=== PATIENT | male | born 1945 | race Caucasian/White ===

== ENCOUNTER → 2019-12-07 10:55 | Outpatient (REF) | payer MEDICARE, MEDICAID, SELFPAY | LOC: OLS.ACW100 10:55 | PROVIDERS: Visit Provider Internal Medicine | DX: Z03.818 Encounter for observation for suspected exposure to other biological agents ruled out (principal) | CPT/HCPCS: 87635; U0003 ==

== ENCOUNTER → 2019-12-13 12:01 | Outpatient (REF) | payer MEDICARE, MEDICAID, SELFPAY | LOC: OLS.ACW100 12:01 | PROVIDERS: Referring Provider Internal Medicine; Visit Provider Internal Medicine | DX: Z03.818 Encounter for observation for suspected exposure to other biological agents ruled out (principal); G93.41 Metabolic encephalopathy; R41.82 Altered mental status, unspecified; M62.81 Muscle weakness (generalized); R26.81 Unsteadiness on feet; R27.9 Unspecified lack of coordination; R41.841 Cognitive communication deficit | CPT/HCPCS: 87635; U0003 ==

== ENCOUNTER → 2019-12-17 04:00 | Outpatient (REF) | payer MEDICARE, MEDICAID, SELFPAY ==
[2019-12-17 08:48] LABS: Hemoglobin 10.9 g/dL (13.0-16.5); Mean Corp Hgb Conc 31.1 g/dL (32-36); Mean Corpuscular Hgb 32.3 pg (27.0-32.0); Mean Corpuscular Volume 103.9 fL (80-94); Mean Platelet Vol. 10.8 fl (6.2-12.0); Platelet Count 141 K/mm3 (150-450); RBC Distribution Width CV 16.5 % (11.6-14.6); RBC Distribution Width SD 62.5 fl (35.1-43.9); Red Blood Count 3.37 M/mm3 (4.6-6.2); White Blood Count 9.3 K/mm3 (4.4-11.0)
[2019-12-17 08:54] LABS: Erythrocyte Sedimentation Rate 58 mm/hr (0-20)
[2019-12-17 09:01] LABS: Anion Gap 8 (5-15); BUN 59 mg/dL (7-18); BUN/Creat Ratio 7.4 RATIO (10-20); Calcium,Total 8.8 mg/dL (8.5-10.1); Chloride 96 mmol/L (98-107); Creatinine, Serum 7.94 mg/dL (0.70-1.30); EST Glomerular Filtration Rate 7 mL/min (>60); Est Glom Filt Rate - Afr Amer 9 mL/min (>60); Glucose 103 mg/dL (74-106); Sodium Level 135 mmol/L (136-145); Uric Acid 5.4 mg/dL (3.5-7.2)
== END ==
LOC: OLS.ACW100 04:00
PROVIDERS: Referring Provider Internal Medicine; Visit Provider Internal Medicine
DX: G93.41 Metabolic encephalopathy (principal); R41.82 Altered mental status, unspecified; M62.81 Muscle weakness (generalized); R26.81 Unsteadiness on feet; R27.9 Unspecified lack of coordination; R41.841 Cognitive communication deficit
CPT/HCPCS: 36415; 80048; 84550; 85027; 85652

== ENCOUNTER → 2020-01-28 05:00 | Outpatient (REF) | payer MEDICARE, MEDICAID, SELFPAY ==
[2020-01-28 08:43] LABS: Erythrocyte Sedimentation Rate 27 mm/hr (0-20)
[2020-01-28 08:57] LABS: Hematocrit 30.4 % (40-54); Hemoglobin 9.8 g/dL (13.0-16.5); Mean Corp Hgb Conc 32.2 g/dL (32-36); Mean Corpuscular Hgb 32.2 pg (27.0-32.0); Mean Platelet Vol. 10.5 fl (6.2-12.0); Platelet Count 140 K/mm3 (150-450); RBC Distribution Width CV 16.5 % (11.6-14.6); RBC Distribution Width SD 59.7 fl (35.1-43.9); Red Blood Count 3.04 M/mm3 (4.6-6.2)
[2020-01-28 09:01] LABS: Anion Gap 8 (5-15); BUN 26 mg/dL (7-18); BUN/Creat Ratio 3.7 RATIO (10-20); Calcium,Total 7.8 mg/dL (8.5-10.1); Chloride 100 mmol/L (98-107); Creatinine, Serum 7.09 mg/dL (0.70-1.30); EST Glomerular Filtration Rate 8 mL/min (>60); Est Glom Filt Rate - Afr Amer 10 mL/min (>60); Glucose 70 mg/dL (74-106); Potassium 3.5 mmol/L (3.5-5.1); Sodium Level 139 mmol/L (136-145)
== END ==
LOC: OLS.ACW100 05:00
PROVIDERS: Referring Provider Internal Medicine; Visit Provider Internal Medicine
DX: G93.41 Metabolic encephalopathy (principal); R41.82 Altered mental status, unspecified; M62.81 Muscle weakness (generalized); R26.81 Unsteadiness on feet; R27.9 Unspecified lack of coordination; R41.841 Cognitive communication deficit
CPT/HCPCS: 36415; 80048; 85027; 85652

== ENCOUNTER → 2020-03-03 04:00 | Outpatient (REF) | payer MEDICARE, MEDICAID, SELFPAY ==
[2020-03-03 08:30] LABS: Hematocrit 26.3 % (40-54); Hemoglobin 8.1 g/dL (13.0-16.5); Mean Corp Hgb Conc 30.8 g/dL (32-36); Mean Corpuscular Hgb 30.7 pg (27.0-32.0); Mean Corpuscular Volume 99.6 fL (80-94); Mean Platelet Vol. 10.9 fl (6.2-12.0); Platelet Count 132 K/mm3 (150-450); RBC Distribution Width CV 17.4 % (11.6-14.6); RBC Distribution Width SD 63.2 fl (35.1-43.9); Red Blood Count 2.64 M/mm3 (4.6-6.2); White Blood Count 5.9 K/mm3 (4.4-11.0)
[2020-03-03 08:41] LABS: ALB/GLOB Ratio 0.5 RATIO (0.9-2.4); AST(SGOT) 11 U/L (15-37); Alanine Aminotransfer ALT/SGPT 12 U/L (16-61); Albumin, Serum 1.9 g/dL (3.2-5.0); Alkaline Phosphatase 99 U/L (45-117); Anion Gap 4 (5-15); BUN 24 mg/dL (7-18); BUN/Creat Ratio 4.6 RATIO (10-20); Calcium,Total 9.7 mg/dL (8.5-10.1); Chloride 96 mmol/L (98-107); Creatinine, Serum 5.24 mg/dL (0.70-1.30); EST Glomerular Filtration Rate 11 mL/min (>60); Est Glom Filt Rate - Afr Amer 14 mL/min (>60); Globulin 3.5 g/dL (2.2-4.2); Glucose 72 mg/dL (74-106); Potassium 3.3 mmol/L (3.5-5.1); Protein, Total 5.4 g/dL (6.4-8.2); Sodium Level 136 mmol/L (136-145)
== END ==
LOC: OLS.ACW100 04:00
PROVIDERS: Referring Provider Internal Medicine; Visit Provider Internal Medicine
DX: N18.6 End stage renal disease (principal); R41.82 Altered mental status, unspecified; U07.1 COVID-19; M62.81 Muscle weakness (generalized); R26.81 Unsteadiness on feet; R27.9 Unspecified lack of coordination
CPT/HCPCS: 36415; 80053; 85027

== ENCOUNTER → 2020-03-10 04:00 | Outpatient (REF) | payer MEDICARE, MEDICAID, SELFPAY ==
[2020-03-10 07:56] LABS: Hematocrit 22.4 % (40-54); Hemoglobin 8.4 g/dL (13.0-16.5); Mean Corp Hgb Conc 37.5 g/dL (32-36); Mean Corpuscular Hgb 38.2 pg (27.0-32.0); Mean Corpuscular Volume 101.8 fL (80-94); Mean Platelet Vol. 10.5 fl (6.2-12.0); Platelet Count 174 K/mm3 (150-450); RBC Distribution Width SD 64.5 fl (35.1-43.9); White Blood Count 6.8 K/mm3 (4.4-11.0)
[2020-03-10 08:40] LABS: Anion Gap 5 (5-15); BUN 14 mg/dL (7-18); Chloride 99 mmol/L (98-107); Creatinine, Serum 4.66 mg/dL (0.70-1.30); EST Glomerular Filtration Rate 13 mL/min (>60); Est Glom Filt Rate - Afr Amer 16 mL/min (>60); Glucose 71 mg/dL (74-106); Iron 48 ug/dL (65-175); Iron Binding Capacity,Total 116 ug/dL (250-450); Potassium 2.9 mmol/L (3.5-5.1); Sodium Level 139 mmol/L (136-145)
[2020-03-10 08:41] LABS: Vitamin B12 1040 pg/mL (211-911)
== END ==
LOC: OLS.ACW100 04:00
PROVIDERS: Visit Provider Internal Medicine
DX: U07.1 COVID-19 (principal); R41.82 Altered mental status, unspecified; M62.81 Muscle weakness (generalized); R26.81 Unsteadiness on feet; R27.9 Unspecified lack of coordination; R41.841 Cognitive communication deficit; N18.6 End stage renal disease
CPT/HCPCS: 36415; 80048; 82607; 82746; 83540; 83550; 85027

== ENCOUNTER → 2020-03-25 05:00 | Outpatient (REF) | payer MEDICARE, MEDICAID, SELFPAY ==
[2020-03-25 08:25] LABS: Hematocrit 34.1 % (40-54); Hemoglobin 10.6 g/dL (13.0-16.5); Mean Corp Hgb Conc 31.1 g/dL (32-36); Mean Platelet Vol. 9.9 fl (6.2-12.0); POSITIVE MORPHOLOGY YES; Platelet Count 176 K/mm3 (150-450); RBC Distribution Width SD 70.5 fl (35.1-43.9); Red Blood Count 3.31 M/mm3 (4.6-6.2); White Blood Count 7.7 K/mm3 (4.4-11.0)
[2020-03-25 08:27] LABS: Scan Indicated on CBC? Y/N YES- FLAGS NOTED
[2020-03-25 08:29] LABS: Anion Gap 9 (5-15); BUN 34 mg/dL (7-18); BUN/Creat Ratio 5.4 RATIO (10-20); Calcium,Total 11.4 mg/dL (8.5-10.1); Chloride 102 mmol/L (98-107); EST Glomerular Filtration Rate 9 mL/min (>60); Est Glom Filt Rate - Afr Amer 11 mL/min (>60); Glucose 66 mg/dL (74-106); Potassium 5.2 mmol/L (3.5-5.1); Sodium Level 136 mmol/L (136-145)
== END ==
LOC: OLS.ACW100 05:00
PROVIDERS: Referring Provider Internal Medicine; Visit Provider Internal Medicine
DX: U07.1 COVID-19 (principal); R41.82 Altered mental status, unspecified; M62.81 Muscle weakness (generalized); R26.81 Unsteadiness on feet; R27.9 Unspecified lack of coordination; R41.841 Cognitive communication deficit
CPT/HCPCS: 36415; 80048; 85027

== ENCOUNTER → 2020-05-16 22:10 | Outpatient (REF) | payer MEDICARE, MEDICAID, SELFPAY ==
[2020-05-17 17:19] LABS: Color, Urine Red (Yellow); Glucose, Dipstick Normal (Normal); Ketone-Dipstick 5 mg/dl (Negative); Leukocyte Esterase-Dipstick 500 /ul (Negative); Nitrite-Dipstick Positive (Negative); Occult Blood-Urine 250 /ul (Negative); Protein-Dipstick 100 mg/dl (Negative); Urine Bilirubin Dipstick Negative (Negative); Urine Clarity Cloudy (Clear); Urine Urobilinogen Normal (Normal)
== END ==
LOC: OLS.ACW100 22:10
PROVIDERS: Visit Provider Internal Medicine
DX: N18.6 End stage renal disease (principal); R41.82 Altered mental status, unspecified; M62.81 Muscle weakness (generalized); R26.81 Unsteadiness on feet; R27.9 Unspecified lack of coordination; R41.841 Cognitive communication deficit
CPT/HCPCS: 81002; 87077; 87086; 87088; 87186

== ENCOUNTER → 2020-05-21 03:00 | Outpatient (REF) | payer MEDICARE, MEDICAID, SELFPAY ==
[2020-05-21 08:35] LABS: Color, Urine Red (Yellow); Glucose, Dipstick 100 mg/dl (Normal); Ketone-Dipstick Negative (Negative); Leukocyte Esterase-Dipstick 500 /ul (Negative); Nitrite-Dipstick Negative (Negative); Occult Blood-Urine 250 /ul (Negative); Protein-Dipstick 100 mg/dl (Negative); Specific Gravity, Urine 1.015 (1.002-1.030); Urine Bilirubin Dipstick Negative (Negative); Urine Clarity Cloudy (Clear); Urine Urobilinogen Normal (Normal)
== END ==
LOC: OLS.ACW100 03:00
PROVIDERS: Referring Provider Internal Medicine; Visit Provider Internal Medicine
DX: N18.6 End stage renal disease (principal); R41.82 Altered mental status, unspecified; M62.81 Muscle weakness (generalized); R26.81 Unsteadiness on feet; R27.9 Unspecified lack of coordination; R41.841 Cognitive communication deficit
CPT/HCPCS: 81002; 87077; 87086; 87088; 87186

== ENCOUNTER → 2020-07-22 04:00 | Outpatient (REF) | payer MEDICARE, MEDICAID, SELFPAY ==
[2020-07-22 09:01] LABS: Cholesterol 126 mg/dL (200); High Density Lipoprotein 38 mg/dL; Triglycerides 144 mg/dL; Very Low Density Lipoprotein 29 mg/dL (5-40)
== END ==
LOC: OLS.ACW100 04:00
PROVIDERS: Referring Provider Internal Medicine; Visit Provider Internal Medicine
DX: N18.6 End stage renal disease (principal); R41.82 Altered mental status, unspecified; M62.81 Muscle weakness (generalized); R26.81 Unsteadiness on feet; R27.9 Unspecified lack of coordination; R41.841 Cognitive communication deficit
CPT/HCPCS: 36415; 80061

== ENCOUNTER → 2021-01-21 05:00 | Outpatient (REF) | payer MEDICARE, MEDICAID, SELFPAY ==
[2021-01-21 09:47] LABS: ALB/GLOB Ratio 0.7 RATIO (0.9-2.4); AST(SGOT) 10 U/L (15-37); Alanine Aminotransfer ALT/SGPT 16 U/L (16-61); Albumin, Serum 3.2 g/dL (3.2-5.0); Alkaline Phosphatase 103 U/L (45-117); Anion Gap 7 (5-15); BUN 39 mg/dL (7-18); BUN/Creat Ratio 6.1 RATIO (10-20); Calcium,Total 8.6 mg/dL (8.5-10.1); Chloride 101 mmol/L (98-107); Cholesterol 98 mg/dL (200); Creatinine, Serum 6.43 mg/dL (0.70-1.30); EST Glomerular Filtration Rate 9 mL/min (>60); Est Glom Filt Rate - Afr Amer 11 mL/min (>60); Globulin 4.3 g/dL (2.2-4.2); Glucose 85 mg/dL (74-106); High Density Lipoprotein 28 mg/dL; Potassium 4.7 mmol/L (3.5-5.1); Protein, Total 7.5 g/dL (6.4-8.2); Sodium Level 140 mmol/L (136-145); Triglycerides 199 mg/dL; Very Low Density Lipoprotein 40 mg/dL (5-40)
[2021-01-21 09:50] LABS: Hematocrit 34.4 % (40-54); Mean Corpuscular Hgb 34.1 pg (27.0-32.0); Mean Corpuscular Volume 106.5 fL (80-94); Mean Platelet Vol. 10.7 fl (6.2-12.0); Platelet Count 158 K/mm3 (150-450); RBC Distribution Width CV 14.9 % (11.6-14.6); RBC Distribution Width SD 57.9 fl (35.1-43.9); Red Blood Count 3.23 M/mm3 (4.6-6.2); White Blood Count 5.8 K/mm3 (4.4-11.0)
== END ==
LOC: OLS.ACW100 05:00
PROVIDERS: Visit Provider Internal Medicine
DX: N18.6 End stage renal disease (principal); R41.82 Altered mental status, unspecified; M62.81 Muscle weakness (generalized); R26.81 Unsteadiness on feet; R27.9 Unspecified lack of coordination; R41.841 Cognitive communication deficit
CPT/HCPCS: 36415; 80053; 80061; 85027

== ENCOUNTER → 2021-02-16 22:00 | Outpatient (REF) | payer MEDICARE, MEDICAID, SELFPAY ==
[2021-02-17 08:26] LABS: Color, Urine Red (Yellow); Glucose, Dipstick 50 mg/dl (Normal); Ketone-Dipstick Negative (Negative); Leukocyte Esterase-Dipstick 100 /ul (Negative); Nitrite-Dipstick Negative (Negative); Occult Blood-Urine 250 /ul (Negative); Protein-Dipstick 100 mg/dl (Negative); Specific Gravity, Urine 1.015 (1.002-1.030); Urine Bilirubin Dipstick Negative (Negative); Urine Clarity Cloudy (Clear); Urine Urobilinogen Normal (Normal)
== END ==
LOC: OLS.ACW100 22:00
PROVIDERS: Visit Provider Internal Medicine
DX: N18.6 End stage renal disease (principal); R41.82 Altered mental status, unspecified; M62.81 Muscle weakness (generalized); R26.81 Unsteadiness on feet; R27.9 Unspecified lack of coordination; R41.841 Cognitive communication deficit
CPT/HCPCS: 81002; 87086; 87088

== ENCOUNTER 2021-02-23 05:00 | Outpatient (REF) | payer MEDICARE, MEDICAID, SELFPAY ==
--- NOTE | 2021-02-23 08:00 | CYSPIN_PTH ---
PATIENT: DALJIT TOMAS LOC: [id number] U#:[id number] AGE/SX: 75/M ROOM: RE02/23/[address]: Gene Stringer : 1945 BED: DIS: 02/23/2021 SPEC #: [id number] RECD: 02/23/21 12:52 STATUS: EDISON TANESHA #: [id number] [place]: 02/23/21 08:[address]: Gene Stringer DEPT: CYTOLOGY RECD BY: Ashley Amaro Tissues: Urine Procedures: Pap Stain (control) Special Stain Group II Cytospin Fluid HEADER OPERATION: Not noted PRE-OP DIAGNOSIS: End-stage renal disease TISSUE SUBMITTED: Urine for cytology DIAGNOSIS CYTOLOGY Urine for cytology (cytospin): Negative for malignant cells. AM:april 02/24/2021 CYTOLOGY STUDY Slides are reviewed. CYTOLOGY GROSS Received is 20 ml of yellow cloudy fluid labeled with the patient's name and and designated per the requisition as urine. Submitted for cytology preparation. / april 02/23/2021 TC:5 CPT: 08690
[2021-02-23 10:36] LABS: Cytology, Body Fluid / CSF SEE PATHOLOGY REPORT
== END 2021-02-23 23:59 | disposition home or self-care (01) ==
LOC: OLS.ACW100 05:00
PROVIDERS: Visit Provider Internal Medicine
DX: N40.0 Benign prostatic hyperplasia without lower urinary tract symptoms (principal); N18.6 End stage renal disease; R41.82 Altered mental status, unspecified; M62.81 Muscle weakness (generalized); R26.81 Unsteadiness on feet; R41.841 Cognitive communication deficit
CPT/HCPCS: 36415; 84153; 88108; 88313

== ENCOUNTER → 2021-07-22 | Outpatient (REF) | payer MEDICARE, MEDICAID, SELFPAY ==
[2021-07-22 11:15] LABS: ALB/GLOB Ratio 0.7 RATIO (0.9-2.4); AST(SGOT) 11 U/L (15-37); Alanine Aminotransfer ALT/SGPT 19 U/L (16-61); Albumin, Serum 3.2 g/dL (3.2-5.0); Alkaline Phosphatase 107 U/L (45-117); Anion Gap 8 (5-15); BUN 46 mg/dL (7-18); BUN/Creat Ratio 6.8 RATIO (10-20); Calcium,Total 9.6 mg/dL (8.5-10.1); Chloride 96 mmol/L (98-107); Cholesterol 126 mg/dL (200); Creatinine, Serum 6.78 mg/dL (0.70-1.30); EST Glomerular Filtration Rate 8 mL/min (>60); Est Glom Filt Rate - Afr Amer 10 mL/min (>60); Globulin 4.6 g/dL (2.2-4.2); Glucose 98 mg/dL (74-106); High Density Lipoprotein 34 mg/dL; Potassium 4.2 mmol/L (3.5-5.1); Protein, Total 7.8 g/dL (6.4-8.2); Sodium Level 137 mmol/L (136-145); Triglycerides 254 mg/dL; Very Low Density Lipoprotein 51 mg/dL (5-40)
[2021-07-22 11:22] LABS: Hematocrit 30.6 % (40-54); Hemoglobin 11.4 g/dL (13.0-16.5); Mean Corp Hgb Conc 37.3 g/dL (32-36); Mean Corpuscular Hgb 40.7 pg (27.0-32.0); Mean Corpuscular Volume 109.3 fL (80-94); Mean Platelet Vol. 10.5 fl (6.2-12.0); Platelet Count 149 K/mm3 (150-450); RBC Distribution Width CV 18.7 % (11.6-14.6); RBC Distribution Width SD 60.4 fl (35.1-43.9); Scan Indicated on CBC? Y/N NO; White Blood Count 7.6 K/mm3 (4.4-11.0)
== END | disposition home or self-care (01) ==
LOC: OLS.ACW100 05:00
PROVIDERS: Referring Provider Internal Medicine; Visit Provider Internal Medicine
DX: N18.6 End stage renal disease (principal); R41.82 Altered mental status, unspecified; M62.81 Muscle weakness (generalized); R26.81 Unsteadiness on feet; R27.9 Unspecified lack of coordination; R41.841 Cognitive communication deficit
CPT/HCPCS: 36415; 80053; 80061; 85027

== ENCOUNTER → 2021-07-24 | Outpatient (REF) | payer MEDICARE, MEDICAID, SELFPAY ==
[2021-07-24 08:30] LABS: ALB/GLOB Ratio 0.7 RATIO (0.9-2.4); AST(SGOT) 13 U/L (15-37); Alanine Aminotransfer ALT/SGPT 20 U/L (16-61); Albumin, Serum 3.4 g/dL (3.2-5.0); Alkaline Phosphatase 106 U/L (45-117); Anion Gap 7 (5-15); BUN 32 mg/dL (7-18); BUN/Creat Ratio 5.4 RATIO (10-20); Calcium,Total 9.6 mg/dL (8.5-10.1); Chloride 96 mmol/L (98-107); Cholesterol 113 mg/dL (200); Creatinine, Serum 5.97 mg/dL (0.70-1.30); EST Glomerular Filtration Rate 10 mL/min (>60); Est Glom Filt Rate - Afr Amer 12 mL/min (>60); Globulin 4.7 g/dL (2.2-4.2); Glucose 105 mg/dL (74-106); High Density Lipoprotein 29 mg/dL; Potassium 4.1 mmol/L (3.5-5.1); Protein, Total 8.1 g/dL (6.4-8.2); Sodium Level 134 mmol/L (136-145); Triglycerides 268 mg/dL; Very Low Density Lipoprotein 54 mg/dL (5-40)
[2021-07-24 08:37] LABS: Hematocrit 35.4 % (40-54); Hemoglobin 11.9 g/dL (13.0-16.5); Mean Corp Hgb Conc 33.6 g/dL (32-36); Mean Corpuscular Hgb 36.4 pg (27.0-32.0); Mean Corpuscular Volume 108.3 fL (80-94); Mean Platelet Vol. 10.7 fl (6.2-12.0); Platelet Count 174 K/mm3 (150-450); RBC Distribution Width CV 16.8 % (11.6-14.6); RBC Distribution Width SD 62.2 fl (35.1-43.9); Red Blood Count 3.27 M/mm3 (4.6-6.2); White Blood Count 8.3 K/mm3 (4.4-11.0)
== END | disposition home or self-care (01) ==
LOC: OLS.ACW100 05:00
PROVIDERS: Referring Provider Internal Medicine; Visit Provider Internal Medicine
DX: N18.6 End stage renal disease (principal); R41.82 Altered mental status, unspecified; M62.81 Muscle weakness (generalized); R26.81 Unsteadiness on feet; R27.9 Unspecified lack of coordination; R41.841 Cognitive communication deficit
CPT/HCPCS: 36415; 80053; 80061; 85027

== ENCOUNTER → 2021-08-25 05:00 | Outpatient (REF) | payer MEDICARE, MEDICAID, SELFPAY ==
[2021-08-25 08:26] LABS: PSA,Total- Diagnostic 2.85 ng/mL (0.0-4.0)
== END ==
LOC: OLS.ACW100 05:00
PROVIDERS: Visit Provider Internal Medicine
DX: N40.0 Benign prostatic hyperplasia without lower urinary tract symptoms (principal); N18.6 End stage renal disease; R41.82 Altered mental status, unspecified; M62.81 Muscle weakness (generalized); R26.81 Unsteadiness on feet; R27.9 Unspecified lack of coordination; R41.841 Cognitive communication deficit
CPT/HCPCS: 36415; 84153

== ENCOUNTER → 2022-01-22 | Outpatient (REF) | payer MEDICARE, MEDICAID, SELFPAY ==
[2022-01-22 09:11] LABS: ALB/GLOB Ratio 0.7 RATIO (0.9-2.4); AST(SGOT) 15 U/L (15-37); Alanine Aminotransfer ALT/SGPT 23 U/L (16-61); Albumin, Serum 3.1 g/dL (3.2-5.0); Alkaline Phosphatase 105 U/L (45-117); Anion Gap 5 (5-15); BUN 24 mg/dL (7-18); BUN/Creat Ratio 4.8 RATIO (10-20); Calcium,Total 9.7 mg/dL (8.5-10.1); Chloride 102 mmol/L (98-107); Cholesterol 93 mg/dL (200); Creatinine, Serum 4.95 mg/dL (0.70-1.30); EST Glomerular Filtration Rate 12 mL/min (>60); Est Glom Filt Rate - Afr Amer 15 mL/min (>60); Globulin 4.3 g/dL (2.2-4.2); Glucose 102 mg/dL (74-106); High Density Lipoprotein 28 mg/dL; Potassium 4.6 mmol/L (3.5-5.1); Protein, Total 7.4 g/dL (6.4-8.2); Sodium Level 139 mmol/L (136-145); Triglycerides 195 mg/dL; Very Low Density Lipoprotein 39 mg/dL (5-40)
[2022-01-22 09:19] LABS: Hematocrit 29.8 % (40-54); Hemoglobin 9.4 g/dL (13.0-16.5); Mean Corp Hgb Conc 31.5 g/dL (32-36); Mean Corpuscular Hgb 34.6 pg (27.0-32.0); Mean Corpuscular Volume 109.6 fL (80-94); POSITIVE COUNT YES; Platelet Count 120 K/mm3 (150-450); RBC Distribution Width CV 15.7 % (11.6-14.6); RBC Distribution Width SD 62.6 fl (35.1-43.9); Red Blood Count 2.72 M/mm3 (4.6-6.2); White Blood Count 6.5 K/mm3 (4.4-11.0)
[2022-01-22 09:37] LABS: Scan Indicated on CBC? Y/N YES- FLAGS NOTED
[2022-01-22 09:39] LABS: Differential Comment S
== END ==
LOC: OLS.ACW100 05:00
PROVIDERS: Referring Provider Internal Medicine; Visit Provider Internal Medicine
DX: N18.6 End stage renal disease (principal); R41.82 Altered mental status, unspecified; M62.81 Muscle weakness (generalized); R26.81 Unsteadiness on feet; R27.9 Unspecified lack of coordination; R41.841 Cognitive communication deficit
CPT/HCPCS: 36415; 80053; 80061; 85027

== ENCOUNTER → 2022-01-29 | Outpatient (REF) | payer MEDICARE, MEDICAID, SELFPAY ==
[2022-01-29 08:22] LABS: Anion Gap 3 (5-15); BUN 18 mg/dL (7-18); BUN/Creat Ratio 3.7 RATIO (10-20); Calcium,Total 8.5 mg/dL (8.5-10.1); Chloride 101 mmol/L (98-107); Creatinine, Serum 4.81 mg/dL (0.70-1.30); EST Glomerular Filtration Rate 13 mL/min (>60); Est Glom Filt Rate - Afr Amer 15 mL/min (>60); Glucose 115 mg/dL (74-106); Potassium 4.4 mmol/L (3.5-5.1); Sodium Level 139 mmol/L (136-145)
[2022-01-29 09:00] LABS: Hematocrit 27.3 % (40-54); Hemoglobin 8.7 g/dL (13.0-16.5); Mean Corp Hgb Conc 31.9 g/dL (32-36); Mean Corpuscular Hgb 35.2 pg (27.0-32.0); Mean Corpuscular Volume 110.5 fL (80-94); Mean Platelet Vol. 11.2 fl (6.2-12.0); Platelet Count 142 K/mm3 (150-450); RBC Distribution Width CV 15.2 % (11.6-14.6); RBC Distribution Width SD 61.1 fl (35.1-43.9); Red Blood Count 2.47 M/mm3 (4.6-6.2); White Blood Count 9.7 K/mm3 (4.4-11.0)
== END ==
LOC: OLS.ACW100 04:00
PROVIDERS: Visit Provider Internal Medicine
DX: R05.9 Cough, unspecified (principal); N18.6 End stage renal disease; R41.82 Altered mental status, unspecified; M62.81 Muscle weakness (generalized); R26.81 Unsteadiness on feet; R27.9 Unspecified lack of coordination; R41.841 Cognitive communication deficit
CPT/HCPCS: 36415; 80048; 85027; 87804

== ENCOUNTER → 2022-03-05 | Outpatient (REF) | payer MEDICARE, MEDICAID, SELFPAY ==
[2022-03-05 09:40] LABS: Hematocrit 29.9 % (40-54); Hemoglobin 9.8 g/dL (13.0-16.5); Mean Corp Hgb Conc 32.8 g/dL (32-36); Mean Corpuscular Hgb 36.4 pg (27.0-32.0); Mean Corpuscular Volume 111.2 fL (80-94); Mean Platelet Vol. 11.1 fl (6.2-12.0); POSITIVE COUNT YES; Platelet Count 129 K/mm3 (150-450); RBC Distribution Width SD 62.7 fl (35.1-43.9); Red Blood Count 2.69 M/mm3 (4.6-6.2); White Blood Count 6.5 K/mm3 (4.4-11.0)
[2022-03-05 09:45] LABS: ALB/GLOB Ratio 0.8 RATIO (0.9-2.4); AST(SGOT) 12 U/L (15-37); Alanine Aminotransfer ALT/SGPT 26 U/L (16-61); Alkaline Phosphatase 151 U/L (45-117); Anion Gap 7 (5-15); BUN 25 mg/dL (7-18); BUN/Creat Ratio 5.2 RATIO (10-20); Calcium,Total 8.6 mg/dL (8.5-10.1); Chloride 100 mmol/L (98-107); EST Glomerular Filtration Rate 13 mL/min (>60); Est Glom Filt Rate - Afr Amer 15 mL/min (>60); Globulin 3.9 g/dL (2.2-4.2); Glucose 101 mg/dL (74-106); Potassium 4.7 mmol/L (3.5-5.1); Protein, Total 6.9 g/dL (6.4-8.2); Sodium Level 139 mmol/L (136-145)
[2022-03-05 10:17] LABS: Scan Indicated on CBC? Y/N YES- FLAGS NOTED
== END ==
LOC: OLS.ACW100 05:00
PROVIDERS: Visit Provider Internal Medicine
DX: N18.6 End stage renal disease (principal); R41.82 Altered mental status, unspecified; M62.81 Muscle weakness (generalized); R26.81 Unsteadiness on feet; R27.9 Unspecified lack of coordination; R41.841 Cognitive communication deficit; Z79.899 Other long term (current) drug therapy
CPT/HCPCS: 36415; 80053; 85027

== ENCOUNTER → 2022-07-23 | Outpatient (REF) | payer MEDICARE, MEDICAID, SELFPAY ==
[2022-07-23 08:38] LABS: Anion Gap 8 (5-15); BUN 41 mg/dL (7-18); BUN/Creat Ratio 6.6 RATIO (10-20); Calcium,Total 10.2 mg/dL (8.5-10.1); Chloride 103 mmol/L (98-107); Cholesterol 91 mg/dL (200); EST Glomerular Filtration Rate 9 mL/min (>60); Est Glom Filt Rate - Afr Amer 11 mL/min (>60); Glucose 102 mg/dL (74-106); High Density Lipoprotein 27 mg/dL; Potassium 4.4 mmol/L (3.5-5.1); Sodium Level 139 mmol/L (136-145); Triglycerides 162 mg/dL; Very Low Density Lipoprotein 32 mg/dL (5-40)
[2022-07-23 08:58] LABS: Hematocrit 28.4 % (40-54); Hemoglobin 9.4 g/dL (13.0-16.5); Mean Corp Hgb Conc 33.1 g/dL (32-36); Mean Corpuscular Hgb 36.4 pg (27.0-32.0); Mean Corpuscular Volume 110.1 fL (80-94); Platelet Count 142 K/mm3 (150-450); RBC Distribution Width CV 15.1 % (11.6-14.6); RBC Distribution Width SD 58.2 fl (35.1-43.9); Red Blood Count 2.58 M/mm3 (4.6-6.2); White Blood Count 7.5 K/mm3 (4.4-11.0)
== END ==
LOC: OLS.ACW100 05:00
PROVIDERS: Visit Provider Family Medicine
DX: N18.6 End stage renal disease (principal); R41.82 Altered mental status, unspecified; M62.81 Muscle weakness (generalized); R26.81 Unsteadiness on feet; R27.9 Unspecified lack of coordination; R41.841 Cognitive communication deficit
CPT/HCPCS: 36415; 80048; 80061; 85027

== ENCOUNTER → 2022-08-04 | Outpatient (REF) | payer MEDICARE, MEDICAID, SELFPAY ==
[2022-08-04 09:58] LABS: Anion Gap 10 (5-15); BUN 26 mg/dL (7-18); BUN/Creat Ratio 4.9 RATIO (10-20); Calcium,Total 10.6 mg/dL (8.5-10.1); Chloride 100 mmol/L (98-107); Cholesterol 129 mg/dL (200); Creatinine, Serum 5.31 mg/dL (0.70-1.30); EST Glomerular Filtration Rate 11 mL/min (>60); Est Glom Filt Rate - Afr Amer 14 mL/min (>60); Glucose 96 mg/dL (74-106); High Density Lipoprotein 27 mg/dL; Potassium 4.5 mmol/L (3.5-5.1); Sodium Level 138 mmol/L (136-145); Triglycerides 222 mg/dL; Very Low Density Lipoprotein 44 mg/dL (5-40)
[2022-08-04 10:28] LABS: Hemoglobin 10.5 g/dL (13.0-16.5); Mean Corp Hgb Conc 31.8 g/dL (32-36); Mean Corpuscular Hgb 34.8 pg (27.0-32.0); Mean Corpuscular Volume 109.3 fL (80-94); Mean Platelet Vol. 10.5 fl (6.2-12.0); Platelet Count 170 K/mm3 (150-450); RBC Distribution Width CV 14.8 % (11.6-14.6); Red Blood Count 3.02 M/mm3 (4.6-6.2); White Blood Count 8.3 K/mm3 (4.4-11.0)
== END ==
LOC: OLS.ACW100 05:00
PROVIDERS: PCP Internal Medicine; Visit Provider Internal Medicine
DX: N18.6 End stage renal disease (principal); R41.82 Altered mental status, unspecified; M62.81 Muscle weakness (generalized); R26.81 Unsteadiness on feet; R41.841 Cognitive communication deficit; Z79.899 Other long term (current) drug therapy
CPT/HCPCS: 36415; 80048; 80061; 85027

== ENCOUNTER → 2022-08-06 | Outpatient (REF) | payer MEDICARE, MEDICAID, SELFPAY ==
[2022-08-06 08:27] LABS: ALB/GLOB Ratio 0.6 RATIO (0.9-2.4); AST(SGOT) 14 U/L (15-37); Alanine Aminotransfer ALT/SGPT 21 U/L (16-61); Albumin, Serum 2.8 g/dL (3.2-5.0); Alkaline Phosphatase 145 U/L (45-117); Anion Gap 8 (5-15); BUN 18 mg/dL (7-18); BUN/Creat Ratio 3.9 RATIO (10-20); Calcium,Total 10.1 mg/dL (8.5-10.1); Chloride 100 mmol/L (98-107); Creatinine, Serum 4.56 mg/dL (0.70-1.30); EST Glomerular Filtration Rate 13 mL/min (>60); Est Glom Filt Rate - Afr Amer 16 mL/min (>60); Globulin 4.6 g/dL (2.2-4.2); Glucose 89 mg/dL (74-106); Potassium 3.8 mmol/L (3.5-5.1); Protein, Total 7.4 g/dL (6.4-8.2); Sodium Level 139 mmol/L (136-145)
[2022-08-06 08:57] LABS: Hematocrit 30.3 % (40-54); Hemoglobin 9.9 g/dL (13.0-16.5); Mean Corp Hgb Conc 32.7 g/dL (32-36); Mean Corpuscular Hgb 36.5 pg (27.0-32.0); Mean Corpuscular Volume 111.8 fL (80-94); Platelet Count 159 K/mm3 (150-450); RBC Distribution Width CV 14.7 % (11.6-14.6); RBC Distribution Width SD 57.2 fl (35.1-43.9); Red Blood Count 2.71 M/mm3 (4.6-6.2); White Blood Count 6.1 K/mm3 (4.4-11.0)
== END ==
LOC: OLS.ACW100 05:00
PROVIDERS: Visit Provider Family Medicine
DX: N18.6 End stage renal disease (principal); R41.82 Altered mental status, unspecified; M62.81 Muscle weakness (generalized); R26.81 Unsteadiness on feet; R27.9 Unspecified lack of coordination; R41.841 Cognitive communication deficit
CPT/HCPCS: 36415; 80053; 85027

== ENCOUNTER → 2022-08-20 | Outpatient (REF) | payer MEDICARE, MEDICAID, SELFPAY ==
[2022-08-20 09:10] LABS: ALB/GLOB Ratio 0.7 RATIO (0.9-2.4); AST(SGOT) 14 U/L (15-37); Alanine Aminotransfer ALT/SGPT 20 U/L (16-61); Albumin, Serum 2.8 g/dL (3.2-5.0); Alkaline Phosphatase 189 U/L (45-117); Anion Gap 5 (5-15); BUN 20 mg/dL (7-18); BUN/Creat Ratio 4.2 RATIO (10-20); Calcium,Total 10.4 mg/dL (8.5-10.1); Chloride 101 mmol/L (98-107); Creatinine, Serum 4.79 mg/dL (0.70-1.30); EST Glomerular Filtration Rate 13 mL/min (>60); Est Glom Filt Rate - Afr Amer 15 mL/min (>60); Globulin 4.3 g/dL (2.2-4.2); Glucose 102 mg/dL (74-106); Potassium 4.2 mmol/L (3.5-5.1); Protein, Total 7.1 g/dL (6.4-8.2); Sodium Level 135 mmol/L (136-145)
[2022-08-20 09:22] LABS: Hematocrit 30.7 % (40-54); Hemoglobin 10.3 g/dL (13.0-16.5); Mean Corp Hgb Conc 33.6 g/dL (32-36); Mean Corpuscular Hgb 36.1 pg (27.0-32.0); Mean Corpuscular Volume 107.7 fL (80-94); Mean Platelet Vol. 11.1 fl (6.2-12.0); Platelet Count 121 K/mm3 (150-450); RBC Distribution Width SD 54.1 fl (35.1-43.9); Red Blood Count 2.85 M/mm3 (4.6-6.2); White Blood Count 6.5 K/mm3 (4.4-11.0)
== END ==
LOC: OLS.ACW100 07:12
PROVIDERS: Visit Provider Internal Medicine
DX: N18.6 End stage renal disease (principal); R41.82 Altered mental status, unspecified; M62.81 Muscle weakness (generalized); R26.81 Unsteadiness on feet; R27.9 Unspecified lack of coordination; R41.841 Cognitive communication deficit
CPT/HCPCS: 36415; 80053; 85027

== ENCOUNTER → 2022-08-23 | Outpatient (REF) | payer MEDICARE, MEDICAID, SELFPAY ==
[2022-08-23 08:21] LABS: Bacteria 0 SEEN /hpf (None Seen); Mucous, Urine 0 SEEN /hpf (<or=2+); Squamous Epithelial Cells - UA 0 SEEN /hpf (0-5)
[2022-08-23 09:21] LABS: Color, Urine Red (Yellow); Glucose, Dipstick Normal (Normal); Ketone-Dipstick 15 mg/dl (Negative); Leukocyte Esterase-Dipstick Negative /ul (Negative); Nitrite-Dipstick Negative (Negative); Occult Blood-Urine 250 /ul (Negative); Protein-Dipstick 500 mg/dl (Negative); Urine Bilirubin Dipstick Negative (Negative); Urine Clarity Turbid (Clear); Urine Urobilinogen Normal (Normal)
[2022-08-23 09:43] LABS: Red Blood Cells-Urine > 100 SEEN /hpf (0-5); White Blood Cells 10-25 SEEN /hpf (0-5)
== END ==
LOC: OLS.ACW100 02:00
PROVIDERS: Visit Provider Family Medicine
DX: R41.82 Altered mental status, unspecified (principal)
CPT/HCPCS: 81001

== ENCOUNTER → 2022-08-27 | Outpatient (REF) | payer MEDICARE, MEDICAID, SELFPAY ==
[2022-08-27 08:26] LABS: Hemoglobin 10.4 g/dL (13.0-16.5); POSITIVE COUNT YES; Platelet Count 141 K/mm3 (150-450); RBC Distribution Width CV 14.6 % (11.6-14.6); RBC Distribution Width SD 54.9 fl (35.1-43.9); White Blood Count 6.7 K/mm3 (4.4-11.0)
[2022-08-27 08:41] LABS: Anion Gap 9 (5-15); BUN 17 mg/dL (7-18); BUN/Creat Ratio 3.4 RATIO (10-20); Calcium,Total 10.6 mg/dL (8.5-10.1); Chloride 103 mmol/L (98-107); Creatinine, Serum 5.03 mg/dL (0.70-1.30); EST Glomerular Filtration Rate 12 mL/min (>60); Est Glom Filt Rate - Afr Amer 14 mL/min (>60); Glucose 126 mg/dL (74-106); Potassium 3.6 mmol/L (3.5-5.1); Sodium Level 141 mmol/L (136-145)
[2022-08-27 09:46] LABS: Hematocrit 31.6 % (40-54); Mean Corpuscular Hgb 36.7 pg (27.0-32.0); Mean Corpuscular Volume 111.7 fL (80-94)
[2022-08-27 09:47] LABS: Mean Corp Hgb Conc 32.9 g/dL (32-36)
== END ==
LOC: OLS.ACW300 05:00
PROVIDERS: Visit Provider Internal Medicine
DX: N18.6 End stage renal disease (principal); R41.82 Altered mental status, unspecified; M62.81 Muscle weakness (generalized); R26.81 Unsteadiness on feet; R27.9 Unspecified lack of coordination; R41.841 Cognitive communication deficit
CPT/HCPCS: 36415; 80048; 85027

== ENCOUNTER → 2022-09-03 | Outpatient (REF) | payer MEDICARE, MEDICAID, SELFPAY ==
[2022-09-03 09:29] LABS: Anion Gap 5 (5-15); BUN 18 mg/dL (7-18); BUN/Creat Ratio 3.4 RATIO (10-20); Calcium,Total 9.7 mg/dL (8.5-10.1); Chloride 103 mmol/L (98-107); Creatinine, Serum 5.26 mg/dL (0.70-1.30); EST Glomerular Filtration Rate 11 mL/min (>60); Est Glom Filt Rate - Afr Amer 14 mL/min (>60); Glucose 93 mg/dL (74-106); Sodium Level 141 mmol/L (136-145)
[2022-09-03 09:53] LABS: Hematocrit 30.3 % (40-54); Mean Corpuscular Volume 112.2 fL (80-94); Mean Platelet Vol. 10.6 fl (6.2-12.0); Platelet Count 114 K/mm3 (150-450); RBC Distribution Width CV 15.5 % (11.6-14.6); RBC Distribution Width SD 59.8 fl (35.1-43.9); White Blood Count 5.5 K/mm3 (4.4-11.0)
== END ==
LOC: OLS.ACW100 05:00
PROVIDERS: Visit Provider Internal Medicine
DX: N18.6 End stage renal disease (principal); R41.82 Altered mental status, unspecified; M62.81 Muscle weakness (generalized); R26.81 Unsteadiness on feet; R27.9 Unspecified lack of coordination; R41.841 Cognitive communication deficit
CPT/HCPCS: 36415; 80048; 85027

== ENCOUNTER → 2022-09-27 | Outpatient (REF) | payer MEDICARE, MEDICAID, SELFPAY ==
[2022-09-27 09:46] LABS: Anion Gap 6 (5-15); BUN 28 mg/dL (7-18); BUN/Creat Ratio 4.8 RATIO (10-20); Chloride 101 mmol/L (98-107); Creatinine, Serum 5.86 mg/dL (0.70-1.30); EST Glomerular Filtration Rate 10 mL/min (>60); Est Glom Filt Rate - Afr Amer 12 mL/min (>60); Glucose 95 mg/dL (74-106); Potassium 3.6 mmol/L (3.5-5.1); Sodium Level 139 mmol/L (136-145)
[2022-09-27 10:14] LABS: Hematocrit 33.6 % (40-54); Hemoglobin 10.3 g/dL (13.0-16.5); Mean Corp Hgb Conc 30.7 g/dL (32-36); Mean Corpuscular Hgb 33.8 pg (27.0-32.0); Mean Corpuscular Volume 110.2 fL (80-94); Mean Platelet Vol. 10.7 fl (6.2-12.0); Platelet Count 160 K/mm3 (150-450); RBC Distribution Width CV 15.1 % (11.6-14.6); RBC Distribution Width SD 59.5 fl (35.1-43.9); Red Blood Count 3.05 M/mm3 (4.6-6.2); White Blood Count 8.5 K/mm3 (4.4-11.0)
== END ==
LOC: OLS.ACW100 05:00
PROVIDERS: Visit Provider Internal Medicine
DX: N18.6 End stage renal disease (principal); R41.82 Altered mental status, unspecified; M62.81 Muscle weakness (generalized); R26.81 Unsteadiness on feet; R41.841 Cognitive communication deficit
CPT/HCPCS: 36415; 80048; 85027

== ENCOUNTER → 2022-12-29 | Outpatient (REF) | payer MEDICARE, MEDICAID, SELFPAY ==
[2022-12-29 09:14] LABS: Anion Gap 6 (5-15); BUN 31 mg/dL (7-18); Calcium,Total 9.1 mg/dL (8.5-10.1); Chloride 96 mmol/L (98-107); Creatinine, Serum 5.18 mg/dL (0.70-1.30); EST Glomerular Filtration Rate 12 mL/min (>60); Est Glom Filt Rate - Afr Amer 14 mL/min (>60); Glucose 94 mg/dL (74-106); Potassium 4.5 mmol/L (3.5-5.1); Sodium Level 137 mmol/L (136-145)
[2022-12-29 09:37] LABS: Hematocrit 32.9 % (40-54); Hemoglobin 10.5 g/dL (13.0-16.5); Mean Corp Hgb Conc 31.9 g/dL (32-36); Mean Corpuscular Hgb 32.9 pg (27.0-32.0); Mean Corpuscular Volume 103.1 fL (80-94); Mean Platelet Vol. 11.3 fl (6.2-12.0); Platelet Count 104 K/mm3 (150-450); RBC Distribution Width CV 14.6 % (11.6-14.6); RBC Distribution Width SD 53.6 fl (35.1-43.9); Red Blood Count 3.19 M/mm3 (4.6-6.2); White Blood Count 4.7 K/mm3 (4.4-11.0)
== END ==
LOC: OLS.ACW100 05:00
PROVIDERS: Visit Provider Internal Medicine
DX: N18.6 End stage renal disease (principal); R41.82 Altered mental status, unspecified; M62.81 Muscle weakness (generalized); R26.81 Unsteadiness on feet
CPT/HCPCS: 36415; 80048; 85027

== ENCOUNTER → 2023-02-04 | Outpatient (REF) | payer MEDICARE, MEDICAID, SELFPAY ==
[2023-02-04 08:59] LABS: ALB/GLOB Ratio 0.7 RATIO (0.9-2.4); AST(SGOT) 13 U/L (15-37); Alanine Aminotransfer ALT/SGPT 20 U/L (16-61); Albumin, Serum 2.9 g/dL (3.2-5.0); Alkaline Phosphatase 195 U/L (45-117); Anion Gap 6 (5-15); BUN 26 mg/dL (7-18); Calcium,Total 9.5 mg/dL (8.5-10.1); Chloride 99 mmol/L (98-107); Cholesterol 121 mg/dL (200); Creatinine, Serum 5.17 mg/dL (0.70-1.30); EST Glomerular Filtration Rate 12 mL/min (>60); Est Glom Filt Rate - Afr Amer 14 mL/min (>60); Globulin 4.3 g/dL (2.2-4.2); Glucose 91 mg/dL (74-106); High Density Lipoprotein 33 mg/dL; Potassium 4.7 mmol/L (3.5-5.1); Protein, Total 7.2 g/dL (6.4-8.2); Sodium Level 138 mmol/L (136-145); Triglycerides 187 mg/dL; Very Low Density Lipoprotein 37 mg/dL (5-40)
[2023-02-04 09:59] LABS: Hematocrit 35.6 % (40-54); Hemoglobin 11.3 g/dL (13.0-16.5); Mean Corp Hgb Conc 31.7 g/dL (32-36); Mean Corpuscular Hgb 32.1 pg (27.0-32.0); Mean Corpuscular Volume 101.1 fL (80-94); POSITIVE COUNT YES; Platelet Count 97 K/mm3 (150-450); RBC Distribution Width CV 15.3 % (11.6-14.6); RBC Distribution Width SD 54.5 fl (35.1-43.9); Red Blood Count 3.52 M/mm3 (4.6-6.2); White Blood Count 5.3 K/mm3 (4.4-11.0)
[2023-02-04 10:03] LABS: Scan Indicated on CBC? Y/N NO
== END ==
LOC: OLS.ACW100 04:00
PROVIDERS: Referring Provider Internal Medicine; Visit Provider Internal Medicine
DX: N18.6 End stage renal disease (principal); R41.82 Altered mental status, unspecified; M62.81 Muscle weakness (generalized); R41.841 Cognitive communication deficit; Z79.899 Other long term (current) drug therapy
CPT/HCPCS: 36415; 80053; 80061; 85027

== ENCOUNTER → 2023-03-07 | Outpatient (REF) | payer MEDICARE, MEDICAID, SELFPAY ==
[2023-03-07 08:30] LABS: Hematocrit 35.4 % (40-54); Hemoglobin 11.4 g/dL (13.0-16.5); Mean Corp Hgb Conc 32.2 g/dL (32-36); Mean Corpuscular Volume 99.4 fL (80-94); Mean Platelet Vol. 11.8 fl (6.2-12.0); Platelet Count 112 K/mm3 (150-450); RBC Distribution Width CV 14.6 % (11.6-14.6); RBC Distribution Width SD 52.6 fl (35.1-43.9); Red Blood Count 3.56 M/mm3 (4.6-6.2); White Blood Count 5.3 K/mm3 (4.4-11.0)
[2023-03-07 12:26] LABS: Anion Gap 8 (5-15); BUN 40 mg/dL (7-18); BUN/Creat Ratio 5.5 RATIO (10-20); Calcium,Total 9.3 mg/dL (8.5-10.1); Chloride 99 mmol/L (98-107); Creatinine, Serum 7.21 mg/dL (0.70-1.30); EST Glomerular Filtration Rate 8 mL/min (>60); Est Glom Filt Rate - Afr Amer 10 mL/min (>60); Glucose 88 mg/dL (74-106); Potassium 4.5 mmol/L (3.5-5.1); Sodium Level 140 mmol/L (136-145)
== END ==
LOC: OLS.ACW100 05:00
PROVIDERS: Visit Provider Internal Medicine
DX: N18.6 End stage renal disease (principal); R41.82 Altered mental status, unspecified; M62.81 Muscle weakness (generalized); R26.81 Unsteadiness on feet
CPT/HCPCS: 36415; 80048; 85027

== ENCOUNTER → 2023-03-31 | Outpatient (REF) | payer MEDICARE, MEDICAID, SELFPAY ==
--- OUTSIDE RECORDS SUMMARY | 2023-03-31 04:52 | XMS RPT_ITS | CCD ---
Author Name Unknown Address [address] [facility] [address] [place] [address] Organization [facility] Care Team Providers Care Acute Care Clinical Nurse Specialist Name Role Phone Sarina Pineda Primary Care Provider Gene Stringer Primary Care Provider Sarina Pineda MD Primary Care Provider JIM KNUTSON Attending Unavailable SARINA PINEDA Primary Care Unavailable SARINA PINEDA Primary Care Unavailable MYRON VIVEROS Admitting Unavailable TOYIN MACIAS Consulting Unavailable ALICIA CARNEY Attending Unavailable MAYTE PASTOR Consulting Unavailable Gene Stringer Primary Care Provider [phone] Medications Current Medications Medication Drug Class(es) Dates Sig (Normalized) Sig (Original) Acetaminophen (4 sources) Start: 02-17-2020 acetaminophen (TYLENOL) tablet 650 mg Completed/Discontinued Medications Medication Drug Class(es) Dates Sig (Normalized) Sig (Original) amantadine hydrochloride 100 mg oral capsule (10 sources) Influenza A M2 Protein Inhibitor Start: 01-29-2020 End: 01-29-2020 take 100 mg by mouth once daily 100 mg, Oral, DAILY, First dose on Tue01/29/20 at 1100 Problems Active Problems Problem Classification Problem Date Documented Date Episodic/Chronic Acute and unspecified renal failure (11 sources) Chronic renal failure; Translations: [Chronic kidney disease, stage 5] Onset: 03-12-2019 03-16-2019 Chronic Acute myocardial infarction (1 source) Myocardial infarction; Translations: [NSTEMI (non-ST elevated myocardial infarction) (HCC)] Chronic Cardiac dysrhythmias (17 sources) Atrial fibrillation; Translations: [Atrial fibrillation with rapid ventricular response] Onset: 02-16-2020 02-16-2020 Chronic Chronic kidney disease (16 sources) End-stage renal disease; Translations: [End stage renal failure on dialysis] Onset: 03-16-2019 03-16-2019 Chronic Deficiency and other anemia (1 source) Anemia of chronic disease; Translations: [Anemia of chronic disease] Chronic Fever of unknown origin (2 sources) Fever; Translations: [Disorder characterized by fever] Episodic Immunizations and screening for infectious disease (1 source) Contact with and (suspected) exposure to other viral communicable diseases; Translations: [Suspected COVID-19 virus infection] Episodic Lung disease due to external agents (1 source) Aspiration into respiratory tract; Translations: [Aspiration into airway, initial encounter] Episodic Other aftercare (1 source) Post-discharge follow-up; Translations: [Encounter for follow-up examination after completed treatment for conditions other than malignant neoplasm] 08-23-2022 Episodic Other aftercare (1 source) Long-term current use of anticoagulant; Translations: [half-way (current) use of anticoagulants] 08-23-2022 Episodic Other diseases of kidney and ureters (1 source) Acquired renal cystic disease; Translations: [Cyst of kidney, acquired] Episodic Other lower respiratory disease (1 source) Hypoxia; Translations: [Hypoxia] Episodic Other nervous system disorders (9 sources) Metabolic encephalopathy; Translations: [Metabolic encephalopathy] Onset: 03-16-2019 03-16-2019 Chronic Other nervous system disorders (1 source) H/O: brain disorder; Translations: [Personal history of other diseases of the nervous system and sense organs] 08-23-2022 Episodic Parkinson`s disease (9 sources) Parkinson's disease; Translations: [Parkinson's disease] Onset: 03-16-2019 03-16-2019 Chronic Unclassified (2 sources) Longstanding persistent atrial fibrillation; Translations: [Longstanding persistent atrial fibrillation (HCC)] Onset: 12-06-2021 Past or Other Problems Problem Classification Problem Date Documented Da te Episodic/Chronic Malaise and fatigue (2 sources) Fatigue; Translations: [Asthenia] Episodic Other aftercare (2 sources) Encounter for follow-up examination after completed treatment for conditions other than malignant neoplasm; Translations: [Encounter for follow-up examination after completed treatment for conditions other than malignant neoplasm] Onset: 08-23-2022 Episodic Other aftercare (2 sources) half-way (current) use of anticoagulants; Translations: [half-way (current) use of anticoagulants] Onset: 08-23-2022 Episodic Other circulatory disease (4 sources) Low blood pressure; Translations: [Hypotension, unspecified] Onset: 07-24-2022 07-24-2022 Episodic Other circulatory disease (2 sources) Hypotension, unspecified; Translations: [Hypotension, unspecified] Onset: 07-24-2022 Episodic Other nervous system disorders (2 sources) Personal history of other diseases of the nervous system and sense organs; Translations: [Personal history of other diseases of the nervous system and sense organs] Onset: 08-23-2022 Episodic Residual codes; unclassified (1 source) Altered mental status Episodic Viral infection (9 sources) Other specified viral infection; Translations: [Disease caused by 2019-nCoV] Onset: 01-28-2020 01-28-2020 Episodic Results Test Name Value Interpretation Reference Range Facil ity Vital Signs Date Time Vital Sign Value Performing Clinician Facility 03-30-2023 14:00-0500 Body height 167.6 cm Ishmael Edouard MD Work Phone: [facility] 03-30-2023 14:00-0500 Body mass index (BMI) [Ratio] 27.12 kg/m2 Ishmael Edouard MD Work Phone: [facility] 03-30-2023 14:00-0500 Body weight 76.2 kg Ishmael Edouard MD Work Phone: [facility] 03-30-2023 14:00-0500 Diastolic blood pressure 60 mm[Hg] Ishmael Edouard MD Work Phone: [facility] 03-30-2023 14:00-0500 Heart rate 60 /min Ishmael Edouard MD Work Phone: [facility] 03-30-2023 14:00-0500 SaO2% (BldA) [Mass fraction] 96 % Ishmael Edouard MD Work Phone: [facility] 03-30-2023 14:00-0500 Systolic blood pressure 120 mm[Hg] Ishmael Edouard MD Work Phone: [facility] 08-23-2022 13:46-0400 Body height 170.2 cm Jim Knutson [employer] Work Phone: [facility] [email or web address] 08-23-2022 13:46-0400 Diastolic blood pressure 60 mm[Hg] Jim Knutson [employer] Work Phone: [facility] [email or web address] 08-23-2022 13:46-0400 Heart rate 69 /min Jim Knutson [employer] Work Phone: [facility] [email or web address] 08-23-2022 13:46-0400 Respiratory rate 16 /min Jim Knutson [employer] Work Phone: [facility] [email or web address] 08-23-2022 13:46-0400 Systolic blood pressure 124 mm[Hg] Jim Knutson [employer] Work Phone: [facility] 08-26-2021 13:26-0400 Body height 170.2 cm Joanna Cullen PA-C Work Phone: [facility] 08-26-2021 13:26-0400 Diastolic blood pressure 62 mm[Hg] Joanna Cullen PA-C Work Phone: [facility] 08-26-2021 13:26-0400 Heart rate 74 /min Joanna Cullen PA-C Work Phone: [facility] 08-26-2021 13:26-0400 Systolic blood pressure 98 mm[Hg] Joanna Cullen PA-C Work Phone: [facility] 03-10-2020 21:56-0500 BP Diastolic 54 mm[Hg] [facility] [place] 03-10-2020 21:56-0500 BP Systolic 152 mm[Hg] [facility] [place] 03-10-2020 21:56-0500 Pulse (Heart Rate) 60 /min [facility] 03-10-2020 21:56-0500 Pulse Oximetry 97 % [facility] [place] 03-10-2020 20:54-0500 Respiratory Rate 15 /min [facility] 03-10-2020 19:09-0500 BMI (Body Mass Index) 24.21 kg/m2 [facility], [place] 03-10-2020 19:09-0500 Body Temperature 98.6 [degF] Annamarie Mcgrath [facility], [place] 03-10-2020 19:09-0500 Body weight 68.04 kg [facility] [place] 03-10-2020 19:09-0500 Height 167.6 cm [facility] [place] 02-20-2020 08:02-0500 Body Temperature 98.1 [degF] [facility] [place] 02-20-2020 08:02-0500 BP Diastolic 54 mm[Hg] [facility] [place] 02-20-2020 08:02-0500 BP Systolic 132 mm[Hg] [facility] [place] 02-20-2020 08:02-0500 Pulse (Heart Rate) 77 /min [facility] [place] 02-20-2020 08:02-0500 Pulse Oximetry 93 % [facility] [place] 02-20-2020 08:02-0500 Respiratory Rate 16 /min [facility] [place] 02-20-2020 06:00-0500 BMI (Body Mass Index) 29.36 kg/m2 [facility] [place] 02-20-2020 06:00-0500 Body weight 82.51 kg [facility] [place] 02-19-2020 09:59-0500 Height 167.6 cm [facility] [place] 02-02-2020 14:14-0500 Body Temperature 97.7 [degF] [facility] [place] 02-02-2020 14:14-0500 BP Diastolic 72 mm[Hg] [facility] [place] 02-02-2020 14:14-0500 BP Systolic 121 mm[Hg] [facility] , [place] 02-02-2020 14:14-0500 Pulse (Heart Rate) 60 /min [facility], [place] 02-02-2020 14:14-0500 Pulse Oximetry 100 % [facility] , [place] 02-02-2020 14:14-0500 Respiratory Rate 17 /min [facility], [place] 02-02-2020 13:20-0500 BMI (Body Mass Index) 29.46 kg/m2 [facility], [place] 02-02-2020 13:20-0500 Body weight 82.8 kg [facility] , [place] 01-30-2020 11:39-0500 Height 167.6 cm [facility] , [place] 01-27-2020 02:01-0500 Body Temperature 98.2 [degF] [facility] [place] 01-27-2020 02:01-0500 BP Diastolic 60 mm[Hg] [facility], [place] 01-27-2020 02:01-0500 BP Systolic 126 mm[Hg] [facility], [place] 01-27-2020 02:01-0500 Pulse (Heart Rate) 57 /min [facility], [place] 01-27-2020 02:01-0500 Pulse Oximetry 92 % [facility] [place] 01-27-2020 02:01-0500 Respiratory Rate 16 /min [facility] [place] 06-07-2019 10:45-0400 Body Temperature 98.49 [degF] [facility], [place] 06-07-2019 10:45-0400 BP Diastolic 63 mm[Hg] [facility] , [place] 06-07-2019 10:45-0400 BP Systolic 150 mm[Hg] [facility] , [place] 06-07-2019 10:45-0400 Pulse (Heart Rate) 64 /min [facility] [place] 06-07-2019 10:45-0400 Pulse Oximetry 99 % Toyin [facility] , [place] 06-07-2019 10:45-0400 Respiratory Rate 20 /min Toyin [facility], [place] 06-07-2019 07:31-0400 BMI (Body Mass Index) 29.55 kg/m2 Toyin [facility], [place] 06-07-2019 07:31-0400 Body weight 83.05 kg Toyin [facility] , [place] 06-07-2019 07:31-0400 Height 167.6 cm Toyin [facility] , [place] 03-16-2019 07:50-0500 Body temperature 98.49 [degF] Odilon [facility]offett MD [facility] Work Phone: 03-16-2019 07:50-0500 Diastolic blood pressure 66 mm[Hg] Odilon Moffett MD [facility] Work Phone: 03-16-2019 07:50-0500 Heart rate 68 /min Odilon Moffett MD [facility] Work Phone: 03-16-2019 07:50-0500 Respiratory rate 16 /min Odilon Moffett MD [facility] Work Phone: 03-16-2019 07:50-0500 SaO2% (BldA) [Mass fraction] 95 % Odilon Moffett MD [facility] Work Phone: 03-16-2019 07:50-0500 Systolic blood pressure 124 mm[Hg] Odilon Moffett MD [facility] Work Phone: 03-15-2019 06:00-0500 Body mass index (BMI) [Ratio] 24.88 kg/m2 Odilon Moffett MD [facility] Work Phone: 03-15-2019 06:00-0500 Body weight 74.21 kg Odilon Moffett MD Work Phone: [facility] Work Phone: 03-12-2019 12:52-0500 Body height 172.7 cm Odilon Moffett MD Work Phone: [facility] Work Phone: Encounters Encounter Date Encounter Type Care Provider Facility Start: 03-30-2023 End: 03-30-2023 Office outpatient visit 40 minutes Ishmael Edouard MD Work Phone: [facility] Procedures Date Procedure Procedure Detail Performing Clinician Start: 03-30-2023 Ecg routine ecg w/le ast 12 lds w/i&r Ishmael Edouard MD Work Phone: Start: 08-23-2022 Ecg routine ecg w/le ast 12 lds trcg only w/o i&r Nicola Valero MD Work Phone: Start: 07-25-2022 Thyrotropin [Units/v olume] in Serum or Plasma Jim Knutson [employer] Work Phone: Start: 03-10-2020 Radiologic exam ches t single view Annamarie Pérezk Work Phone: Start: 03-10-2020 Basic metabolic pane l calcium total Annamarie Gunneranek Work Phone: Start: 03-10-2020 Blood count complete auto&auto difrntl wbc Annamarie Pérezk Work Phone: Start: 03-10-2020 Ecg routine ecg w/le ast 12 lds w/i&r Annamarie Gunneranek Work Phone: Start: 02-20-2020 Basic metabolic pane l calcium total Mahaveer Dungjonia Work Phone: Start: 02-20-2020 Blood count complete automated Gisellaaveer Yayolucitalla Work Phone: Start: 02-19-2020 Hepatitis b surf ant ibody hbsab Toyin Macias Work Phone: Start: 02-19-2020 Iaad ia hepatitis b surface antigen Toyin Macias Work Phone: Start: 02-18-2020 Gluc bld gluc mntr d ev cleared fda spec home use Andrew De Paz Work Phone: Start: 02-18-2020 Blood count hemoglobin Yesica Dunlap Work Phone: Start: 02-18-2020 Assay of magnesium Amadeo De Paz Work Phone: Start: 02-18-2020 BASIC METABOLIC PANE L W/ REFLEX TO MG FOR LOW K Andrew De Pza Work Phone: Start: 02-18-2020 Blood count complete automated Andrew De Paz Work Phone: Start: 02-17-2020 Gluc bld gluc mntr d ev cleared fda spec home use Andrew De Paz Work Phone: Start: 02-17-2020 Echo tthrc r-t 2d w/wom-mode compl spec&colr d Andrew De Paz Work Phone: Start: 02-17-2020 Blood count hemoglobin Andrew De Paz Work Phone: Start: 02-17-2020 Assay of folic acid serum Andrew De Paz Work Phone: Start: 02-17-2020 Assay of free thyroxine Andrew Moorez Work Phone: Start: 02-17-2020 Assay of thyroid stimulating hormone tsh Andrew Moorez Work Phone: Start: 02-17-2020 Assay of troponin quantitative Andrew Moorez Work Phone: Start: 02-17-2020 Iron binding capacity D michele De Paz Work Phone: Start: 02-17-2020 Gluc bld gluc mntr d ev cleared fda spec home use Mark Anthony Florecita Work Phone: Start: 02-17-2020 Ecg routine ecg w/le ast 12 lds w/i&r Andrew J Baldev Work Phone: Start: 02-17-2020 Blood typing serologic abo Andrew eD Paz Work Phone: Start: 02-17-2020 Assay of troponin quantitative Andrew De Paz Work Phone: Start: 02-17-2020 Lipid panel Adnrew sanchez Work Phone: Start: 02-17-2020 Prothrombin time Andrew De Paz Work Phone: Start: 02-17-2020 Ct angiography chest w/contrast/noncontrast Mark Anthony Florecita Work Phone: Start: 02-16-2020 COVID-19, RAPID Mark Anthony Florecita Work Phone: Start: 02-16-2020 RESPIRATORY PANEL, MOLECULAR, WITH COVID-19 Mark Anthony Florecita Work Phone: Start: 02-16-2020 Assay of magnesium Ther on Florecita Work Phone: Start: 02-16-2020 Assay of troponin quantitative Mark Anthony Florecita Work Phone: Start: 02-16-2020 Basic metabolic pane l calcium total Mark Anthony Florecita Work Phone: Start: 02-16-2020 Blood count complete automated Mark Anthony Florecita Work Phone: Start: 02-16-2020 Natriuretic peptide The mickie Florecita Work Phone: Start: 02-16-2020 Radiologic exam ches t single view Mark Anthony Florecita Work Phone: Start: 02-16-2020 End: 02-16-2020 Ecg routine ecg w/least 12 lds w/i&r Mark Anthony Florecita Work Phone: Start: 02-16-2020 CARDIOVERSION DEFIBRILLATION Mark Anthony Florecita Work Phone: Start: 02-16-2020 PROCEDURAL SEDATION The mickie Florecita Work Phone: Start: 02-02-2020 Assay of ferritin Mahav eer Yayolucitalla Work Phone: Start: 02-02-2020 Blood count complete automated yLer Aracelia Work Phone: Start: 02-02-2020 C-reactive protein Maha veer Aracelia Work Phone: Start: 02-02-2020 Comprehensive metabo lic panel Lyer Aracelia Work Phone: Start: 02-02-2020 Fibrin dgradj produc ts d-dimer quantitative Lyer Aracelia Work Phone: Start: 02-02-2020 Lactate dehydrogenase ldh Yesica Charlesa Work Phone: Start: 02-01-2020 Assay of ferritin Gisellaav eer Aracelia Work Phone: Start: 02-01-2020 Blood count complete automated Lyer Aracelia Work Phone: Start: 02-01-2020 C-reactive protein Maha veer Aracelia Work Phone: Start: 02-01-2020 Comprehensive metabo lic panel Yesica Charlesa Work Phone: Start: 02-01-2020 Fibrin dgradj produc ts d-dimer quantitative Yesica Charlesa Work Phone: Start: 02-01-2020 Lactate dehydrogenase ldh Yesica Charlesa Work Phone: Start: 01-31-2020 Assay of ferritin Gisellaav eer Aracelia Work Phone: Start: 01-31-2020 Blood count complete automated Lyer Aracelia Work Phone: Start: 01-31-2020 C-reactive protein Maha veer Aracelia Work Phone: Start: 01-31-2020 Comprehensive metabo lic panel Lyer Aracelia Work Phone: Start: 01-31-2020 Fibrin dgradj produc ts d-dimer quantitative Gisellaaveer Aracelia Work Phone: Start: 01-31-2020 Lactate dehydrogenase ldh Yesica Dunlap Work Phone: Start: 01-30-2020 Assay of ferritin Krissy Zeenashvillesreedhar Work Phone: Start: 01-30-2020 Blood count complete automated Yesica Dunlap Work Phone: Start: 01-30-2020 C-reactive protein Gisellaa cristiano Zeenashvillesreedhar Work Phone: Start: 01-30-2020 Comprehensive metabo lic panel [facility]ica [facility] Work Phone: Start: 01-30-2020 Fibrin dgradj produc ts d-dimer [facility] Work Phone: Start: 01-30-2020 Lactate dehydrogenase ldh [facility] Work Phone: Start: 01-30-2020 Gluc bld gluc mntr d ev cleared fda spec home use Andrew De Paz Work Phone: Start: 01-28-2020 Assay of lactate Andrew Lynette Work Phone: Start: 01-28-2020 Assay of magnesium Amadeo Ojeda Work Phone: Start: 01-28-2020 Assay of troponin quantitative Andrew Lynette Work Phone: Start: 01-28-2020 Blood count complete auto&auto difrntl wbc Andrew Lynette Work Phone: Start: 01-28-2020 Comprehensive metabo lic panel Andrew Ojeda Work Phone: Start: 01-28-2020 Natriuretic peptide Gilbert yuridial Lynette Work Phone: Start: 01-28-2020 Procalcitonin (pct) Gilbert yuridial Lynette Work Phone: Start: 01-28-2020 Radiologic exam ches t single view Andrew Ojeda Work Phone: Start: 01-28-2020 Ecg routine ecg w/le ast 12 lds w/i&r Andrew Ojeda Work Phone: Start: 01-27-2020 Urnls dip stick/tabl et rgnt auto w/o microscopy Jonathan Martinezumilli Work Phone: Start: 01-27-2020 Radiologic exam ches t single view Jonathan Martinezumilli Work Phone: Start: 01-26-2020 Assay of lactate Jonathan Michelleumilli Work Phone: Start: 01-26-2020 Assay of lipase Jonathan A christineumilli Work Phone: Start: 01-26-2020 Basic metabolic pane l calcium total Jonathan Michelleumilli Work Phone: Start: 01-26-2020 Blood count complete auto&auto difrntl wbc Jonathan Martinezumilli Work Phone: Start: 06-07-2019 OPERATIVE REPORT 3m Sca nning Start: 06-07-2019 XA SPECIAL ANGIOGRAP HY PROCEDURE Toyin Macias Work Phone: Start: 06-07-2019 Potassium serum plasma/whole blood Toyin Macias Work Phone: Start: 06-07-2019 Blood count platelet automated Tomer Lo Work Phone: Start: 06-07-2019 Prothrombin time Tomer Lo Work Phone: Start: 03-16-2019 Gluc bld gluc mntr d ev cleared fda spec home use Odilon Moffett MD Work Phone: Start: 03-16-2019 Basic metabolic pane l calcium total Yesica Dunlap MD Work Phone: Start: 03-15-2019 Gluc bld gluc mntr d ev cleared fda spec home use Odilon Moffett MD Work Phone: Start: 03-15-2019 Gluc bld gluc mntr d ev cleared fda spec home use Odilon Moffett MD Work Phone: Start: 03-15-2019 Iaad ia hepatitis b surface antigen Toyin Macias MD Work Phone: Start: 03-15-2019 Gluc bld gluc mntr d ev cleared fda spec home use Odilon Moffett MD Work Phone: Start: 03-15-2019 Gluc bld gluc mntr d ev cleared fda spec home use Odilon Moffett MD Work Phone: Start: 03-15-2019 Basic metabolic pane l calcium total Yesica Dunlap MD Work Phone: Start: 03-14-2019 Gluc bld gluc mntr d ev cleared fda spec home use Odilon Moffett MD Work Phone: Start: 03-14-2019 Gluc bld gluc mntr d ev cleared fda spec home use Odilon Moffett MD Work Phone: Start: 03-14-2019 Gluc bld gluc mntr d ev cleared fda spec home use Odilon Moffett MD Work Phone: Start: 03-14-2019 Ct head/brain w/o co ntrast material Yesica Dunlap MD Work Phone: Start: 03-14-2019 POCT ARTERIAL Odilon hobson MD Work Phone: Start: 03-14-2019 Basic metabolic pane l calcium total Yesica Dunlap MD Work Phone: Start: 03-14-2019 Gluc bld gluc mntr d ev cleared fda spec home use Yesica Dunlap MD Work Phone: Start: 03-13-2019 Gluc bld gluc mntr d ev cleared fda spec home use Yesica Dunlap MD Work Phone: Start: 03-13-2019 Gluc bld gluc mntr d ev cleared fda spec home use Yesica Dunlap MD Work Phone: Start: 03-13-2019 Gluc bld gluc mntr d ev cleared fda spec home use Yesica Dunlap MD Work Phone: Start: 03-13-2019 Gluc bld gluc mntr d ev cleared fda spec home use Yesica Dunlap MD Work Phone: Start: 03-12-2019 Gluc bld gluc mntr d ev cleared fda spec home use Yesica Dunlap MD Work Phone: Start: 03-12-2019 Comprehensive metabo lic panel Zara BUSTAMANTE Work Phone: Start: 03-12-2019 Radiologic exam ches t single view Zara BUSTAMANTE Work Phone: Start: 03-12-2019 Ecg routine ecg w/le ast 12 lds w/i&r Zara BUSTAMANTE Work Phone: Start: 01-29-2019 Renal function panel Arnoldo Osuna MD Work Phone: Start: 12-18-2018 Assay of prostate sp ecific antigen total Champ Mccormick Work Phone: Start: 10-30-2018 Creatinine other source [employer] Work Phone: Start: 10-30-2018 Protein total xcpt refractometry urine [employer] Work Phone: Start: 10-30-2018 25 hydroxy includes fractions if performed [employer] Work Phone: Start: 10-30-2018 Assay of parathormone D [email or web address] Work Phone: Start: 10-30-2018 Blood count complete auto&auto difrntl wbc [employer] Work Phone: Start: 10-30-2018 Renal function panel Arnoldo Osuna Work Phone: Plan of Treatment Date Care Activity Detail Author Start: 07-26-2023 Thyroid stimulating hormone measurement TSH Level Publisha Start: 10-22-2022 Influenza vaccination [facility] [email or web address] Start: 08-23-2022 End: 08-24-2023 CBC W Auto Differential panel - Blood CBC auto differential Lab Routine Atrial fibrillation with RVR (CMS/HCC) (HCC) Expected: 08/23/2022 (Approximate), Expires: 08/24/2023 [facility] [email or web address] Work Phone: Immunizations Immunization Date Immunization Notes Care Provider Francois [email or web address] 08-09-2020 Hepatitis B vaccine (recombinant), CpG adjuvanted Jim Knutson [employer] Work Phone: [facility] [email or web address] 03-13-2020 hepatitis B vaccine, adult dosage Jim Knutson [employer] Work Phone: [facility] [email or web address] 09-06-2019 hepatitis B vaccine, adult dosage Jim Knutson [employer] Work Phone: [facility] [email or web address] 04-12-2019 hepatitis B vaccine, adult dosage Jim Knutson [employer] Work Phone: [facility] [email or web address] Payers Date Payer Category Payer Medicare [employer] U[employer] MEDICARE [id number] 2021-Present [address] [place] [address] Medicare HMO [id number] 2016 Medicare [id number] 2015 Medicare UHC MEDICARE UNI TEDHEALTHC[employer] DUAL COMPLETE xxxxxxxxx 2015-Present xxxxxxxxx [id number] 2015 Medicare [id number] Social History Date Type Detail Facility Start: 12-22-2015 [facility] Start: 12-22-2015 End: 07-30-2022 Cigarettes smoked current (pack per day) - Reported [email or web address] Start: 12-22-2015 End: 07-30-2022 Alcohol intake No [email or web address] Start: 1945 Sex Assigned At Not on file [employer] Start: 06-07-2019 End: 07-24-2022 Tobacco smoking status NHIS Former smoker [facility] End: 03-12-2017 History of tobacco use Current smoker [employer] Work Phone: Start: 06-07-2019 End: 03-30-2023 Alcohol intake Current non-drinker of alcohol (finding) [employer] Work Phone: Exposure to SARS-CoV -2 (event) Unable to assess [employer] Start: 01-26-2020 End: 07-24-2022 Tobacco use and exposure Never used [employer] Start: 07-14-2022 End: 08-23-2022 Exposure to SARS-CoV-2 (event) Not sure [employer] Exposure to SARS-CoV -2 (event) Yes [employer] End: 03-12-2017 History of tobacco use Cigarette Smoker [email or web address] Within the last year , have you been afraid of your partner or ex-partner? No [facility] [email or web address] How often to you hav e a drink containing alcohol? Never [facility] How many standard drinks containing alcohol do you have on a typical day? Patient does not drink [facility] Medical Equipment Procedure Code Equipment Code Equipment Origin al Text Equipment Identifier Dates Stent-06/07/2019 [id number] Start: 06-07-2019 Clinical Notes 03-14-2019 to 03-30-2023 Ishmael Edouard MD - 03/30/2023 2:20 PM INDIA Alcala CNP - 08/23/2022 2:00 PM Laura Berman PA-C - 08/26/2021 1:24 PM Az Calvo RN - 03/16/2019 7:08 AM EST Note Date & Type Note Facility 03-30-2023 History of Present illness Narrative Images from the original note were not included. [facility] Cardiology [facility] [address] [facility] [address] Dept: [phone] Dept Visit type: Established : 1945 Chief Complaint: Chief Complaint Patient presents with 6 Month Follow-up Atrial Fibrillation History of Present Illness: Logan Fisher is a 77 y.o. male with with a history of paroxsymal afib , ESRD on Tuesday, , Tuesday, anemia, hypertension, hyperlipidemia, DM, dementia, encephalopathy, and poor functional capacity-lives at [facility]. Patient was admitted to [facility] 07/24-07/31/[address] [facility] with chest pain and SOB after dialysis. He was found to be in AF RVR and was cardioverted due to hemodynamic instability with BP 80/50-his cardioversion was successful after second attempt. He was encephalopathic post cardioversion. Cardiology was consulted. Riri CAGLE agreed to start Eliquis. Patient saw Jim Knutson CNP on 08/23/22 for hospital follow-up. Patient in SR. He is doing fine. He denies chest pain, shortness of breath, orthopnea or PND. He has no palpitations. No syncope or presyncope. He has had no bleeding while on anticoagulation. And no falls. Past Medical History: Past Medical History: Diagnosis Date A-fib ([facility]) (HCC) Atrial fibrillation ([facility]) 02/16/2020 Atrial fibrillation with RVR ([facility]) 02/27/2020 BPH (benign prostatic hyperplasia) Chronic renal failure, stage 5 ([facility]) 03/16/2019 Dementia ([facility]) Depression Diabetes (HCC) ESRD (end stage renal disease) ([facility]) Hemodialysis patient ([facility]) ([facility]) Hyperlipidemia Hyperparathyroidism, secondary ([facility]) Hypertension Hypotension 07/24/2022 Hypothyroidism Nicotine dependence Parkinson's disease Past Surgical History Past Surgical History: Procedure Laterality Date APPENDECTOMY FRACTURE SURGERY Right leg PROSTATECTOMY TONSILLECTOMY (HISTORICAL) Family History Family History Problem Relation Name Age of Onset Cancer Mother Other ([address]92) Father Social History Social History Tobacco Use Smoking status: Former Packs/day: .5 Types: Cigarettes Quit date: 03/12/2017 Years since quittin.0 Smokeless tobacco: Never Substance Use Topics Alcohol use: No Drug use: No Comment: Caffeine: Coffee; sometimes tea Allergies: No Known Allergies Medications: Current Outpatient Medications: apixaban (Eliquis) 5 MG tablet, Take 1 tablet (5 mg) by mouth 2 times daily., Disp: 60 tablet, Rfl: escitalopram (Lexapro) 10 MG tablet, Take 10 mg by mouth daily., Disp: , Rfl: ferrous sulfate 325 (65 Fe) MG tablet, Take 325 mg by mouth in the morning and 325 mg in the evening., Disp: , Rfl: fluticasone (Flonase) 50 MCG/ACT nasal spray, Administer 2 sprays into each nostril daily., Disp: , Rfl: loratadine (Claritin) 10 MG tablet, Take 10 mg by mouth in the morning., Disp: , Rfl: metoprolol tartrate (Lopressor) 25 MG tablet, Take 1 tablet (25 mg) by mouth 2 times daily., Disp: 60 tablet, Rfl: 11 mirtazapine (Remeron) 15 MG tablet, Take 15 mg by mouth Nightly., Disp: , Rfl: omega-3 (Fish Oil) 1000 MG capsule, Take 1,000 mg by mouth daily., Disp: , Rfl: omega-3 acid ethyl esters (Lovaza) 1 g capsule, Take 1 g by mouth 2 times daily., Disp: , Rfl: ondansetron (Zofran) 4 MG tablet, Take by mouth., Disp: , Rfl: polyethylene glycol, PEG, 3350 (Glycolax) 17 GM/SCOOP powder, Take 17 g by mouth in the morning., Disp: , Rfl: pravastatin (Pravachol) 20 MG tablet, Take 20 mg by mouth daily., Disp: , Rfl: tamsulosin (Flomax) 0.4 MG 24 hr capsule, Take 0.4 mg by mouth daily., Disp: , Rfl: Review of Systems: Review of Systems Constitutional: Negative for activity change, chills, diaphoresis, fatigue and fever. HENT: Negative for nosebleeds and trouble swallowing. Eyes: Negative for discharge and visual disturbance. Respiratory: Negative for apnea, cough, chest tightness, shortness of breath and wheezing. Cardiovascular: Negative for chest pain, palpitations and leg swelling. Gastrointestinal: Negative for abdominal distention, abdominal pain, blood in stool, diarrhea, nausea and vomiting. Endocrine: Negative for cold intolerance and heat intolerance. Genitourinary: Negative for hematuria. Musculoskeletal: Negative for gait problem and myalgias. Skin: Negative for color change and rash. Neurological: Negative for dizziness, seizures, syncope, facial asymmetry, speech difficulty, weakness, light-headedness, numbness and headaches. Hematological: Does not bruise/bleed easily. Psychiatric/Behavioral: Negative for dysphoric mood. Physical Examination: Vitals: Vitals: 03/30/23 1400 BP: 120/60 BP Location: Right arm Patient Position: Sitting BP Cuff Size: Adult Pulse: 60 SpO2: 96% Weight: 168 lb (76.2 kg) Height: 5' 6 (1.676 m) Body mass index is 27.12 kg/m . Physical Exam Constitutional: Appearance: Normal appearance. HENT: Head: Normocephalic. Mouth/Throat: Pharynx: No oropharyngeal exudate. Eyes: General: No scleral icterus. Right eye: No discharge. Left eye: No discharge. Cardiovascular: Rate and Rhythm: Normal rate and regular rhythm. Heart sounds: No murmur heard. No gallop. Pulmonary: Effort: No respiratory distress. Abdominal: General: There is no distension. Tenderness: There is no abdominal tenderness. Musculoskeletal: General: Normal range of motion. Cervical back: Normal range of motion. Skin: General: Skin is warm and dry. Neurological: Mental Status: He is alert and oriented to person, place, and time. Laboratory Tests: Lab Results Component Value Date WBC 6.9 07/31/2022 HGB 9.3 (L) 07/31/2022 HCT 27.4 (L) 07/31/2022 MCV 99.3 (H) 07/31/2022 PLT 114 (L) 07/31/2022 Lab Results Component Value Date GLUCOSE 103 (H) 07/31/2022 CALCIUM 10.1 07/31/2022 NA 136 07/31/2022 K 4.8 07/31/2022 CO2 29 07/31/2022 CL 101 07/31/2022 BUN 42 (H) 07/31/2022 CREATININE 6.24 (H) 07/31/2022 @LASTCMP@ Lab Results Component Value Date CHOL 74 02/17/2020 Lab Results Component Value Date TRIG 147 02/17/2020 Lab Results Component Value Date HDL 16 (L) 02/17/2020 No results found for: LDLCALC NT PRO BNP Date Value Ref Range Status 02/16/2020 39,553 (H) 0 - 450 pg/mL Final Last labs completed 1/15/24: Cardiac Tests: ECG: Normal sinus rhythm today Last Cardiac Event Monitor 03/06/20: Interpretive Statements The patient wore an event monitor for the above dates and a total of 2 transmissions were sent. Test transmission demonstrated sinus bradycardia at 56 bpm. Symptoms of tired and fatigued corresponded to sinus rhythm at 60 bpm. No atrial fibrillation was recorded. Summary: Normal event monitor. Echo 02/16/2020: SUMMARY: 1. Left ventricle: The cavity size is normal. Wall thickness is normal. Systolic function is low normal. The estimated ejection fraction is 54%. There are no regional wall motion abnormalities. 2. Right ventricle: Right ventricular systolic pressure is within the normal range. 3. Left atrium: The atrium is mildly dilated. 4. No significant valve disease. Last Echo 07/24/22: Left Ventricle: Left ventricle size is normal. Mildly increased wall thickness. Low normal left ventricular systolic function. EF by 2D Simpsons Biplane is 49%. Normal wall motion. Right Ventricle: Not assessed due to poor image quality. Right ventricle size is normal. Normal systolic function. Aortic Valve: Not well visualized. Trileaflet. No cusp thickening. No cusp calcification. No regurgitation. No stenosis. Mitral Valve: Trace regurgitation. No stenosis noted. Tricuspid Valve: Trace regurgitation. Pulmonic Valve: The pulmonic valve visualization is suboptimal but appears to be functioning normally. Aorta: Normal sized sinuses of Valsalva and ascending aorta. Sinuses of Valsalva diameter is 3.1 cm. Ao ascending diameter is 2.7 cm. IVC/SVC: IVC is mildly dilated. IVC diameter is dilated and decreases less than 50% during inspiration; therefore the estimated right atrial pressure is elevated (~15 mmHg). Assessment and Plan: Paroxysmal atrial fibrillation Nonvalvular, remains in sinus rhythm today, rate controlled On Lopressor 25 mg BID. Low normal LVEF reported in July/2021 , can swtich to toprol XL 50 mg daily instead. -Continue Eliquis 5 mg BID till he turns 78 on 05/02.Once he is 78 years old he will need to be switched to Eliquis 2.5 mg twice daily ( because of Cr and age) .His prescriptions are managed by his primary care physician at the [facility]. I will forward him my note and recommendations. Hemoglobin 11.4 03/07/2023 stable and no falls or bleeding issues. 2. Hypertension Controlled. Will switch to Toprol-XL 50 mg p.o. daily as mentioned above 3. ESRD-HD Sat Care per nephrology 4. History of mildly reduced LVEF 49% Euvolemic on examination no heart failure signs or symptoms. Please see above switch to Toprol-XL Not on ARB or Aldactone due to end-stage renal disease. Return to clinic in 6 months or earlier if any issues documented in this encounter [facility] 03-25-2023 Note Received via fax franc Mccarthy 03/07/23 BMP and CBC, and progress notes, and these will be scanned to chart. [facility] 03-24-2023 Note Called danielito Mccarthy to [place], she will fax most recent labs and progress note. [facility] 08-23-2022 History of Present illness Narrative [facility] Cardiology [facility] [address] [place] [address] [address] [facility] [address] Dept: [phone] Dept Visit type: Established : 1945 Chief Complaint: Chief Complaint Patient presents with Hospital Follow-up Atrial Fibrillation History of Present Illness: Logan Fisher is a 77 y.o. male who was recently seen by Dr. Edouard in hospital for A-fib with RVR. Of note there were previous interactions with Dr. Solorzano (01/2020) and [facility] (03/2020), but patient has since been lost to follow-up. He first was met by our practice January 2020 with A-fib with RVR in the setting of COVID with rates of 180s. He subsequently wore an event monitor which revealed sinus bradycardia and sinus rhythm with no A-fib episodes. He was not on a DOAC due to functional status and fall risk. He presented to [facility] with chest pain and shortness of breath after dialysis. He was transported to the ER, and was found to be in A-fib with RVR, cardioverted due to hemodynamic instability with BP 80/50, successful after the second attempt. He was repleted with fluids and placed on a levo drip. He was encephalopathic post cardioversion. Dr. Edouard saw patient in consult and discussed plan of care with sister Riri, who is his healthcare power of document review attorney. Given risk of stroke post cardioversion she was agreeable to start Eliquis. Low-dose aspirin was stopped, with recommendation that if Eliquis was ever stopped we would resume low-dose aspirin. Today he comes in for hospital follow-up. He comes in from [facility]. He presents alone, received transportation from facility. His EKG shows sinus rhythm. He is a poor historian. His sister Riri Mccloud is his HCPOA. He denies all complaints. Sees his sister monthly. Going to see her Tuesday for the august. They go out to eat. 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 Past Medical History: Past Medical History: Diagnosis Date A-fib (CMS/HCC) ([facility]) Atrial fibrillation (CMS/HCC) ([facility]) 02/16/2020 Atrial fibrillation with RVR (CMS/HCC) ([facility]) 02/27/2020 BPH (benign prostatic hyperplasia) Chronic renal failure, stage 5 (CMS/HCC) ([facility]) 03/16/2019 Dementia ([facility]) Depression Diabetes ([facility]) ESRD (end stage renal disease) ([facility]) Hemodialysis patient ([facility]/HCC) ([facility]) Hyperlipidemia Hyperparathyroidism, secondary (HCC) Hypertension Hypotension 07/24/2022 Hypothyroidism Nicotine dependence Parkinson's disease ([facility]) Past Surgical History Past Surgical History: Procedure Laterality Date APPENDECTOMY FRACTURE SURGERY Right leg PROSTATECTOMY TONSILLECTOMY (HISTORICAL) Family History Family History Problem Relation Name Age of Onset Cancer Mother Other (87859) Father Social History Social History Tobacco Use Smoking status: Former Packs/day: 0.50 Types: Cigarettes Quit date: 03/12/2017 Years since quittin.4 Smokeless tobacco: Never Substance Use Topics Alcohol use: No Drug use: No Allergies: No Known Allergies Medications: Current Outpatient Medications: apixaban (Eliquis) 5 MG tablet, Take 1 tablet (5 mg) by mouth 2 times daily., Disp: 60 tablet, Rfl: escitalopram (Lexapro) 10 MG tablet, Take 10 mg by mouth daily., Disp: , Rfl: ferrous sulfate 325 (65 Fe) MG tablet, Take 325 mg by mouth in the morning and 325 mg in the evening., Disp: , Rfl: fluticasone (Flonase) 50 MCG/ACT nasal spray, Administer 2 sprays into each nostril daily., Disp: , Rfl: loratadine (Claritin) 10 MG tablet, Take 10 mg by mouth in the morning., Disp: , Rfl: metoprolol tartrate (Lopressor) 25 MG tablet, Take 1 tablet (25 mg) by mouth 2 times daily., Disp: 60 tablet, Rfl: 11 mirtazapine (Remeron) 15 MG tablet, Take 15 mg by mouth Nightly., Disp: , Rfl: montelukast (Singulair) 10 MG tablet, Take 10 mg by mouth daily., Disp: , Rfl: omega-3 (Fish Oil) 1000 MG capsule, Take 1,000 mg by mouth daily., Disp: , Rfl: omega-3 acid ethyl esters (Lovaza) 1 g capsule, Take 1 g by mouth 2 times daily., Disp: , Rfl: ondansetron (Zofran) 4 MG tablet, Take by mouth., Disp: , Rfl: polyethylene glycol, PEG, 3350 (Glycolax) 17 GM/SCOOP powder, Take 17 g by mouth in the morning., Disp: , Rfl: pravastatin (Pravachol) 20 MG tablet, Take 20 mg by mouth daily., Disp: , Rfl: tamsulosin (Flomax) 0.4 MG 24 hr capsule, Take 0.4 mg by mouth daily., Disp: , Rfl: Review of Systems: Review of Systems Constitutional: Negative for activity change, chills, diaphoresis, fatigue and fever. HENT: Negative for nosebleeds and trouble swallowing. Eyes: Negative for discharge and visual disturbance. Respiratory: Negative for apnea, cough, chest tightness, shortness of breath and wheezing. Cardiovascular: Negative for chest pain, palpitations and leg swelling. Gastrointestinal: Negative for abdominal distention, abdominal pain, blood in stool, diarrhea, nausea and vomiting. Endocrine: Negative for cold intolerance and heat intolerance. Genitourinary: Negative for hematuria. Musculoskeletal: Positive for gait problem (presents in wheelchair, walks with walker and physical therapy). Negative for myalgias. Skin: Negative for color change and rash. Neurological: Positive for speech difficulty (at baseline) and weakness. Negative for dizziness, seizures, syncope, facial asymmetry, light-headedness, numbness and headaches. Hematological: Does not bruise/bleed easily. Psychiatric/Behavioral: Negative for dysphoric mood. Physical Examination: Vitals: Vitals: 08/23/22 1346 BP: 124/60 BP Location: Right arm Patient Position: Sitting BP Cuff Size: Adult Pulse: 69 Resp: 16 Height: 5' 7 (1.702 m) Body mass index is 27.45 kg/m . Physical Exam Constitutional: Appearance: Normal appearance. Comments: In wheelchair HENT: Head: Normocephalic. Eyes: General: No scleral icterus. Right eye: No discharge. Left eye: No discharge. Cardiovascular: Rate and Rhythm: Normal rate and regular rhythm. Pulses: Normal pulses. Heart sounds: Normal heart sounds. No murmur heard. Comments: No acute distress Pulmonary: Effort: Pulmonary effort is normal. Breath sounds: Normal breath sounds. Comments: No increased WOB Abdominal: General: Abdomen is flat. Palpations: Abdomen is soft. Genitourinary: Comments: Left fistula +thrill +bruit Musculoskeletal: General: Normal range of motion. Cervical back: Normal range of motion. Right lower le+ Edema (trace) present. Left lower le+ Edema (trace) present. Skin: General: Skin is warm and dry. Capillary Refill: Capillary refill takes less than 2 seconds. Comments: Itchy arms with dialysis, scratches them Neurological: Mental Status: He is alert and oriented to person, place, and time. Psychiatric: Mood and Affect: Mood normal. Laboratory Tests: Lab Results Component Value Date WBC 6.9 07/31/2022 HGB 9.3 (L) 07/31/2022 HCT 27.4 (L) 07/31/2022 MCV 99.3 (H) 07/31/2022 PLT 114 (L) 07/31/2022 Lab Results Component Value Date GLUCOSE 103 (H) 07/31/2022 CALCIUM 10.1 07/31/2022 NA 136 07/31/2022 K 4.8 07/31/2022 CO2 29 07/31/2022 CL 101 07/31/2022 BUN 42 (H) 07/31/2022 CREATININE 6.24 (H) 07/31/2022 No results found for: HGBA1C Lab Results Component Value Date TSH 0.562 07/25/2022 Lab Results Component Value Date ALT 22 07/28/2022 AST 19 07/28/2022 ALKPHOS 151 (H) 07/28/2022 BILITOT 0.3 07/28/2022 Cardiac Tests: EC08/23/2022 Sinus Rhythm Low voltage in precordial leads. -Old inferior infarct. ABNORMAL Last Echo: 07/25/2022 Left Ventricle: Left ventricle size is normal. Mildly increased wall thickness. Low normal left ventricular systolic function. EF by 2D Simpsons Biplane is 49%. Normal wall motion. Right Ventricle: Not assessed due to poor image quality. Right ventricle size is normal. Normal systolic function. Aortic Valve: Not well visualized. Trileaflet. No cusp thickening. No cusp calcification. No regurgitation. No stenosis. Mitral Valve: Trace regurgitation. No stenosis noted. Tricuspid Valve: Trace regurgitation. Pulmonic Valve: The pulmonic valve visualization is suboptimal but appears to be functioning normally. Aorta: Normal sized sinuses of Valsalva and ascending aorta. Sinuses of Valsalva diameter is 3.1 cm. Ao ascending diameter is 2.7 cm. IVC/SVC: IVC is mildly dilated. IVC diameter is dilated and decreases less than 50% during inspiration; therefore the estimated right atrial pressure is elevated (~15 mmHg). Last stress test: Last cardiac catheterization: Assessment and Plan: 1. Hospital discharge follow-up 2. Atrial fibrillation with RVR (CMS/HCC) ([facility]) 3. roasterman current use of anticoagulant therapy 4. Dialysis patient ([facility]) 5. History of encephalopathy Patient remains in normal sinus rhythm today. He has no overt signs and symptoms of bleeding. He is tolerating medications well. He is telling me jokes and he is looking forward to 24 August with his sister. We will check CBC to document stability. Since he was cardioverted less than 30 days ago I encouraged him to continue on the same medication regimen, especially with regards to Eliquis 5 mg p.o. twice daily, appropriate per age, weight, creatinine. Next year if he is still on Eliquis when he turns 78 he would be appropriate for the lower dosing. We will keep an eye on this. I have tried to call his sister Riri, who is his healthcare power of document review attorney to update her on the current plan. Unfortunately I was unable to reach her. I will try to call again later. Follow-up in 6 months, sooner if needed. Should Riri call back and have questions about oral anticoagulation the recommendation is as follows: Given a [id number] score of at least 4 and recent cardioversion July 2022 in hospital for hemodynamic instability in the setting of A-fib with RVR it is recommended that oral anticoagulation be continued at least 30 days subsequent to cardioversion to decrease the risk of stroke. If he tolerates Eliquis I would remain on it as long as the benefits outweigh the risks. If for what ever reason he is taken off Eliquis (should only be managed by Cardiology) I would resume low-dose aspirin. CHARISSA Cancino documented in this encounter [facility] 07-31-2022 Note Discharge Summary Logan Fisher : 1945 ADMIT DATE: 07/24/2022 DISCHARGE DATE: 07/31/2022 PRIMARY CARE PHYSICIAN: Sarina Pineda VISIT STATUS: Admission CODE STATUS: DNR-CCA DISCHARGE DIAGNOSES: Principal Problem: Hypotension HOSPITAL COURSE: This is a 77 y.o M with PMH oc HTN, HPL, A-fib not on DOAC, ESRD on HD, Anemia, Hypothyroidism, Hyperparathyroidism, Dementia, Depression and BPH who presents to the ER this evening with chest pain and shortness of breath. Apparently the patient has been a resident of the halfway for a number of years due to end-stage renal disease on dialysis and was not taking care of himself and had multiple falls at home. Apparently the patient has not been feeling well for the last week staff noted that he has been more lethargic than normal, and complaining of N/V/D. Apparently went to dialysis and upon return was noted to have chest pain and shortness of breath. He was transported to the ER for further evaluation. He was found to be in symptomatic A-fib with RVR, cardioverted successfully after the second attempt. He was noted to be hypotensive after, was given 1 L fluid and push dose phenylephrine, with subsequent norepinephrine infusion. Patient was encephalopathic post cardioversion. ICU contacted for admission. He did better and was transferred out of ICU under our service. The following is a summary of his diagnosis/management during his stay here at [facility]: # Chronic A-fib with symptomatic RVR on admission (hypotensive) -status post cardioversion - admitted initially with shortness of breath and A-fib with RVR/hypotension. He was cardioverted in the ED and was admitted to ICU because of hypotension after the procedure. BP improved and now resumed on metoprolol 25mg bid. Patient has known a.fib and is not on OAC. Cardiology consulted to evaluate. Currently appears to be in SR. Cardiology has seen and recommended eliquis as first four weeks post cardioversion has increased risk for stroke. Dr. Edouard/cardiology spoke with sister riri about risk etc. She was agreeable to start eliquis and Dr. Edouard reached out to me to place order. Also baby aspirin stopped due to concern for increased risk of bleeding being on both. CT head was done here before eliquis was started and didn't show any bleeding or stroke. # Post cardioversion hypotension-now resolved. # Metabolic encephalopathy - appears to be back to baseline now. No CT head was done. Will check one # Pneumonia with haemophilus influenza - completed antibx. # ESRD-on hemodialysis, nephrology is on board, dialysis is Tuesday # Chronic anemia likely due to CKD. No evidence of GI bleed. # Thrombocytopenia - monitor # Chronic Hypertension - controlled # Hx of Anxiety disorder # Dysphagia with aspiration risk-speech eval with modified diet # DNR CCA # Stage I pressure ulcer of the sacrum present on admission # Anemia of chronic disease Physical exam: General appearance: No apparent distress, appears stated age, HEENT: Eyes: No scleral icterus Oral: Tongue is semi-moist Cardiovascular: S1/S2 heard, RRR Respiratory: Clear to auscultation bilaterally Abdomen: Soft, non-tender, non-distended bowel sounds positive Musculoskeletal: No obvious deformities seen Skin: No visible rashes or lesions. SIGNIFICANT DIAGNOSTIC STUDIES: As above CONSULTANTS: Cardiology ICU team RECOMMENDED NEXT STEPS: DISCHARGE MEDICATIONS: Medication List START taking these medications apixaban 5 MG tablet Commonly known as: Eliquis Take 1 tablet (5 mg) by mouth 2 times daily. CHANGE how you take these medications metoprolol tartrate 25 MG tablet Commonly known as: Lopressor Take 1 tablet (25 mg) by mouth 2 times daily. What changed: medication strength how much to take when to take this CONTINUE taking these medications escitalopram 10 MG tablet Commonly known as: Lexapro ferrous sulfate 325 (65 Fe) MG tablet fluticasone 50 MCG/ACT nasal spray Commonly known as: Flonase loratadine 10 MG tablet Commonly known as: Claritin montelukast 10 MG tablet Commonly known as: Singulair omega-3 1000 MG capsule Commonly known as: Fish Oil polyethylene glycol (PEG) 3350 17 GM/SCOOP powder Commonly known as: Glycolax pravastatin 20 MG tablet Commonly known as: Pravachol tamsulosin 0.4 MG 24 hr capsule Commonly known as: Flomax STOP taking these medications aspirin 81 MG EC tablet Where to Get Your Medications These medications were sent to [facility] [address] [facility] [address] Hours: Tuesday to Tuesday 10 am to 6 pm metoprolol tartrate 25 MG tablet Information about where to get these medications is not yet available Ask your nurse or doctor about these medications apixaban 5 MG tablet DIET: Adult diet Dysphagia - Minced and Moist; Moderately Thick (Honey) ACTIVITY: Up with assist ____ (more content not included)... [facility] 07-31-2022 Note [facility] Note Subjective/ 77 y.o. year old male who we are seeing in consultation for ESRD. NAEON Feeling ok Appetite is ok Resting in bed Chronic AMS No other new issues at this time ROS done and negative unless mentioned as above No change in PFSH All data labs/interval notes and overnight issues are reviewed Objective/ Vitals: 07/31/22 0003 07/31/22 0400 07/31/22 0600 07/31/22 0804 BP: 139/55 (!) 143/58 (!) 141/62 BP Location: Right arm Patient Position: Lying Pulse: 65 62 62 Resp: 16 16 18 Temp: 36.2 ?C (97.1 ?F) 36.4 ?C (97.6 ?F) 36 ?C (96.8 ?F) TempSrc: Temporal Temporal Temporal SpO2: 94% 95% 97% Weight: 79.5 kg (175 lb 4.3 oz) Height: Intake/Output Summary (Last 24 hours) at 07/31/2022 0853 Last data filed at 07/30/2022 1800 Gross per 24 hour Intake 240 ml Output -- Net 240 ml apixaban, 5 mg, Oral, BID aspirin, 81 mg, Oral, Daily cetirizine, 5 mg, Oral, Daily epoetin shadi, 1,900 Units, SubCUTAneous, Once per day on Tue escitalopram, 10 mg, Oral, Daily ferrous sulfate, 325 mg, Oral, Daily with breakfast fluticasone, 2 spray, Each Nostril, Daily metoprolol tartrate, 25 mg, Oral, BID montelukast, 10 mg, Oral, Daily pravastatin, 20 mg, Oral, Daily sodium chloride 0.9%, 10 mL, IntraVENous, 2 times per day tamsulosin, 0.4 mg, Oral, Daily PRN medications: acetaminophen OR Acetaminophen OR acetaminophen, diphenhydrAMINE OR diphenhydrAMINE, ondansetron ODT OR ondansetron, polyethylene glycol (PEG) 3350, sodium chloride, sodium chloride 0.9% Constitutional: Alert x1-2, awake, no apparent distress, ill appearing Eyes: No icterus, no pallor HEENT: no pallor/cyanosis or icterus Cardiovascular: S1, S2 without m/r/g Respiratory: CTA B without w/r/r GI: +bs, soft, nt : greer absent Ext: no LE edema Neck: supple, no thyroid enlargement, no JVD elevation Skin: warm, moist, no rashes Results from last 7 days Lab Units 07/31/22 0644 07/30/22 0507 07/29/22 0428 SODIUM mmol/L 136 136 139 POTASSIUM mmol/L 4.8 4.3 4.6 CHLORIDE mmol/L 101 100 104 CO2 mmol/L 29 32* 28 BUN mg/dL 42* 26* 43* CREATININE mg/dL 6.24* 4.18* 6.51* GLUCOSE mg/dL 103* 109* 106* CALCIUM mg/dL 10.1 10.1 9.8 Results from last 7 days Lab Units 07/30/22 0507 07/29/22 0428 07/28/22 0509 WBC AUTO 10*3/uL 6.4 5.6 5.3 HEMOGLOBIN g/dL 9.0* 8.7* 8.7* HEMATOCRIT % 26.9* 25.7* 26.2* PLATELETS AUTO 10*3/uL 116* 112* 121* Assessment/Plan ESRD Atrial fibrillation with RVR s/p successful cardioversion x2 on 07/24/2022 Anemia in ESRD Hypotension, post cardioversion CAP Dependence on renal dialysis Plan: -HD per TTS schedule while inpatient, oliguric, BP stable -Last HD on 07/29, well tolerated -Plan for HD again on 07/31 per schedule and ordered -Maintain renal diet -Daily weight and strict I&Os -Avoid nephrotoxins and contrast dye -Dose all meds for GFR <15 -C/w MEAGAN as iron sat is >20% -s/p Abx for PNA -Ok for discharge planning from renal standpoint -We will follow closely with you Thank you for the consult and the opportunity to participate in the care of this patient. Please do not hesitate to contact us with any questions or concerns. Pantera Vaughan [facility] [phone] [facility] 07-30-2022 Note Care Management Prog ress Note TRANSITIONAL CARE DAILY NOTE/UPDATES: Patient remains on 2E due to hypotension. Clinical updates: Patient on HD. Nephrology and cardiology following. Discharge plan: Back to [facility] when medically ready. Discharge obstacles: none noted. TCC to continue to follow. Discharge Milestones and Delays Expected Date/Time: 07/31/[address] discharge order Complete med reconciliation Case mgmt discharge readiness Clinical Stability Diagnsotic Workup Expected Discharge History Expected Date/Time Set By Reviewed At 07/31/2022 Sarah Kerr RN 07/30/2022 8:17 AM TCC estimate 07/29/2022 THOMAS Sutherland 07/26/2022 10:04 AM 07/31/2022 THOMAS Sutherland 07/26/2022 9:59 AM 07/31/2022 INDIA Soto CNP 07/24/2022 9:42 PM 07/31/2022 INDIA Soto CNP 07/24/2022 8:51 PM Length of Stay (Days): 6 GMLOS: 4.9 [facility] 07-30-2022 Note Hospitalist Progress Note 07/30/2022 [id number]: Please page me ([phone]) for patient care issues. [phone]: Please page [facility] Hospitalist for any issues. Subjective: Admit Date: 07/24/2022 PCP: Sarina Pineda MD Room#: B2-255/B2-255 A Interval History: Patient doing fine today. He denies any chest pain or sob. No NV. No fevers or chills. Adult diet Dysphagia - Minced and Moist; Moderately Thick (Honey) @[id number]@ 24HR INTAKE/OUTPUT: Intake/Output Summary (Last 24 hours) at 07/30/2022 1118 Last data filed at 07/30/2022 0800 Gross per 24 hour Intake 661.45 ml Output -- Net 661.45 ml Past Medical History: Past Medical History: Diagnosis Date A-fib (CMS/HCC) (HCC) BPH (benign prostatic hyperplasia) Dementia (HCC) Depression Diabetes (HCC) ESRD (end stage renal disease) (HCC) Hemodialysis patient (CMS/HCC) (HCC) Hyperlipidemia Hyperparathyroidism, secondary (HCC) Hypertension Hypothyroidism Nicotine dependence Parkinson's disease (HCC) LABS: CBC: Recent Labs 07/28/22 0509 07/29/22 0428 07/30/22 0507 WBC 5.3 5.6 6.4 RBC 2.56* 2.59* 2.69* HGB 8.7* 8.7* 9.0* HCT 26.2* 25.7* 26.9* MCV 102.2* 99.2* 100.1* RDW 15.8* 15.6* 15.6* PLT 121* 112* 116* BMP: Recent Labs 07/28/22 0509 07/29/22 0428 07/30/22 0507 NA 139 139 136 K 4.2 4.6 4.3 CL 103 104 100 CO2 30 28 32* BUN 29* 43* 26* CREATININE 5.31* 6.51* 4.18* GLUCOSE 107* 106* 109* CALCIUM 9.8 9.8 10.1 ANIONGAP 5 7 5 LIVER PROFILE: Recent Labs 07/28/22 0509 AST 19 ALT 22 BILITOT 0.3 ALKPHOS 151* PROT 6.0* PT/INR: No results for input(s): PROTIME, INR in the last 72 hours. CARDIAC ENZYMES: No results for input(s): TROPONINI in the last 72 hours. Procalcitonin: Lab Results Component Value Date PROCAL 0.98 (H) 07/28/2022 COVID-19 PCR: No results for input(s): COVID19 in the last 72 hours. Objective: Vitals: BP 136/83 Pulse 72 Temp 36.1 ?C (96.9 ?F) (Temporal) Resp 16 Ht 5' 7 (1.702 m) Wt 175 lb 4.3 oz (79.5 kg) SpO2 97% BMI 27.45 kg/m? Pulse Ox: SpO2 Av.6 % Min: 95 % Max: 100 % Supplemental O2: O2 Flow Rate (L/min): 1 L/min General appearance: No apparent distress, appears stated age, HEENT: Eyes: No scleral icterus Oral: Tongue is semi-moist Cardiovascular: S1/S2 heard, RRR Respiratory: Clear to auscultation bilaterally Abdomen: Soft, non-tender, non-distended bowel sounds positive Musculoskeletal: No obvious deformities seen Skin: No visible rashes or lesions. Medications: aspirin, 81 mg, Oral, Daily cetirizine, 5 mg, Oral, Daily epoetin shadi, 1,900 Units, SubCUTAneous, Once per day on Tue escitalopram, 10 mg, Oral, Daily ferrous sulfate, 325 mg, Oral, Daily with breakfast fluticasone, 2 spray, Each Nostril, Daily heparin, 5,000 Units, SubCUTAneous, 3 times per day metoprolol tartrate, 25 mg, Oral, BID montelukast, 10 mg, Oral, Daily pravastatin, 20 mg, Oral, Daily sodium chloride 0.9%, 10 mL, IntraVENous, 2 times per day tamsulosin, 0.4 mg, Oral, Daily Assessment # Chronic A-fib with symptomatic RVR on admission (hypotensive) -status post cardioversion - admitted initially with shortness of breath and A-fib with RVR/hypotension. He was cardioverted in the ED and was admitted to ICU because of hypotension after the procedure. BP improved and now resumed on metoprolol 25mg bid. Patient has known a.fib and is not on OAC. Cardiology consulted to evaluate. Currently appears to be in SR # Post cardioversion hypotension-now resolved. # Metabolic encephalopathy - appears to be back to baseline now. No CT head was done. Will check one # Pneumonia with haemophilus influenza - completed antibx. # ESRD-on hemodialysis, nephrology is on board, dialysis is Tuesday # Chronic anemia likely due to CKD. No evidence of GI bleed. # Thrombocytopenia - monitor # Chronic Hypertension - controlled # Hx of Anxiety disorder # Dysphagia with aspiration risk-speech eval with modified diet # DNR CCA # Stage I pressure ulcer of the sacrum present on admission # Anemia of chronic disease Plan No CT head was done for encephalopathy. Appears to be back at baseline now? Will check CT head to make sure no other etiology. Meanwhile, Continue metoprolol bid. Cardiology has seen. Spoke with cardiology CONCERT SINGER today. Plan is possibly to start OAC. They also agree with CT head as well prior to starting this given recent encephalopathy. Spoke with Dr. Edouard cardiology as well. Defer discussing OAC with sister/family to cardiology. Dr. Edouard will have cardiology CONCERT SINGER jim call and discuss with family. Continue dialysis as per renal (got dialysis yesterday with 2L removal). Continue all other tx the same. Addendum: Spoke with Dr. Edouard, who request for me to order eliquis 5mg bid. She has spoken with family about risk and they are agreeable to be on it as patient will be at facility as well and will need (more content not included)... [facility] 07-29-2022 Note Hospitalist Progress Note 07/29/2022 [phone]: Please page me ([phone]) for patient care issues. [phone]: Please page [facility] Hospitalist for any issues. Subjective: Admit Date: 07/24/2022 PCP: Sarina Pineda MD Room#: B2-255/B2-255 A Interval History: No overnight issues. Denies chest pain, sob, abdominal pain, nausea, vomiting, diarrhea, constipation, fevers, or chills. Adult diet Dysphagia - Minced and Moist; Moderately Thick (Honey) @[id number]@ 24HR INTAKE/OUTPUT: Intake/Output Summary (Last 24 hours) at 07/29/2022 1227 Last data filed at 07/28/20222025 Gross per 24 hour Intake 610 ml Output -- Net 610 ml Past Medical History: Past Medical History: Diagnosis Date A-fib (CMS/HCC) (HCC) BPH (benign prostatic hyperplasia) Dementia (HCC) Depression Diabetes (HCC) ESRD (end stage renal disease) (HCC) Hemodialysis patient (CMS/HCC) (HCC) Hyperlipidemia Hyperparathyroidism, secondary (HCC) Hypertension Hypothyroidism Nicotine dependence Parkinson's disease (HCC) LABS: CBC: Recent Labs 07/27/222 07/28/22 0509 07/29/22 0428 WBC 4.2 5.3 5.6 RBC 1.93* 2.56* 2.59* HGB 7.9* 8.7* 8.7* HCT 21.7* 26.2* 25.7* MCV 112.7* 102.2* 99.2* RDW 15.3* 15.8* 15.6* PLT 104* 121* 112* BMP: Recent Labs 07/27/2232107/28/22 0509 07/29/22 0428 NA 142 139 139 K 4.1 4.2 4.6 CL 109* 103 104 CO2 24 30 28 BUN 45* 29* 43* CREATININE 7.05* 5.31* 6.51* GLUCOSE 90 107* 106* CALCIUM 9.7 9.8 9.8 ANIONGAP 9 5 7 LIVER PROFILE: Recent Labs 07/27/2232107/28/22 0509 AST 25 19 ALT 24 22 BILITOT 0.3 0.3 ALKPHOS 155* 151* PROT 5.2* 6.0* PT/INR: No results for input(s): PROTIME, INR in the last 72 hours. CARDIAC ENZYMES: No results for input(s): TROPONINI in the last 72 hours. Procalcitonin: Lab Results Component Value Date PROCAL 0.98 (H) 07/28/2022 COVID-19 PCR: No results for input(s): COVID19 in the last 72 hours. Objective: Vitals: BP 108/50 Pulse 59 Temp 36.5 ?C (97.7 ?F) Resp 16 Ht 5' 7 (1.702 m) Wt 175 lb 4.3 oz (79.5 kg) SpO2 94% BMI 27.45 kg/m? Pulse Ox: SpO2 Av.3 % Min: 94 % Max: 97 % Supplemental O2: O2 Flow Rate (L/min): 1 L/min General appearance: No apparent distress, appears stated age, HEENT: Eyes: No scleral icterus Oral: Tongue is semi-moist Cardiovascular: S1/S2 heard, RRR Respiratory: Clear to auscultation bilaterally Abdomen: Soft, non-tender, non-distended bowel sounds positive Musculoskeletal: No obvious deformities seen Skin: No visible rashes or lesions. Medications: aspirin, 81 mg, Oral, Daily cetirizine, 5 mg, Oral, Daily epoetin shadi, 1,900 Units, SubCUTAneous, Once per day on Tue escitalopram, 10 mg, Oral, Daily ferrous sulfate, 325 mg, Oral, Daily with breakfast fluticasone, 2 spray, Each Nostril, Daily heparin, 5,000 Units, SubCUTAneous, 3 times per day metoprolol tartrate, 25 mg, Oral, BID montelukast, 10 mg, Oral, Daily pravastatin, 20 mg, Oral, Daily sodium chloride 0.9%, 10 mL, IntraVENous, 2 times per day tamsulosin, 0.4 mg, Oral, Daily Assessment # Chronic A-fib with symptomatic RVR on admission (hypotensive) -status post cardioversion - admitted initially with shortness of breath and A-fib with RVR/hypotension. He was cardioverted in the ED and was admitted to ICU because of hypotension after the procedure. BP improved and now resumed on metoprolol 25mg bid. Patient has known a.fib and is not on OAC. Cardiology consulted to evaluate. Currently appears to be in SR # Post cardioversion hypotension-now resolved. # Metabolic encephalopathy # Pneumonia with haemophilus influenza - completed antibx. # ESRD-on hemodialysis, nephrology is on board, dialysis is Tuesday # Chronic anemia # Thrombocytopenia - monitor # Chronic Hypertension - controlled # Hx of Anxiety disorder # Dysphagia with aspiration risk-speech eval with modified diet # DNR CCA # Stage I pressure ulcer of the sacrum present on admission # Anemia of chronic disease Plan Continue metoprolol bid. Consult to cardiology to evaluate for a.fib with RVR. Continue dialysis as per renal. Continue all other tx the same. S/p dialysis today with 2L removal. Toxic drug monitoring/narrow therapeutic index drug monitoring if any: # Drug name : # Route administered : # Method of monitoring : Extended Emergency Contact Information Primary Emergency Contact: Riri Mccloud Relation: Sibling ALICIA CARNEY MD Division of Hospitalist Medicine Inpatient Medical Services[place]: [facility] 07-28-2022 Note Hospitalist Progress Note 07/28/[phone]: Please page me ([phone]) for patient care issues. [phone]: Please page [facility] [place] Hospitalist for any issues. Subjective: Admit Date: 07/24/2022 PCP: Sarina Pineda MD Room#: B2-255/B2-255 A Interval History: Transferred from ICU service, 77-year-old male patient with history of hypertension hyperlipidemia and A-fib and not on DOAC, also ESRD with hemodialysis was admitted with chest pain and shortness of breath and was found to be in A-fib and RVR and went hypotensive to 80s, cardioverted in the ED, subsequently was in sinus rhythm Appears to be quite weak, PT is somewhat garbled but understandable, Denies chest pain, sob, abdominal pain, nausea, vomiting, diarrhea, constipation, fevers, or chills. Adult diet Dysphagia - Minced and Moist; Moderately Thick (Honey) @[id number]@ 24HR INTAKE/OUTPUT: Intake/Output Summary (Last 24 hours) at 07/28/2022 1615 Last data filed at 07/28/2022 1300 Gross per 24 hour Intake 600 ml Output -- Net 600 ml Past Medical History: Past Medical History: Diagnosis Date A-fib (CMS/HCC) (HCC) BPH (benign prostatic hyperplasia) Dementia (HCC) Depression Diabetes (HCC) ESRD (end stage renal disease) (HCC) Hemodialysis patient (CMS/[facility]) (HCC) Hyperlipidemia Hyperparathyroidism, secondary (HCC) Hypertension Hypothyroidism Nicotine dependence Parkinson's disease (HCC) LABS: CBC: Recent Labs 07/26/22 0300 07/27/22 0322 07/28/22 0509 WBC 5.3 4.2 5.3 RBC 2.04* 1.93* 2.56* HGB 8.3* 7.9* 8.7* HCT 22.4* 21.7* 26.2* MCV 109.7* 112.7* 102.2* RDW 15.4* 15.3* 15.8* PLT 111* 104* 121* BMP: Recent Labs 06/05/29907/27/222 07/28/22 0509 NA 137 142 139 K 3.7 4.1 4.2 CL 105 109* 103 CO2 26 24 30 BUN 36* 45* 29* CREATININE 5.57* 7.05* 5.31* GLUCOSE 108* 90 107* CALCIUM 9.6 9.7 9.8 ANIONGAP 6 9 5 LIVER PROFILE: Recent Labs 07/26/22 03007/27/222 07/28/22 0509 AST 18 25 19 ALT 13 24 22 BILITOT 0.4 0.3 0.3 ALKPHOS 144* 155* 151* PROT 5.7* 5.2* 6.0* PT/INR: No results for input(s): PROTIME, INR in the last 72 hours. CARDIAC ENZYMES: No results for input(s): TROPONINI in the last 72 hours. Procalcitonin: Lab Results Component Value Date PROCAL 1.57 (H) 07/26/2022 COVID-19 PCR: No results for input(s): COVID19 in the last 72 hours. Objective: Vitals: BP 122/50 Pulse 61 Temp 36.3 ?C (97.3 ?F) (Temporal) Resp 16 Ht 5' 7 (1.702 m) Wt 175 lb 0.7 oz (79.4 kg) SpO2 96% BMI 27.42 kg/m? Pulse Ox: SpO2 Av.3 % Min: 95 % Max: 100 % Supplemental O2: O2 Flow Rate (L/min): 1 L/min General appearance: Appears to be weak and frail, appears stated age and cooperative with exam HEENT: Normal cephalic, atraumatic without obvious deformity. Pupils equal, round, and reactive to light. Neck: Supple, with full range of motion. No jugular venous distention Respiratory: Diminished breath sounds bilaterally without Rales/Wheezes/Rhonchi. Cardiovascular: Regular rate and rhythm with normal S1/S2 without murmurs, rubs or gallops. Telemetry with sinus rhythm Abdomen: Soft, non-tender, non-distended with normal bowel sounds. No rebound or guarding. Musculoskeletal: No clubbing, cyanosis or edema bilaterally. The lower extremities, no calf tenderness skin: Skin color, texture, turgor normal. No rashes or lesions. Neurologic: Neurovascularly intact without any focal sensory/motor deficits. , grossly non-focal. Medications: aspirin, 81 mg, Oral, Daily cetirizine, 5 mg, Oral, Daily epoetin shadi, 1,900 Units, SubCUTAneous, Once per day on Tue escitalopram, 10 mg, Oral, Daily ferrous sulfate, 325 mg, Oral, Daily with breakfast fluticasone, 2 spray, Each Nostril, Daily heparin, 5,000 Units, SubCUTAneous, 3 times per day metoprolol tartrate, 25 mg, Oral, BID montelukast, 10 mg, Oral, Daily pravastatin, 20 mg, Oral, Daily sodium chloride 0.9%, 10 mL, IntraVENous, 2 times per day tamsulosin, 0.4 mg, Oral, Daily Assessment A-fib with RVR-status post cardioversion,, Post cardioversion hypotension-now improved Metabolic encephalopathy Pneumonia with haemophilus influenza,, upon discussion with ID stewardship , discontinued vancomycin, next dose of Rocephin today ESRD-on hemodialysis, nephrology is on board, dialysis is Tuesday Hypertension Hypothyroidism Anxiety Dysphagia with aspiration risk-speech eval with modified diet DNR CCA Stage I pressure ulcer of the sacrum present on admission Anemia of chronic disease Medical Decision Making Admitted initially with shortness of breath and A-fib with RVR, cardiology was consulted and he was cardioverted in the ED and was admitted to ICU because of hypotension after the procedure. Transthoracic echo was positive for LVEF at 49%, nephrology consulted for dialysis orders Beta-moe added for rate control Cardiology consult - (more content not included)... [facility] 07-28-2022 Note Care Management Prog ress Note Chart reviewed. Patient remains on 2 east with hypotension, recent transfer from ICU. On HD -last 07/27. Completing course of IVABX today. Has Dementia. Dr. Heller updated on plan; awaiting medical clearance for discharge. Will task [facility] when medically ready. DCP: Fabio Wilcox. No authorization needed to return. Discharge Milestones and Delays Expected Date/Time: 07/29/[address] discharge order Complete med reconciliation Case mgmt discharge readiness Clinical Stability Diagnsotic Workup Expected Discharge History Expected Date/Time Set By Reviewed At 07/29/2022 THOMAS Sutherland 07/26/2022 10:04 AM 07/31/2022 THOMAS Sutherland 07/26/2022 9:59 AM 07/31/2022 INDIA Soto CNP 07/24/2022 9:42 PM 07/31/2022 INDIA Soto CNP 07/24/2022 8:51 PM Length of Stay (Days): 4 GMLOS: 4.9 [facility] 07-27-2022 Note SPEECH DIRECTOR CHILD ABUSE THERAPY OLOGY MODIFIED BARIUM SWALLOW STUDY Patient Name: Logan Fisher : 1945 Today's Date: 07/27/2022 Visit Info / [facility] ADMISSION DATE: 07/24/2022 ADMITTING DIAGNOSIS: has Atrial fibrillation with RVR (CMS/HCC) (HCC); Atrial fibrillation (CMS/HCC) (HCC); COVID-19; Parkinson's disease (HCC); ESRD (end stage renal disease) (HCC); Acute metabolic encephalopathy; Chronic renal failure, stage 5 (CMS/HCC) (HCC); and Hypotension on their problem list. General Information Radiologist: Dr. Shari Brown Type of Study: Initial MBS Current Diet Solid Consistency: Dysphagia Soft and Bite-Sized (Dysphagia III) Current Diet Liquid Consistency: Mildly Thick ([place]) Patient complaints: Pt with wet cough with all po. Previous day Clinical bedside evaluation pt was coughing out thick mucous as well. Referring Diagnosis: Dysphagia, h/o Parkinson's, admitted with hypotension Consistencies Administered: Dysphagia Soft and Bite-Sized (Dysphagia III), Dysphagia Pureed (Dysphagia I), [place] cup, [place] teaspoon, Thin cup, Thin teaspoon Procedure Method: Cup, Self feed Patient Position: Lateral Patient was referred for a to assess the efficiency of his swallow function, rule out aspiration and make recommendations regarding safe dietary consistencies, effective compensatory strategies, and safe eating environment. Past Medical History: Diagnosis Date A-fib (CMS/HCC) (HCC) BPH (benign prostatic hyperplasia) Dementia (HCC) Depression Diabetes (HCC) ESRD (end stage renal disease) (HCC) Hemodialysis patient (CMS/HCC) (HCC) Hyperlipidemia Hyperparathyroidism, secondary (HCC) Hypertension Hypothyroidism Nicotine dependence Parkinson's disease (HCC) Past Surgical History: Procedure Laterality Date APPENDECTOMY FRACTURE SURGERY Right leg PROSTATECTOMY TONSILLECTOMY (HISTORICAL) Subjective Subjective Subjective: Pt was alert and pleasant. RN accompanied to Flouroscopy suite. Able to follow directions and no further questions after explaination of exam. Assessment Oral Preparation / Oral Phase: Oral Phase Oral Phase: Pt demonstrates decresed oral control and increased effort with bolus formations. Mastication is severely prolonged for chewing 1/4 piece of charla doone and required additional time for bolus formation as well. Multiple cues / prompts during study to swallow. Mild tongue base and oral residuals throughout. (mild to trace amount). Reswallows were effective to clear. +spillage of boli to the vallecula with thin, nectar and cookie during oral preparation; to piriform with thin (cup/tsp bites). Pharyngeal Phase: Pharyngeal Phase Pharyngeal: Pt demonstrates weakness with tongue base retraction and pharyngeal wall constriction resulting in inconsistent pharyngeal residuals after pudding and nectar thick liquids. +clearing with reswallow. Suspect level of fatigue and generalized weakness. A reswallow and liquid chaser was beneficial to clear residuals. +silent vocal cord penetration with intermittent vocal cord staining and flash aspiration. +deep near vocal cord penetration with other small cup drinks of thin liquids, even with use of prep set, small bolus. Back of epiglottis staining after thin liquids. Compensatory Swallowing Strategies Attempted: Small bites/sips, Upright as possible for all oral intake Cervical Esophageal Phase: Upper Esophageal Screen Upper Esophageal Screen: No deficits observed. No visualization below the vocal cords. Impression Recommend Minced and moist diet with mildly thick liquids. +penetration/flash aspiration and/or near vocal cord penetration with thin liquids even with controlled volume and prep/set . Slow rate and hold po when excessive coughing is present. ST will follow for advanced diet trials and oropharyngeal strengthening. Plan & Recommendations Recommendations/Treatment: Recommendations/Treat Requires TUBE ROOM CASHIER Intervention: Yes Recommendations: F/U MBS Recommendations comment: with improvement in progress prior to discontinuation of thickened liquids. Solid consistency: Dysphagia Minced and Moist (Dysphagia II) Liquid consistency: Mildly Thick ([place]) Liquid administration via: Cup Medication administration: Meds in puree Supervision: Close Compensatory Swallowing Strategies : Alternate solids and liquids, Upright as possible for all oral intake, Remain upright for 30-45 minutes after meals, Eat/Feed slowly Therapeutic Interventions: Bolus control exercises, Patient/Family education, Oral motor exercises, Tongue base strengthening, Pharyngeal exercises Education Response: Verbalizes understanding, Needs reinforcement Prognosis: Prognosis Prognosis for safe diet advancement: good Individuals consulted Consulted and agree with results and recommendations: Patient, RN RN Name: Zara The patient was educated regarding the general results and recommendatio (more content not included)... [facility] 07-27-2022 Note ICU Progress Note Name: Logan Fisher : 1945(77 y.o.) Date: 07/27/22 Team: MICU Attending: Tomas Crouch, [facility] Summary: 77 y.o M with PMH oc HTN, HPL, A-fib not on DOAC, ESRD on HD, Anemia, Hypothyroidism, Hyperparathyroidism, Dementia, Depression and BPH who presented with chest pain and shortness of breath. Found to be in AF-RVR, rates 160s; hypotensive to 80s SBP; cardioverted in ED and subsequently in sinus rhythm Subjective: Interval Events: Stable mentation, respiratory and hemodynamic status. Today: TUBE ROOM CASHIER evaluation today. HD today. Transfer to [facility] with tele post evaluation . Abx de-escalated to rocephin/vanco till 07/28/22 Scheduled Meds:aspirin, 81 mg, Oral, Daily cefTRIAXone, 2,000 mg, IntraVENous, q24h cetirizine, 5 mg, Oral, Daily escitalopram, 10 mg, Oral, Daily ferrous sulfate, 325 mg, Oral, Daily with breakfast fluticasone, 2 spray, Each Nostril, Daily heparin, 5,000 Units, SubCUTAneous, 3 times per day metoprolol tartrate, 25 mg, Oral, BID montelukast, 10 mg, Oral, Daily pravastatin, 20 mg, Oral, Daily sodium chloride 0.9%, 10 mL, IntraVENous, 2 times per day tamsulosin, 0.4 mg, Oral, Daily vancomycin (Vancocin) intermittent dosing (placeholder), , Other, See admin instructions vancomycin, 15 mg/kg, IntraVENous, Once Continuous Infusions: Objective: VITALS: BP 135/60 Pulse 59 Temp 36.1 ?C (97 ?F) (Oral) Resp 18 Ht 1.702 m (5' 7 ) Wt 75.7 kg (166 lb 14.2 oz) SpO2 97% BMI 26.14 kg/m? CURRENT PULSE OXIMETRY: SpO2: 97 % I/O: 07/26 0700 - 07/27 0659 In: 25 [P.O.:25] Out: - Ventilator: Oxygen Delivery: O2 Flow Rate (L/min): 1 L/min Invasive Lines / Tubes / Drains: Peripheral IV 07/24/22 Anterior;Right;Upper Arm (Active) Number of days: 0 Peripheral IV 07/24/22 Anterior;Right Forearm (Active) Number of days: 0 Urethral Catheter 16 Fr. (Active) Number of days: 0 Restraints: NA - patient is not restrained. Wounds: Wound/Incision 07/24/22 Coccyx (Active) Date First Assessed/Time First Assessed: 07/24/221928 Present on Hospital Admission: Yes Location: Coccyx Constitutional: General Appearance [x]WDWN []Obese []Cachectic []Thin []Ill Eyes: Inspection of Pupils/Irises Pupils round and react: [x]Yes []No Sclera: []Icteric [x]Non-Icteric Inspection of Conjunctiva/Lids Conjunctiva: []Injected [x]Non-Injected Lids: [x]Intact []Lesion Present ENT/Mouth: External Inspection of ears/nose [x] Normal [] Scar/Lesion/Mass Inspection of teeth/lips/gums Dentition: [x][place] Teeth []Dentures Lips/Gums: [x]Intact []Lesion Present Mucosa: [x]Inez [x]Moist []Dry Neck: External Appearance Overall Appearance: [x]Normal []Lesion/Mass/Crepitus Present Trachea midline: [x]Yes []No Thyroid [x]Normal []Enlarged []Tender []Mass []Absent Respiratory: Respiratory effort []Labored [x]Non-Labored [] Mechanically-Ventilated On room air Auscultation [x]Clear []Crackles []Wheezes []Rhonchi Cardiovascular: Auscultation Rate: [x]Regular []Irregular []Tachycardia [x]Bradycardia Rhythm: [x]Regular []Irregular Murmur: []Present [x]Absent Extremities Peripheral Edema: []Present [x]Absent Varicosities: []Present [x]Absent Gastrointestinal: Abdomen Palpation: [x]Soft []Firm []Tender [x]Non-Tender []Distended [x]Non-distended Mass: []Present [x]Absent Bowel Sounds: [x]Present []Absent Hernia: []Present [x]Absent Liver/Spleen: []Hepatosplenomegaly [x]Organomegaly Absent Musculoskeletal: Inspection of Digits and Nails Cyanosis: []Present [x]Absent Clubbing: []Present [x]Absent Ischemia: []Present [x]Absent Infection: []Present [x]Absent Extremities HARO Equally: Except ([]RUE []RLE []LUE []LLE) Strength/Tone: Intact and Normal ([x]RUE [x]RLE [x]LUE [x]LLE) Left arm AV fistula with palpable thrill and audible bruit. Skin: Inspection [x]Normal []Rash []Lesion []Ulcer Palpation [x]Warm []Cool [x]Dry []Clammy []Nodules []Induration []Skin-tightening Cap-Refill: [] <3 sec [] >3 seconds (delayed) Neurologic: GCS EYE: 4 - Opens spontaneously GCS MOTOR: 6 - Obeys commands for movement GCS VERBAL: 5 - Oriented to person, place, time Total GCS: 15 [x] Sensation grossly intact Psych: Mental Status Alert: [x]Yes [] No Oriented: []x0 []X1 [x]X2 []x3 Mood/Affect [x]Normal []Flat []Agitated []Depressed []Anxious []Calm []Sedated []NAD [facility] within last 24 hours- BMP: Recent Labs 07/25/2231507/26/22 0300 07/27/22 0322 NA 136 137 142 K 3.8 3.7 4.1 CL 104 105 109* CO2 28 26 24 BUN 25* 36* 45* CREATININE 3.83* 5.57* 7.05* CALCIUM 9.7 9.6 9.7 MG 2.0 2.1 2.1 PHOS 4.7* 4.1 4.2 LFTs: Recent Labs 07/24/22 1850 07/24/22202607/25/22 0316 07/26/22 0300 07/27/22 0322 AST 21 18 17 18 25 ALT 11 10 9 13 24 PROT 6.9 6.0* 5.9* 5.7* 5.2* ALBUMIN 3.7 3.2* 3.0* 3.1* 2.8* BILITOT 0.7 0.5 0.4 0.4 0.3 BILIRUBINU -- Neg (more content not included)... [facility] 07-26-2022 Note ICU Progress Note Name: Logan Fisher : 1945(77 y.o.) Date: 07/26/22 Team: MICU Attending: Tomas Crouch, [facility] Summary: 77 y.o M with PMH oc HTN, HPL, A-fib not on DOAC, ESRD on HD, Anemia, Hypothyroidism, Hyperparathyroidism, Dementia, Depression and BPH who presented with chest pain and shortness of breath. Found to be in AF-RVR, rates 160s; hypotensive to 80s SBP; cardioverted in ED and subsequently in sinus rhythm Subjective: Interval Events: No acute events overnight. On room air, stable mentation. Discussed with ID. Abx de-escalated to rocephin/vanco till 07/28/22 Aspiration with thin liquids. Diet changed TUBE ROOM CASHIER evaluation , possible [facility] transfer in next -. Planned HD tomorrow. Discussed with nephrology specialist Scheduled Meds:aspirin, 81 mg, Oral, Daily cefTRIAXone, 2,000 mg, IntraVENous, q24h cetirizine, 5 mg, Oral, Daily escitalopram, 10 mg, Oral, Daily ferrous sulfate, 325 mg, Oral, Daily with breakfast fluticasone, 2 spray, Each Nostril, Daily heparin, 5,000 Units, SubCUTAneous, 3 times per day metoprolol tartrate, 25 mg, Oral, BID montelukast, 10 mg, Oral, Daily pravastatin, 20 mg, Oral, Daily sodium chloride 0.9%, 10 mL, IntraVENous, 2 times per day tamsulosin, 0.4 mg, Oral, Daily vancomycin (Vancocin) intermittent dosing (placeholder), , Other, See admin instructions Continuous Infusions: Objective: VITALS: BP 127/54 Pulse 66 Temp 36.1 ?C (97 ?F) (Oral) Resp 26 Ht 1.702 m (5' 7 ) Wt 75.7 kg (166 lb 14.2 oz) SpO2 97% BMI 26.14 kg/m? CURRENT PULSE OXIMETRY: SpO2: 97 % I/O: 07/25 0700 - 07/26 0659 In: 105 [P.O.:105] Out: 315 [Urine:315] Ventilator: Oxygen Delivery: O2 Flow Rate (L/min): 1 L/min Invasive Lines / Tubes / Drains: Peripheral IV 07/24/22 Anterior;Right;Upper Arm (Active) Number of days: 0 Peripheral IV 07/24/22 Anterior;Right Forearm (Active) Number of days: 0 Urethral Catheter 16 Fr. (Active) Number of days: 0 Restraints: NA - patient is not restrained. Wounds: Wound/Incision 07/24/22 Coccyx (Active) Date First Assessed/Time First Assessed: 07/24/221928 Present on Hospital Admission: Yes Location: Coccyx Constitutional: General Appearance [x]WDWN []Obese []Cachectic []Thin []Ill Eyes: Inspection of Pupils/Irises Pupils round and react: [x]Yes []No Sclera: []Icteric [x]Non-Icteric Inspection of Conjunctiva/Lids Conjunctiva: []Injected [x]Non-Injected Lids: [x]Intact []Lesion Present ENT/Mouth: External Inspection of ears/nose [x] Normal [] Scar/Lesion/Mass Inspection of teeth/lips/gums Dentition: [x][place] Teeth []Dentures Lips/Gums: [x]Intact []Lesion Present Mucosa: [x]Inez [x]Moist []Dry Neck: External Appearance Overall Appearance: [x]Normal []Lesion/Mass/Crepitus Present Trachea midline: [x]Yes []No Thyroid [x]Normal []Enlarged []Tender []Mass []Absent Respiratory: Respiratory effort []Labored [x]Non-Labored [] Mechanically-Ventilated On room air Auscultation [x]Clear []Crackles []Wheezes []Rhonchi Cardiovascular: Auscultation Rate: [x]Regular []Irregular []Tachycardia [x]Bradycardia Rhythm: [x]Regular []Irregular Murmur: []Present [x]Absent Extremities Peripheral Edema: []Present [x]Absent Varicosities: []Present [x]Absent Gastrointestinal: Abdomen Palpation: [x]Soft []Firm []Tender [x]Non-Tender []Distended [x]Non-distended Mass: []Present [x]Absent Bowel Sounds: [x]Present []Absent Hernia: []Present [x]Absent Liver/Spleen: []Hepatosplenomegaly [x]Organomegaly Absent Musculoskeletal: Inspection of Digits and Nails Cyanosis: []Present [x]Absent Clubbing: []Present [x]Absent Ischemia: []Present [x]Absent Infection: []Present [x]Absent Extremities HARO Equally: Except ([]RUE []RLE []LUE []LLE) Strength/Tone: Intact and Normal ([x]RUE [x]RLE [x]LUE [x]LLE) Left arm AV fistula with palpable thrill and audible bruit. Skin: Inspection [x]Normal []Rash []Lesion []Ulcer Palpation [x]Warm []Cool [x]Dry []Clammy []Nodules []Induration []Skin-tightening Cap-Refill: [] <3 sec [] >3 seconds (delayed) Neurologic: GCS EYE: 4 - Opens spontaneously GCS MOTOR: 6 - Obeys commands for movement GCS VERBAL: 5 - Oriented to person, place, time Total GCS: 15 [x] Sensation grossly intact Psych: Mental Status Alert: [x]Yes [] No Oriented: []x0 []X1 [x]X2 []x3 Mood/Affect [x]Normal []Flat []Agitated []Depressed []Anxious []Calm []Sedated []NAD [facility] within last 24 hours- BMP: Recent Labs 07/24/22184907/24/22202607/25/22 0316 07/26/22 0300 NA 133* 138 136 137 K 7.2* 3.5 3.8 3.7 CL 100 100 104 105 CO2 29 30 28 26 BUN 20 21* 25* 36* CREATININE 3.35* 3.52* 3.83* 5.57* CALCIUM 9.2 9.5 9.7 9.6 MG 2.0 -- 2.0 2.1 PHOS 4.3 -- 4.7* 4.1 LFTs: Recent Labs 07/24/22184907/24/222026 06/04/23 0316 07/26/22 0300 AST 21 18 17 18 ALT 11 10 9 13 PROT 6.9 6 (more content not included)... [facility] 07-25-2022 Note ICU Progress Note Name: Logan Fisher : 1945(77 y.o.) Date: 07/25/22 Team: MICU Attending: Carmine Gastelum MD Hospital Summary: 77 y.o M with PMH oc HTN, HPL, A-fib not on DOAC, ESRD on HD, Anemia, Hypothyroidism, Hyperparathyroidism, Dementia, Depression and BPH who presented with chest pain and shortness of breath. Found to be in AF-RVR, rates 160s; hypotensive to 80s SBP; cardioverted in ED and subsequently in sinus rhythm Subjective: Interval Events: - off pressors this morning - on room air - says he feels much better now; had been feeling ill for over a week - denies pain anywhere; no chest pain or palpitations; no presyncope Scheduled Meds:aspirin, 81 mg, Oral, Daily cetirizine, 5 mg, Oral, Daily escitalopram, 10 mg, Oral, Daily ferrous sulfate, 325 mg, Oral, Daily with breakfast fluticasone, 2 spray, Each Nostril, Daily heparin, 5,000 Units, SubCUTAneous, 3 times per day montelukast, 10 mg, Oral, Daily pantoprazole, 40 mg, Oral, qAM AC piperacillin-tazobactam, 2,250 mg, IntraVENous, q6h pravastatin, 20 mg, Oral, Daily sodium chloride 0.9%, 10 mL, IntraVENous, 2 times per day tamsulosin, 0.4 mg, Oral, Daily vancomycin (Vancocin) intermittent dosing (placeholder), , Other, See admin instructions Continuous Infusions:norepinephrine in sodium chloride 0.9 %, 2-50 mcg/min, Last Rate: Stopped (07/25/22 0330) Objective: VITALS: BP (!) 109/49 Pulse 69 Temp 36.4 ?C (97.5 ?F) (Oral) Resp 16 Ht 5' 6.93 (1.7 m) Wt 166 lb 14.2 oz (75.7 kg) SpO2 97% BMI 26.19 kg/m? CURRENT PULSE OXIMETRY: SpO2: 97 % I/O: 07/24 0700 - 07/25 0659 In: 1530 [I.V.:126] Out: 42 [Urine:42] Ventilator: Oxygen Delivery: O2 Flow Rate (L/min): 1 L/min Invasive Lines / Tubes / Drains: Peripheral IV 07/24/22 Anterior;Right;Upper Arm (Active) Number of days: 0 Peripheral IV 07/24/22 Anterior;Right Forearm (Active) Number of days: 0 Urethral Catheter 16 Fr. (Active) Number of days: 0 Restraints: NA - patient is not restrained. Wounds: Wound/Incision 07/24/22 Coccyx (Active) Date First Assessed/Time First Assessed: 07/24/221928 Present on Hospital Admission: Yes Location: Coccyx Constitutional: General Appearance [x]WDWN []Obese []Cachectic []Thin []Ill Eyes: Inspection of Pupils/Irises Pupils round and react: [x]Yes []No Sclera: []Icteric [x]Non-Icteric Inspection of Conjunctiva/Lids Conjunctiva: []Injected [x]Non-Injected Lids: [x]Intact []Lesion Present ENT/Mouth: External Inspection of ears/nose [x] Normal [] Scar/Lesion/Mass Inspection of teeth/lips/gums Dentition: [x][place] Teeth []Dentures Lips/Gums: [x]Intact []Lesion Present Mucosa: [x]Inez [x]Moist []Dry Neck: External Appearance Overall Appearance: [x]Normal []Lesion/Mass/Crepitus Present Trachea midline: [x]Yes []No Thyroid [x]Normal []Enlarged []Tender []Mass []Absent Respiratory: Respiratory effort []Labored [x]Non-Labored [] Mechanically-Ventilated On room air Auscultation [x]Clear []Crackles []Wheezes []Rhonchi Cardiovascular: Auscultation Rate: [x]Regular []Irregular []Tachycardia [x]Bradycardia Rhythm: [x]Regular []Irregular Murmur: []Present [x]Absent Extremities Peripheral Edema: []Present [x]Absent Varicosities: []Present [x]Absent Gastrointestinal: Abdomen Palpation: [x]Soft []Firm []Tender [x]Non-Tender []Distended [x]Non-distended Mass: []Present [x]Absent Bowel Sounds: [x]Present []Absent Hernia: []Present [x]Absent Liver/Spleen: []Hepatosplenomegaly [x]Organomegaly Absent Musculoskeletal: Inspection of Digits and Nails Cyanosis: []Present [x]Absent Clubbing: []Present [x]Absent Ischemia: []Present [x]Absent Infection: []Present [x]Absent Extremities HARO Equally: Except ([]RUE []RLE []LUE []LLE) Strength/Tone: Intact and Normal ([x]RUE [x]RLE [x]LUE [x]LLE) Left arm AV fistula with palpable thrill and audible bruit. Skin: Inspection [x]Normal []Rash []Lesion []Ulcer Palpation [x]Warm []Cool [x]Dry []Clammy []Nodules []Induration []Skin-tightening Cap-Refill: [] <3 sec [] >3 seconds (delayed) Neurologic: GCS EYE: 4 - Opens spontaneously GCS MOTOR: 6 - Obeys commands for movement GCS VERBAL: 5 - Oriented to person, place, time Total GCS: 15 [x] Sensation grossly intact Psych: Mental Status Alert: [x]Yes [] No Oriented: []x0 []X1 [x]X2 []x3 Mood/Affect [x]Normal []Flat []Agitated []Depressed []Anxious []Calm []Sedated []NAD [facility] within last 24 hours- BMP: Recent Labs 07/24/22184907/24/22202607/25/22315 NA 133* 138 136 K 7.2* 3.5 3.8 CL 100 100 104 CO2 29 30 28 BUN 20 21* 25* CREATININE 3.35* 3.52* 3.83* CALCIUM 9.2 9.5 9.7 MG 2.0 -- 2.0 PHOS 4.3 -- 4.7* LFTs: Recent Labs 07/24/22184907/24/22202607/25/22 0316 AST 21 18 17 ALT 11 10 9 PROT 6.9 6.0* 5.9* ALBUMIN 3.7 3.2* 3.0* BILITOT 0.7 0.5 0.4 BILIRUBINU -- N (more content not included)... [facility] 07-24-2022 Note Family Communication Number Called: [phone] Name of Designated Family Stock Feeder: Riri Mccloud Relationship: sister and HCPOA Phone Call Outcome: I spoke with the individual listed above. Family Stock Feeder Updated on the Following: Updated sister on patient's presentation to the hospital. Updated on being cardioverted for A-fib with RVR. Updated on being in shock and requiring low-dose pressors with plans to admit to the ICU and do infectious work-up and need for central line for which she consented. Noted to have a previous DNR form scanned in the computer however after discussion with halfway staff there is no advanced directives there. Discussed with patient's sister and she reports that the patient would not want to be resuscitated nor be on machines discussed various CODE STATUS is with her and elects at this time for DNR CCA/DNI. All questions answered. [facility] 07-24-2022 Note Internal Medicine: I CU Initial History and Physical Logan Fisher : 1945(77 y.o.) Date: July 24, 2022 Attending: Dr. Viveros Subjective: Chief Complaint: Chest pain HPI: This is a 77 y.o M with PMH oc HTN, HPL, A-fib not on DOAC, ESRD on HD, Anemia, Hypothyroidism, Hyperparathyroidism, Dementia, Depression and BPH who presents to the ER this evening with chest pain and shortness of breath. Information obtained from the patient, ER staff, EMR, halfway and patient's sister. Apparently the patient has been a resident of the halfway for a number of years due to end-stage renal disease on dialysis and was not taking care of himself and had multiple falls at home. Apparently the patient has not been feeling well for the last week staff noted that he has been more lethargic than normal, and complaining of N/V/D. Apparently went to dialysis today, and upon return was noted to have chest pain and shortness of breath. He was transported to the ER for further evaluation. He was found to be in symptomatic A-fib with RVR, cardioverted successfully after the second attempt. He was noted to be hypotensive after, was given 1 L fluid and push dose phenylephrine, with subsequent norepinephrine infusion. Patient was encephalopathic post cardioversion. ICU contacted for admission. Past Medical History: Diagnosis Date A-fib ([facility]) (HCC) BPH (benign prostatic hyperplasia) Dementia (HCC) Depression Diabetes (HCC) ESRD (end stage renal disease) ([facility]) Hemodialysis patient ([facility]) (HCC) Hyperlipidemia Hyperparathyroidism, secondary (HCC) Hypertension Hypothyroidism Nicotine dependence Parkinson's disease (HCC) Past Surgical History: Procedure Laterality Date APPENDECTOMY FRACTURE SURGERY Right leg PROSTATECTOMY TONSILLECTOMY (HISTORICAL) Family History Problem Relation Name Age of Onset Cancer Mother Other (90994) Father Social History Socioeconomic History Marital status: Single Spouse name: Not on file Number of children: Not on file Years of education: Not on file Highest education level: Not on file Occupational History Not on file Tobacco Use Smoking status: Former Packs/day: 0.50 Types: Cigarettes Quit date: 03/12/2017 Years since quittin.3 Smokeless tobacco: Never Substance and Sexual Activity Alcohol use: No Drug use: No Sexual activity: Not on file Other Topics Concern Not on file Social History Narrative Not on file Social Determinants of Health Financial Resource Strain: Not on file Food Insecurity: Not on file Transportation Needs: Not on file Physical Activity: Not on file Stress: Not on file Social Connections: Not on file Intimate Partner Violence: Not on file Housing Stability: Not on file No Known Allergies Prior to Admission medications Medication Sig Start Date End Date Taking? Authorizing Provider aspirin 81 MG EC tablet Take 81 mg by mouth daily. 09/08/15 Historical Provider, escitalopram (Lexapro) 10 MG tablet Take 10 mg by mouth daily. 02/08/22 Historical Provider, ferrous sulfate 325 (65 Fe) MG tablet Take 325 mg by mouth in the morning and 325 mg in the evening. Historical Provider, fluticasone (Flonase) 50 MCG/ACT nasal spray Administer 2 sprays into each nostril daily. 11/20/21 Historical ProviderMD loratadine (Claritin) 10 MG tablet Take 10 mg by mouth in the morning. Historical Provider, metoprolol tartrate (Lopressor) 50 MG tablet Take 50 mg by mouth in the morning and 50 mg in the evening. 02/04/22 Historical Provider, montelukast (Singulair) 10 MG tablet Take 10 mg by mouth daily. 01/28/22 Historical Provider, omega-3 (Fish Oil) 1000 MG capsule Take 1,000 mg by mouth daily. 03/14/19 Historical Provider, polyethylene glycol, PEG, 3350 (Glycolax) 17 GM/SCOOP powder Take 17 g by mouth in the morning. 09/08/15 Historical Provider, pravastatin (Pravachol) 20 MG tablet Take 20 mg by mouth daily. 02/04/22 Historical Provider, tamsulosin (Flomax) 0.4 MG 24 hr capsule Take 0.4 mg by mouth daily. 02/06/22 Historical Provider, Objective: Oxygen Delivery - O2 Flow Rate (L/min): 2 L/min VITALS: BP 107/51 (BP Location: Right arm, Patient Position: Lying) Pulse 82 Temp 36.6 ?C (97.8 ?F) (Axillary) Resp 16 Wt 81 kg (178 lb 9.2 oz) SpO2 99% BMI 27.97 kg/m? CURRENT PULSE OXIMETRY: SpO2: 99 % Review of Systems Unable to perform ROS: Mental status change Limited ROS, did endorse recent chest pain, n/v Physical Exam Vitals and nursing note reviewed. Constitutional: General: He is not in acute distress. Appearance: He is well-developed and well-groomed. He is ill-appearing. He is not diaphoretic. HENT: Head: Normocephalic and atraumatic. Right Ear: External ear normal. Left Ear: External ear normal. Nose: Nose normal. Mouth/Throat: Mouth: Mucous membranes are dry. Dentition: Abnormal dentition. (more content not included)... [facility] 08-26-2021 Note HNO ID: [id number] Author: Joanna Berman PA-C Service: ? Author Type: Physician Utility Worker [place] Type: Progress Notes Filed: 08/26/2021 1:50 PM Note Text: CHIEF COMPLAINT: Patient presents with: Recheck: Liver cysts. CT 05/08/21 LAbs 07/24/21 HPI Logan Fisher is a 76 year old male here today for Recheck (Liver cysts. CT 05/08/21 LAbs 07/24/21) Sister is present today. Tells me that he is feeling well. Denies abdominal pain, changes in his bowels, rectal bleeding, nausea, vomiting, heartburn. Appetite is good. Weight is stable. On dialysis [facility] CT abd/pelvis 05/08/2021: IMPRESSION: Multiple bilateral renal cysts largest is a 13.7 cm cyst arising from the mid right kidney. There are 2 lesions in the inferior pole left kidney which measure greater than simple fluid density. These are favored to represent cysts complicated by hemorrhage or proteinaceous material. A solid renal lesion could have a similar appearance. Consider a follow-up renal ultrasound in 12 months. There is a 4 mm pulmonary nodule in the right lower lobe. No imaging follow-up of this nodule is recommended. If this patient has a history risk factors for lung cancer a follow-up chest CT in one year could be considered to assess for stability. Enlarged prostate gland. Liver: Unremarkable unenhanced liver Last OV with Dr. Esparza 04/23/2021: ASSESSMENT: Liver cyst (primary encounter diagnosis) Acquired cyst of kidney ? PLAN: Office Visit on 04/23/21 - CT ABD/PEL WO IVCON Current Outpatient Medications Medication Sig - polyethylene glycol 3350 (MIRALAX) 17 gram/dose powder Take by mouth once daily. Dissolve dose in 4 - 8 ounces of liquid and take as directed. - paricalcitol (ZEMPLAR) 1 mcg capsule Take 1 mcg by mouth once daily. - loratadine (CLARITIN) 10 mg tablet Take 10 mg by mouth once daily. - albuterol (PROVENTIL) 2.5 mg /3 mL (0.083 %) nebulizer solution 2.5 mg. - donepezil (ARICEPT) 10 mg tablet - escitalopram oxalate (LEXAPRO) 10 mg tablet - ferrous sulfate 325 mg (65 mg iron) tablet Take 325 mg by mouth. - fluticasone (FLONASE) 50 mcg/actuation nasal spray - Mirtazapine (REMERON) 7.5 mg tablet - omega-3 acid ethyl esters (LOVAZA) 1 gram capsule - sevelamer carbonate (RENVELA) 800 mg tablet - aspirin, enteric coated (ASPIRIN, ENTERIC COATED) 81 mg EC tablet - metoprolol tartrate, short acting, (LOPRESSOR) 50 mg tablet - montelukast (SINGULAIR) 10 mg tablet - Jxwpm-3-PML-EPA-Fish Oil 1,000 mg (120 mg-180 mg) cap - pravastatin (PRAVACHOL) 20 mg tablet - tamsulosin ER (FLOMAX) 0.4 mg cp24 - amantadine HCl (SYMMETREL) 100 mg tablet (Patient not taking: Reported on 04/23/2021 ) - amLODIPine (NORVASC) 5 mg tablet (Patient not taking: Reported on 04/23/2021 ) - TRADJENTA 5 mg tab (Patient not taking: Reported on 04/23/2021 ) - losartan (COZAAR) 50 mg tablet (Patient not taking: Reported on 04/23/2021 ) - QUEtiapine (SEROQUEL) 25 mg tablet (Patient not taking: Reported on 04/23/2021 ) No current facility-administered medications for this visit. ALLERGIES No Known Allergies Social History Tobacco Use - Smoking status: Former Smoker - Smokeless tobacco: Never Used Vaping Use - Vaping Use: Never used Substance Use Topics - Alcohol use: No - Drug use: No PAST MEDICAL HISTORY Diagnosis Date - Atrial fibrillation with RVR (HCC) - Diabetes (HCC) - Hypercholesterolemia - Hypertension - Kidney disease stage 4 PAST SURGICAL HISTORY Procedure Laterality Date - COLONOSCOPY 05/07/2014 tubular adenoma x7 - COLONOSCOPY SCREENING 01/23/2009 tubulovillous adenoma, tubular adenoma - COLONOSCOPY SCREENING 12/30/2016 Case cancelled due to irregular heart rhythm. - LEG SURGERY HX History reviewed. No pertinent family history. REVIEW OF SYSTEMS Review of Systems All other systems reviewed and are negative. PHYSICAL EXAM BP 98/62 Pulse 74 Ht 5' 7 (1.70m) Physical Exam Constitutional: Appearance: Normal appearance. HENT: Head: Normocephalic and atraumatic. Nose: Nose normal. Eyes: General: No scleral icterus. Extraocular Movements: Extraocular movements intact. Conjunctiva/sclera: Conjunctivae normal. Pupils: Pupils are equal, round, and reactive to light. Cardiovascular: Rate and Rhythm: Normal rate and regular rhythm. Pulses: Normal pulses. Heart sounds: Normal heart sounds. Pulmonary: Effort: Pulmonary effort is normal. Breath sounds: Normal breath sounds. Abdominal: General: Bowel sounds are normal. There is distension. Palpations: Abdomen is soft. Tenderness: There is no abdominal tenderness. Musculoskeletal: Cervical back: Normal range of motion and neck supple. Comments: Wheelchair dependent Skin: General: Skin is warm and dry. Coloration: Skin is not jaundiced. Neurological: General: No focal deficit present. Mental Status: He is alert and oriented to person, place, and time. Psychiatric: Mood and Affect: (more content not included)... [facility] 08-26-2021 History of Present illness Narrative CHIEF COMPLAINT: Patient presents with: Recheck: Liver cysts. CT 05/08/21 LAbs 07/24/21 HPI Logan Fisher is a 76 year old male here today for Recheck (Liver cysts. CT 05/08/21 LAbs 07/24/21) Sister is present today. Tells me that he is feeling well. Denies abdominal pain, changes in his bowels, rectal bleeding, nausea, vomiting, heartburn. Appetite is good. Weight is stable. On dialysis TTHS CT abd/pelvis 05/08/2021: IMPRESSION: Multiple bilateral renal cysts largest is a 13.7 cm cyst arising from the mid right kidney. There are 2 lesions in the inferior pole left kidney which measure greater than simple fluid density. These are favored to represent cysts complicated by hemorrhage or proteinaceous material. A solid renal lesion could have a similar appearance. Consider a follow-up renal ultrasound in 12 months. There is a 4 mm pulmonary nodule in the right lower lobe. No imaging follow-up of this nodule is recommended. If this patient has a history risk factors for lung cancer a follow-up chest CT in one year could be considered to assess for stability. Enlarged prostate gland. Liver: Unremarkable unenhanced liver Last OV with Dr. Esparza 04/23/2021: ASSESSMENT: Liver cyst (primary encounter diagnosis) Acquired cyst of kidney PLAN: Office Visit on 04/23/21 CT ABD/PEL WO IVCON Current Outpatient Medications Medication Sig polyethylene glycol 3350 (MIRALAX) 17 gram/dose powder Take by mouth once daily. Dissolve dose in 4 - 8 ounces of liquid and take as directed. paricalcitol (ZEMPLAR) 1 mcg capsule Take 1 mcg by mouth once daily. loratadine (CLARITIN) 10 mg tablet Take 10 mg by mouth once daily. albuterol (PROVENTIL) 2.5 mg /3 mL (0.083 %) nebulizer solution 2.5 mg. donepezil (ARICEPT) 10 mg tablet escitalopram oxalate (LEXAPRO) 10 mg tablet ferrous sulfate 325 mg (65 mg iron) tablet Take 325 mg by mouth. fluticasone (FLONASE) 50 mcg/actuation nasal spray Mirtazapine (REMERON) 7.5 mg tablet omega-3 acid ethyl esters (LOVAZA) 1 gram capsule sevelamer carbonate (RENVELA) 800 mg tablet aspirin, enteric coated (ASPIRIN, ENTERIC COATED) 81 mg EC tablet metoprolol tartrate, short acting, (LOPRESSOR) 50 mg tablet montelukast (SINGULAIR) 10 mg tablet Easee-7-NXN-EPA-Fish Oil 1,000 mg (120 mg-180 mg) cap pravastatin (PRAVACHOL) 20 mg tablet tamsulosin ER (FLOMAX) 0.4 mg cp24 amantadine HCl (SYMMETREL) 100 mg tablet (Patient not taking: Reported on 04/23/2021 ) amLODIPine (NORVASC) 5 mg tablet (Patient not taking: Reported on 04/23/2021 ) TRADJENTA 5 mg tab (Patient not taking: Reported on 04/23/2021 ) losartan (COZAAR) 50 mg tablet (Patient not taking: Reported on 04/23/2021 ) QUEtiapine (SEROQUEL) 25 mg tablet (Patient not taking: Reported on 04/23/2021 ) No current facility-administered medications for this visit. ALLERGIES No Known Allergies Social History Tobacco Use Smoking status: Former Smoker Smokeless tobacco: Never Used Vaping Use Vaping Use: Never used Substance Use Topics Alcohol use: No Drug use: No PAST MEDICAL HISTORY Diagnosis Date Atrial fibrillation with RVR (HCC) Diabetes (HCC) Hypercholesterolemia Hypertension Kidney disease stage 4 PAST SURGICAL HISTORY Procedure Laterality Date COLONOSCOPY 05/07/2014 tubular adenoma x7 COLONOSCOPY SCREENING 01/23/2009 tubulovillous adenoma, tubular adenoma COLONOSCOPY SCREENING 12/30/2016 Case cancelled due to irregular heart rhythm. LEG SURGERY HX History reviewed. No pertinent family history. REVIEW OF SYSTEMS Review of Systems All other systems reviewed and are negative. PHYSICAL EXAM BP 98/62 Pulse 74 Ht 5' 7 (1.70m) Physical Exam Constitutional: Appearance: Normal appearance. HENT: Head: Normocephalic and atraumatic. Nose: Nose normal. Eyes: General: No scleral icterus. Extraocular Movements: Extraocular movements intact. Conjunctiva/sclera: Conjunctivae normal. Pupils: Pupils are equal, round, and reactive to light. Cardiovascular: Rate and Rhythm: Normal rate and regular rhythm. Pulses: Normal pulses. Heart sounds: Normal heart sounds. Pulmonary: Effort: Pulmonary effort is normal. Breath sounds: Normal breath sounds. Abdominal: General: Bowel sounds are normal. There is distension. Palpations: Abdomen is soft. Tenderness: There is no abdominal tenderness. Musculoskeletal: Cervical back: Normal range of motion and neck supple. Comments: Wheelchair dependent Skin: General: Skin is warm and dry. Coloration: Skin is not jaundiced. Neurological: General: No focal deficit present. Mental Status: He is alert and oriented to person, place, and time. Psychiatric: Mood and Affect: Mood normal. Behavior: Behavior normal. Thought Content: Thought content normal. Judgment: Judgment normal. Assessment/Plan (N28.1) Cyst of kidney, acquired (primary encounter diagnosis) 1. Cyst of kidney, acquired -- Patient has a large 13.9 cm kidney cyst seen on CT scan. Liver on CT is normal, no cystic lesion identified. Continue to follow with Urology as scheduled. Follow up in office PRN. Recommended to please call office/go to ER if fever, chills, chest pain, SOB, diarrhea, nausea, emesis, worsening abdominal pain, dehydration occurs I spent 20 minutes in the visit, with more than 50% of the total [id number] time of the visit in counseling / coordination of care. I have confirmed and edited as necessary, the PFSH and ROS obtained by others. Joanna Berman PA-C August 26, 2021 1:47 PM documented in this encounter [facility] 05-08-2021 Note HNO ID: [id number] Author: RT Trip(R) Service: Radiology Author Type: Technologist Type: Progress Notes Filed: 05/08/2021 12:59 PM Note Text: Radiology Service Progress Note PATIENT NAME: Logan Fisher DATE OF SERVICE: May 08, 2021 TIME: 12:59 PM PATIENT IDENTITY VERIFICATION COMPLETED USING TWO (2) IDENTIFIERS: Name and Date of confirmed by patient verbally and Name and Date of confirmed by identification band. FALL SCREENING: Has the patient had 2 falls in the last year or 1 fall with injury or currently using an Ambulatory Assistive Device (Walker, Cane, Wheelchair, Crutches, etc.)? No PATIENT GENDER DATA: Male PATIENT RELEVANT IMPLANT DATA REVIEWED: Not Applicable RADIOLOGY DEPARTMENT: CT; Exam(s) Completed: Abdomen/Pelvis PERIPHERAL IV DATA: Not applicable SIGNED BY: RT Trip(R) May 08, 2021 12:59 PM [facility] 04-23-2021 Note HNO ID: [id number] Author: Any Esparza MD Service: ? Author Type: Physician Type: Progress Notes Filed: 04/23/2021 2:51 PM Note Text: CHIEF COMPLAINT: Patient presents with: Liver cysts: [place] done [place] This consult was requested by Self for an opinion regarding liver cysst. My final recommendations will be communicated to the requesting health care provider by way of the shared medical record for internal providers or letter via the [employer] for external providers. HPI: Logan Fisher is a 75 year old male who presents for Liver cysts ([place] done at [place] ). Patient is her for evaluation of possible liver/renal cyst in right upper quadrant regalado=ne for hematuria. Patient has no complaint of abdominal pain, nausea or vomiting. On hemodialysis for 5-6 years. Bowels are stable with occasional diarrhea. No weight os stab;e Record Review: [facility] / Outside records reviewed. PAST MEDICAL HISTORY Diagnosis Date - Diabetes (HCC) - Hypercholesterolemia - Hypertension - Kidney disease stage 4 PAST SURGICAL HISTORY Procedure Laterality Date - COLONOSCOPY 05/07/2014 tubular adenoma x7 - COLONOSCOPY SCREENING 01/23/2009 tubulovillous adenoma, tubular adenoma - COLONOSCOPY SCREENING 12/30/2016 Case cancelled due to irregular heart rhythm. - LEG SURGERY HX Allergies: ALLERGIES No Known Allergies Medications: albuterol (PROVENTIL) 2.5 mg /3 mL (0.083 %) nebulizer solution 2.5 mg. donepezil (ARICEPT) 10 mg tablet escitalopram oxalate (LEXAPRO) 10 mg tablet ferrous sulfate 325 mg (65 mg iron) tablet Take 325 mg by mouth. fluticasone (FLONASE) 50 mcg/actuation nasal spray Mirtazapine (REMERON) 7.5 mg tablet omega-3 acid ethyl esters (LOVAZA) 1 gram capsule sevelamer carbonate (RENVELA) 800 mg tablet aspirin, enteric coated (ASPIRIN, ENTERIC COATED) 81 mg EC tablet metoprolol tartrate, short acting, (LOPRESSOR) 50 mg tablet montelukast (SINGULAIR) 10 mg tablet Wzajj-8-DXV-EPA-Fish Oil 1,000 mg (120 mg-180 mg) cap pravastatin (PRAVACHOL) 20 mg tablet tamsulosin ER (FLOMAX) 0.4 mg cp24 amantadine HCl (SYMMETREL) 100 mg tablet amLODIPine (NORVASC) 5 mg tablet TRADJENTA 5 mg tab losartan (COZAAR) 50 mg tablet QUEtiapine (SEROQUEL) 25 mg tablet History reviewed. No pertinent family history. Employer And Job Title: None on file Years Of Education Completed: Not specified Marital Status: Single Social History Tobacco Use - Smoking status: Former Smoker - Smokeless tobacco: Never Used Vaping Use - Vaping Use: Never used Substance Use Topics - Alcohol use: No - Drug use: No Review of Systems: Review of Systems Constitutional: Positive for chills. Respiratory: Positive for cough. Gastrointestinal: Positive for vomiting. Gas All other systems reviewed and are negative. Are you taking any blood thinners? No Physical Examination: BP 108/64 Pulse 66 Ht 5' 7 (1.70m) Wt 0 lb (0.0kg) Physical Exam HENT: Head: Normocephalic and atraumatic. Eyes: General: No scleral icterus. Conjunctiva/sclera: Conjunctivae normal. Cardiovascular: Rate and Rhythm: Normal rate and regular rhythm. Heart sounds: Normal heart sounds. Pulmonary: Effort: Pulmonary effort is normal. Breath sounds: Normal breath sounds. Abdominal: General: Bowel sounds are normal. Palpations: Abdomen is soft. Musculoskeletal: Cervical back: Neck supple. Skin: General: Skin is warm and dry. Neurological: Mental Status: He is alert and oriented to person, place, and time. Comments: Wheel chair dependant Psychiatric: Judgment: Judgment normal. ASSESSMENT: Liver cyst (primary encounter diagnosis) Acquired cyst of kidney PLAN: Office Visit on 04/23/21 - CT ABD/PEL WO IVCON No follow-ups on file. Any Esparza MD DATE: 04/23/21 TIME: 2:15 PM [facility] 03-16-2019 History of Present illness Narrative Pt not in wt bed and unable to ambulate this am; why he did not get a weight this am. Sent a message to Dr. Macias in regards to pt's behavior last night and this morning; yelling and screaming and grabbing the bed rails and shaking them; and stating there are men in his room and asking for the police to help him. He was seeing black bugs in the room as well. I was reading the notes from Dr. Macias from 03-15-2019 and notes stated pt was still lethargic when they seen him; I noticed that he is receiving 50mg of Seroquel in the am and ask if this should be changed to evening and if this behavior could be withdraw symptoms from the Amantadine that he has not been receiving? Pt seeing black bugs in the room and pt stated that he could not see me but he had his eyes closed and I told him to open his eyes so he could see me and he kept shutting his eyes tighter and tighter. He finally opened his eyes and told me to get out of them.. Dr. De Paz ordered 12.5mg of Seroquel QHS PRN first does now. Pt is yelling, thinks he is falling and going down a big hill and he just looks very scared. I sent Dr. De Paz a message to see if he wants to give pt something to help calm him down. Pt awake watching tv; call light in reach, bed in lowest position. Patient Name: Logan Fisher Patient : 1945 Acct: [id number] Date of Admission: 03/12/2019 Room/Bed: 154/1541 Code Status: Prior Allergies: No Known Allergies Diagnosis: Patient Active Problem List Diagnosis Chronic renal failure, stage 5 (HCC) Treatment: Hemodialysis 1:1 Priority: Routine Location: Bedside Diabetic: Yes NPO: No Isolation Precautions: Dialysis Consent for Treatment Verified: Yes Blood Consent Verified: Not Applicable Safety Verified: Identify (I), Consent (C), Equipment (E), HepB Status (B), Orders Complete (O), Access Verified (A) and Timeliness (T) Time out performed prior to access at 1620 hours. Report Received from Primary RN at 1630 hours. Primary RN (First Initial, Last Name, Title): Monica Marroquin RN Incapacitated Nurse Education Completed: Yes HBsAg ONLY: Date Drawn: February 13, 2019 Results: Negative HBsAb: Date Drawn: Unknown Results: Unknown Order Dialysis Bath K+ (Potassium): 2 Ca+ (Calcium): 2.5 Na+ (Sodium): 135 HCO3 (Bicarb): 35 Na+ Modeling: Not Applicable Dialyzer: [id number] Dialysate Temperature (C): 37 Blood Flow Rate (BFR): 400 Dialysate Flow Rate (DFR): 800 Treatment Treatment Number: 2 Time On: 1645 Time Off: 2044 Treatment Goal: 2 liters Weight: 163 lb 9.6 oz (74.2 kg) (03/15/19 0600) Access to be Utilized Access: AVF Location: Upper Extremity Side: Left Needle gauge: 15 + Bruit/Thrill: Yes First Use X-ray Verified: No OK to use line order: No Site Assessment: Signs and Symptoms of Infection/Inflammation: None If yes: Not Applicable Dressing: Dry and Intact Site Prep: site prepped with chloraprep Dressing Changed this Treatment: No If yes, by whom: NA - not changed today Date of Last Dressing Change: Not Applicable Antimicrobial Patch in place?: No Red Alcohol Caps in place?: No Gauze Dressing?: No Non Dialysis Use?: No Comment: Flows: Good, Patent If access problem, who was notified: Pre and Post-Assessment Patient Vitals for the past 8 hrs: Level of Consciousness Oriented X Heart Rhythm Respiratory Quality/Effort O2 Device Bilateral Breath Sounds Skin Color Skin Condition/Temp Appetite Abdomen Inspection Bowel Sounds (All Quadrants) Edema Pain Level 03/15/19 1310 0 03/15/19 1530 0 Unlabored Pale Cool;Dry Soft None 0 03/15/19 1640 0 x1 Regular Unlabored None (Room air) Diminished Pale Cool;Dry Fair Soft Active None 0 03/15/19 1938 0 03/15/19 2050 0 x1 Regular Unlabored None (Room air) Diminished Pale Cool;Dry Fair Soft Active None 0 Labs Recent Labs 03/14/19 1032 03/15/19 0442 WBC 6.9 9.7 HGB 12.3* 12.2* HCT 37.5* 37.7* PLT 150 145 Recent Labs 03/14/19 1032 03/15/19 0442 NA 138 140 K 3.1* 4.0 CL 98 100 CO2 26 24 BUN 48* 55* CREATININE 7.04* 7.26* GLUCOSE 164* 112* IV Drips and Rate/Dose dextrose Safety - Before each treatment: Dialysis Machine No.: [id number] RO Machine No.: [id number] Dialyzer Lot No.: [id number] RO Machine Log Sheet Completed: Yes Machine Alarm Self Test: Completed;Passed (03/15/19 1640) Machine Autotest: Completed, Passed Air Foam Detector: Tested, Proper Function, pH Reading Extracorporeal Circuit Tested for Integrity: Yes Machine Conductivity: 13.6 Manual Conductivity: 13.6 Machine Ph: 7 Manual Ph: 7 Bleach Test (Neg): Yes Bath Temperature: 98.6 F (37 C) Tubing Lot#: [id number] Conductivity Meter Serial #: [id number] All [employer]ctions Secure?: Yes Venous Parameters Set?: Yes Arterial Parameters Set?: Yes Saline Line Double Clamped?: Yes Air Foam Detector Engaged?: Yes Machine Functioning Alarm Free? Yes Prime Given: 200ml Chlorine Testing - Before each treatment and every 4 hours: 1st check: less than 0.1 ppm at: 1615 hours 2nd check: less than 0.1 ppm at: 1900 hours 3rd check: Not Applicable (if greater than 0.1 ppm, then check every 30 minutes from secondary) Access Flows and Pressures Patient Vitals for the past 8 hrs: Blood Flow Rate (ml/min) Ultrafiltration Rate (ml/hr) Arterial Pressure (mmHg) Venous Pressure (mmHg) TMP Hemodialysis Conductivity DFR Comments Access Visible 03/15/19 1645 150 ml/min 500 ml/hr -60 mmHg 60 40 13.6 800 vs stable Yes 03/15/19 1700 400 ml/min 500 ml/hr -200 mmHg 180 40 13.6 800 sleeping Yes 03/15/19 1715 400 ml/min 500 ml/hr -200 mmHg 180 40 13.6 800 vs stable Yes 03/15/19 1730 400 ml/min 500 ml/hr -200 mmHg 180 40 13.6 800 vs stable Yes 03/15/19 1745 400 ml/min 500 ml/hr -200 mmHg 180 40 13.6 800 vs stable Yes 03/15/19 1800 400 ml/min 500 ml/hr -200 mmHg 180 40 13.6 800 vs stable Yes 03/15/19 1815 400 ml/min 500 ml/hr -200 mmHg 180 40 13.6 800 vs stable Yes 03/15/19 1830 400 ml/min 500 ml/hr -200 mmHg 180 40 13.6 800 vs stable Yes 03/15/19 1845 400 ml/min 500 ml/hr -200 mmHg 180 40 13.6 800 vs stable Yes 03/15/19 1900 400 ml/min 500 ml/hr -200 mmHg 180 40 13.6 800 vs stable Yes 03/15/19 1915 400 ml/min 500 ml/hr -200 mmHg 180 40 13.6 800 sleeping Yes 03/15/19 1930 400 ml/min 500 ml/hr -200 mmHg 180 40 13.6 800 vs stable Yes 03/15/19 1945 400 ml/min 500 ml/hr -200 mmHg 180 40 13.6 800 vs stable Yes 03/15/191999 400 ml/min 500 ml/hr -200 mmHg 180 40 13.6 800 asymptomatic Yes 03/15/192014 400 ml/min 500 ml/hr -200 mmHg 200 40 13.6 800 asymptomatic Yes 03/15/19 2030 400 ml/min 500 ml/hr -200 mmHg 200 40 13.6 800 vs stable Yes 03/15/195 400 ml/min 500 ml/hr -200 mmHg 200 40 13.6 800 vs stable Yes Vital Signs Patient Vitals for the past 8 hrs: BP Temp Pulse Resp SpO2 03/15/19 1640 (!) 123/56 97.6 F (36.4 C) 72 20 98 % 03/15/19 1645 118/64 75 18 03/15/19 1700 120/68 75 18 03/15/19 1715 (!) 103/56 66 18 03/15/19 1730 (!) 105/56 68 18 03/15/19 1745 108/64 69 16 03/15/19 1800 (!) 102/56 70 18 03/15/19 1815 (!) 100/46 67 16 03/15/19 1830 (!) 108/56 64 18 03/15/19 1845 (!) 102/56 66 18 03/15/19 190 (!) 98/46 68 18 03/15/191914 (!) 102/46 69 18 03/15/191929 (!) 92/46 68 16 03/15/191944 (!) 96/46 65 18 03/15/191999 (!) 94/46 68 18 03/15/192014 (!) 94/40 69 18 03/15/192029 (!) 98/56 68 18 03/15/192044 (!) 96/56 62 18 03/15/192049 105/76 98 F (36.7 C) 67 18 96 % Post-Dialysis Arterial Catheter Locking Solution: Not Applicable Venous Catheter Locking Solution: Not Applicable Post-Treatment Procedures: Blood returned, Access bleeding time < 10 minutes Machine Disinfection Process: Acid/Vinegar Clean, Heat Disinfect, Exterior Machine Disinfection Rinseback Volume (ml): 200 ml Total Liters Processed (l/min): 88.4 l/min Dialyzer Clearance: Lightly streaked Duration of Treatment (minutes): 240 minutes Hemodialysis Intake (ml): 500 ml Hemodialysis Output (ml): 2000 ml NET Removed (ml): 1500 ml Tolerated Treatment: Good Patient Response to Treatment: tolerated well Physician Notified?: No Provider Notification Handoff complete and report given to Primary RN at 5 hours. Primary RN (First Initial, Last Name, Title): Monica Franco RN Education Person Educated: Patient Knowledge Base: Minimal Barriers to Learning?: Yes, including not oriented to time and place Preferred method of Learning: Oral Topic(s): Access Care, Signs and Symptoms of Infection, Fluid Management, Albumin, Procedural, Medications, Treatment Options, Potassium, Diet and Transplant Teaching Tools: Video, Handout, Demonstration and Explanation Response to Education: Verbalized Understanding, Return Demonstration, Teach Back and Requires Follow-up Pt laying in bed getting ready to start dialysis; ascultation of lungs clear diminished, a & o times three; Ped and radials times two, thrill and bruit present; skin pale red, buttocks red blanchable, pt with no complaints at this time; call light in reach, Hospitalist Progress Note 03/15/2019 1:49 PM [phone]: Please page me @ [phone] for patient care issues. [phone]: Please page [facility] Hospitalist for any issues. Subjective: Admit Date: 03/12/2019 PCP: Sarina Pineda MD More alert today. Denies chest pain, sob, abdominal pain, nausea, vomiting, diarrhea, constipation, fevers, or chills. DIET RENAL; Patient Vitals for the past 96 hrs (Last 3 readings): Weight 03/15/19 0600 163 lb 9.6 oz (74.2 kg) 03/13/19 1607 145 lb 8.1 oz (66 kg) 03/13/19 1145 149 lb 14.6 oz (68 kg) Medications: dextrose [Held by provider] amantadine 100 mg Oral Daily aspirin 81 mg Oral Daily metoprolol tartrate 50 mg Oral Daily montelukast 10 mg Oral Nightly doxercalciferol 2.5 mcg Oral Once per day on Tue pravastatin 20 mg Oral Nightly QUEtiapine 50 mg Oral Daily tamsulosin 0.4 mg Oral Daily trimethoprim-polymyxin b 2 drop Both Eyes BID insulin lispro 0-12 Units Subcutaneous TID WC insulin lispro 0-6 Units Subcutaneous Nightly heparin (porcine) 5,000 Units Subcutaneous BID omega-3 acid ethyl esters 1 g Oral Daily polyethylene glycol 17 g Oral Daily amLODIPine 10 mg Oral Daily LABS: CBC: Recent Labs 03/14/19 1032 03/15/19 0442 WBC 6.9 9.7 RBC 4.07* 4.10* HGB 12.3* 12.2* HCT 37.5* 37.7* MCV 92.2 92.2 RDW 15.3* 15.3* PLT 150 145 BMP: Recent Labs 03/14/19 1032 03/15/19 0442 NA 138 140 K 3.1* 4.0 CL 98 100 CO2 26 24 BUN 48* 55* CREATININE 7.04* 7.26* GLUCOSE 164* 112* CALCIUM 10.3 10.5* ANIONGAP 13 16 LIVER PROFILE:No results for input(s): AST, ALT, BILITOT, ALKPHOS, LABALBU, PROT in the last 72 hours. PT/INR: No results for input(s): PROTIME, INR in the last 72 hours. CARDIAC ENZYMES: No results for input(s): TROPONINI in the last 72 hours. Procalcitonin: No results found for: PROCAL Objective: Vitals: BP (!) 130/58 Pulse 71 Temp 97.3 F (36.3 C) (Temporal) Resp 20 Ht 5' 8 (1.727 m) Wt 163 lb 9.6 oz (74.2 kg) SpO2 97% BMI 24.88 kg/m Pulse Ox: SpO2 Av % Min: 94 % Max: 97 % Supplemental O2: General appearance: Appears weak HEENT: Normal cephalic, atraumatic without obvious deformity. Pupils equal, round, and reactive to light. Extra ocular muscles intact. Conjunctivae/corneas clear, poor oral hygeine Neck: Supple, with full range of motion. No jugular venous distention. Trachea midline. No lymphadenopathy. Respiratory: Normal respiratory effort. Clear to auscultation, bilaterally without Rales/Wheezes/Rhonchi. Cardiovascular: Regular rate and rhythm with normal S1/S2 without murmurs, rubs or gallops. Abdomen: Soft, non-tender, non-distended with normal bowel sounds. No rebound or guarding. Musculoskeletal: No clubbing, cyanosis or edema bilaterally. Full range of motion without deformity. Skin: Skin color, texture, turgor normal. No rashes or lesions. Neurologic: Neurovascularly intact without any focal sensory/motor deficits. Cranial nerves: II-XII intact, grossly non-focal. Assessment and Plan: # ESRD - on HD, left arm AV fistula, nephrology on board, on dialysis # Acute Metabolic encephalopathy due to renal failure/Hypokalemia Improved # Generalized weakness - PT/OT # HTN BP stable # T2DM on SSI Placement when bed available All test and lab results reviewed Consult notes reviewed Am labs, replace lytes prn PT/OT -DVT prophylaxis: [] Lovenox [x] Heparin [] SCDs [x] Encourage ambulation [] Already on Anticoagulation Advance Directive: Prior Discharge planning: TBD YESICA DUNLAP MD, MD Division of Hospitalist Medicine Inpatient Medical Services [facility] Progress Note Subjective/ 73 y.o. year old male who we are seeing in consultation for ESRD. Here with weakness. Still lethargic. No SOB. S/p HD 03/13. ROS unobtainable as has AMS. Objective/ Vitals: 03/14/19 1453 03/14/193 03/15/19 0600 03/15/19 0821 BP: (!) 137/57 (!) 154/60 (!) 130/58 Pulse: 59 63 71 Resp: 20 Temp: 96.7 F (35.9 C) 97.6 F (36.4 C) 97.3 F (36.3 C) TempSrc: Temporal Temporal Temporal SpO2: 94% 97% 97% Weight: 163 lb 9.6 oz (74.2 kg) Height: 24HR INTAKE/OUTPUT: Intake/Output Summary (Last 24 hours) at 03/15/2019 1232 Last data filed at 03/15/2019 0821 Gross per 24 hour Intake 600 ml Output Net 600 ml Constitutional: NAD, AMS Head: AT NC Neck: No JVD, no thyromegaly Cardiovascular: S1, S2 without m/r/g Respiratory: CTA B without w/r/r Abdomen: soft, nt Ext: NO b/l LE edema Current Facility-Administered Medications Medication Dose Route Frequency Provider Last Rate Last Dose [Held by provider] amantadine (SYMMETREL) capsule 100 mg 100 mg Oral Daily Yesica Dunlap MD aspirin EC tablet 81 mg 81 mg Oral Daily Yesica Dunlap MD 81 mg at 03/15/19 0853 metoprolol tartrate (LOPRESSOR) tablet 50 mg 50 mg Oral Daily Yesica Dunlap MD 50 mg at 03/15/19 0853 montelukast (SINGULAIR) tablet 10 mg 10 mg Oral Nightly Yesica Dunlap MD 10 mg at 03/14/192038 doxercalciferol (HECTOROL) capsule 2.5 mcg 2.5 mcg Oral Once per day on Tue Yesica Dunlap MD 2.5 mcg at 03/14/19 08 pravastatin (PRAVACHOL) tablet 20 mg 20 mg Oral Nightly Yesica Dunlap MD 20 mg at 03/14/192039 QUEtiapine (SEROQUEL) tablet 50 mg 50 mg Oral Daily Yesica Dunlap MD 50 mg at 03/15/19 0853 tamsulosin (FLOMAX) capsule 0.4 mg 0.4 mg Oral Daily Yesica Dunlap MD 0.4 mg at 03/15/19 0853 trimethoprim-polymyxin b (POLYTRIM) ophthalmic solution 2 drop 2 drop Both Eyes BID Yesica Dunlap MD 2 drop at 03/15/19 0852 insulin lispro (HUMALOG) injection vial 0-12 Units 0-12 Units Subcutaneous TID WC Yesica Dulnap MD 2 Units at 03/15/19 1221 insulin lispro (HUMALOG) injection vial 0-6 Units 0-6 Units Subcutaneous Nightly Yesica Dunlap MD 1 Units at 03/13/192013 glucose (GLUTOSE) 40 % oral gel 15 g 15 g Oral PRN Yesica Dunlap MD dextrose 50 % IV solution 12.5 g Intravenous PRN Yesica Dunlap MD glucagon (rDNA) injection 1 mg 1 mg Intramuscular PRN Yesica Dunlap MD dextrose 5 % solution 100 mL/hr Intravenous PRN Yesica Dunlap MD heparin (porcine) injection 5,000 Units 5,000 Units Subcutaneous BID Yesica Dunlap MD 5,000 Units at 03/15/19 0853 omega-3 acid ethyl esters (LOVAZA) capsule 1 g 1 g Oral Daily Yesica Dunlap MD 1 g at 03/15/19 0853 polyethylene glycol (GLYCOLAX) packet 17 g 17 g Oral Daily Yesica Dunlap MD 17 g at 03/15/19 0853 amLODIPine (NORVASC) tablet 10 mg 10 mg Oral Daily Toyin Macias MD 10 mg at 03/15/19 0853 dextrose Data/ Recent Labs 03/12/19 1345 03/14/19 1032 03/15/19 0442 WBC 6.4 6.9 9.7 HGB 11.3* 12.3* 12.2* HCT 32.0* 37.5* 37.7* MCV 95.7 92.2 92.2 PLT 152 150 145 Recent Labs 03/12/19 1345 03/14/19 1032 03/15/19 0442 NA 139 138 140 K 4.0 3.1* 4.0 CL 95* 98 100 CO2 29 26 24 GLUCOSE 134* 164* 112* BUN 54* 48* 55* CREATININE 7.06* 7.04* 7.26* Assessment/ 1. - ESRD 2. Dependence on renal dialysis 3. Non compliance with dialysis. 4. 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 5. HTN with CKD DM Plan/ - HD TTS, HD for today Mental status changes still persist. Hb at goal for ESRD. K levels better. BPs now stable. Discussed with Dr. Dunlap. Will follow. - Toyin Macias MD [facility] [place] Ne[facility] Progress Note Subjective/ 73 y.o. year old male who we are seeing in consultation for ESRD. Here with weakness. Still lethargic. No SOB. S/p HD yesterday Objective/ Vitals: 03/13/19 1607 03/13/19202103/14/19 0750 03/14/19 1453 BP: 117/68 133/67 (!) 153/73 (!) 137/57 Pulse: 66 60 63 59 Resp: 16 18 20 20 Temp: 97.9 F (36.6 C) 97.4 F (36.3 C) 97.9 F (36.6 C) 96.7 F (35.9 C) TempSrc: Temporal Temporal Temporal SpO2: 97% 96% 95% 94% Weight: 145 lb 8.1 oz (66 kg) Height: 24HR INTAKE/OUTPUT: Intake/Output Summary (Last 24 hours) at 03/14/2019 1733 Last data filed at 03/14/2019 1445 Gross per 24 hour Intake 600 ml Output Net 600 ml Constitutional: NAD, drowsy Head: AT NC Neck: No JVD, no thyromegaly Cardiovascular: S1, S2 without m/r/g Respiratory: CTA B without w/r/r Abdomen: soft, nt Ext: NO b/l LE edema Current Facility-Administered Medications Medication Dose Route Frequency Provider Last Rate Last Dose [Held by provider] amantadine (SYMMETREL) capsule 100 mg 100 mg Oral Daily Yesica Dunlap MD aspirin EC tablet 81 mg 81 mg Oral Daily Yesica Dunlap MD 81 mg at 03/14/19 0803 metoprolol tartrate (LOPRESSOR) tablet 50 mg 50 mg Oral Daily Yesica Dunlap MD 50 mg at 03/14/19 08 montelukast (SINGULAIR) tablet 10 mg 10 mg Oral Nightly Yesica Dunlap MD 10 mg at 03/13/192008 doxercalciferol (HECTOROL) capsule 2.5 mcg 2.5 mcg Oral Once per day on Tue Yesica Dunlap MD 2.5 mcg at 03/14/19 0804 pravastatin (PRAVACHOL) tablet 20 mg 20 mg Oral Nightly Yesica Dunlap MD 20 mg at 03/13/192008 QUEtiapine (SEROQUEL) tablet 50 mg 50 mg Oral Daily Yesica Dunlap MD 50 mg at 03/14/19 08 tamsulosin (FLOMAX) capsule 0.4 mg 0.4 mg Oral Daily Yesica Dunlap MD 0.4 mg at 03/14/19 0804 trimethoprim-polymyxin b (POLYTRIM) ophthalmic solution 2 drop 2 drop Both Eyes BID Yesica Dunlap MD 2 drop at 03/14/19 0804 insulin lispro (HUMALOG) injection vial 0-12 Units 0-12 Units Subcutaneous TID Yesica Dunlap MD insulin lispro (HUMALOG) injection vial 0-6 Units 0-6 Units Subcutaneous Nightly Yesica Dunlap MD 1 Units at 03/13/192013 glucose (GLUTOSE) 40 % oral gel 15 g 15 g Oral PRN Yesica Dunlap MD dextrose 50 % IV solution 12.5 g Intravenous PRN Yesica Dunlap MD glucagon (rDNA) injection 1 mg 1 mg Intramuscular PRN Yesica Dunlap MD dextrose 5 % solution 100 mL/hr Intravenous PRN Yesica Dunlap MD heparin (porcine) injection 5,000 Units 5,000 Units Subcutaneous BID Yesica Dunlap MD 5,000 Units at 03/14/19 0802 omega-3 acid ethyl esters (LOVAZA) capsule 1 g 1 g Oral Daily Yesica Dunlap MD 1 g at 03/14/19 0804 polyethylene glycol (GLYCOLAX) packet 17 g 17 g Oral Daily Yesica Dunlap MD 17 g at 03/14/19 0803 amLODIPine (NORVASC) tablet 10 mg 10 mg Oral Daily Toyin Macias MD 10 mg at 03/14/19 0803 dextrose Data/ Recent Labs 03/12/19 1345 03/14/19 1032 WBC 6.4 6.9 HGB 11.3* 12.3* HCT 32.0* 37.5* MCV 95.7 92.2 PLT 152 150 Recent Labs 03/12/19 1345 03/14/19 1032 NA 139 138 K 4.0 3.1* CL 95* 98 CO2 29 26 GLUCOSE 134* 164* BUN 54* 48* CREATININE 7.06* 7.04* Assessment/ 1. - ESRD 2. Dependence on renal dialysis 3. Non compliance with dialysis. 4. 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 5. HTN with CKD DM Plan/ - HD TTS, HD for tomorrow. Mental status changes still persist. Hb at goal for ESRD. BPs now stable. Discussed with Dr. Dunlap. Will follow. - Toyin Macias MD [facility] notified that pt was not being discharged today and would be able to receive his dialysis here tomorrow. Occupational Therapy Occupational Therapy Initial Assessment Date: 03/14/2019 Patient Name: Logan Fisher : 1945 Having reviewed the treatment plan and goals for this patient, I certify that the plan below is medically necessary and appropriate. Date of Service: 03/14/2019 Discharge Recommendations: Subacute/Usp Facility, Continue to assess pending progress OT Equipment Recommendations Equipment Needed: No Other: TBD Assessment Performance deficits / Impairments: Decreased functional mobility ;Decreased ADL status;Decreased strength;Decreased safe awareness;Decreased cognition;Decreased endurance;Decreased balance;Decreased posture;Decreased coordination Assessment: Pt lives alone in an apartment with aide assistance 6 days a week to assist for IADLs. Pt reports indep with ADLs however also states the aides assist with ADLs. Pt usually walks with a rollator however demonstrates weakness and posterior lean at FWW this visit. Pt is expected to benefit from continued skilled OT services to address deficits and progress toward safe discharge. Pt also reports recent falls. Prognosis: Fair Decision Making: Medium Complexity History: Pt is 73yo male presenting with renal failure. pt reports recent falls. PMH listed. Exam: AM PAC Assistance / Modification: MOD ASSIST OT Education: OT Role;Plan of Care;ADL Adaptive Strategies;Transfer Training Barriers to Learning: fatigue, cog noted REQUIRES OT FOLLOW UP: Yes Activity Tolerance Activity Tolerance: Patient limited by fatigue Safety Devices Safety Devices in place: Yes Type of devices: All fall risk precautions in place;Call light within reach;Gait belt;Patient at risk for falls;Left in chair;Nurse notified;Chair alarm in place Restraints Initially in place: No Patient Diagnosis(es): The primary encounter diagnosis was Altered mental status, unspecified altered mental status type. Diagnoses of Fatigue, unspecified type, Generalized weakness, and Stage 5 chronic kidney disease on chronic dialysis (HCC) were also pertinent to this visit. has a past medical history of Chronic kidney disease, Diabetes (HCC), Hyperlipidemia, Hypertension, Hyperthyroidism, and Nicotine dependence. has a past surgical history that includes Appendectomy; Tonsillectomy; Prostatectomy; and fracture surgery (Right). Restrictions Restrictions/Precautions Restrictions/Precautions: General Precautions, Fall Risk(bed alarm) Subjective General Chart Reviewed: Yes Patient assessed for rehabilitation services?: Yes Additional Pertinent Hx: HD Family / Caregiver Present: No Subjective Subjective: pleasant, flattened affect, some c/o dizziness when standing (RN aware) Patient Currently in Pain: Denies Vital Signs Temp: 96.7 F (35.9 C) Temp Source: Temporal Pulse: 59 Heart Rate Source: Monitor Resp: 20 BP: (!) 137/57 MAP (mmHg): 84 Patient Position: Supine Patient Currently in Pain: Denies Oxygen Therapy SpO2: 94 % O2 Device: None (Room air) Social/Functional History Social/Functional History Lives With: Alone Type of Home: Apartment Home Layout: One level Home Access: Elevator Bathroom Shower/Tub: Tub/Shower unit Bathroom Toilet: Standard Bathroom Equipment: Grab bars in shower, Shower chair Bathroom Accessibility: Accessible Home Equipment: 4 wheeled walker Receives Help From: Home health ADL Assistance: Needs assistance(pt states aides assist with everything ) Homemaking Assistance: Needs assistance Homemaking Responsibilities: No Ambulation Assistance: Independent(at rollator) Transfer Assistance: Independent Active Logistics Engineering Manager: No Patient's Logistics Engineering Manager Info: Patient receives transportation through his [facility] insurance/sister lives out of town about 1-1/2 hr away -comes to see him once a week Occupation: Retired Additional Comments: Patient has Waiver services through [facility] - Sissy Jimenez [phone] ( her cell ) -agency number is [phone]( CM spoke with his CM about needs and concerns for nurse and therapy that will be added) - New on Dialysis within the last month- goes to [facility]- called and spoke with them -Patient's PCP is with [facility] - spoke with Neftaly from there and she calls patient once a month to check on him [phone]- CM asked about the [facility] care and she will f/u also. Objective Vision: Within Functional Limits Hearing: Within functional limits Orientation Overall Orientation Status: Within Functional Limits Observation/Palpation Posture: Fair Observation: shuffled gait, posterior lean in standing at fWW Balance Sitting Balance: Supervision Standing Balance: Minimal assistance(at FWW) Functional Mobility Functional - Mobility Device: Rolling Walker Activity: Other Assist Level: Minimal assistance Functional Mobility Comments: CGA to MIN A at rollator device to chair. pt with some dizziness and nursing made aware to check vitals in different positions. Toilet Transfers Toilet Transfers Comments: anticipate MIN A to [facility] [place] Feeding: Modified independent Grooming: Stand by assistance UE Bathing: Stand by assistance LE Bathing: Maximum assistance;Moderate assistance UE Dressing: Minimal assistance LE Dressing: Moderate assistance;Maximum assistance Toileting: Moderate assistance Additional Comments: pt limited by overall weakness/fatigue and decreased posture while standing at [facility] (posterior lean). pt receives assist from aides at baseline however demonstrates MIN ASSIST for transfers at [facility] at this time with decline from functional baseline and increased risk for falls. Coordination Movements Are Fluid And Coordinated: Yes Transfers Stand Step Transfers: Minimal assistance Sit to stand: Minimal assistance Stand to sit: Contact guard assistance Transfer Comments: at [facility] Vision - Basic Assessment Prior Vision: No visual deficits Cognition Overall Cognitive Status: [facility] Cognition Comment: appears at pts baseline, flat affect (and decreased initiation with shuffled gait and posterior lean indicating neuro involvement) Sensation Overall Sensation Status: WFL LUE AROM (degrees) LUE AROM : WFL RUE AROM (degrees) RUE AROM : WFL LUE Strength Gross LUE Strength: WF RUE Strength Gross RUE Strength: WFL Plan Plan Times per week: 4 visits Times per day: Daily Current Treatment Recommendations: Strengthening, Balance Training, Functional Mobility Training, Endurance Training, Neuromuscular Re-education, Equipment Evaluation, Education, & procurement, Safety Education & Training, Self-Care / ADL, Cognitive/Perceptual Training, Positioning Plan Comment: Goals and POC were established in collaboration with patient. AM-PAC Score AM-PAC Inpatient Daily Activity Raw Score: 16 (03/14/191335) AM-PAC Inpatient ADL T-Scale Score : 35.96 (03/14/191335) ADL Inpatient CMS 0-100% Score: 53.32 (03/14/191335) ADL Inpatient CMS G-Code Modifier : CK (03/14/191335) Goals Short term goals Time Frame for Short term goals: 4 visits Short term goal 1: pt will complete LB ADLs at MIN ASSIST. Short term goal 2: Pt will complete toileting tasks at SUP. Short term goal 3: Pt will complete functional transfers at FWW with SUP. Short term goal 4: Pt will complete standing/mobility at FWW during ADLs with SUP. Patient Goals Patient goals : improve ADL indep Therapy Time Individual Concurrent Group Co-treatment Time In 1328(coeval with PT) Time Out 1338 Minutes 10 Lexi Laughlin OT Physical Therapy Facility/Department: [facility] Initial Assessment NAME: Logan Fisher : 1945 Date of Service: 03/14/2019 Having reviewed the treatment plan and goals for this patient, I certify that the plan of care below is medically necessary and appropriate. Discharge Recommendations: Continue to assess pending progress, Subacute/Usp Facility PT Equipment Recommendations Equipment Needed: No Assessment Body structures, Functions, Activity limitations: Decreased functional mobility ;Decreased strength;Decreased safe awareness;Decreased balance Assessment: Pt presents with decreased functional mobility, requiring light assist for transfers and ambulation. Pt has decreased standing balance and safety awareness, placing pt at an increased risk of falls. Pt is expected to benefit from skilled therapy to address functional mobility, strength, balance, and safety awareness Prognosis: Good Decision Making: Medium Complexity History: Pt admitted with weakness, fatigue following missed dialysis Exam: AM-PAC Clinical Presentation: Pt admitted with weakness, fatigue following missed dialysis. Pt has a PMH as listed above that contributes to clinical presentation. Currently pt is unsafe to return home d/t increased risk of falls PT Education: Goals;PT Role;Plan of Care;Precautions;General Safety REQUIRES PT FOLLOW UP: Yes Patient Diagnosis(es): The primary encounter diagnosis was Altered mental status, unspecified altered mental status type. Diagnoses of Fatigue, unspecified type, Generalized weakness, and Stage 5 chronic kidney disease on chronic dialysis (HCC) were also pertinent to this visit. has a past medical history of Chronic kidney disease, Diabetes (HCC), Hyperlipidemia, Hypertension, Hyperthyroidism, and Nicotine dependence. has a past surgical history that includes Appendectomy; Tonsillectomy; Prostatectomy; and fracture surgery (Right). Restrictions Restrictions/Precautions Restrictions/Precautions: General Precautions, Fall Risk(bed alarm) Vision/Hearing Vision: Within Functional Limits Hearing: Within functional limits Subjective General Chart Reviewed: Yes Patient assessed for rehabilitation services?: Yes Subjective Subjective: Pt is agreeable to therapy Pain Screening Patient Currently in Pain: Denies Social/Functional History Social/Functional History Lives With: Alone Type of Home: Apartment Home Layout: One level Home Access: Elevator Bathroom Shower/Tub: Tub/Shower unit Bathroom Toilet: Standard Bathroom Equipment: Grab bars in shower, Shower chair Bathroom Accessibility: Accessible Home Equipment: 4 wheeled walker Receives Help From: Home health([facility] service [phone]- CM spoke with them - patient has HHC aide 6 days a week for 2 hr each day - longterm is to be started up ) ADL Assistance: Needs assistance Homemaking Assistance: Needs assistance Homemaking Responsibilities: No Ambulation Assistance: Needs assistance Transfer Assistance: Needs assistance Active Logistics Engineering Manager: No Patient's Logistics Engineering Manager Info: Patient receives transportation through his [facility] insurance/sister lives out of town about 1-1/2 hr away -comes to see him once a week Occupation: Retired Additional Comments: Patient has Waiver services through [facility] - Sissy Jimenez [phone] ( her cell ) -agency number is [phone]( CM spoke with his CM about needs and concerns for nurse and therapy that will be added) - New on Dialysis within the last month- goes to [facility]- CM called and spoke with them -Patient's PCP is with [facility] - spoke with Neftaly from there and she calls patient once a month to check on him [phone]- CM asked about the penitentiary care and she will f/u also. Objective Observation/Palpation Observation: shuffled gait, posterior lean in standing at fWW AROM RLE (degrees) RLE AROM: WFL AROM LLE (degrees) LLE AROM : WFL Strength RLE Comment: observed functionally Strength LLE Comment: observed functionally Sensation Overall Sensation Status: WFL Bed mobility Supine to Sit: Stand by assistance(increased time to complete) Sit to Supine: Unable to assess(pt sitting in recliner post session ) Scooting: Stand by assistance Comment: denies dizziness Transfers Sit to Stand: Minimal Assistance(to FWW, posterior lean ) Stand to sit: Minimal Assistance Comment: pt reports slight dizziness upon standing Ambulation Ambulation?: Yes Ambulation 1 Surface: level tile Device: Rolling Walker Assistance: Minimal assistance Quality of Gait: pt demonstrates reciprocal pattern with shuffling gait, narrow INDIRA, decreased step length, unsteadiness but no LOB Distance: 10'x1 Stairs/Curb Stairs?: No Balance Posture: Good Sitting - Static: Good Sitting - Dynamic: Fair Standing - Static: Fair;- Standing - Dynamic: Poor Plan Plan Times per week: 5 visits Times per day: Daily Current Treatment Recommendations: Strengthening, Balance Training, Functional Mobility Training, Transfer Training, Gait Training, Safety Education & Training, Home Exercise Program, Patient/Caregiver Education & Training, Equipment Evaluation, Education, & procurement, Positioning Plan Comment: Goals and/or treatment plan were established in collaboration with patient Safety Devices Type of devices: All fall risk precautions in place, Call light within reach, Chair alarm in place, Gait belt, Patient at risk for falls, Left in chair, Nurse notified OutComes Score -[facility] Mobility Inpatient How much difficulty turning over in bed?: A Little How much difficulty sitting down on / standing up from a chair with arms?: A Little How much difficulty moving from lying on back to sitting on side of bed?: A Little How much help from another person moving to and from a bed to a chair?: A Little How much help from another person needed to walk in hospital room?: A Little How much help from another person for climbing 3-5 steps with a railing?: Total -[facility] Inpatient Mobility Raw Score : 16 AM-[facility] Inpatient T-Scale Score : 40.78 Mobility Inpatient CMS 0-100% Score: 54.16 Mobility Inpatient CMS G-Code Modifier : CK AM-[facility] Score AM-[facility] Inpatient Mobility Raw Score : 16 (03/14/191452) [facility] Inpatient T-Scale Score : 40.78 (03/14/191452) Mobility Inpatient CMS 0-100% Score: 54.16 (03/14/191452) Mobility Inpatient CMS G-Code Modifier : CK (03/14/191452) Goals Short term goals Time Frame for Short term goals: 5 visits Short term goal 1: Pt will complete 2-3 sets/10 reps of LE exercises to improve LE strength Short term goal 2: Pt will complete supine<->sit at mod I to improve bed mobility Short term goal 3: Pt will complete sit<->stand with FWW at supervision in preparation for ambulation Short term goal 4: Pt will ambulate at least 40'x2 with FWW at SBA to improve functional mobility Short term goal 5: Pt will improve dynamic standing balance to fair to decrease risk of falls Patient Goals Patient goals : pt did not state Therapy Time Individual Concurrent Group Co-treatment Time In 1328(co-eval with OT) Time Out 1338 Minutes 10 Lynette De Luna, PT, DPT Nutrition Assessment Type and Reason for Visit: Initial, Positive Nutrition Screen(pt with fatigue, malaise since 03/10 after hd missed as no transportation came(sat,, th). - hs hdtd 03/13- cargiver brought pt to house) Nutrition Recommendations: 1)suggest To continue renal diet at this time for medical status. Monitor textures Upon request 2)await medical work up? For altered mental status. Suggest check hbiac 3)monitor Intakes for adequacy- need for oral supplement- nursing please record % intakes on flowsheets 4)Monitor labs, status, intake to reassess. Follow up at least weekly Nutrition Assessment: 73 y.o. diabetic male with past medical history - htn, hi lipids, nicotine dependence, hyperthyroidism who presents with altered mental status and feeling lethargic, he has end-stage renal disease on dialysis, missed the dialysis session on Tuesday due to lack of having a ride, Denies chest pain, sob, abdominal pain, nausea, vomiting, diarrhea, constipation, fevers, or chills( no recent hbaic. started hd 1 mo ago- missed a prior session- glu 164, k 3.1, bun 48, creat 7.04. Acute Metabolic encephalopathy due to renal failure/Hypokalemia - replaced K, check U/A ) Malnutrition Assessment: Malnutrition Status: Insufficient data Context: Acute illness or injury Findings of the 6 clinical characteristics of malnutrition (Minimum of 2 out of 6 clinical characteristics is required to make the diagnosis of moderate or severe Protein Calorie Malnutrition based on AND/ASPEN Guidelines): 1. Energy Intake-Unable to assess(missed hd- ams), 2. Weight Loss-Unable to assess, 3. Fat Loss-Unable to assess, 4. Muscle Loss-Unable to assess, 5. Fluid Accumulation-No significant fluid accumulation, 6. Vacuum Tank Tender Strength-Measurably reduced(all ext weak) Nutrition Risk Level: High Nutrient Needs: Estimated Daily Total Kcal: 1650- 1980 Estimated Daily Protein (g): 79 Estimated Daily Total Fluid (ml/day): per md Nutrition Diagnosis: Problem: Increased nutrient needs Etiology: related to Cognitive or neurological impairment, Renal dysfunction ? Signs and symptoms: as evidenced by Intake 25-50%, Intake 50-75%, Known losses from dialysis, Lab values Objective Information: Nutrition-Focused Physical Findings: ate 50% breakfast - sleeping soundly- very weak. off 2 liters hd- checking ua Wound Type: None(scars) Current Nutrition Therapies: Oral Diet Orders: Renal Oral Diet intake: 51-75% Oral Nutrition Supplement (ONS) Orders: None ONS intake: (na) Anthropometric Measures: Ht: 5' 8 (172.7 cm) Current Body Wt: 145 lb 8.1 oz (66 kg)(03/13 post hd) Admission Body Wt: 149 lb (67.6 kg)(pre) Usual Body Wt: % Weight Change: , fluid changes ? po intake at home [place] Body Wt: 154 lb (69.9 kg), % [place] Body 94 Adjusted Body Wt: , body weight adjusted for BMI Classification: BMI 18.5 - 24.9 Normal Weight Nutrition Interventions: Continue current diet Continued Inpatient Monitoring Nutrition Evaluation: Evaluation: Goals set Goals: pt will receive,tolerate adequate nutrition -> 75% of meals - with safe swallow- labs trend toward baseline Monitoring: Meal Intake, Diet Tolerance, Skin Integrity, I&O, Mental Status/Confusion, Weight, Pertinent Labs, Monitor Hemodynamic Status Contact Number: [phone] Hospitalist Progress Note 03/14/2019 12:52 PM [phone]: Please page tn @ [phone] for patient care issues. [phone]: Please page [facility] night Hospitalist for any issues. Subjective: Admit Date: 03/12/2019 PCP: Sarina Pineda MD No overnight issues. Denies chest pain, sob, abdominal pain, nausea, vomiting, diarrhea, constipation, fevers, or chills. DIET RENAL; Patient Vitals for the past 96 hrs (Last 3 readings): Weight 03/13/19 1607 145 lb 8.1 oz (66 kg) 03/13/19 1145 149 lb 14.6 oz (68 kg) 03/12/19 1252 150 lb (68 kg) Medications: dextrose potassium chloride 40 mEq Oral Once [Held by provider] amantadine 100 mg Oral Daily aspirin 81 mg Oral Daily metoprolol tartrate 50 mg Oral Daily montelukast 10 mg Oral Nightly doxercalciferol 2.5 mcg Oral Once per day on Tue pravastatin 20 mg Oral Nightly QUEtiapine 50 mg Oral Daily tamsulosin 0.4 mg Oral Daily trimethoprim-polymyxin b 2 drop Both Eyes BID insulin lispro 0-12 Units Subcutaneous TID WC insulin lispro 0-6 Units Subcutaneous Nightly heparin (porcine) 5,000 Units Subcutaneous BID omega-3 acid ethyl esters 1 g Oral Daily polyethylene glycol 17 g Oral Daily amLODIPine 10 mg Oral Daily LABS: CBC: Recent Labs 03/12/19 1345 03/14/19 1032 WBC 6.4 6.9 RBC 3.34* 4.07* HGB 11.3* 12.3* HCT 32.0* 37.5* MCV 95.7 92.2 RDW 14.7* 15.3* PLT 152 150 BMP: Recent Labs 03/12/19 1345 03/14/19 1032 NA 139 138 K 4.0 3.1* CL 95* 98 CO2 29 26 BUN 54* 48* CREATININE 7.06* 7.04* GLUCOSE 134* 164* CALCIUM 10.0 10.3 ANIONGAP 15 13 LIVER PROFILE: Recent Labs 03/12/19 1345 AST 24 ALT 27 BILITOT 0.5 ALKPHOS 89 LABALBU 3.9 PROT 7.1 PT/INR: No results for input(s): PROTIME, INR in the last 72 hours. CARDIAC ENZYMES: Recent Labs 03/12/19 1345 TROPONINI <0.012 Procalcitonin: No results found for: PROCAL Objective: Vitals: BP (!) 153/73 Pulse 63 Temp 97.9 F (36.6 C) (Temporal) Resp 20 Ht 5' 8 (1.727 m) Wt 145 lb 8.1 oz (66 kg) SpO2 95% BMI 22.12 kg/m Pulse Ox: SpO2 Av % Min: 95 % Max: 97 % Supplemental O2: General appearance: Lethargic HEENT: Normal cephalic, atraumatic without obvious deformity. Pupils equal, round, and reactive to light. Extra ocular muscles intact. Conjunctivae/corneas clear. Neck: Supple, with full range of motion. No jugular venous distention. Trachea midline. No lymphadenopathy. Respiratory: Normal respiratory effort. Clear to auscultation, bilaterally without Rales/Wheezes/Rhonchi. Cardiovascular: Regular rate and rhythm with normal S1/S2 without murmurs, rubs or gallops. AV fistula left arm Abdomen: Soft, non-tender, non-distended with normal bowel sounds. No rebound or guarding. Musculoskeletal: No clubbing, cyanosis or edema bilaterally. Full range of motion without deformity. Skin: Skin color, texture, turgor normal. No rashes or lesions. Neurologic: Neurovascularly intact without any focal sensory/motor deficits. Cranial nerves: II-XII intact, grossly non-focal. Assessment and Plan: # ESRD - on HD, left arm AV fistula, nephrology on board, on dialysis # Acute Metabolic encephalopathy due to renal failure/Hypokalemia - replaced K, check U/A # Generalized weakness - PT/OT # HTN BP stable # T2DM on SSI All test and lab results reviewed Consult notes reviewed Am labs, replace lytes prn PT/OT -DVT prophylaxis: [] Lovenox [x] Heparin [] SCDs [x] Encourage ambulation [] Already on Anticoagulation Advance Directive: Prior Discharge planning: TBD YESICA DUNLAP MD, MD Division of Hospitalist Medicine Inpatient Medical Services Nutrition rescreen completed. Pt referred to RD. Wharton pt yelling and went in his room and he was sitting up at the edge of the bed trying to get up; I placed a bed alarm on pt for safety. [facility] Progress Note Subjective/ 73 y.o. year old male who we are seeing in consultation for ESRD. Here with weakness. Still lethargic. No SOB. HD today. Objective/ Vitals: 03/13/19 1515 03/13/19 1530 03/13/19 1556 03/13/19 1607 BP: 102/66 (!) 99/59 110/68 117/68 Pulse: 75 70 72 66 Resp: 16 Temp: 97.9 F (36.6 C) TempSrc: SpO2: 97% Weight: 145 lb 8.1 oz (66 kg) Height: 24HR INTAKE/OUTPUT: Intake/Output Summary (Last 24 hours) at 03/13/2019 1843 Last data filed at 03/13/2019 1607 Gross per 24 hour Intake 500 ml Output 2500 ml Net -2000 ml Constitutional: Alert, awake, no apparent distress Head: AT NC Neck: No JVD, no thyromegaly Cardiovascular: S1, S2 without m/r/g Respiratory: CTA B without w/r/r Abdomen: soft, nt Ext: NO b/l LE edema Current Facility-Administered Medications Medication Dose Route Frequency Provider Last Rate Last Dose [Held by provider] amantadine (SYMMETREL) capsule 100 mg 100 mg Oral Daily Yesica Dunlap MD aspirin EC tablet 81 mg 81 mg Oral Daily Yesica Dunlap MD 81 mg at 03/13/19917 metoprolol tartrate (LOPRESSOR) tablet 50 mg 50 mg Oral Daily Yesica Dunlap MD 50 mg at 03/13/19916 montelukast (SINGULAIR) tablet 10 mg 10 mg Oral Nightly Yesica Dunlap MD doxercalciferol (HECTOROL) capsule 2.5 mcg 2.5 mcg Oral Once per day on Tue Yesica Dunlap MD pravastatin (PRAVACHOL) tablet 20 mg 20 mg Oral Nightly Yesica Dunlap MD QUEtiapine (SEROQUEL) tablet 50 mg 50 mg Oral Daily Yesica Dunlap MD 50 mg at 03/13/19916 tamsulosin (FLOMAX) capsule 0.4 mg 0.4 mg Oral Daily Yesica Dunlap MD 0.4 mg at 03/13/19 09 trimethoprim-polymyxin b (POLYTRIM) ophthalmic solution 2 drop 2 drop Both Eyes BID Yesica Dunlap MD 2 drop at 03/13/19 0918 insulin lispro (HUMALOG) injection vial 0-12 Units 0-12 Units Subcutaneous TID WC Yesica Dunlap MD insulin lispro (HUMALOG) injection vial 0-6 Units 0-6 Units Subcutaneous Nightly Yesica Dunlap MD 1 Units at 03/12/192041 glucose (GLUTOSE) 40 % oral gel 15 g 15 g Oral PRN Yesica Dunlap MD dextrose 50 % IV solution 12.5 g Intravenous PRN Yesica Dunlap MD glucagon (rDNA) injection 1 mg 1 mg Intramuscular PRN Yesica Dunlpa MD dextrose 5 % solution 100 mL/hr Intravenous PRN Yesica Dunlap MD heparin (porcine) injection 5,000 Units 5,000 Units Subcutaneous BID Yesica Dunlap MD 5,000 Units at 03/13/19 0921 omega-3 acid ethyl esters (LOVAZA) capsule 1 g 1 g Oral Daily Yesica Dunlap MD 1 g at 03/13/19 0918 polyethylene glycol (GLYCOLAX) packet 17 g 17 g Oral Daily Yesica Dunlap MD 17 g at 03/13/19 0918 amLODIPine (NORVASC) tablet 10 mg 10 mg Oral Daily Toyin Macias MD 10 mg at 03/13/19 0917 dextrose Data/ Recent Labs 03/12/19 1345 WBC 6.4 HGB 11.3* HCT 32.0* MCV 95.7 PLT 152 Recent Labs 03/12/19 1345 NA 139 K 4.0 CL 95* CO2 29 GLUCOSE 134* BUN 54* CREATININE 7.06* Assessment/ 1. - ESRD 2. Dependence on renal dialysis 3. Non compliance with dialysis. 4. 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 5. HTN with CKD DM Plan/ - HD today Expect mental status/lethargy to improve after HD. If doesn't improve, will need further w/u. Hb at goal for ESRD. BPs are now on the lower side, if the problem persists, need to hold amlodipine. Will follow. - Toyin Macias MD [facility] Hospitalist Progress Note 03/13/2019 5:08 PM [phone]: Please page me @ [phone] for patient care issues. [phone]: Please page [facility] night Hospitalist for any issues. Subjective: Admit Date: 03/12/2019 PCP: Sarina Pineda MD No overnight issues. Denies chest pain, sob, abdominal pain, nausea, vomiting, diarrhea, constipation, fevers, or chills. Patient more alert today. DIET RENAL; Patient Vitals for the past 96 hrs (Last 3 readings): Weight 03/13/19 1607 145 lb 8.1 oz (66 kg) 03/13/19 1145 149 lb 14.6 oz (68 kg) 03/12/19 1252 150 lb (68 kg) Medications: dextrose [Held by provider] amantadine 100 mg Oral Daily aspirin 81 mg Oral Daily metoprolol tartrate 50 mg Oral Daily montelukast 10 mg Oral Nightly doxercalciferol 2.5 mcg Oral Once per day on Tue pravastatin 20 mg Oral Nightly QUEtiapine 50 mg Oral Daily tamsulosin 0.4 mg Oral Daily trimethoprim-polymyxin b 2 drop Both Eyes BID insulin lispro 0-12 Units Subcutaneous TID WC insulin lispro 0-6 Units Subcutaneous Nightly heparin (porcine) 5,000 Units Subcutaneous BID omega-3 acid ethyl esters 1 g Oral Daily polyethylene glycol 17 g Oral Daily amLODIPine 10 mg Oral Daily LABS: CBC: Recent Labs 03/12/19 1345 WBC 6.4 RBC 3.34* HGB 11.3* HCT 32.0* MCV 95.7 RDW 14.7* PLT 152 BMP: Recent Labs 03/12/19 1345 NA 139 K 4.0 CL 95* CO2 29 BUN 54* CREATININE 7.06* GLUCOSE 134* CALCIUM 10.0 ANIONGAP 15 LIVER PROFILE: Recent Labs 03/12/19 1345 AST 24 ALT 27 BILITOT 0.5 ALKPHOS 89 LABALBU 3.9 PROT 7.1 PT/INR: No results for input(s): PROTIME, INR in the last 72 hours. CARDIAC ENZYMES: Recent Labs 03/12/19 1345 TROPONINI <0.012 Procalcitonin: No results found for: PROCAL Objective: Vitals: BP 117/68 Pulse 66 Temp 97.9 F (36.6 C) Resp 16 Ht 5' 8 (1.727 m) Wt 145 lb 8.1 oz (66 kg) SpO2 97% BMI 22.12 kg/m Pulse Ox: SpO2 Av % Min: 96 % Max: 100 % Supplemental O2: General appearance: Weak No apparent distress, appears stated age and cooperative with exam HEENT: Normal cephalic, atraumatic without obvious deformity. Pupils equal, round, and reactive to light. Extra ocular muscles intact. Conjunctivae/corneas clear. Neck: Supple, with full range of motion. No jugular venous distention. Trachea midline. No lymphadenopathy. Respiratory: Normal respiratory effort. Clear to auscultation, bilaterally without Rales/Wheezes/Rhonchi. Cardiovascular: Regular rate and rhythm with normal S1/S2 without murmurs, rubs or gallops. AVFISTULA Abdomen: Soft, non-tender, non-distended with normal bowel sounds. No rebound or guarding. Musculoskeletal: No clubbing, cyanosis or edema bilaterally. Full range of motion without deformity. Skin: Skin color, texture, turgor normal. No rashes or lesions. Neurologic: Neurovascularly intact without any focal sensory/motor deficits. Cranial nerves: II-XII intact, grossly non-focal. Assessment and Plan: # ESRD - on HD, left arm AV fistula, nephrology on board, will have dialysis # Generalized weakness - PT/OT # HTN BP stable All test and lab results reviewed Consult notes reviewed Am labs, replace lytes prn PT/OT -DVT prophylaxis: [] Lovenox [x] Heparin [] SCDs [x] Encourage ambulation [] Already on Anticoagulation Advance Directive: Prior Discharge planning: TBD YESICA DUNLAP MD, MD Division of Hospitalist Medicine Inpatient Medical Services This nurse attempted to walk patient before discharge home. Patient stood at side of bed with minimal assist and front wheeled walked, however became unsteady and reported dizziness. Patient swayed back and forth multiple times before sitting abruptly on the bed. Patient stated he is too weak and unable to walk. Assisted patient back to bed. Patient Name: Logan Fisher Patient : 1945 Acct: [id number] Date of Admission: 03/12/2019 Room/Bed: [address] [place] [address] Code Status: Prior Allergies: No Known Allergies Diagnosis: Patient Active Problem List Diagnosis Chronic renal failure, stage 5 (HCC) Treatment: Hemodialysis 1:1 Priority: Routine Location: Med/Surg/Tele Diabetic: Yes NPO: No Isolation Precautions: None Consent for Treatment Verified: Yes Blood Consent Verified: Not Applicable Safety Verified: Identify (I), Consent (C), Equipment (E), HepB Status (B), Orders Complete (O), Access Verified (A) and Timeliness (T) Time out performed prior to access at 1150 hours. Report Received from Primary RN at 1030 hours. Primary RN (First Initial, Last Name, Title): Bear Dixon RN Incapacitated Nurse Education Completed: Yes HBsAg ONLY: Date Drawn: February 13, 2019 Results: Negative HBsAb: Date Drawn: February 13, 2019 Results: Unknown Order Dialysis Bath K+ (Potassium): 2 Ca+ (Calcium): 2.5 Na+ (Sodium): 135 HCO3 (Bicarb): 35 Na+ Modeling: Not Applicable Dialyzer: [id number] Dialysate Temperature (C): 37 Blood Flow Rate (BFR): 400 Dialysate Flow Rate (DFR): 800 Treatment Treatment Number: 1 Time On: 1156 Time Off: 1556 Treatment Goal: 2L Weight: 145 lb 8.1 oz (66 kg) (03/13/19 1607) Access to be Utilized Access: AVF Location: Upper Extremity Side: Left Needle gauge: 15 + Bruit/Thrill: Yes First Use X-ray Verified: na OK to use line order: na Site Assessment: Signs and Symptoms of Infection/Inflammation: None If yes: Not Applicable Dressing: Dry and Intact Site Prep: Medical Aseptic Technique Dressing Changed this Treatment: Yes If yes, by whom: Juan GAYLE Date of Last Dressing Change: Not Applicable Antimicrobial Patch in place?: na Red Alcohol Caps in place?: na Gauze Dressing?: na Non Dialysis Use?: na Comment: Flows: Good, Patent If access problem, who was notified: Pre and Post-Assessment Patient Vitals for the past 8 hrs: Level of Consciousness Oriented X Heart Rhythm Respiratory Quality/Effort O2 Device Bilateral Breath Sounds Skin Color Skin Condition/Temp Abdomen Inspection Bowel Sounds (All Quadrants) Edema Pain Level 03/13/19 0920 0 Unlabored Pale;Inez Dry;Warm Rounded None 03/13/19 0937 None (Room air) 03/13/19 1145 0 3 Regular Unlabored None (Room air) Diminished Pale Dry Rounded Active None 0 03/13/19 1607 Diminished None Labs Recent Labs 03/12/19 1345 WBC 6.4 HGB 11.3* HCT 32.0* PLT 152 Recent Labs 03/12/19 1345 NA 139 K 4.0 CL 95* CO2 29 BUN 54* CREATININE 7.06* GLUCOSE 134* IV Drips and Rate/Dose dextrose Safety - Before each treatment: Dialysis Machine No.: [id number] Machine No.: [id number] Dialyzer Lot No.: [id number] RO Machine Log Sheet Completed: Yes Machine Alarm Self Test: Completed;Passed (03/13/19 1145) Machine Autotest: Passed, Completed Air Foam Detector: Tested, Proper Function, pH Reading Extracorporeal Circuit Tested for Integrity: Yes Machine Conductivity: 13.8 Manual Conductivity: 13.8 Machine Ph: 7 Manual Ph: 7 Bleach Test (Neg): Yes Bath Temperature: 98.6 F (37 C) Tubing Lot#: [id number] Conductivity Meter Serial #: [id number] [employer]ctions Secure?: Yes Venous Parameters Set?: Yes Arterial Parameters Set?: Yes Saline Line Double Clamped?: Yes Air Foam Detector Engaged?: Yes Machine Functioning Alarm Free? Yes Prime Given: 200ml Chlorine Testing - Before each treatment and every 4 hours: 1st check: less than 0.1 ppm at: 1130 hours 2nd check: less than 0.1 ppm at: 1430 hours 3rd check: Not Applicable (if greater than 0.1 ppm, then check every 30 minutes from secondary) Access Flows and Pressures Patient Vitals for the past 8 hrs: Blood Flow Rate (ml/min) Ultrafiltration Rate (ml/hr) Ultrafiltration Total Arterial Pressure (mmHg) Venous Pressure (mmHg) TMP Hemodialysis Conductivity DFR Comments Access Visible 03/13/19 1156 200 ml/min 630 ml/hr -40 mmHg 110 110 13.8 800 tx started difficult access Dr. paul aware Yes 03/13/19 1215 350 ml/min 630 ml/hr -70 mmHg 190 90 800 pt stable Yes 03/13/19 1230 350 ml/min 630 ml/hr -80 mmHg 200 90 800 primary nurse at bedside Yes 03/13/19 1245 400 ml/min 630 ml/hr 525 ml -90 mmHg 190 80 800 stable Yes 03/13/19 1300 400 ml/min 630 ml/hr 698 ml -110 mmHg 180 Yes 03/13/19 1315 400 ml/min 630 ml/hr 826 ml -110 mmHg 170 80 800 resting Yes 03/13/19 1330 400 ml/min 630 ml/hr 1004 ml -120 mmHg 180 90 800 stable Yes 03/13/19 1345 400 ml/min 630 ml/hr 1114 ml -150 mmHg 210 110 800 stable Yes 03/13/19 1400 400 ml/min 955 ml -180 mmHg 210 110 800 stable Yes 03/13/19 1415 400 ml/min 630 ml/hr -180 mmHg 210 110 800 stable Yes 03/13/19 1430 400 ml/min 630 ml/hr 1675 ml -180 mmHg 210 110 800 resting Yes 03/13/19 1445 400 ml/min 630 ml/hr 1739 ml -180 mmHg 160 110 800 stable Yes 03/13/19 1515 400 ml/min 630 ml/hr 2108 ml -180 mmHg 220 120 800 stable Yes 03/13/19 1530 400 ml/min 630 ml/hr 2307 ml -160 mmHg 210 110 800 Yes 03/13/19 1556 2500 ml tx completed Yes Vital Signs Patient Vitals for the past 8 hrs: BP Temp Pulse Resp SpO2 Weight Percent Weight Change 03/13/19 0937 (!) 149/67 99.4 F (37.4 C) 73 18 96 % 03/13/19 1145 (!) 158/70 98.8 F (37.1 C) 72 18 98 % 149 lb 14.6 oz (68 kg) -0.06 03/13/19 1156 (!) 152/75 66 03/13/19 1215 (!) 143/76 68 03/13/19 1230 133/73 63 03/13/19 1245 122/71 69 03/13/19 1300 130/74 69 03/13/19 1315 113/75 61 03/13/19 1330 125/70 68 03/13/19 1345 121/62 03/13/19 1400 98/70 81 03/13/19 1415 101/63 66 03/13/19 1430 (!) 101/57 68 03/13/19 1445 (!) 94/59 72 03/13/19 1515 102/66 75 03/13/19 1530 (!) 99/59 70 03/13/19 1556 110/68 72 03/13/19 1607 117/68 97.9 F (36.6 C) 66 16 97 % 145 lb 8.1 oz (66 kg) -2.94 Post-Dialysis Arterial Catheter Locking Solution: Not Applicable Venous Catheter Locking Solution: Not Applicable Post-Treatment Procedures: Blood returned, Access bleeding time < 10 minutes Machine Disinfection Process: Exterior Machine Disinfection Rinseback Volume (ml): 300 ml Total Liters Processed (l/min): 88.6 l/min Dialyzer Clearance: Lightly streaked Duration of Treatment (minutes): 240 minutes Hemodialysis Intake (ml): 500 ml Hemodialysis Output (ml): 2500 ml NET Removed (ml): 2000 ml Tolerated Treatment: Fair Patient Response to Treatment: well Physician Notified?: No Provider Notification Handoff complete and report given to Primary RN at 1608 hours. Primary RN (First Initial, Last Name, Title): Bear Dixon RN Education Person Educated: Patient Knowledge Base: Minimal Barriers to Learning?: None Preferred method of Learning: Oral Topic(s): Access Care, Signs and Symptoms of Infection, Procedural and Potassium Teaching Tools: Explanation Response to Education: Verbalized Understanding Patient is seen and examined and anticipate discharge this afternoon after dialysis. His mental status and blood pressure improved. We will continue to follow. Sent Dr. De Paz IMS a perfect serve message that pt does not have a current status code listed; and that his previous one stated a full code. Pt is unaware of what medications he has taken and I ask Dr. De Paz face to face if we can hold off on giving him any meds until the morning when his sister brings the med list and lets us know what meds were taken when. Dr. De Paz stated that was fine. Pt has flu shot already Pt does not know his meds and his sister Riri Mccloud will brin them tomorrow documented in this encounter [facility] Work Phone: 03-14-2019 Hospital Discharge instructions Covert, Isela Ernandez RN - 03/14/2019 3:16 PM EST Continuity of Care Form Patient Name: Logan Fisher : 1945 Admit date: 03/12/2019 Discharge date: 03/16/2019 Code Status Order: Prior Advance Directives: Advance Care Flowsheet Documentation Date/Time Healthcare Directive Type of Healthcare Directive Copy in Chart Healthcare Agent Appointed Healthcare Agent's Name Healthcare Agent's Phone Number 03/12/191958 Yes, patient has an advance directive for healthcare treatment Durable power of document review attorney for health care No, copy requested from family Adult siblings Patito Laureano 03/12/19 0000 Adult siblings Admitting Physician: Yesica Dunlap MD PCP: Sarina Pineda MD Discharging Nurse: IRWIN Weiss Discharging Hospital Unit/Room#: 154/1541 Discharging Unit Emergency Contact: Extended Emergency Contact Information Primary Emergency Contact: Riri Mccloud [facility] Relation: Brother/Sister Past Surgical History: Past Surgical History: Procedure Laterality Date APPENDECTOMY FRACTURE SURGERY Right leg PROSTATECTOMY TONSILLECTOMY Immunization History: There is no immunization history on file for this patient. Active Problems: Patient Active Problem List Diagnosis Code Chronic renal failure, stage 5 (HCC) N18.5 Isolation/Infection: Isolation No Isolation Patient Infection Status None to display Nurse Assessment: Last Vital Signs: BP (!) 137/57 Pulse 59 Temp 96.7 F (35.9 C) (Temporal) Resp 20 Ht 5' 8 (1.727 m) Wt 145 lb 8.1 oz (66 kg) SpO2 94% BMI 22.12 kg/m Last documented pain score (0-10 scale): Pain Level: 0 Last Weight: Wt Readings from Last 1 Encounters: 03/13/19 145 lb 8.1 oz (66 kg) Mental Status: oriented IV Access: - None Nursing Mobility/ADLs: Walking Dependent Transfer Dependent Bathing Dependent Dressing Dependent Toileting Dependent Feeding Assisted [employer] General Sales Manager Assisted Med Delivery whole Wound Care Documentation and Therapy: Incision 10/09/15 Arm Lower (Active) Number of days: 1252 Elimination: Continence: Bowel: No Bladder: No Urinary Catheter: None Colostomy/Ileostomy/Ileal Conduit: No Date of Last BM: 03/14/2019 Intake/Output Summary (Last 24 hours) at 03/14/2019 1513 Last data filed at 03/14/2019 1445 Gross per 24 hour Intake 1100 ml Output 2500 ml Net -1400 ml I/O last 3 completed shifts: In: 1100 [P.O.:600] Out: 2500 Safety Concerns: At Risk for Falls Impairments/Disabilities: None Nutrition Therapy: Current Nutrition Therapy: - Oral Diet: General Routes of Feeding: Oral Liquids: No Restrictions Daily Fluid Restriction: no Last Modified Barium Swallow with Video (Video Swallowing Test): not done Treatments at the Time of Hospital Discharge: Respiratory Treatments: Oxygen Therapy: is not on home oxygen therapy. Ventilator: - No ventilator support Rehab Therapies: Physical Therapy and Occupational Therapy Weight Bearing Status/Restrictions: No weight bearing restirctions Other Medical Equipment (for information only, NOT a DME order): walker Other Treatments: Patient's personal belongings (please select all that are sent with patient): None RN SIGNATURE: MANAGEMENT/SOCIAL WORK SECTION Inpatient Status Date: Observation Readmission Risk Assessment Score: Readmission Risk Risk of Unplanned Readmission: 16 Discharging to Facility/ Agency Name: [facility] Address: [address] [place] [id number] D[facility] Facility (if applicable) [place] [address] Tuesday, , Tuesday Chair Time 1145 am Induction Heat Treater/Primary Teaching Assistant signature: ICIAN SECTION Prognosis: {Prognosis:[id number]} Condition at Discharge: Stable Rehab Potential (if transferring to Rehab): Fair Recommended Labs or Other Treatments After Discharge: CBC,BMP in one week, PT/OT 3 times per week, fall precautions Physician Certification: I certify the above information and transfer of Logan Fisher is necessary for the continuing treatment of the diagnosis listed and that he requires [facility] Facility for less 30 days. Update Admission H&P: No change in H&P PHYSICIAN SIGNATURE: documented [facility] Work Phone: documented in this [facility] Work Phone: Evaluation note* Diagnosis Cyst of kidney, acquired- Primary Acquired cyst of kidney [facility] Diagnosis Hospital discharge follow-up- Primary Other follow-up examination Atrial fibrillation with RVR (CMS/HCC) (HCC) half-way current use of anticoagulant therapy Dialysis patient (HCC) Renal dialysis status History of encephalopathy [facility] Atrial fibrillation with RVR (HCC) documented in this encounter [facility] [email or web address] Advance Directives Documents on File Type Date Recorded Patient Stock Feeder Expl anation Advance Directives and Living Will Power of Supervisor Clam Bed Latest Code Status on File Code Status Date Activated Date Inactivated Comments Full Code 10/09/2015 8:35 AM 10/09/2015 3:35 PM Documents on File Type Date Recorded Patient Stock Feeder Expl anation ACP-Advance Directive ACP-Power of Supervisor Clam Bed Documents on File Type Date Recorded Patient Stock Feeder Expl anation Advance Directives and Livin g Will 01/29/2020 6:46 AM ACP-Advance Directive ACP-Power of Supervisor Clam Bed Latest Code Status on File Code Status Date Activated Date Inactivated Comments Full Code 01/29/2020 10:44 AM Full Code 10/09/2015 8:35 AM 10/09/2015 3:35 PM Documents on File Type Date Recorded Patient Stock Feeder Expl anation Advance Directives and Livin g Will 01/29/2020 6:46 AM Advance Directives and Livin g Will 02/04/2020 2:41 PM ACP-Advance Directive ACP-Power of Supervisor Clam Bed DNR Documentation 02/04/2020 2:41 PM Latest Code Status on File Code Status Date Activated Date Inactivated Comments Full Code 02/17/2020 1:33 AM Full Code 01/29/2020 10:44 AM 02/02/2020 8:20 PM Latest Code Status on File Code Status Date Activated Date Inactivated Comments Full Code 02/17/2020 1:33 AM 02/20/2020 3:32 PM Documents on File Type Date Recorded Patient Stock Feeder Expl anation Advance Directives and Livin g Will 01/29/2020 6:46 AM Advance Directives and Livin g Will 02/04/2020 2:41 PM ACP-Advance Directive ACP-Power of Supervisor Clam Bed DNR Documentation 02/04/2020 2:41 PM Latest Code Status on File Code Status Date Activated Date Inactivated Comments Full Code 02/17/2020 1:33 AM 02/20/2020 3:32 PM Full Code 01/29/2020 10:44 AM 02/02/2020 8:20 PM Full Code 10/09/2015 8:35 AM 10/09/2015 3:35 PM Documents on File Type Date Recorded Patient Stock Feeder Expl anation Advance Directives and Livin g Will 08/02/2022 1:02 PM Advance Directives and Livin g Will 01/28/2020 DNR (Do Not Resuscitate) 01/28/2020 Advance Directives and Livin g Will 01/26/2020 Latest Code Status on File Code Status Date Activated Date Inactivated Comments DNR-CCA 07/24/2022 9:43 PM 07/31/2022 8:41 PM Question Answer Comments ICU transfer: Yes Intubation: No Discharge Instructions * Instructions* Kenny Cisneros RN - 06/07/2019 Fistulagram Hemodialysis Access: What to Expect at Home You have had a procedure to evaluate your fistula or graft. These instructions will help you to care for the procedure site(s), tell you what you can and cannot do, and give you helpful information when you are at home. Hemodialysis is a way to remove wastes from the blood when your kidneys can no longer do the job. It is not a cure, but it can help you live longer and feel better. It is a lifesaving treatment when you have kidney failure. Hemodialysis is often called dialysis. Your doctor created a place (called an access or fistula) in your arm for your blood to flow in and out of your body during your dialysis sessions. You should always be able to feel blood rushing through the fistula or graft. It feels like a slight vibration when you put your fingers on the skin over the fistula or graft. This feeling is called a thrill or pulse. How can you care for yourself at home? Rest when you feel tired. Getting enough sleep will help you recover. Do not lie on or sleep on thearm with the access. Avoid activities such as washing windows or gardening that put stress on the arm with the access. You may use your arm, but do not lift anything that weighs more than about 5 pounds for 24 hours.. This may include a child, heavy grocery bags, a heavy briefcase or backpack, cat litter or dog food bags, or a vacuum chicken cleaner. Your dressing will be removed at your next dialysis treatment. If there are stitches, they may be removed by your dialysis nurse after your next dialysis treatment or they may request that you return to Special Procedures for suture removal. If there is a small pad that is dried and crusted, it may be gently soaked and removed with your next dialysis treatment. If your dressing gets soaked with blood, apply pressure, and go to the nearest Emergency room. Soreness or tenderness can last up to a week A small (quarter size) spot with blood from your incision is normal Bruising can last up to two weeks Diet Follow an eating plan that is good for your kidneys. A registered dietitian can help you make a meal plan that is right for you. You may need to limit protein, salt, fluids, and certain foods Other instructions Every day, check your access for a pulse or thrill in the fistula or graft area. A thrill is a vibration. To feel a pulse or thrill, place the first two fingers of your hand over the access. Do not bump your arm. Do not wear tight clothing, jewelry, or anything else that may squeeze the access. Use your other arm to have blood drawn or blood pressure taken. Do not put cream or lotion on or near the access. Make sure all doctors you deal with know you have a vascular access. Follow-up care is a mckeon part of your treatment and safety. Be sure to make and go to all appointments, and call your doctor if you are having problems. It's also a good idea to know your test resultsand keep a list of the medicines you take. When should you call for help? Call 911 anytime you think you may need emergency care. For example, call if: You passed out (lost consciousness). You have severe trouble breathing. You have sudden chest pain and shortness of breath, or you cough up blood. You have a rapid pulse or heartbeat. Call your doctor now or seek immediate medical care if: Your hand or arm is cold or dark-colored. You have sudden bulging around your access. You have no pulse or thrill in your access, or you hear no sound of blood in your access. Bleeding after dialysis lasts longer than usual. You have severe pain that does not get better after you take pain medicine. You have a fever over 100 F. You have signs of infection, such as: Increased pain, swelling, warmth, or redness. Red streaks leading from the incision. Pus draining from the incision. Swollen lymph nodes in your neck, armpits, or groin. A fever. Watch closely for changes in your health, and be sure to contact your doctor if you have any problems. If you have any questions or problems following your procedure, please call: Special Procedures at . After hours (before 7 am and after 4 pm) call and ask for the Interventional Radiologist turf sales person. Where can you learn more? Go to [email or web address] and sign in to your [employer] account. Enter P616 in the Search Health Information box to learn more about Hemodialysis Access: What to Expect at Home. If you do not have an account, please click on the Sign Up Now link. Current as of: January 07, 2016 Content Version: 11.2 [id number] [employer], [employer]. Care instructions adapted under license by [employer]. If youhave questions about a medical condition or this instruction, always ask your healthcare professional. oneforty, [facility] disclaims any warranty or liability for your use of this information. documented in this encounter* Instructions* Jonathan Manzanares MD - 01/27/2020 Return for worsening symptoms * Attachments The following attachments cannot be sent through Care Everywhere. * Viral Infections (Hebrew) documented in this encounter* Discharge Instr - LARISA* Tanisha Llanes RN - 02/02/2020 1:43 PM EST Continuity of Care Form Patient Name: Logan Fisher : 1945 Admit date: 01/28/2020 Discharge date: Code Status Order: Full Code Advance Directives: Advance Care Flowsheet Documentation Date/Time Healthcare Directive Type of Healthcare Directive Copy in Chart Healthcare Agent Appointed Healthcare Agent's Name Healthcare Agent's Phone Number 01/29/20 0309 Yes, patient has an advance directive for healthcare treatment Durable power of document review attorney for health care No, copy requested from family 01/28/20 0000 Healthcare power of document review attorney [facility] [phone] Admitting Physician: Andrew De Paz MD PCP: Sarina Pineda MD Discharging Nurse: Discharging Hospital Unit/Room#: [id number] Discharging Unit Phone Number: Emergency Contact: Extended Emergency Contact Information Primary Emergency Contact: Riri [facility] Relation: Brother/Sister Past Surgical History: Past Surgical History: Procedure Laterality Date APPENDECTOMY FRACTURE SURGERY Right leg PROSTATECTOMY TONSILLECTOMY Immunization History: There is no immunization history on file for this patient. Active Problems: Patient Active Problem List Diagnosis Code Chronic renal failure, stage 5 (HCC) N18.5 Acute metabolic encephalopathy G93.41 ESRD (end stage renal disease) (HCC) N18.6 Parkinson's disease (HCC) G20 COVID-19 U07.1 Isolation/Infection: Isolation Contact and Droplet Patient Infection Status Infection Onset Added Last Indicated Last Indicated By Review Planned Expiration Resolved Resolved By COVID-19 01/30/20 01/30/20 Fabrizio Lee RN 02/06/20 02/13/20 01/27/20 Resolved COVID-19 Rule Out 01/27/20 01/27/20 01/27/20 COVID-19 (Ordered) 01/30/20 Fabrizio Lee RN Nurse Assessment: Last Vital Signs: BP (!) 108/48 Pulse 53 Temp 98.6 F (37 C) Resp 16 Ht 5' 6 (1.676 m) Wt184 lb 15.5 oz (83.9 kg) SpO2 99% BMI 29.85 kg/m Last documented pain score (0-10 scale): Pain Level: 0 Last Weight: Wt Readings from Last 1 Encounters: 02/02/20 184 lb 15.5 oz (83.9 kg) Mental Status: oriented and alert IV Access: - None Nursing Mobility/ADLs: Walking Assisted Transfer Assisted Bathing Assisted Dressing Assisted Toileting Assisted Feeding Independent Automotive General Sales Manager Assisted Med Delivery whole Wound Care Documentation and Therapy: Incision 10/09/15 Arm Lower (Active) Number of days: 1577 Elimination: Continence: Bowel: No Bladder: No Urinary Catheter: None Colostomy/Ileostomy/Ileal Conduit: No Date of Last BM: 02/01/2020 No intake or output data in the 24 hours ending 02/02/20 1341 No intake/output data recorded. Safety Concerns: None Impairments/Disabilities: None and Vision Nutrition Therapy: Current Nutrition Therapy: - Oral Diet: Renal Routes of Feeding: Oral Liquids: [place] Thick Liquids Daily Fluid Restriction: no Last Modified Barium Swallow with Video (Video Swallowing Test): not done Treatments at the Time of Hospital Discharge: Respiratory Treatments: Oxygen Therapy: is on oxygen at 4 L/min per nasal cannula. Ventilator: - No ventilator support Rehab Therapies: Physical Therapy and Occupational Therapy Weight Bearing Status/Restrictions: No weight bearing restirctions Other Medical Equipment (for information only, NOT a DME order): {EQUIPMENT:[id number]} Other Treatments: Patient's personal belongings (please select all that are sent with patient): {[facility] DME Belongings:[id number]:::0} RN SIGNATURE: CASE MANAGEMENT/SOCIAL WORK SECTION Inpatient Status Date: Readmission Risk Assessment Score: Readmission Risk Risk of Unplanned Readmission: 21 Discharging to Facility/ Agency Name: Address: Phone: Fax: Dialysis Facility (if applicable) Name: Address: Dialysis Schedule: Phone: Fax: Induction Heat Treater/Primary Teaching Assistant signature: {Esignature:[id number]:::0} PHYSICIAN SECTION Prognosis: Good Condition at Discharge: Stable Rehab Potential (if transferring to Rehab): Fair Recommended Labs or Other Treatments After Discharge: PT/OT, Dexamethasone 6 mg PO for 5 more days,Heparin bid for one month, CBC,CMP in one week, O2 to keep sats >92%, Dialysis per nephrology Physician Certification: I certify the above information and transfer of Logan Fisher is necessaryfor the continuing treatment of the diagnosis listed and that he requires [facility] Facility for greater 30 days. Update Admission H&P: No change in H&P PHYSICIAN SIGNATURE: documented in this encounter* Discharge Instr - Activity* Troy Norton RN - 02/20/2020 9:56 AM EST As tolerated. * Discharge Instr - Diet* Troy Norton RN - 02/20/2020 9:56 AM EST ? Good nutrition is important when healing from an illness, injury, or surgery. Follow any nutrition recommendations given to you during your hospital stay. ? If you were given an oral nutrition supplement while in the hospital, continue to take this supplement at home. You can take it with meals, in-between meals, and/or before bedtime. These supplements can be purchased at most local grocery stores, pharmacies, and [employer]-stores. ? If you have any questions about your diet or nutrition, call the hospital and ask for the dietitian. As tolerated. * Discharge Instr - LARISA* Troy Norton RN - 02/18/2020 8:36 AM EST Continuity of Care Form Patient Name: Logan Fisher : 1945 Admit date: 02/16/2020 Discharge date: Code Status Order: Full Code Advance Directives: Advance Care Flowsheet Documentation Date/Time Healthcare Directive Type of Healthcare Directive Copy in Chart Healthcare Agent Appointed Healthcare Agent's Name Healthcare Agent's Phone Number 02/17/20 0131 Yes, patient has an advance directive for healthcare treatment Durable power of document review attorney for health care No, copy requested from family -- -- -- Admitting Physician: Andrew De Paz MD PCP: Sarina Pineda MD Discharging Nurse: Discharging Hospital Unit/Room#: [id number] Discharging Unit Phone Number: Emergency Contact: Extended Emergency Contact Information Primary Emergency Contact: Riri Mc[facility] Relation: Brother/Sister Past Surgical History: Past Surgical History: Procedure Laterality Date APPENDECTOMY FRACTURE SURGERY Right leg PROSTATECTOMY TONSILLECTOMY Immunization History: There is no immunization history on file for this patient. Active Problems: Patient Active Problem List Diagnosis Code Chronic renal failure, stage 5 (HCC) N18.5 Acute metabolic encephalopathy G93.41 ESRD (end stage renal disease) (HCC) N18.6 Parkinson's disease (HCC) G20 COVID-19 U07.1 Atrial fibrillation (HCC) I48.91 Isolation/Infection: Isolation No Isolation Patient Infection Status Infection Onset Added Last Indicated Last Indicated By Review Planned Expiration Resolved Resolved By None active Resolved COVID-19 Rule Out 02/16/20 02/16/20 02/16/20 Respiratory Panel, Molecular, with COVID-19 (Restricted: peds pts or suitable admitted adults) (Ordered) 02/17/20 Sophy Donahue RN COVID-19 01/30/20 01/30/20 Fabrizio Lee RN 02/13/20 01/27/20 COVID-19 Rule Out 01/27/20 01/27/20 01/27/20 COVID-19 (Ordered) 01/30/20 Fabrizio Lee RN Nurse Assessment: Last Vital Signs: BP 119/64 Pulse 72 Temp 98 F (36.7 C) (Temporal) Resp 17 Ht 5' 6 (1.676 m) Wt 180 lb (81.6 kg) SpO2 91% BMI 29.05 kg/m Last documented pain score (0-10 scale): Pain Level: 0 Last Weight: Wt Readings from Last 1 Encounters: 02/16/20 180 lb (81.6 kg) Mental Status: oriented and alert IV Access: - None Nursing Mobility/ADLs: Walking Dependent Transfer Dependent Bathing Assisted Dressing Assisted Toileting Assisted Feeding Independent [employer]otive General Sales Manager Assisted Med Delivery whole and prefers mixed with pudding Wound Care Documentation and Therapy: Incision 10/09/15 Arm Lower (Active) Number of days: 1592 Elimination: Continence: Bowel: No Bladder: No Urinary Catheter: None Colostomy/Ileostomy/Ileal Conduit: No Date of Last BM: 02/20/2020 No intake or output data in the 24 hours ending 02/18/20 0835 No intake/output data recorded. Safety Concerns: At Risk for Falls Impairments/Disabilities: None Nutrition Therapy: Current Nutrition Therapy: - Oral Diet: Renal Routes of Feeding: Oral Liquids: Thin Liquids Daily Fluid Restriction: no Last Modified Barium Swallow with Video (Video Swallowing Test): not done Treatments at the Time of Hospital Discharge: Respiratory Treatments: Oxygen Therapy: is on oxygen at 2L L/min per nasal cannula. Ventilator: - No ventilator support Rehab Therapies: Physical Therapy and Occupational Therapy Weight Bearing Status/Restrictions: No weight bearing restirctions Other Medical Equipment (for information only, NOT a DME order): {EQUIPMENT:[id number]} Other Treatments: Patient's personal belongings (please select all that are sent with patient): None RN SIGNATURE: CASE MANAGEMENT/SOCIAL WORK SECTION Inpatient Status Date: Readmission Risk Assessment Score: Readmission Risk Risk of Unplanned Readmission: 24 Discharging to Facility/ Agency Name: [facility] Address: [address] [place] [id number] Dialysis Facility (if applicable) Name: Address: Dialysis Schedule: Phone: Fax: Induction Heat Treater/Primary Teaching Assistant signature: at8:36 AM EST PHYSICIAN SECTION Prognosis: Good Condition at Discharge: Stable Rehab Potential (if transferring to Rehab): Fair Recommended Labs or Other Treatments After Discharge: CBC, BMP every three days, PT/OT Physician Certification: I certify the above information and transfer of Logan Fisher is necessaryfor the continuing treatment of the diagnosis listed and that he requires [facility] for greater 30 days. Update Admission H&P: No change in H&P PHYSICIAN SIGNATURE: documented in this encounter* Attachments The following attachments cannot be sent through Care Everywhere. * Renal Disease: Chronic (Hebrew) * Anemia: Chronic Disease (Hebrew) * Aspiration Pneumonia (Hebrew) documented in this encounter History of Present Illness * Montserrat Eid RN - 06/07/2019 11:40 AM EDT Disch inst to pt , verbalizes understanding, disch to home via w/c to transport in with valuables * Montserrat Eid RN - 06/07/2019 10:50 AM EDT Report called to Maria Ines at [facility] * Montserrat Eid RN - 06/07/2019 10:34 AM EDT Arrived via cart, pt denies pain or nausea * Kenny Cisneros RN - 06/07/2019 10:22 AM EDT Left arm declot - fistula gram with stent placement x [address] bryan. pt ralf well no new copain. Will dc to [facility] via acs. * Kenny Cisneros RN - 06/07/2019 9:[address] bryan aware of BP 180 / 81 no treatment ordered at this time. Will monitor - pt asymptomatic * Kenny Cisneros RN - 06/07/2019 9:16 AM EDT Pt arrived awake a/ox3 pt spoke with dr bryan consent obtained. Pt placed in supine position. Left arm prep and draped per protocol for declot - fistulagram documented in this encounter* Tanisha Llanes RN - 02/02/2020 2:31 PM EST Report called to Jessica at [facility]. * Yoanna Ricks RN - 02/02/2020 11:14 AM EST Patient Name: Logan Fisher Patient : 1945 Acct: [id number] Date of Admission: 01/28/2020 Room/Bed: [address] [place] [address] Code Status: Full Code Allergies: No Known Allergies Diagnosis: Patient Active Problem List Diagnosis Chronic renal failure, stage 5 (HCC) Acute metabolic encephalopathy ESRD (end stage renal disease) (HCC) Parkinson's disease (HCC) COVID-19 Treatment: Hemodialysis 1:1 Priority: Routine Location: Bedside Diabetic: Yes NPO: No Isolation Precautions: droplet Consent for Treatment Verified: Yes Blood Consent Verified: Not Applicable Safety Verified: Identify (I), Consent (C), Equipment (E), HepB Status (B), Orders Complete (O), Access Verified (A) and Timeliness (T) Time out performed prior to access at 1000 hours. Report Received from Primary RN at 0920 hours. Primary RN (First Initial, Last Name, Title): Fredy Barber RN Incapacitated Nurse Education Completed: Yes HBsAg ONLY: Date Drawn: January 10, 2020 Results: Negative HBsAb: Date Drawn: January 10, 2020 Results: Susceptible <10 Order Dialysis Bath K+ (Potassium): 3 Ca+ (Calcium): 2.5 Na+ (Sodium): 135 HCO3 (Bicarb): 35 Na+ Modeling: Not Applicable Dialyzer: [id number] Dialysate Temperature (C): 37 Blood Flow Rate (BFR): 400 Dialysate Flow Rate (DFR): 800 Access to be Utilized Access: AVF Location: Upper Extremity Side: Left Needle gauge: 15 + Bruit/Thrill: Yes First Use X-ray Verified: Not Applicable OK to use line order: Not Applicable Site Assessment: Signs and Symptoms of Infection/Inflammation: None If yes: Not Applicable Dressing: Dry and Intact Site Prep: Medical Aseptic Technique Dressing Changed this Treatment: na If yes, by whom: NA - not changed today Date of Last Dressing Change: Not Applicable Antimicrobial Patch in place?: na Red Alcohol Caps in place?: na Gauze Dressing?: Yes Non Dialysis Use?: No Comment: Flows: Good, Patent If access problem, who was notified: Pre and Post-Assessment Patient Vitals for the past 8 hrs: Level of Consciousness Oriented X Heart Rhythm Respiratory Quality/Effort O2 Device Bilateral Breath Sounds Skin Color Skin Condition/Temp Abdomen Inspection Bowel Sounds (All Quadrants) Edema Pain Level 02/02/20 0812 Nasal cannula 02/02/20 0840 Alert (0) Unlabored Appropriate for ethnicity Rounded;Soft None 0 02/02/20 1000 Alert (0) 3 Regular Unlabored Nasal cannula Diminished Appropriate for ethnicity Dry;Warm Rounded;Soft Active None 0 02/02/20 1320 None 0 02/02/20 1414 Nasal cannula Labs Recent Labs 01/31/20 0404 02/01/20 0432 02/02/20 0439 WBC 9.3 6.7 3.1* HGB 9.2* 9.9* 9.4* HCT 26.0* 30.3* 27.4* PLT 85* 98* 94* Recent Labs 01/31/20 0404 02/01/20 0432 02/02/20 0439 NA 131* 131* 129* K 3.9 3.7 4.1 CL 91* 91* 88* CO2 30 34* 29 BUN 47* 24* 54* CREATININE 5.95* 3.41* 4.91* GLUCOSE 122* 138* 181* IV Drips and Rate/Dose Safety - Before each treatment: Dialysis Machine No.: [id number] RO Machine No.: [id number] Dialyzer Lot No.: [id number] RO Machine Log Sheet Completed: Yes Machine Alarm Self Test: Completed;Passed (02/02/20 1000) Machine Autotest: Completed, Passed Air Foam Detector: Tested, Proper Function Extracorporeal Circuit Tested for Integrity: Yes Machine Conductivity: 13.4 Manual Conductivity: 13.2 Machine Ph: 7 Bicarbonate Concentrate Lot No.: [id number] Acid Concentrate Lot No.: [id number] Manual Ph: 7.2 Bleach Test (Neg): Yes Bath Temperature: 98.6 F (37 C) Tubing Lot#: [id number] Conductivity Meter Serial #: [id number] All Connections Secure?: Yes Venous Parameters Set?: Yes Arterial Parameters Set?: Yes Saline Line Double Clamped?: Yes Air Foam Detector Engaged?: Yes Machine Functioning Alarm Free? Yes Prime Given: 200ml Chlorine Testing - Before each treatment and every 4 hours: Treatment Treatment Number: 2 Time On: 1015 Time Off: 1315 Treatment Goal: 3L Weight: 182 lb 8.7 oz (82.8 kg) (02/02/20 1320) 1st check: less than 0.1 ppm at: 0945 hours 2nd check: less than 0.1 ppm at: 1230 hours 3rd check: Not Applicable (if greater than 0.1 ppm, then check every 30 minutes from secondary) Access Flows and Pressures Patient Vitals for the past 8 hrs: Blood Flow Rate (ml/min) Ultrafiltration Rate (ml/hr) Ultrafiltration Total Arterial Pressure (mmHg) Venous Pressure (mmHg) TMP Hemodialysis Conductivity DFR Comments Access Visible 02/02/20 1015 200 ml/min 750 ml/hr 13 ml -80 mmHg 20 40 13.5 800 tx iniated Yes 02/02/20 1020 400 ml/min 750 ml/hr 30 ml -140 mmHg 80 60 13.5 800 pt stable Yes 02/02/20 1030 400 ml/min 750 ml/hr 209 ml -200 mmHg 110 60 13.4 800 pt resting Yes 02/02/20 1045 400 ml/min 750 ml/hr -200 mmHg 110 60 13.5 800 pt resting Yes 02/02/20 1100 400 ml/min 750 ml/hr 268 ml -200 mmHg 110 60 13.4 800 pt resting Yes 02/02/20 1115 400 ml/min 600 ml/hr 495 ml -200 mmHg 120 60 13.4 800 pt resting, goal decreased by 500 d/t BP trending down Yes 02/02/20 1130 400 ml/min 600 ml/hr 593 ml -200 mmHg 120 60 13.4 800 pt stable Yes 02/02/20 1145 400 ml/min 600 ml/hr 746 ml -210 mmHg 120 60 13.4 800 pt stable Yes 02/02/20 1200 400 ml/min 720 ml/hr 904 ml -200 mmHg 110 60 13.5 800 pt resting, bicarb/acid jugs changed cond 13.2/pH 7.2 Yes 02/02/20 1215 400 ml/min 720 ml/hr 1112 ml -190 mmHg 110 60 13.6 800 pt stable, resting Yes 02/02/20 1230 400 ml/min 560 ml/hr 1237 ml -190 mmHg 120 60 13.5 800 pt stable, awake, requesting for this tx to be done Yes 02/02/20 1245 400 ml/min 560 ml/hr 1477 ml -200 mmHg 110 50 13.5 800 pt stable, requesting to end this tx, educated pt on importance of completing the entire duration of tx Yes 02/02/20 1300 400 ml/min 560 ml/hr 1504 ml -200 mmHg 120 50 13.5 800 pt stable Yes 02/02/20 1315 1600 ml tx ended per pt request Yes Vital Signs Patient Vitals for the past 8 hrs: BP Temp Pulse Resp SpO2 Weight Weight Method Percent Weight Change 02/02/20 0812 (!) 145/68 97.3 F (36.3 C) (!) 48 16 99 % 02/02/20 1000 (!) 130/40 97.4 F (36.3 C) 77 184 lb 15.5 oz (83.9 kg) Bed scale 0.91 02/02/20 1015 (!) 145/56 98.4 F (36.9 C) 54 02/02/20 1020 (!) 142/53 98.4 F (36.9 C) 55 02/02/20 1030 (!) 142/54 98.8 F (37.1 C) 58 02/02/20 1045 (!) 130/51 98.6 F (37 C) 55 02/02/20 1100 (!) 130/50 98.8 F (37.1 C) 54 02/02/20 1115 (!) 119/54 98.6 F (37 C) 59 02/02/20 1130 (!) 125/54 98.4 F (36.9 C) 55 02/02/20 1145 (!) 130/42 98.4 F (36.9 C) 56 02/02/20 1200 117/63 98.6 F (37 C) 53 02/02/20 1215 102/65 98.6 F (37 C) 56 02/02/20 1230 (!) 123/47 98.6 F (37 C) 52 02/02/20 1245 (!) 105/51 98.6 F (37 C) 54 02/02/20 1300 (!) 108/48 98.6 F (37 C) 53 02/02/20 1315 119/74 53 02/02/20 1320 (!) 115/47 54 182 lb 8.7 oz (82.8 kg) -1.31 02/02/20 1414 121/72 97.7 F (36.5 C) 60 17 100 % Post-Dialysis Arterial Catheter Locking Solution: Not Applicable Venous Catheter Locking Solution: Not Applicable Post-Treatment Procedures: Blood returned, Access bleeding time < 10 minutes Machine Disinfection Process: Exterior Machine Disinfection Rinseback Volume (ml): 300 ml Total Liters Processed (l/min): 48.8 l/min Dialyzer Clearance: Clear Duration of Treatment (minutes): 180 minutes Heparin amount administered during treatment (units): 0 units Hemodialysis Intake (ml): 500 ml Hemodialysis Output (ml): 1600 ml NET Removed (ml): 1100 ml Tolerated Treatment: Fair Patient Response to Treatment: stable Provider Notification Handoff complete and report given to Primary RN at 1325 hours. Primary RN (First Initial, Last Name, Title): Fredy Barber RN Education Person Educated: Patient Knowledge Base: Substantial Barriers to Learning?: None Preferred method of Learning: Oral Topic(s): Procedural Teaching Tools: Explanation Response to Education: Verbalized Understanding * Yesica Dunlap MD - 02/01/2020 12:49 PM EST Hospitalist Progress Note 02/01/2020 12:49 PM Throughout the encounter I wore an N95 MASK, FACE SHIELD, Gown and Gloves [phone]: Please page me @ [phone] for patient care issues. [phone]: Please page IMS night Hospitalist for any issues. Subjective: Admit Date: 01/28/2020 PCP: Sarina Pineda MD Patient says yes to everything, not looking distressed DIET RENAL; Dietary Nutrition Supplements: Wound Healing Oral Supplement, Protein Modular Patient Vitals for the past 96 hrs (Last 3 readings): Weight 02/01/20 0401 186 lb (84.4 kg) 01/31/20 1945 186 lb 15.2 oz (84.8 kg) 01/31/20 1520 192 lb 7.4 oz (87.3 kg) Medications: epoetin shadi-epbx 30 Units/kg Subcutaneous Once per day on Tue heparin (porcine) 5,000 Units Subcutaneous 3 times per day dexamethasone 6 mg Oral Daily remdesivir IVPB 100 mg Intravenous Q24H aspirin 81 mg Oral Daily metoprolol tartrate 50 mg Oral BID montelukast 10 mg Oral Nightly pravastatin 20 mg Oral Nightly QUEtiapine 25 mg Oral Nightly tamsulosin 0.4 mg Oral Daily sodium chloride flush 10 mL Intravenous 2 times per day polyethylene glycol 17 g Oral Daily omega-3 acid ethyl esters 1 g Oral Daily paricalcitol 1 mcg Oral Daily trimethoprim-polymyxin b 1 drop Both Eyes BID sodium chloride flush 3 mL Intravenous Q8H LABS: CBC: Recent Labs 01/30/2015301/31/2040302/01/20431 WBC 16.6* 9.3 6.7 RBC 3.02* 2.50* 3.15* HGB 9.5* 9.2* 9.9* HCT 28.9* 26.0* 30.3* MCV 95.7 103.8* 96.0 RDW 18.1* 17.9* 18.4* PLT 75* 85* 98* BMP: Recent Labs 01/30/2015301/31/204 02/01/20431 NA 134* 131* 131* K 3.5 3.9 3.7 CL 93* 91* 91* CO2 30 30 34* BUN 18 47* 24* CREATININE 4.11* 5.95* 3.41* GLUCOSE 150* 122* 138* CALCIUM 8.2* 8.4 8.5 ANIONGAP 12 10 6 LIVER PROFILE: Recent Labs 01/30/2015301/31/204 02/01/20 0432 AST 17 19 16 ALT 9 7 8 BILITOT 0.6 0.6 0.4 ALKPHOS 76 80 86 LABALBU 3.0* 2.8* 3.0* PROT 5.8* 5.5* 5.9* PT/INR: No results for input(s): PROTIME, INR in the last 72 hours. CARDIAC ENZYMES: No results for input(s): TROPONINI in the last 72 hours. Procalcitonin: Lab Results Component Value Date PROCAL 0.78 01/28/2020 Objective: Vitals: BP 133/62 Pulse 55 Temp 98.6 F (37 C) (Temporal) Resp 17 Ht 5' 6 (1.676 m) Wt 186 lb (84.4 kg) SpO2 100% BMI 30.02 kg/m Pulse Ox: SpO2 Av.5 % Min: 96 % Max: 100 % Supplemental O2: O2 Flow Rate (L/min): 4 L/min General appearance: Appears weak, No apparent distress, appears stated age and cooperative with exam HEENT: Normal cephalic, atraumatic without obvious deformity. Pupils equal, round, and reactive to light. Extra ocular muscles intact. Conjunctivae/corneas clear. Neck: Supple, with full range of motion. No jugular venous distention. Trachea midline. No lymphadenopathy. Respiratory: Slight increased respiratory effort. Diminished AE ant. Cardiovascular: Regular rate and rhythm with normal S1/S2 without murmurs, rubs or gallops. Abdomen: Soft, non-tender, non-distended with normal bowel sounds. No rebound or guarding. Musculoskeletal: No clubbing, cyanosis or edema bilaterally. Full range of motion without deformity. Skin: Skin color, texture, turgor normal. No rashes or lesions. Neurologic: Neurovascularly intact without any focal sensory/motor deficits. Cranial nerves: II-XIIintact, grossly non-focal. Assessment Acute metabolic encephalopathy - fluctuating AMS Covid 19, pneumonia Simple sepsis due to above Acute hypoxia with respiratory insufficiency, maintaining 100% on 4 Liter End-stage renal disease on hemodialysis Thrombocytopenia - on heparin, continue to watch, slight improvement, no active bleeding Anemia of chronic disease Drug induced hypotension - improved after med adjustments Class 1 obesity Past Medical History: Diagnosis Date Chronic kidney disease STAGE III Diabetes (HCC) Hemodialysis patient (HCC) Hyperlipidemia Hypertension Hyperthyroidism Nicotine dependence Plan : Remdisivir day # 4 Dexamethsone Follow inflammatory markers O2 supplementation All test and lab results reviewed Consult notes reviewed Am labs, replace lytes prn PT/OT -DVT prophylaxis: [] Lovenox [x] Heparin [] SCDs [x] Encourage ambulation [] Already on Anticoagulation Advance Directive: Full Code Discharge planning: TBD YESICA DUNLAP MD, MD Division of Hospitalist Medicine Inpatient Medical Services This report was created using the [employer] Speaking voice- activated system. Despiteprompt dictation and careful editorial review, there may be subtle contextual errors in this report, due to misrecognition of the spoken word. * Yinka Elias MD - 02/01/2020 11:15 AM EST [facility] [place] Nephrology Progress Note Subjective/ 74 y.o. year old male who we are seeing in consultation for ESRD Had dialysis on No sob is on 2l of oxygen Feeling ok Some confusion but appropriate Not making urine ROS otherwise negative. No change in pfsh. Objective/ Vitals: 01/31/20 1945 01/31/20 2348 02/01/20 0401 02/01/20 0752 BP: (!) 100/52 131/63 133/62 Pulse: 60 52 55 Resp: 18 20 17 Temp: 99.4 F (37.4 C) 96.1 F (35.6 C) 98.6 F (37 C) TempSrc: Temporal Temporal SpO2: 96% 98% 100% Weight: 186 lb 15.2 oz (84.8 kg) 186 lb (84.4 kg) Height: 24HR INTAKE/OUTPUT: Intake/Output Summary (Last 24 hours) at 02/01/2020 1115 Last data filed at 01/31/2020 2119 Gross per 24 hour Intake 620 ml Output 3000 ml Net -2380 ml Constitutional: Alert, awake, no apparent distress Head: AT NC Neck: No JVD, no thyromegaly Cardiovascular: S1, S2 without m/r/g Respiratory: CTA B without w/r/r Abdomen: soft, nt Ext: No b/l LE edema Current Facility-Administered Medications Medication Dose Route Frequency Provider Last Rate Last Dose epoetin shadi-epbx (RETACRIT) injection 2,480 Units 30 Units/kg Subcutaneous Once per day tue Toyin Macias MD 2,480 Units at 02/01/20 0819 albuterol (PROVENTIL) nebulizer solution 2.5 mg 2.5 mg Nebulization Q6H PRN Andrew De Paz MD heparin (porcine) injection 5,000 Units 5,000 Units Subcutaneous 3 times per day Yesica Dunlap MD 5,000 Units at 02/01/20 0814 dexamethasone (DECADRON) tablet 6 mg 6 mg Oral Daily Yesica Dunlap MD 6 mg at 02/01/20 0815 remdesivir 100 mg in sodium chloride 0.9 % 250 mL IVPB 100 mg Intravenous Q24H Rex Bond MD Stopped at 01/31/20 1310 0.9 % sodium chloride bolus 30 mL Intravenous PRN Rex Bond MD aspirin EC tablet 81 mg 81 mg Oral Daily Andrew De Paz MD 81 mg at 02/01/20 0815 metoprolol tartrate (LOPRESSOR) tablet 50 mg 50 mg Oral BID Andrew De Paz MD 50 mg at 02/01/20814 montelukast (SINGULAIR) tablet 10 mg 10 mg Oral Nightly Andrew De Paz MD 10 mg at 01/31/202025 pravastatin (PRAVACHOL) tablet 20 mg 20 mg Oral Nightly Andrew De Paz MD 20 mg at 01/31/202025 QUEtiapine (SEROQUEL) tablet 25 mg 25 mg Oral Nightly Andrew De Paz MD 25 mg at 01/31/202026 tamsulosin (FLOMAX) capsule 0.4 mg 0.4 mg Oral Daily Andrew De Paz MD 0.4 mg at 02/01/2015 sodium chloride flush 0.9 % injection 10 mL 10 mL Intravenous 2 times per day Andrew De Paz MD 10 mL at 01/31/202026 sodium chloride flush 0.9 % injection 10 mL 10 mL Intravenous PRN Andrew De Paz MD acetaminophen (TYLENOL) tablet 650 mg 650 mg Oral Q6H PRN Andrew De Paz MD Or acetaminophen (TYLENOL) suppository 650 mg 650 mg Rectal Q6H PRN Andrew De Paz MD polyethylene glycol (GLYCOLAX) packet 17 g 17 g Oral Daily PRN Andrew De Paz MD promethazine (PHENERGAN) tablet 12.5 mg 12.5 mg Oral Q6H PRN Andrew De Paz MD Or ondansetron (ZOFRAN) injection 4 mg 4 mg Intravenous Q6H PRN Anderw De Paz MD polyethylene glycol (GLYCOLAX) packet 17 g 17 g Oral Daily Andrew De Paz MD 17 g at 01/30/20 0830 omega-3 acid ethyl esters (LOVAZA) capsule 1 g 1 g Oral Daily Yesica Dunlap MD 1 g at 01/31/20 1236 paricalcitol (ZEMPLAR) capsule 1 mcg 1 mcg Oral Daily Yesica Dunlap MD 1 mcg at 02/01/20 0815 trimethoprim-polymyxin b (POLYTRIM) ophthalmic solution 1 drop 1 drop Both Eyes BID Yesica Dunlap MD 1 drop at 02/01/20 0824 sodium chloride flush 0.9 % injection 3 mL 3 mL Intravenous Q8H [place] Trinh CNP 3 mL at 02/01/20 0824 Data/ Recent Labs 01/30/20 0154 01/31/20 0404 02/01/20 0432 WBC 16.6* 9.3 6.7 HGB 9.5* 9.2* 9.9* HCT 28.9* 26.0* 30.3* MCV 95.7 103.8* 96.0 PLT 75* 85* 98* Recent Labs 01/30/20 0154 01/31/20 0404 02/01/20 0432 NA 134* 131* 131* K 3.5 3.9 3.7 CL 93* 91* 91* CO2 30 30 34* GLUCOSE 150* 122* 138* BUN 18 47* 24* CREATININE 4.11* 5.95* 3.41* Assessment/ 1. ESRD 2. Dependence on renal dialysis. 3. Hypokalemia. 4. COVID 19+ 5. 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 Plan/ HD TTS, C/w ESAs for anemia. K levels stable Continue to hold amantadine, MS does better without it. Continue to hold anti HTN meds too, BP low. Your Rx for COVID. Will follow. D/w IMS. Odilon Weaver APRN [facility] [place], [facility] [phone] Attending Supervising Physician's Attestation Statement I independently performed a history a on the patient and discussed the management with the nurse practitioner on the date of service. I reviewed and agree with the findings and plan as documented in his note . Due to the current efforts to prevent transmission of COVID-19 and also the need to preserve PPE for other caregivers, a hxys-lb-hofn encounter with the patient was not performed. That being said, all relevant records and diagnostic tests were reviewed, including laboratory results and imaging. Please reference any relevant documentation elsewhere. Care will be coordinated with the primary service. * Padmaja Leon RN - 01/31/2020 5:03 PM EST Patient Name: Logan Fisher Patient : 1945 Acct: [id number] Date of Admission: 01/28/2020 Room/Bed: [address] [place] [address] Code Status: Full Code Allergies: No Known Allergies Diagnosis: Patient Active Problem List Diagnosis Chronic renal failure, stage 5 (HCC) Acute metabolic encephalopathy ESRD (end stage renal disease) (HCC) Parkinson's disease (HCC) COVID-19 Treatment: Hemodialysis 1:1 Priority: Routine Location: Bedside Diabetic: Yes NPO: No Isolation Precautions: Droplet Consent for Treatment Verified: Yes Blood Consent Verified: Not Applicable Safety Verified: Identify (I), Consent (C), Equipment (E), HepB Status (B), Orders Complete (O), Access Verified (A) and Timeliness (T) Time out performed prior to access at 1520 hours. Report Received from Primary RN at 1430 hours. Primary RN (First Initial, Last Name, Title): Stuart Amaro RN Incapacitated Nurse Education Completed: Yes HBsAg ONLY: Date Drawn: January 10, 2020 Results: Negative HBsAb: Date Drawn: January 10, 2020 Results: Susceptible <10 Order Dialysis Bath K+ (Potassium): 2 Ca+ (Calcium): 2.5 Na+ (Sodium): 135 HCO3 (Bicarb): 35 Na+ Modeling: Not Applicable Dialyzer: [id number] Dialysate Temperature (C): 37 Blood Flow Rate (BFR): 400 Dialysate Flow Rate (DFR): 800 Access to be Utilized Access: AVF Location: Upper Extremity Side: Left Needle gauge: 15 + Bruit/Thrill: Yes First Use X-ray Verified: Not Applicable OK to use line order: Not Applicable Site Assessment: Signs and Symptoms of Infection/Inflammation: None If yes: Not Applicable Dressing: Dry and Intact Site Prep: Medical Aseptic Technique Dressing Changed this Treatment: pressure dressing applied to each needle site post treatment completion If yes, by whom: Juan GAYLE Date of Last Dressing Change: Not Applicable Antimicrobial Patch in place?: NA Red Alcohol Caps in place?: NA Gauze Dressing?: No Non Dialysis Use?: No Comment: Flows: Good, Patent If access problem, who was notified: Pre and Post-Assessment Patient Vitals for the past 8 hrs: Level of Consciousness Oriented X Heart Rhythm Respiratory Quality/Effort O2 Device Bilateral Breath Sounds Skin Color Skin Condition/Temp Abdomen Inspection Bowel Sounds (All Quadrants) Edema Pain Level 01/31/201519 Alert (0) 3 Irregular Unlabored Nasal cannula Rhonchi Flushed Dry;Warm Distended;Rounded;Soft Distant None 0 01/31/201944 Alert (0) 3 Irregular Unlabored Nasal cannula Diminished;Rhonchi Flushed Dry;Warm Distended;Rounded;Soft Distant 0 Labs Recent Labs 01/30/20 0154 01/31/20 0404 WBC 16.6* 9.3 HGB 9.5* 9.2* HCT 28.9* 26.0* PLT 75* 85* Recent Labs 01/30/20 0154 01/31/20 0404 NA 134* 131* K 3.5 3.9 CL 93* 91* CO2 30 30 BUN 18 47* CREATININE 4.11* 5.95* GLUCOSE 150* 122* IV Drips and Rate/Dose Safety - Before each treatment: Dialysis Machine No.: [id number] RO Machine No.: [id number] Dialyzer Lot No.: [id number] RO Machine Log Sheet Completed: Yes Machine Alarm Self Test: Completed;Passed (01/31/201519) Machine Autotest: Completed, Passed Air Foam Detector: Tested, Proper Function, pH Reading Extracorporeal Circuit Tested for Integrity: Yes Machine Conductivity: 13.5 Manual Conductivity: 13.3 Machine Ph: 7 Bicarbonate Concentrate Lot No.: [id number] Acid Concentrate Lot No.: [id number] Manual Ph: 7 Bleach Test (Neg): Yes Bath Temperature: 98.6 F (37 C) Tubing Lot#: [id number] Conductivity Meter Serial #: [id number] [employer] Secure?: Yes Venous Parameters Set?: Yes Arterial Parameters Set?: Yes Saline Line Double Clamped?: Yes Air Foam Detector Engaged?: Yes Machine Functioning Alarm Free? Yes Prime Given: 200ml Chlorine Testing - Before each treatment and every 4 hours: Treatment Treatment Number: 2 Time On: 1524 Time Off: 1924 Treatment Goal: 3L Weight: 186 lb 15.2 oz (84.8 kg) (01/31/201944) 1st check: less than 0.1 ppm at: 1515 hours 2nd check: less than 0.1 ppm at: 1815 hours 3rd check: Not Applicable (if greater than 0.1 ppm, then check every 30 minutes from secondary) Access Flows and Pressures Patient Vitals for the past 8 hrs: Blood Flow Rate (ml/min) Ultrafiltration Rate (ml/hr) Ultrafiltration Total Arterial Pressure (mmHg) Venous Pressure (mmHg) TMP Hemodialysis Conductivity DFR Comments Access Visible 01/31/20 1525 200 ml/min 880 ml/hr 0 ml -40 mmHg 50 90 800 TX initiated w/o incidence Yes 01/31/20 1530 300 ml/min 880 ml/hr 100 ml -60 mmHg 50 100 800 watching tv Yes 01/31/20 1545 350 ml/min 880 ml/hr 300 ml -110 mmHg 100 100 800 watching tv repositioned Yes 01/31/20 1600 400 ml/min 880 ml/hr 515 ml -140 mmHg 130 110 800 BP dropping UFG to 2.5L with new UFR at 720 Yes 01/31/20 1615 400 ml/min 720 ml/hr 695 ml -150 mmHg 130 110 800 watching tv Yes 01/31/20 1630 400 ml/min 720 ml/hr 875 ml -180 mmHg 160 110 800 eyes closed resting Yes 01/31/20 1645 400 ml/min 720 ml/hr 1050 ml -180 mmHg 160 110 13.5 800 eyes closed resting Yes 01/31/20 1700 400 ml/min 720 ml/hr 1230 ml -190 mmHg 150 110 800 repositioned denies c/o Yes 01/31/20 1715 400 ml/min 720 ml/hr 1415 ml -190 mmHg 150 110 800 eyes closed Yes 01/31/20 1730 400 ml/min 720 ml/hr 1595 ml -190 mmHg 140 110 800 eyes closed resting Yes 01/31/20 1745 400 ml/min 740 ml/hr 1765 ml -190 mmHg 150 100 800 eyes closed resting Yes 01/31/20 1800 400 ml/min 740 ml/hr 1945 ml -190 mmHg 150 110 800 awake watching tv Yes 01/31/20 1815 400 ml/min 740 ml/hr 2125 ml -180 mmHg 160 110 800 eyes closed resting Yes 01/31/20 1830 400 ml/min 750 ml/hr 2310 ml -190 mmHg 150 110 13.5 800 eyes closed resting Yes 01/31/20 1845 400 ml/min 750 ml/hr 2495 ml -190 mmHg 160 110 800 on phone Yes 01/31/20 1900 400 ml/min 750 ml/hr 2680 ml -190 mmHg 160 110 800 resting Yes 01/31/20 1915 400 ml/min 750 ml/hr 2865 ml -200 mmHg 150 110 800 awake denies c/o Yes 01/31/20 1925 400 ml/min 750 ml/hr 3000 ml -190 mmHg 160 110 800 tx completed low BP asymptomatic Yes 01/31/20 1945 Yes Vital Signs Patient Vitals for the past 8 hrs: BP Temp Pulse Resp SpO2 Weight Weight Method Percent Weight Change 01/31/20 1240 (!) 103/51 61 01/31/20 1520 (!) 115/55 98.2 F (36.8 C) 62 18 100 % 192 lb 7.4 oz (87.3 kg) Bed scale 5.05 01/31/20 1525 (!) 118/56 58 18 01/31/20 1530 (!) 116/53 80 18 01/31/20 1545 (!) 106/55 57 18 01/31/20 1600 (!) 98/57 58 18 01/31/20 1615 (!) 102/52 57 18 01/31/20 1630 (!) 100/50 57 18 01/31/20 1645 (!) 93/52 58 18 01/31/20 1700 98/77 58 18 01/31/20 1715 (!) 107/53 59 18 01/31/20 1730 (!) 95/47 56 18 01/31/20 1745 (!) 103/48 54 18 01/31/20 1800 (!) 104/49 59 18 01/31/20 1815 (!) 104/54 56 18 01/31/20 1830 109/67 60 18 01/31/20 1845 (!) 91/59 58 18 01/31/20 1900 125/79 91 18 01/31/20 1915 (!) 94/53 61 18 01/31/20 1925 (!) 92/55 60 18 01/31/20 1945 (!) 100/52 99.4 F (37.4 C) 60 18 96 % 186 lb 15.2 oz (84.8 kg) Estimated -2.86 Post-Dialysis Arterial Catheter Locking Solution: Not Applicable Venous Catheter Locking Solution: Not Applicable Post-Treatment Procedures: Blood returned, Access bleeding time > 10 minutes Machine Disinfection Process: Acid/Vinegar Clean, Heat Disinfect, Exterior Machine Disinfection Rinseback Volume (ml): 300 ml Total Liters Processed (l/min): 84.3 l/min Dialyzer Clearance: Lightly streaked Duration of Treatment (minutes): 240 minutes Heparin amount administered during treatment (units): 0 units Hemodialysis Intake (ml): 500 ml Hemodialysis Output (ml): 3000 ml NET Removed (ml): 2500 ml Tolerated Treatment: Good Patient Response to Treatment: Patient stable post treatment Provider Notification Handoff complete and report given to Primary RN at 2045 hours. Primary RN (First Initial, Last Name, Title): Rachel Luque RN Education Person Educated: Patient Knowledge Base: Substantial Barriers to Learning?: None Preferred method of Learning: Oral Topic(s): Access Care, Signs and Symptoms of Infection, Fluid Management, Albumin, Procedural, Medications, Treatment Options, Potassium, Diet and Transplant Teaching Tools: Explanation Response to Education: Verbalized Understanding * Toyin Macias MD - 01/31/2020 4:28 PM EST [facility] [place] Nephrology Progress Note Subjective/ 74 y.o. year old male who we are seeing in consultation for ESRD Hd access giving problems Feels okay today. Baseline mental status. BP stable. ROS otherwise negative. No change in pfsh. Objective/ Vitals: 01/31/20 1520 01/31/20 1525 01/31/20 1530 01/31/20 1545 BP: (!) 115/55 (!) 118/56 (!) 116/53 (!) 106/55 Pulse: 62 58 80 57 Resp: 18 18 18 18 Temp: 98.2 F (36.8 C) TempSrc: SpO2: 100% Weight: 192 lb 7.4 oz (87.3 kg) Height: 24HR INTAKE/OUTPUT: No intake or output data in the 24 hours ending 01/31/20 1628 Constitutional: Alert, awake, no apparent distress Head: AT NC Neck: No JVD, no thyromegaly Cardiovascular: S1, S2 without m/r/g Respiratory: CTA B without w/r/r Abdomen: soft, nt Ext: No b/l LE edema Current Facility-Administered Medications Medication Dose Route Frequency Provider Last Rate Last Dose epoetin shadi-epbx (RETACRIT) injection 2,480 Units 30 Units/kg Subcutaneous Once per day on Tue Toyin Macias MD 2,480 Units at 01/30/202024 albuterol (PROVENTIL) nebulizer solution 2.5 mg 2.5 mg Nebulization Q6H PRN Andrew De Paz MD heparin (porcine) injection 5,000 Units 5,000 Units Subcutaneous 3 times per day Yesica Dunlap MD 5,000 Units at 01/31/20 1236 dexamethasone (DECADRON) tablet 6 mg 6 mg Oral Daily Yesica Dunlap MD 6 mg at 01/31/20 1237 remdesivir 100 mg in sodium chloride 0.9 % 250 mL IVPB 100 mg Intravenous Q24H Rex Bond MD Stopped at 01/31/20 1310 0.9 % sodium chloride bolus 30 mL Intravenous PRN Rex Bond MD aspirin EC tablet 81 mg 81 mg Oral Daily Andrew De Paz MD 81 mg at 01/31/20 1237 metoprolol tartrate (LOPRESSOR) tablet 50 mg 50 mg Oral BID Andrew De Paz MD 50 mg at 01/31/20 1237 montelukast (SINGULAIR) tablet 10 mg 10 mg Oral Nightly Andrew De Paz MD 10 mg at 01/30/202024 pravastatin (PRAVACHOL) tablet 20 mg 20 mg Oral Nightly Andrew De Paz MD 20 mg at 01/30/202024 QUEtiapine (SEROQUEL) tablet 25 mg 25 mg Oral Nightly Andrew De Paz MD 25 mg at 01/30/202025 tamsulosin (FLOMAX) capsule 0.4 mg 0.4 mg Oral Daily Andrew De Paz MD 0.4 mg at 01/31/20 1237 sodium chloride flush 0.9 % injection 10 mL 10 mL Intravenous 2 times per day Andrew De Paz MD 10 mL at 01/30/202025 sodium chloride flush 0.9 % injection 10 mL 10 mL Intravenous PRN Andrew De Paz MD acetaminophen (TYLENOL) tablet 650 mg 650 mg Oral Q6H PRN Andrew De Paz MD Or acetaminophen (TYLENOL) suppository 650 mg 650 mg Rectal Q6H PRN Andrew De Paz MD polyethylene glycol (GLYCOLAX) packet 17 g 17 g Oral Daily PRN Andrwe De Paz MD promethazine (PHENERGAN) tablet 12.5 mg 12.5 mg Oral Q6H PRN Andrew De Paz MD Or ondansetron (ZOFRAN) injection 4 mg 4 mg Intravenous Q6H PRN Andrew De Paz MD polyethylene glycol (GLYCOLAX) packet 17 g 17 g Oral Daily Andrew De Paz MD 17 g at 01/30/20 0830 omega-3 acid ethyl esters (LOVAZA) capsule 1 g 1 g Oral Daily Yesica Dunlap MD 1 g at 01/31/20 1236 paricalcitol (ZEMPLAR) capsule 1 mcg 1 mcg Oral Daily Yesica Dunlap MD 1 mcg at 01/31/20 1245 trimethoprim-polymyxin b (POLYTRIM) ophthalmic solution 1 drop 1 drop Both Eyes BID Yesica Dunlap MD 1 drop at 01/31/20 1244 sodium chloride flush 0.9 % injection 3 mL 3 mL Intravenous Q8H Andrew Ojeda APRN - BEEF RIBBER 3 mL at 01/31/20 0224 Data/ Recent Labs 01/28/20192001/30/20 0154 01/31/20 0404 WBC 8.9 16.6* 9.3 HGB 9.4* 9.5* 9.2* HCT 28.1* 28.9* 26.0* MCV 96.9 95.7 103.8* PLT 128* 75* 85* Recent Labs 01/28/20 19201/30/20 0154 01/31/20 0404 NA 136 134* 131* K 3.0* 3.5 3.9 CL 95* 93* 91* CO2 32* 30 30 GLUCOSE 124* 150* 122* MG 2.1 -- -- BUN 32* 18 47* CREATININE 8.11* 4.11* 5.95* Assessment/ 1. - ESRD 2. Dependence on renal dialysis. 3. Hypokalemia. 4. COVID 19+ Anemia 2/2 renal disease. Plan/ - HD TTS, HD today C/w ESAs for anemia. K levels stable Continue to hold amantadine, MS does better without it. Continue to hold anti HTN meds too, BP low. Your Rx for COVID. Will follow. D/w IMS. Toyin Macias MD [facility] * Joanie Carrero, PT - 01/31/2020 2:20 PM EST Physical Therapy Facility/Department: [facility] 4S TELEMETRY Daily Treatment Note NAME: Logan Fisher : 1945 Date of Service: 01/31/2020 Discharge Recommendations: Subacute/Usp Facility PT Equipment Recommendations Equipment Needed: No Assessment Body structures, Functions, Activity limitations: Decreased functional mobility ;Decreased strength;Decreased safe awareness;Decreased endurance;Decreased balance;Decreased cognition Assessment: Pt was MOD A for bed mobility tasks and sit<>stand at FWW. Pt c/o of dizziness upon standing that did not decrease. BP measured at 120/55. Pt would continue to benefit from skilled PT to address decreased activity tolerance. History: Pt admitted with pneumonia, sepsis, COVID + Clinical Presentation: Pt admitted with pneumonia, sepsis, COVID +. Pt has a PMH as listed below that contributes to clinical presentation. Pt reports requiring assist for transfers and mainly using w/c at facility. Pt is expected to benefit from subacute rehab PT Education: Goals;PT Role;Transfer Training;Adaptive Device Training;Injury Prevention;General Safety Barriers to Learning: cognition REQUIRES PT FOLLOW UP: Yes Activity Tolerance Activity Tolerance: pt limited by dizziness Patient Diagnosis(es): The primary encounter diagnosis was Hypoxia. Diagnoses of COVID-19 virus infection, ESRD on dialysis (HCC), and Febrile illness were also pertinent to this visit. has a past medical history of Chronic kidney disease, Diabetes (HCC), Hemodialysis patient (HCC), Hyperlipidemia, Hypertension, Hyperthyroidism, and Nicotine dependence. has a past surgical history that includes Appendectomy; Tonsillectomy; Prostatectomy; and fracture surgery (Right). Restrictions Restrictions/Precautions Restrictions/Precautions: General Precautions, Fall Risk, Contact Precautions, Isolation(3LO2, COVID+, tele) Subjective General Chart Reviewed: Yes Family / Caregiver Present: No Subjective Subjective: Pt with flat affect but agreeable to therapy General Comment Comments: Per RN pt ok for therapy. Pain Screening Patient Currently in Pain: Denies Vital Signs Patient Currently in Pain: Denies Orientation Orientation Overall Orientation Status: Within Functional Limits Cognition Cognition Overall Cognitive Status: Exceptions Arousal/Alertness: Delayed responses to stimuli Following Commands: Follows one step commands consistently Attention Span: Appears intact Memory: Appears intact Safety Judgement: Decreased awareness of need for assistance;Decreased awareness of need for safety Problem Solving: Decreased awareness of errors Insights: Decreased awareness of deficits Initiation: Requires cues for some Sequencing: Requires cues for some Objective Bed mobility Supine to Sit: Moderate assistance(assist for trunk management) Sit to Supine: Moderate assistance(assist with bilat LE and trunk management) Scooting: Moderate assistance(use of draw pad to sit EOB) Comment: denied dizziness with position change, HOB elevated. After mobility increased time to reposition in bed, PULP MAKING PLANT OPERATOR assisted to boost pt up. Pt had difficulty getting comfortable Transfers Sit to Stand: Moderate Assistance(at FWW) Stand to sit: Moderate Assistance Comment: verbal cues to push off from bed rather than FWW, pt report of dizziness upon standing, static standing for ~2 minutes with CGA, dizziness did not decrease, pt sat EOB and BP taken and measured at 120/55, with static sitting pt reported no decrease in symptoms, pt declined to participate further with therapy d/t dizziness Ambulation Ambulation?: No Goals Short term goals Time Frame for Short term goals: 5 visits Short term goal 1: Pt will complete 1-2 sets/10 reps of LE exercises to improve LE strength(N/A) Short term goal 2: Pt will complete supine<->sit at min A to improve bed mobility(MOD A) Short term goal 3: Pt will complete sit<->stand at CGA in preparation for ambulation(MOD A) Short term goal 4: Pt will ambulate at least 10'x2 with FWW at min A to improve functional mobility(N/A) Short term goal 5: Pt will improve dynamic standing balance to fair to decrease risk of falls(N/A) Patient Goals Patient goals : to be able to walk Plan Plan Times per week: 4 visits Times per day: Daily Current Treatment Recommendations: Strengthening, Balance Training, Functional Mobility Training, Transfer Training, Gait Training, Neuromuscular Re-education, Home Exercise Program, Safety Education& Training, Patient/Caregiver Education & Training, Equipment Evaluation, Education, & procurement, Positioning Plan Comment: Goals and/or treatment plan were established in collaboration with patient Safety Devices Type of devices: All fall risk precautions in place, Gait belt, Bed alarm in place, Call light within reach, Patient at risk for falls, Left in bed Restraints Initially in place: No Therapy Time Individual Concurrent Group Co-treatment Time In 1255 Time Out 1320 Minutes 25 Timed Code Treatment Minutes: 15 Minutes(1 ther act) Joanie Carrero PT * Yesica Dunlap MD - 01/31/2020 12:47 PM EST Hospitalist Progress Note 01/31/2020 12:48 PM Throughout the encounter I wore an N95 MASK, FACE SHIELD, Gown and Gloves [phone]: Please page me @ [phone] for patient care issues. [phone]: Please page [facility] night Hospitalist for any issues. Subjective: Admit Date: 01/28/2020 PCP: Sarina Pineda MD No overnight issues. Denies chest pain, cough, abdominal pain, nausea, vomiting, diarrhea, constipation, fevers, or chills. Having dialysis, says I am doing okay. Breathing alright. DIET RENAL; Dietary Nutrition Supplements: Wound Healing Oral Supplement, Protein Modular Patient Vitals for the past 96 hrs (Last 3 readings): Weight 01/30/20 1845 183 lb 3.2 oz (83.1 kg) Medications: epoetin shadi-epbx 30 Units/kg Subcutaneous Once per day on Tue heparin (porcine) 5,000 Units Subcutaneous 3 times per day dexamethasone 6 mg Oral Daily remdesivir IVPB 100 mg Intravenous Q24H aspirin 81 mg Oral Daily metoprolol tartrate 50 mg Oral BID montelukast 10 mg Oral Nightly pravastatin 20 mg Oral Nightly QUEtiapine 25 mg Oral Nightly tamsulosin 0.4 mg Oral Daily sodium chloride flush 10 mL Intravenous 2 times per day polyethylene glycol 17 g Oral Daily omega-3 acid ethyl esters 1 g Oral Daily paricalcitol 1 mcg Oral Daily trimethoprim-polymyxin b 1 drop Both Eyes BID sodium chloride flush 3 mL Intravenous Q8H LABS: CBC: Recent Labs 01/28/20192001/30/20 0154 01/31/20 0404 WBC 8.9 16.6* 9.3 RBC 2.89* 3.02* 2.50* HGB 9.4* 9.5* 9.2* HCT 28.1* 28.9* 26.0* MCV 96.9 95.7 103.8* RDW 17.6* 18.1* 17.9* PLT 128* 75* 85* BMP: Recent Labs 01/28/20192001/30/20 0154 01/31/20 0404 NA 136 134* 131* K 3.0* 3.5 3.9 CL 95* 93* 91* CO2 32* 30 30 BUN 32* 18 47* CREATININE 8.11* 4.11* 5.95* GLUCOSE 124* 150* 122* CALCIUM 8.1* 8.2* 8.4 ANIONGAP 9 12 10 LIVER PROFILE: Recent Labs 01/28/20192001/30/20 0154 01/31/20 0404 AST 17 17 19 ALT 8 9 7 BILITOT 0.5 0.6 0.6 ALKPHOS 79 76 80 LABALBU 3.2* 3.0* 2.8* PROT 5.7* 5.8* 5.5* PT/INR: No results for input(s): PROTIME, INR in the last 72 hours. CARDIAC ENZYMES: Recent Labs 01/28/201920 TROPONINI 0.067* Procalcitonin: Lab Results Component Value Date PROCAL 0.78 01/28/2020 Objective: Vitals: BP (!) 103/51 Pulse 61 Temp 97.2 F (36.2 C) (Temporal) Resp 18 Ht 5' 6 (1.676 m) Wt 183 lb 3.2 oz (83.1 kg) Comment: From May/2019 SpO2 100% BMI 29.57 kg/m Pulse Ox: SpO2 Av % Min: 100 % Max: 100 % Supplemental O2: O2 Flow Rate (L/min): 4 L/min General appearance: No apparent distress, appears stated age and cooperative with exam HEENT: Normal cephalic, atraumatic without obvious deformity. Pupils equal, round, and reactive to light. Extra ocular muscles intact. Conjunctivae/corneas clear. Neck: Supple, with full range of motion. No jugular venous distention. Trachea midline. No lymphadenopathy. Respiratory: Normal respiratory effort. Clear to auscultation, bilaterally without Rales/Wheezes/Rhonchi. Cardiovascular: Regular rate and rhythm with normal S1/S2 without murmurs, rubs or gallops. Left arm AV fistula Abdomen: Soft, non-tender, non-distended with normal bowel sounds. No rebound or guarding. Musculoskeletal: No clubbing, cyanosis or edema bilaterally. Full range of motion without deformity. Skin: Skin color, texture, turgor normal. No rashes or lesions. Neurologic: Neurovascularly intact without any focal sensory/motor deficits. Cranial nerves: II-XIIintact, grossly non-focal. Assessment Acute metabolic encephalopathy - fluctuating AMS Covid 19, pneumonia Simple sepsis due to above Acute hypoxia with respiratory insufficiency, maintaining 100% on 4 Liter End-stage renal disease on hemodialysis Thrombocytopenia - on heparin, continue to watch, slight improvement, no active bleeding Anemia of chronic disease Drug induced hypotension Past Medical History: Diagnosis Date Chronic kidney disease STAGE III Diabetes (HCC) Hemodialysis patient (HCC) Hyperlipidemia Hypertension Hyperthyroidism Nicotine dependence Plan : Remdisivir day # 3 Dexamethsone Follow inflammatory markers O2 supplementation Nephrology on board, BP meds adjusted, epoeitin All test and lab results reviewed Consult notes reviewed Am labs, replace lytes prn PT/OT -DVT prophylaxis: [] Lovenox [x] Heparin [] SCDs [x] Encourage ambulation [] Already on Anticoagulation Advance Directive: Full Code Discharge planning: TBD YESICA DUNLAP MD, MD Division of Hospitalist Medicine Inpatient Medical Services This report was created using the [employer] Speaking voice- activated system. Despiteprompt dictation and careful editorial review, there may be subtle contextual errors in this report, due to misrecognition of the spoken word. * Toyin Macias MD - 01/30/2020 4:41 PM EST [facility] [place] Nephrology Progress Note Subjective/ 74 y.o. year old male who we are seeing in consultation for ESRD HD yesterday, tolerated fine. Feels okay today. Baseline mental status. BP stable. ROS otherwise negative. No change in pfsh. Objective/ Vitals: 01/30/20 1132 01/30/20 1139 01/30/20 1621 01/30/20 1623 BP: (!) 109/48 115/80 Pulse: 62 62 60 Resp: 16 16 Temp: 98 F (36.7 C) 98.1 F (36.7 C) TempSrc: Oral Temporal Temporal SpO2: 100% 100% Height: 5' 6 (1.676 m) 24HR INTAKE/OUTPUT: Intake/Output Summary (Last 24 hours) at 01/30/2020 1641 Last data filed at 01/29/2020 2228 Gross per 24 hour Intake 500 ml Output 2500 ml Net -2000 ml Constitutional: Alert, awake, no apparent distress Head: AT NC Neck: No JVD, no thyromegaly Cardiovascular: S1, S2 without m/r/g Respiratory: CTA B without w/r/r Abdomen: soft, nt Ext: No b/l LE edema Current Facility-Administered Medications Medication Dose Route Frequency Provider Last Rate Last Dose albuterol (PROVENTIL) nebulizer solution 2.5 mg 2.5 mg Nebulization Q6H PRN Andrew De Paz MD heparin (porcine) injection 5,000 Units 5,000 Units Subcutaneous 3 times per day Yesica Dunlap MD 5,000 Units at 01/30/20 1311 dexamethasone (DECADRON) tablet 6 mg 6 mg Oral Daily Yesica Dunlap MD 6 mg at 01/30/20 0830 remdesivir 100 mg in sodium chloride 0.9 % 250 mL IVPB 100 mg Intravenous Q24H Rex Bond MD Stopped at 01/30/20 1340 0.9 % sodium chloride bolus 30 mL Intravenous PRN Rex Bond MD aspirin EC tablet 81 mg 81 mg Oral Daily Andrew De Paz MD 81 mg at 01/30/20 0830 metoprolol tartrate (LOPRESSOR) tablet 50 mg 50 mg Oral BID Andrew De Paz MD 50 mg at 01/30/20 0830 montelukast (SINGULAIR) tablet 10 mg 10 mg Oral Nightly Andrew De Paz MD 10 mg at 01/29/201954 pravastatin (PRAVACHOL) tablet 20 mg 20 mg Oral Nightly Adnrew De Paz MD 20 mg at 01/29/201954 QUEtiapine (SEROQUEL) tablet 25 mg 25 mg Oral Nightly Andrew De Paz MD 25 mg at 01/29/201954 tamsulosin (FLOMAX) capsule 0.4 mg 0.4 mg Oral Daily Andrew De Paz MD 0.4 mg at 01/30/20 0830 sodium chloride flush 0.9 % injection 10 mL 10 mL Intravenous 2 times per day Andrew De Paz MD 10 mL at 01/30/20 0832 sodium chloride flush 0.9 % injection 10 mL 10 mL Intravenous PRN Andrew De Paz MD acetaminophen (TYLENOL) tablet 650 mg 650 mg Oral Q6H PRN Andrew De Paz MD Or acetaminophen (TYLENOL) suppository 650 mg 650 mg Rectal Q6H PRN Andrew De Paz MD polyethylene glycol (GLYCOLAX) packet 17 g 17 g Oral Daily PRN Andrew De Paz MD promethazine (PHENERGAN) tablet 12.5 mg 12.5 mg Oral Q6H PRN Andrew De Paz MD Or ondansetron (ZOFRAN) injection 4 mg 4 mg Intravenous Q6H PRN Andrew De Paz MD polyethylene glycol (GLYCOLAX) packet 17 g 17 g Oral Daily Andrew De Paz MD 17 g at 01/30/20 0830 omega-3 acid ethyl esters (LOVAZA) capsule 1 g 1 g Oral Daily Yesica Dunlap MD 1 g at 01/30/20 0830 paricalcitol (ZEMPLAR) capsule 1 mcg 1 mcg Oral Daily Yesica Dunlap MD 1 mcg at 01/30/20 0830 trimethoprim-polymyxin b (POLYTRIM) ophthalmic solution 1 drop 1 drop Both Eyes BID Yesica Dunlap MD 1 drop at 01/30/20 0833 sodium chloride flush 0.9 % injection 3 mL 3 mL Intravenous Q8H Andrew Ojeda APRN - BEEF [employer] Data/ Recent Labs 01/28/20 1921 01/30/20 0154 WBC 8.9 16.6* HGB 9.4* 9.5* HCT 28.1* 28.9* MCV 96.9 95.7 PLT 128* 75* Recent Labs 01/28/20 1921 01/30/20 0154 NA 136 134* K 3.0* 3.5 CL 95* 93* CO2 32* 30 GLUCOSE 124* 150* MG 2.1 -- BUN 32* 18 CREATININE 8.11* 4.11* Assessment/ 1. - ESRD 2. Dependence on renal dialysis. 3. Hypokalemia. 4. COVID 19+ Anemia 2/2 renal disease. Plan/ - HD TTS, next HD tomorrow. Start ESAs for anemia. K levels better. Continue to hold amantadine, MS does better without it. Continue to hold anti HTN meds too, BP low. Your Rx for COVID. Will follow. - - Toyin Macias MD [facility] * Yesica Dunlap MD - 01/30/2020 1:42 PM EST Hospitalist Progress Note 01/30/2020 1:42 PM Throughout the encounter I wore an N95 MASK, FACE SHIELD, Gown and Gloves [phone]: Please page tn @ [phone] for patient care issues. : Please page [facility] night Hospitalist for any issues. Subjective: Admit Date: 01/28/2020 PCP: Sarina Pnieda MD No overnight issues. Denies chest pain, cough, sob, abdominal pain, nausea, vomiting, diarrhea, constipation, fevers, or chills. Says I am better. DIET RENAL; Dietary Nutrition Supplements: Wound Healing Oral Supplement, Protein Modular No data found. Medications: heparin (porcine) 5,000 Units Subcutaneous 3 times per day dexamethasone 6 mg Oral Daily remdesivir IVPB 100 mg Intravenous Q24H aspirin 81 mg Oral Daily metoprolol tartrate 50 mg Oral BID montelukast 10 mg Oral Nightly pravastatin 20 mg Oral Nightly QUEtiapine 25 mg Oral Nightly tamsulosin 0.4 mg Oral Daily sodium chloride flush 10 mL Intravenous 2 times per day polyethylene glycol 17 g Oral Daily omega-3 acid ethyl esters 1 g Oral Daily paricalcitol 1 mcg Oral Daily trimethoprim-polymyxin b 1 drop Both Eyes BID sodium chloride flush 3 mL Intravenous Q8H LABS: CBC: Recent Labs 01/28/20192001/30/20 0154 WBC 8.9 16.6* RBC 2.89* 3.02* HGB 9.4* 9.5* HCT 28.1* 28.9* MCV 96.9 95.7 RDW 17.6* 18.1* PLT 128* 75* BMP: Recent Labs 01/28/20192001/30/20 0154 NA 136 134* K 3.0* 3.5 CL 95* 93* CO2 32* 30 BUN 32* 18 CREATININE 8.11* 4.11* GLUCOSE 124* 150* CALCIUM 8.1* 8.2* ANIONGAP 9 12 LIVER PROFILE: Recent Labs 01/28/20192001/30/20 0154 AST 17 17 ALT 8 9 BILITOT 0.5 0.6 ALKPHOS 79 76 LABALBU 3.2* 3.0* PROT 5.7* 5.8* PT/INR: No results for input(s): PROTIME, INR in the last 72 hours. CARDIAC ENZYMES: Recent Labs 01/28/201920 TROPONINI 0.067* Procalcitonin: Lab Results Component Value Date PROCAL 0.78 01/28/2020 Objective: Vitals: BP (!) 109/48 Pulse 62 Temp 98 F (36.7 C) (Oral) Resp 16 Ht 5' 6 (1.676 m) SpO2 100% BMI 29.55 kg/m Pulse Ox: SpO2 Av.2 % Min: 97 % Max: 100 % Supplemental O2: O2 Flow Rate (L/min): 4 L/min General appearance: No apparent distress, appears stated age and cooperative with exam HEENT: Normal cephalic, atraumatic without obvious deformity. Pupils equal, round, and reactive to light. Extra ocular muscles intact. Conjunctivae/corneas clear. Neck: Supple, with full range of motion. No jugular venous distention. Trachea midline. No lymphadenopathy. Respiratory: Increased respiratory effort. Diminished AE throughout Cardiovascular: Regular rate and rhythm with normal S1/S2 without murmurs, rubs or gallops. Abdomen: Soft, non-tender, non-distended with normal bowel sounds. No rebound or guarding. Musculoskeletal: No clubbing, cyanosis or edema bilaterally. Full range of motion without deformity. Skin: Skin color, texture, turgor normal. No rashes or lesions. Neurologic: Neurovascularly intact without any focal sensory/motor deficits. Cranial nerves: II-XIIintact, grossly non-focal. Assessment Covid 19, pneumonia Simple sepsis due to above acute hypoxia with respiratory insufficiency end-stage renal disease on hemodialysis Thrombocytopenia - on heparin, continue to watch Past Medical History: Diagnosis Date Chronic kidney disease STAGE III Diabetes (HCC) Hemodialysis patient (HCC) Hyperlipidemia Hypertension Hyperthyroidism Nicotine dependence Plan : Remdisivir day # 2 Dexamethsone Heparin Follow inflammatory markers O2 supplementation Nephrology on All test and lab results reviewed Consult notes reviewed Am labs, replace lytes prn PT/OT -DVT prophylaxis: [] Lovenox [x] Heparin [] SCDs [x] Encourage ambulation [] Already on Anticoagulation Advance Directive: Full Code Discharge planning: RODDY DUNLAP MD, MD Division of Hospitalist Medicine Inpatient Medical Services This report was created using the [employer] Speaking voice- activated system. Despiteprompt dictation and careful editorial review, there may be subtle contextual errors in this report, due to misrecognition of the spoken word. * Elina Quigley, RD, LD - 01/30/2020 12:06 PM EST Comprehensive Nutrition Assessment Type and Reason for Visit: Initial, Positive Nutrition Screen(pt is hd, from az, + COVID) Nutrition Recommendations/Plan: 1)patient is here for HD- reason for admit 2) continue renal diet - liberalize to low Sodium diet if K ,Phos remain in normal range-(to maximize intakes ) 3)will start fruit punch Ha(Ha provides 90 kcals, 14 g amino acids, and 300 mg Vitamin C per packet serving). at dinner - mixed with 1 PROSTAT(100 aga , 15 gm pro/serving ) to provide protein to meet needs For hd 4)Please document PO intakes consistently in the flowsheet to better assess intake adequacy. 5)Monitor labs, status, intakes, wts to reassess. Follow up at least weekly- monitor need for FR- ON at [place] Nutrition Assessment: PER MD 74 y/o WM with h/O ESRD HD TTS o presented with SOB. Recently diagnosed with COVID 19+ at his facility. Nausea+, cough +. poor historian Malnutrition Assessment: Malnutrition Status: Insufficient data Context: Acute Illness Findings of the 6 clinical characteristics of malnutrition: Energy Intake: Unable to assess(not reliable .az did not have recent wt) Weight Loss: Unable to assess Body Fat Loss: Unable to assess Muscle Mass Loss: Unable to assess Fluid Accumulation: Unable to assess Vacuum Tank Tender Strength: Estimated Daily Nutrient Needs: Energy (kcal): 2374-7217- 4; Weight Used for Energy Requirements: [place] Protein (g): 77- 97; Weight Used for Protein Requirements: [place] Fluid (ml/day): per md- monitor need for fr; Method Used for Fluid Requirements: Nutrition Related Findings: no edema HERE FOR HD- neg 2 liters since adm, bm, alb 3, , glu 150 , CA 8.2, corrected ca normal, bnp [id number], wbc 16.6- missed hd 01/25 Wounds: Multiple(excoriated groin, abrasions- tito 19) Current Nutrition Therapies: DIET RENAL; Anthropometric Measures: Height: 5' 6 (167.6 cm) Current Body Weight: 183 lb 1.6 oz (83.1 kg) Admission Body Weight: Usual Body Weight: [place] Body Weight: 142 lbs; % [place] Body Weight 128.9 % BMI: 29.6 Adjusted Body Weight: ; Adjusted BMI: BMI Categories: Overweight (BMI 25.0-29.9) Nutrition Diagnosis: Increased nutrient needs related to catabolic illness, renal dysfunction(covid, hd) as evidenced bydialysis Nutrition Interventions: Food and/or Nutrient Delivery: Continue Current Diet, Start Oral Nutrition Supplement(add prostat once daily) Nutrition Education/Counseling: No recommendation at this time Coordination of Nutrition Care: Continue to monitor while inpatient, Feeding Assistance/EnvironmentChange Goals: patient will receive, tolerate adequate nutrition with safe swallow - meet needs hd, covid- liberlize diet if k remains normal? Nutrition Monitoring and Evaluation: Behavioral-Environmental Outcomes: None Identified Food/Nutrient Intake Outcomes: Food and Nutrient Intake, Supplement Intake Physical Signs/Symptoms Outcomes: Biochemical Data, Chewing or Swallowing, GI Status, Fluid Status or Edema, Hemodynamic Status, Nutrition Focused Physical Findings, Skin, Weight Discharge Planning: Continue current diet, Continue Oral Nutrition Supplement Contact: [phone] * Calixto Lynette Rachel, PT - 01/30/2020 11:57 AM EST Physical Therapy Facility/Department: [facility] Initial Assessment NAME: Logan Fisher : 1945 Date of Service: 01/30/2020 Discharge Recommendations: Subacute/Usp Facility PT Equipment Recommendations Equipment Needed: No Assessment Body structures, Functions, Activity limitations: Decreased functional mobility ;Decreased strength;Decreased safe awareness;Decreased endurance;Decreased balance;Decreased cognition Assessment: Pt presents with decreased functional mobility, requiring assist for transfers and minimal ambulation at bedside. Pt has decreased standing balance and safety awareness, placing pt at an increased risk of falls. Pt is expected to benefit from skilled therapy to address functional mobility, strength, balance, and safety awareness Prognosis: Good Decision Making: Medium Complexity History: Pt admitted with pneumonia, sepsis, COVID + Exam: AM-PAC Clinical Presentation: Pt admitted with pneumonia, sepsis, COVID +. Pt has a PMH as listed below that contributes to clinical presentation. Pt reports requiring assist for transfers and mainly using w/c at facility. Pt is expected to benefit from subacute rehab PT Education: Goals;PT Role;Plan of Care;General Safety Barriers to Learning: cognition REQUIRES PT FOLLOW UP: Yes Activity Tolerance Activity Tolerance: Patient limited by endurance Patient Diagnosis(es): The primary encounter diagnosis was Hypoxia. Diagnoses of COVID-19 virus infection, ESRD on dialysis (HCC), and Febrile illness were also pertinent to this visit. has a past medical history of Chronic kidney disease, Diabetes (HCC), Hemodialysis patient (HCC), Hyperlipidemia, Hypertension, Hyperthyroidism, and Nicotine dependence. has a past surgical history that includes Appendectomy; Tonsillectomy; Prostatectomy; and fracture surgery (Right). Restrictions Restrictions/Precautions Restrictions/Precautions: General Precautions, Fall Risk, Contact Precautions, Isolation(3LO2, COVID+, tele) Vision/Hearing Vision: Within Functional Limits Hearing: Within functional limits Subjective General Chart Reviewed: Yes Patient assessed for rehabilitation services?: Yes Subjective Subjective: Pt with flat affect but agreeable to therapy Pain Screening Patient Currently in Pain: Denies Orientation Orientation Overall Orientation Status: Within Functional Limits Social/Functional History Social/Functional History Lives With: Other (comment) Type of Home: Facility([facility]) Home Layout: One level Home Access: Level entry Bathroom Toilet: Standard Bathroom Accessibility: Accessible Home Equipment: Wheelchair-manual, Rolling walker Receives Help From: Family ADL Assistance: Needs assistance Homemaking Assistance: Needs assistance Ambulation Assistance: Independent Transfer Assistance: Needs assistance Active Logistics Engineering Manager: No Patient's Logistics Engineering Manager Info: Patient receives transportation through his [facility] insurance/sister lives out of town about 1-1/2 hr away -comes to see him once a week Occupation: Retired Additional Comments: 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 [facility] Cognition Cognition Overall Cognitive Status: Exceptions Arousal/Alertness: Delayed responses to stimuli Following Commands: Follows one step commands consistently Attention Span: Appears intact Memory: Appears intact Safety Judgement: Decreased awareness of need for assistance;Decreased awareness of need for safety Problem Solving: Decreased awareness of errors Insights: Decreased awareness of deficits Initiation: Requires cues for some Sequencing: Requires cues for some Objective Observation/Palpation Observation: rigid posture/mobility, 3LO2 nasal cannula intact AROM RLE (degrees) RLE AROM: WFL AROM LLE (degrees) LLE AROM : WFL Strength RLE Comment: observed functionally Strength LLE Comment: observed functionally Sensation Overall Sensation Status: WFL(no complaints) Bed mobility Supine to Sit: Maximum assistance Sit to Supine: Maximum assistance Scooting: Maximal assistance Comment: denies dizziness Transfers Sit to Stand: Minimal Assistance;2 Person Assistance(no device) Stand to sit: Minimal Assistance;2 Person Assistance Comment: denies dizziness, pt posting BLEs on EOB Ambulation Ambulation?: Yes Ambulation 1 Surface: level tile Device: No Device;Hand-Held Assist Assistance: Minimal assistance;2 Person assistance Quality of Gait: pt demonstrates lateral stepping with wide INDIRA, decreased step length, unsteadiness but no LOB Distance: 3' laterally at EOB Stairs/Curb Stairs?: No Balance Posture: Fair Sitting - Static: Fair Sitting - Dynamic: Fair;- Standing - Static: Poor;- Standing - Dynamic: Poor;- Plan Plan Times per week: 5 visits Times per day: Daily Current Treatment Recommendations: Strengthening, Balance Training, Functional Mobility Training, Transfer Training, Gait Training, Neuromuscular Re-education, Home Exercise Program, Safety Education& Training, Patient/Caregiver Education & Training, Equipment Evaluation, Education, & procurement, Positioning Plan Comment: Goals and/or treatment plan were established in collaboration with patient Safety Devices Type of devices: All fall risk precautions in place, Bed alarm in place, Call light within reach, Left in bed, Patient at risk for falls, Nurse notified OutComes Score -[facility] Mobility Inpatient How much difficulty turning over in bed?: A Lot How much difficulty sitting down on / standing up from a chair with arms?: A Lot How much difficulty moving from lying on back to sitting on side of bed?: A Lot How much help from another person moving to and from a bed to a chair?: A Lot How much help from another person needed to walk in hospital room?: Total How much help from another person for climbing 3-5 steps with a railing?: Total AM-[facility] Inpatient Mobility Raw Score : 10 AM-[facility] Inpatient T-Scale Score : 32.29 Mobility Inpatient CMS 0-100% Score: 76.75 Mobility Inpatient CMS G-Code Modifier : CL AM-PAC Score AM-[facility] Inpatient Mobility Raw Score : 10 (01/30/20 1134) AM-[facility] Inpatient T-Scale Score : 32.29 (01/30/20 1134) Mobility Inpatient CMS 0-100% Score: 76.75 (01/30/20 1134) Mobility Inpatient CMS G-Code Modifier : CL (01/30/201133) Goals Short term goals Time Frame for Short term goals: 5 visits Short term goal 1: Pt will complete 1-2 sets/10 reps of LE exercises to improve LE strength Short term goal 2: Pt will complete supine<->sit at min A to improve bed mobility Short term goal 3: Pt will complete sit<->stand at CGA in preparation for ambulation Short term goal 4: Pt will ambulate at least 10'x2 with FWW at min A to improve functional mobility Short term goal 5: Pt will improve dynamic standing balance to fair to decrease risk of falls Patient Goals Patient goals : to be able to walk Therapy Time Individual Concurrent Group Co-treatment Time In 948(co-eval with OT) Time Out 1003 Minutes 14 Lynette De Luna PT , DPT * Lexi Laughlin OT - 01/30/2020 11:55 AM EST Occupational Therapy Occupational Therapy Initial Assessment Date: 01/30/2020 Patient Name: Logan Fisher : 1945 Date of Service: 01/30/2020 Discharge Recommendations: Subacute/Usp Facility OT Equipment Recommendations Equipment Needed: No Assessment Performance deficits / Impairments: Decreased functional mobility ;Decreased ADL status;Decreased strength;Decreased safe awareness;Decreased cognition;Decreased endurance;Decreased balance;Decreasedcoordination;Decreased posture Assessment: Pt has been living at [facility] and reports he has been assisted for ADLs and transferring with Assist x 1. Pt would like to improve his ADL indep and move into an assisted living. He demonstrates decline from recent baseline with overall MOD A for ADLs and mobility. Recommend SNF at discharge. Prognosis: Good Decision Making: Medium Complexity History: Pt is 74yo male admitted with sepsis and COVID19. PMH listed. Exam: AM PAC Assistance / Modification: MOD ASSIST OT Education: OT Role;Plan of Care Barriers to Learning: cog noted, fatigue REQUIRES OT FOLLOW UP: Yes Activity Tolerance Activity Tolerance: Patient limited by fatigue Safety Devices Safety Devices in place: Yes Type of devices: All fall risk precautions in place;Call light within reach;Patient at risk for falls;Left in bed;Nurse notified;Bed alarm in place Patient Diagnosis(es): The primary encounter diagnosis was Hypoxia. Diagnoses of COVID-19 virus infection, ESRD on dialysis (HCC), and Febrile illness were also pertinent to this visit. has a past medical history of Chronic kidney disease, Diabetes (HCC), Hemodialysis patient (HCC), Hyperlipidemia, Hypertension, Hyperthyroidism, and Nicotine dependence. has a past surgical history that includes Appendectomy; Tonsillectomy; Prostatectomy; and fracture surgery (Right). Restrictions Restrictions/Precautions Restrictions/Precautions: General Precautions, Fall Risk, Contact Precautions, Isolation(3LO2, COVID+, tele) Subjective General Chart Reviewed: Yes Patient assessed for rehabilitation services?: Yes Family / Caregiver Present: No Subjective Subjective: pleasant and cooperative, flat affect General Comment Comments: OK to see per RN Patient Currently in Pain: Denies Pain Assessment Pain Assessment: 0-10 Pain Level: 0 Vital Signs Temp: 98 F (36.7 C) Temp Source: Oral Pulse: 62 Heart Rate Source: Monitor Resp: 16 BP: (!) 109/48 BP Location: Right Arm MAP (mmHg): 68 Patient Position: Supine Level of Consciousness: Alert (0) Patient Currently in Pain: Denies Height and Weight Height: 5' 6 (167.6 cm) Oxygen Therapy SpO2: 100 % O2 Device: Nasal cannula O2 Flow Rate (L/min): 4 L/min Social/Functional History Social/Functional History Lives With: Other (comment) Type of Home: Facility([facility]) Home Layout: One level Home Access: Level entry Bathroom Toilet: Standard Bathroom Accessibility: Accessible Home Equipment: Wheelchair-manual, Rolling walker Receives Help From: Family ADL Assistance: Needs assistance Homemaking Assistance: Needs assistance Ambulation Assistance: Independent Transfer Assistance: Needs assistance Active Logistics Engineering Manager: No Patient's Logistics Engineering Manager Info: Patient receives transportation through his [facility] insurance/sister lives out of town about 1-1/2 hr away -comes to see him once a week Occupation: Retired Additional Comments: 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 [facility] Objective Vision: Within Functional Limits Hearing: Within functional limits Orientation Overall Orientation Status: Within Functional Limits Observation/Palpation Posture: Fair Observation: rigid posture/mobility, 3LO2 nasal cannula intact Balance Sitting Balance: Stand by assistance Standing Balance: Minimal assistance Functional Mobility Functional - Mobility Device: No device Activity: Other Assist Level: Minimal assistance Functional Mobility Comments: MIN A X 2, pt declined FWW at this time however would benefit from FWW to decrease number of assist ADL Feeding: Minimal assistance Grooming: Moderate assistance UE Bathing: Moderate assistance(assisted to comb hair) LE Bathing: Dependent/Total UE Dressing: Moderate assistance(assisted to doff/don hospital gown in supine) LE Dressing: Dependent/Total Toileting: Dependent/Total Additional Comments: Pt is limited by decreased activity tolerance on 3LO2 and overall weakness andfatigue. He requires MIN x2 to stand and is SBA at EOB for static sitting. Pt has weakness in his LUE but states he is R handed. Coordination Movements Are Fluid And Coordinated: No Coordination and Movement description: Apraxia;Decreased speed Transfers Sit to stand: Minimal assistance;2 Person assistance Stand to sit: Minimal assistance;2 Person assistance Cognition Overall Cognitive Status: Exceptions Arousal/Alertness: Delayed responses to stimuli Following Commands: Follows one step commands consistently Attention Span: Appears intact Memory: Appears intact Safety Judgement: Decreased awareness of need for assistance;Decreased awareness of need for safety Problem Solving: Decreased awareness of errors Insights: Decreased awareness of deficits Initiation: Requires cues for some Sequencing: Requires cues for some Sensation Overall Sensation Status: WFL(no complaints) LUE AROM (degrees) LUE AROM : WFL RUE AROM (degrees) RUE AROM : WFL LUE Strength Gross LUE Strength: Exceptions to WFL LUE Strength Comment: grossly 3/5 MMT RUE Strength Gross RUE Strength: Exceptions to WFL RUE Strength Comment: grossly 3+/5 MMT Plan Plan Times per week: 4 visits Current Treatment Recommendations: Balance Training, Functional Mobility Training, Endurance Training, Safety Education & Training, Self-Care / ADL, Equipment Evaluation, Education, & procurement, Positioning, Cognitive/Perceptual Training Plan Comment: Goals and POC were established in collaboration with patient. AM-PAC Score AM-PAC Inpatient Daily Activity Raw Score: 14 (01/30/201130) AM-PAC Inpatient ADL T-Scale Score : 33.39 (01/30/201130) ADL Inpatient CMS 0-100% Score: 59.67 (01/30/201130) ADL Inpatient [facility] G-Code Modifier : CK (01/30/201130) Goals Short term goals Time Frame for Short term goals: 4 visits Short term goal 1: Pt will complete UB ADLs at SUP. Short term goal 2: Pt will complete functional BSC transfer at FWW with SUP. Short term goal 3: Pt will complete toileting tasks at MIN A. Short term goal 4: Pt will ralf >4 min of functional standing at FWW during ADLs with SUP and stable vitals. Patient Goals Patient goals : to improve mobility and ADLs in order to go to [facility] NIMO Therapy Time Individual Concurrent Group Co-treatment Time In 948(co eval with PT) Time Out 1003 Minutes 14 Lexi Laughlin OT * Sarah Hayes DTR - 01/30/2020 8:43 AM EST Nutrition rescreen completed. Pt referred to RD. * Leann Victor RN - 01/29/2020 8:06 PM EST Patient Name: Logan Fisher Patient : 1945 Acct: [id number] Date of Admission: 01/28/2020 Room/Bed: [address] [place] [address] Code Status: Full Code Allergies: No Known Allergies Diagnosis: Patient Active Problem List Diagnosis Chronic renal failure, stage 5 (HCC) Acute metabolic encephalopathy ESRD (end stage renal disease) (HCC) Parkinson's disease (HCC) COVID-19 Treatment: Hemodialysis 1:1 Priority: Routine Location: Bedside Diabetic: Yes NPO: No Isolation Precautions: Droplet Plus Consent for Treatment Verified: Yes Blood Consent Verified: Not Applicable Safety Verified: Identify (I), Consent (C), Equipment (E), HepB Status (B), Orders Complete (O), Access Verified (A) and Timeliness (T) Time out performed prior to access at 1810 hours. Report Received from Primary RN at 1650 hours. Primary RN (First Initial, Last Name, Title): Monica Walker RN Incapacitated Nurse Education Completed: Yes HBsAg ONLY: Date Drawn: January 10, 2020 Results: Negative HBsAb: Date Drawn: January 10, 2020 Results: Susceptible <10 Order Dialysis Bath K+ (Potassium): 3 Ca+ (Calcium): 2.5 Na+ (Sodium): 135 HCO3 (Bicarb): 35 Na+ Modeling: Not Applicable Dialyzer: [id number] Dialysate Temperature (C): 37 Blood Flow Rate (BFR): 350 Dialysate Flow Rate (DFR): 800 Access to be Utilized Access: AVF Location: Upper Extremity Side: Left Needle gauge: 16 + Bruit/Thrill: Yes First Use X-ray Verified: Not Applicable OK to use line order: Not Applicable Site Assessment: Signs and Symptoms of Infection/Inflammation: None If yes: Not Applicable Dressing: Dry and Intact Site Prep: Medical Aseptic Technique Dressing Changed this Treatment: NA If yes, by whom: NA Date of Last Dressing Change: Not Applicable Antimicrobial Patch in place?: NA Red Alcohol Caps in place?: NA Gauze Dressing?: No Non Dialysis Use?: No Comment: Flows: Good, Patent If access problem, who was notified: Pre and Post-Assessment Patient Vitals for the past 8 hrs: Bilateral Breath Sounds Edema Pain Level 01/29/202227 Clear None 0 Labs Recent Labs 01/28/20192001/30/20 015 WBC 8.9 16.6* HGB 9.4* 9.5* HCT 28.1* 28.9* PLT 128* 75* Recent Labs 01/28/20192001/30/20 0154 NA 136 134* K 3.0* 3.5 CL 95* 93* CO2 32* 30 BUN 32* 18 CREATININE 8.11* 4.11* GLUCOSE 124* 150* IV Drips and Rate/Dose Safety - Before each treatment: Dialysis Machine No.: [id number] RO Machine No.: [id number] Dialyzer Lot No.: [id number] RO Machine Log Sheet Completed: Yes Machine Alarm Self Test: Completed;Passed (01/29/201748) Machine Autotest: Completed, Passed Air Foam Detector: Tested, Proper Function Extracorporeal Circuit Tested for Integrity: Yes Machine Conductivity: 13.6 Manual Conductivity: 13.2 Bicarbonate Concentrate Lot No.: [id number] Acid Concentrate Lot No.: [id number] Manual Ph: 7 Bleach Test (Neg): Yes Bath Temperature: 98.6 F (37 C) Tubing Lot#: [id number] Conductivity Meter Serial #: [id number] All [employer]ctions Secure?: Yes Venous Parameters Set?: Yes Arterial Parameters Set?: Yes Saline Line Double Clamped?: Yes Air Foam Detector Engaged?: Yes Machine Functioning Alarm Free? Yes Prime Given: 200ml Chlorine Testing - Before each treatment and every 4 hours: Treatment Treatment Number: 1 Time On: 1819 Time Off: 2224 Treatment Goal: 3 Liters 1st check: less than 0.1 ppm at: 1815 hours 2nd check: less than 0.1 ppm at: 2100 hours 3rd check: Not Applicable (if greater than 0.1 ppm, then check every 30 minutes from secondary) Access Flows and Pressures Patient Vitals for the past 8 hrs: Blood Flow Rate (ml/min) Ultrafiltration Rate (ml/hr) Ultrafiltration Total Arterial Pressure (mmHg) Venous Pressure (mmHg) TMP Hemodialysis Conductivity DFR Comments Access Visible 01/29/20 1845 350 ml/min 880 ml/hr 387 ml -190 mmHg 210 110 13.5 800 Patient stable. Sleeping RR 16 01/29/20 1900 350 ml/min 880 ml/hr 591 ml -190 mmHg 210 110 13.5 800 UF goal decreased due to drop in BP Yes 01/29/20 1915 350 ml/min 720 ml/hr 759 ml -200 mmHg 220 110 13.4 800 All lines secure. Yes 01/29/20 1930 350 ml/min 540 ml/hr 973 ml -200 mmHg 220 110 13.6 800 Patient stable. Yes 01/29/20 194 350 ml/min 540 ml/hr 1087 ml -200 mmHg 220 110 13.6 800 Patient stable SPO2 @100% Yes 01/29/201999 350 ml/min 540 ml/hr 1207 ml -190 mmHg 220 110 13.6 800 Patient awake. Yes 01/29/202014 350 ml/min 540 ml/hr 1340 ml -190 mmHg 220 110 13.6 800 All lines secure. Yes 01/29/202029 350 ml/min 540 ml/hr 1555 ml -190 mmHg 220 110 13.6 800 Patient stable. Yes 01/29/202044 350 ml/min 540 ml/hr 1617 ml -190 mmHg 210 110 13.5 800 All lines secure. PCT @bedside. Yes 01/29/202099 350 ml/min 540 ml/hr 1763 ml -190 mmHg 210 110 13.5 800 Patient stable. Yes 01/29/205 350 ml/min 540 ml/hr 1884 ml -190 mmHg 210 110 13.6 800 Bicarb changed ph 7.0 Yes 01/29/202129 350 ml/min 540 ml/hr 2025 ml -190 mmHg 210 110 13.5 800 Patient stable. Sleeping. SPO2 @ 100% Yes 01/29/202144 350 ml/min 540 ml/hr 2141 ml -200 mmHg 210 110 13.6 800 Patient sleeping. Yes 01/29/20 220 350 ml/min 540 ml/hr 2277 ml -190 mmHg 250 110 13.6 800 Patient stable. Yes 01/29/20 2215 350 ml/min 540 ml/hr 2406 ml -190 mmHg 250 110 13.6 800 patient stable. Yes 01/29/20 222 2500 ml Treatment completed. Yes Vital Signs Patient Vitals for the past 8 hrs: BP Pulse Resp SpO2 01/29/20 1845 (!) 107/59 63 01/29/20 190 (!) 96/53 62 01/29/201914 (!) 104/53 61 01/29/201929 (!) 96/49 62 01/29/201944 (!) 92/50 63 01/29/201999 (!) 110/57 63 01/29/202014 (!) 102/56 58 01/29/202029 (!) 103/56 61 01/29/202044 (!) 98/52 63 01/29/202099 (!) 101/57 64 01/29/202114 (!) 95/47 59 01/29/202129 (!) 92/48 61 01/29/202144 (!) 94/53 61 01/29/202199 (!) 92/49 61 01/29/202214 (!) 95/50 63 01/29/202224 (!) 90/53 61 01/29/202227 (!) 109/55 61 18 100 % Post-Dialysis Arterial Catheter Locking Solution: Not Applicable Venous Catheter Locking Solution: Not Applicable Post-Treatment Procedures: Blood returned, Access bleeding time < 10 minutes Machine Disinfection Process: Acid/Vinegar Clean, Heat Disinfect, Exterior Machine Disinfection Rinseback Volume (ml): 300 ml Total Liters Processed (l/min): 77.6 l/min Dialyzer Clearance: Clear Duration of Treatment (minutes): 240 minutes Hemodialysis Intake (ml): 500 ml Hemodialysis Output (ml): 2500 ml NET Removed (ml): 2000 ml Tolerated Treatment: Good Patient Response to Treatment: Patient stable post treatment Provider Notification Handoff complete and report given to Primary RN at 2336 hours. Primary RN (First Initial, Last Name, Title): IRWIN GreenN Education Person Educated: Patient Knowledge Base: Substantial Barriers to Learning?: None Preferred method of Learning: Oral Topic(s): Access Care, Signs and Symptoms of Infection and Procedural Teaching Tools: Explanation Response to Education: Verbalized Understanding * Yesica Dunlap MD - 01/29/2020 12:06 PM EST Hospitalist Progress Note 01/29/2020 12:06 PM Throughout the encounter I wore an N95 MASK, FACE SHIELD, Gown and Gloves [phone]: Please page me @ [phone] for patient care issues. [phone]: Please page [facility] night Hospitalist for any issues. Subjective: Admit Date: 01/28/2020 PCP: Sarina Pineda MD Patient is a resident of [facility] in [place], he has been sick for 1 week, his breathing is getting worse, is Covid 19 positive. DIET RENAL; No data found. Medications: heparin (porcine) 5,000 Units Subcutaneous 3 times per day dexamethasone 6 mg Oral Daily remdesivir IVPB 200 mg Intravenous Once Followed by [START ON 01/30/2020] remdesivir IVPB 100 mg Intravenous Q24H amantadine 100 mg Oral Daily amLODIPine 5 mg Oral Daily aspirin 81 mg Oral Daily losartan 50 mg Oral Daily metoprolol tartrate 50 mg Oral BID montelukast 10 mg Oral Nightly pravastatin 20 mg Oral Nightly QUEtiapine 25 mg Oral Nightly tamsulosin 0.4 mg Oral Daily sodium chloride flush 10 mL Intravenous 2 times per day polyethylene glycol 17 g Oral Daily omega-3 acid ethyl esters 1 g Oral Daily paricalcitol 1 mcg Oral Daily trimethoprim-polymyxin b 1 drop Both Eyes BID sodium chloride flush 3 mL Intravenous Q8H LABS: CBC: Recent Labs 01/26/20235801/28/201920 WBC 3.1* 8.9 RBC 2.91* 2.89* HGB 9.3* 9.4* HCT 27.7* 28.1* MCV 95.1 96.9 RDW 17.5* 17.6* PLT 135* 128* BMP: Recent Labs 01/26/20235801/28/201920 NA 135 136 K 3.0* 3.0* CL 93* 95* CO2 35* 32* BUN 16 32* CREATININE 4.49* 8.11* GLUCOSE 94 124* CALCIUM 7.6* 8.1* ANIONGAP 7 9 LIVER PROFILE: Recent Labs 01/28/201920 AST 17 ALT 8 BILITOT 0.5 ALKPHOS 79 LABALBU 3.2* PROT 5.7* PT/INR: No results for input(s): PROTIME, INR in the last 72 hours. CARDIAC ENZYMES: Recent Labs 01/28/201920 TROPONINI 0.067* Procalcitonin: Lab Results Component Value Date PROCAL 0.78 01/28/2020 Objective: Vitals: BP (!) 119/57 Pulse 71 Temp 99.1 F (37.3 C) (Temporal) Resp 14 SpO2 99% Pulse Ox: SpO2 Av.9 % Min: 86 % Max: 100 % Supplemental O2: O2 Flow Rate (L/min): 4 L/min General appearance: No apparent distress, appears stated age and cooperative with exam HEENT: Normal cephalic, atraumatic without obvious deformity. Pupils equal, round, and reactive to light. Extra ocular muscles intact. Conjunctivae/corneas clear. Neck: Supple, with full range of motion. No jugular venous distention. Trachea midline. No lymphadenopathy. Respiratory: Slight increased respiratory effort. Diminished AE throughout Cardiovascular: Regular rate and rhythm with normal S1/S2 without murmurs, rubs or gallops. Abdomen: Soft, non-tender, non-distended with normal bowel sounds. No rebound or guarding. Musculoskeletal: No clubbing, cyanosis or edema bilaterally. Full range of motion without deformity. Skin: Skin color, texture, turgor normal. No rashes or lesions. Neurologic: Neurovascularly intact without any focal sensory/motor deficits. Cranial nerves: II-XIIintact, grossly non-focal. Assessment Covid 19, pneumonia Simple sepsis due to above acute hypoxia with respiratory insufficiency end-stage renal disease on hemodialysis Past Medical History: Diagnosis Date Chronic kidney disease STAGE III Diabetes (HCC) Hemodialysis patient (HCC) Hyperlipidemia Hypertension Hyperthyroidism Nicotine dependence Plan : Remdisivir day # 1 Dexamethsone Lovenox Follow inflammatory markers O2 supplementation nephrology consulted All test and lab results reviewed Consult notes reviewed Am labs, replace lytes prn PT/OT -DVT prophylaxis: [] Lovenox [x] Heparin [] SCDs [x] Encourage ambulation [] Already on Anticoagulation Advance Directive: Full Code Discharge planning: TBD YESICA DUNLAP MD, MD Division of Hospitalist Medicine Inpatient Medical Services This report was created using the [employer] voice- activated system. Despiteprompt dictation and careful editorial review, there may be subtle contextual errors in this report, due to misrecognition of the spoken word. documented in this encounter* Toyin Macias MD - 02/19/2020 5:24 PM EST [facility] Progress Note Subjective/ 74 y.o. year old male who we are seeing in consultation for esrd. MS at baseline. BP okay. Recent admission for COVID 19+ Not a good historian at baseline. ROS otherwise negative. No change in pfsh. Objective/ Vitals: 02/19/20 1630 02/19/20 1645 02/19/20 1700 02/19/20 1715 BP: 121/62 (!) 126/57 118/60 125/60 Pulse: 74 72 71 70 Resp: Temp: TempSrc: SpO2: Weight: Height: 24HR INTAKE/OUTPUT: Intake/Output Summary (Last 24 hours) at 02/19/2020 1724 Last data filed at 02/19/2020 1617 Gross per 24 hour Intake 300 ml Output Net 300 ml Constitutional: Alert, awake, no apparent distress Head: AT NC Neck: No JVD, no thyromegaly Cardiovascular: S1, S2 without m/r/g Respiratory: CTA B without w/r/r Abdomen: soft, nt Ext: NO b/l LE edema, no tremor. Current Facility-Administered Medications Medication Dose Route Frequency Provider Last Rate Last Admin albuterol (PROVENTIL) nebulizer solution 2.5 mg 2.5 mg Nebulization Q4H PRN Andrew De Paz MD aspirin EC tablet 81 mg 81 mg Oral Daily Andrew De Paz MD 81 mg at 02/19/20 075 metoprolol tartrate (LOPRESSOR) tablet 50 mg 50 mg Oral BID Andrew De Paz MD 50 mg at 02/19/20 075 montelukast (SINGULAIR) tablet 10 mg 10 mg Oral Nightly Andrew De Paz MD 10 mg at 02/18/202029 omega-3 acid ethyl esters (LOVAZA) capsule 1 g 1 g Oral Daily Andrew De Paz MD 1 g at 02/19/20 075 doxercalciferol (HECTOROL) capsule 0.5 mcg 0.5 mcg Oral Once per day on Tue Andrew De Paz MD 0.5 mcg at 02/18/20 0813 polyethylene glycol (GLYCOLAX) packet 17 g 17 g Oral Daily Andrew De Paz MD pravastatin (PRAVACHOL) tablet 20 mg 20 mg Oral Nightly Andrew De Paz MD 20 mg at 02/18/202029 tamsulosin (FLOMAX) capsule 0.4 mg 0.4 mg Oral Daily Andrew De Paz MD 0.4 mg at 02/19/20 075 sodium chloride flush 0.9 % injection 10 mL 10 mL Intravenous 2 times per day Andrew De Paz MD 10 mL at 02/19/20 075 sodium chloride flush 0.9 % injection 10 mL 10 mL Intravenous PRN Andrew De Paz MD promethazine (PHENERGAN) tablet 12.5 mg 12.5 mg Oral Q6H PRN Andrew De Paz MD Or ondansetron (ZOFRAN) injection 4 mg 4 mg Intravenous Q6H PRN Andrew De Paz MD polyethylene glycol (GLYCOLAX) packet 17 g 17 g Oral Daily PRN Andrew De Paz MD 17 g at 02/17/20 0751 acetaminophen (TYLENOL) tablet 650 mg 650 mg Oral Q6H PRN Andrew De Paz MD Or acetaminophen (TYLENOL) suppository 650 mg 650 mg Rectal Q6H PRN Andrew De Paz MD perflutren lipid microspheres (DEFINITY) injection 1.65 mg 1.5 mL Intravenous ONCE PRN Andrew De Paz MD sodium chloride flush 0.9 % injection 10 mL 10 mL Intravenous PRN Andrew De Paz MD metoprolol (LOPRESSOR) injection 5 mg 5 mg Intravenous Q5 Min PRN Mark Anthony Bernabe, DO 5 mg at 02/16/20 2231 Data/ Recent Labs 02/16/208 02/17/20 0830 02/18/20 0431 02/18/20 1635 WBC 6.8 -- 7.5 -- HGB 7.8* 7.1* 7.0* 8.6* HCT 23.6* 21.8* 20.7* 25.5* MCV 95.4 -- 95.9 -- PLT 93* -- 87* -- Recent Labs 02/16/20223702/18/20 0431 NA 128* 128* K 3.2* 3.5 CL 89* 93* CO2 31* 27 GLUCOSE 117* 99 MG 2.1 2.2 BUN 45* 55* CREATININE 7.03* 8.77* Assessment/ 1. ESRD tts 2. Dependence on renal dialysis. 3. Hypokalemia. 4. COVID 19+ ( Jan 2020 ) 5. 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 Plan/ HD today HD TTS schedule. 3k bath. K levels better, but has predilection for hypokalemia. ESAs for anemia if prolonged hospital stay. Will follow D/w RN. Toyin Macias MD [facility] * Gregg Sanabria RN - 02/19/2020 4:14 PM EST Patient Name: Logan Fisher Patient : 1945 Acct: [id number] Date of Admission: 02/16/2020 Room/Bed: [address] [place] [address] Code Status: Full Code Allergies: No Known Allergies Diagnosis: Patient Active Problem List Diagnosis Chronic renal failure, stage 5 (HCC) Acute metabolic encephalopathy ESRD (end stage renal disease) (HCC) Parkinson's disease (HCC) COVID-19 Atrial fibrillation (HCC) Treatment: Hemodialysis 1:1 Priority: Routine Location: Bedside Diabetic: Yes NPO: No Isolation Precautions: Dialysis Consent for Treatment Verified: Yes Blood Consent Verified: Not Applicable Safety Verified: Identify (I), Consent (C), Equipment (E), HepB Status (B), Orders Complete (O), Access Verified (A) and Timeliness (T) Time out performed prior to access at 1531 hours. Report Received from Primary RN at 1504 hours. Primary RN (First Initial, Last Name, Title): Troy Scott RN Incapacitated Nurse Education Completed: Yes HBsAg ONLY: Date Drawn: February 19, 2020 Results: Negative HBsAb: Date Drawn: February 19, 2020 Results: Susceptible <10 Order Dialysis Bath K+ (Potassium): 3 Ca+ (Calcium): 2.5 Na+ (Sodium): 135 HCO3 (Bicarb): 35 Na+ Modeling: Not Applicable Dialyzer: [id number] Dialysate Temperature (C): 37 Blood Flow Rate (BFR): 400 Dialysate Flow Rate (DFR): 800 Access to be Utilized Access: AVG Location: Upper Extremity Side: Left Needle gauge: 15 + Bruit/Thrill: Yes First Use X-ray Verified: Not Applicable OK to use line order: Yes Site Assessment: Signs and Symptoms of Infection/Inflammation: None If yes: Not Applicable Dressing: Dry and Intact Site Prep: Medical Aseptic Technique Dressing Changed this Treatment: Yes If yes, by whom: Juan GAYLE Date of Last Dressing Change: Not Applicable Antimicrobial Patch in place?: No Red Alcohol Caps in place?: No Gauze Dressing?: Yes Non Dialysis Use?: No Comment: Flows: Good, Patent If access problem, who was notified: Pre and Post-Assessment Patient Vitals for the past 8 hrs: Level of Consciousness Oriented X Heart Rhythm Respiratory Quality/Effort O2 Device Bilateral Breath Sounds Skin Color Skin Condition/Temp Abdomen Inspection Bowel Sounds (All Quadrants) Edema Pain Level 02/19/20 1523 Alert (0) 2 Regular Unlabored None (Room air) Diminished [place]ez Dry;Warm Rounded;Soft Present None 0 02/19/202027 Alert (0) Unlabored [place] Dry;Warm Rounded;Soft None 0 02/19/202 None (Room air) 02/19/20 2257 None (Room air) Labs Recent Labs 02/17/20 0830 02/18/20 0431 02/18/20 1635 WBC -- 7.5 -- HGB 7.1* 7.0* 8.6* HCT 21.8* 20.7* 25.5* PLT -- 87* -- Recent Labs 02/18/20 0431 NA 128* K 3.5 CL 93* CO2 27 BUN 55* CREATININE 8.77* GLUCOSE 99 IV Drips and Rate/Dose Safety - Before each treatment: Dialysis Machine No.: [id number] RO Machine No.: [id number] Dialyzer Lot No.: [id number] RO Machine Log Sheet Completed: Yes Machine Alarm Self Test: Completed;Passed (02/19/201522) Machine Autotest: Completed, Passed Air Foam Detector: Tested, Proper Function, pH Reading Extracorporeal Circuit Tested for Integrity: Yes Machine Conductivity: 13.6 Manual Conductivity: 13.4 Manual Ph: 7.4 Bleach Test (Neg): Yes Bath Temperature: 98.6 F (37 C) Tubing Lot#: [id number] Conductivity Meter Serial #: [id number] All Connections Secure?: Yes Venous Parameters Set?: Yes Arterial Parameters Set?: Yes Saline Line Double Clamped?: Yes Air Foam Detector Engaged?: Yes Machine Functioning Alarm Free? Yes Prime Given: 200ml Chlorine Testing - Before each treatment and every 4 hours: Treatment Treatment Number: 1 Time On: 0 Treatment Goal: 2L Weight: 186 lb 14.1 oz (84.8 kg) (02/19/201522) 1st check: less than 0.1 ppm at: 1525 hours 2nd check: less than 0.1 ppm at: 1825 hours 3rd check: Not Applicable (if greater than 0.1 ppm, then check every 30 minutes from secondary) Access Flows and Pressures Patient Vitals for the past 8 hrs: Blood Flow Rate (ml/min) Ultrafiltration Rate (ml/hr) Ultrafiltration Total Arterial Pressure (mmHg) Venous Pressure (mmHg) TMP DFR Comments Access Visible 02/19/20 1550 200 ml/min 630 ml/hr 0 ml -40 mmHg 30 60 800 tx started Yes 02/19/20 1553 400 ml/min 630 ml/hr 17 ml -150 mmHg 150 80 800 Pt stable Yes 02/19/20 1600 400 ml/min 630 ml/hr 142 ml -160 mmHg 170 90 800 Pt stable wants back scartched againYes 02/19/20 1615 400 ml/min 630 ml/hr 301 ml -160 mmHg 170 90 800 Pt stable repositioned Yes 02/19/20 1630 400 ml/min 630 ml/hr 456 ml -150 mmHg 160 90 800 Pt stable resting on and off Yes 02/19/20 1645 400 ml/min 630 ml/hr 548 ml -160 mmHg 160 70 800 Pt stable moving in bed Yes 02/19/20 1700 400 ml/min 630 ml/hr 708 ml -160 mmHg 160 90 800 Pt stable coughing Yes 02/19/20 1715 400 ml/min 630 ml/hr 873 ml -170 mmHg 150 90 800 Pt stable resting with eyes closed Yes 02/19/20 1730 400 ml/min 630 ml/hr 1010 ml -170 mmHg 160 90 800 Pt stable Unit RN at bedside Yes 02/19/20 1745 400 ml/min 650 ml/hr 1178 ml -160 mmHg 150 90 800 Pt stable resting with eyes closed Yes 02/19/20 1800 400 ml/min 650 ml/hr 1341 ml -170 mmHg 150 90 800 Pt stable talking in his sleep Yes 02/19/20 1815 400 ml/min 650 ml/hr 1493 ml -190 mmHg 140 90 800 Pt stable on bedpan Yes 02/19/20 1830 400 ml/min 650 ml/hr 1647 ml -180 mmHg 140 90 800 Pt stable off bedpan resting quietly Yes 02/19/20 1845 400 ml/min 650 ml/hr 1799 ml -150 mmHg 190 90 800 Pt stable resting with eyes closed Yes 02/19/20 1900 400 ml/min 650 ml/hr 1979 ml -150 mmHg 220 90 800 PT stable repositioned Yes 02/19/20 1915 400 ml/min 650 ml/hr 2129 ml -140 mmHg 210 90 800 Pt stable coughing Yes 02/19/20 1930 400 ml/min 650 ml/hr 2290 ml -140 mmHg 220 90 800 PT stable resting with eyes closed Yes 02/19/20 1945 400 ml/min 650 ml/hr 2446 ml -130 mmHg 240 90 800 PT stable lines secure Yes Vital Signs Patient Vitals for the past 8 hrs: BP Temp Pulse Resp SpO2 Weight Weight Method Percent Weight Change 02/19/20 1523 131/62 99.2 F (37.3 C) 76 16 93 % 186 lb 14.1 oz (84.8 kg) Bed scale -1.01 02/19/20 1550 128/64 72 02/19/20 1553 130/65 70 02/19/20 1600 (!) 123/58 71 02/19/20 1615 130/64 71 02/19/20 1630 121/62 74 02/19/20 1645 (!) 126/57 72 02/19/20 1700 118/60 71 02/19/20 1715 125/60 70 02/19/20 1730 (!) 121/56 71 02/19/20 1745 126/72 76 02/19/20 1800 (!) 122/53 75 02/19/20 1815 129/62 74 02/19/20 1830 138/67 71 02/19/20 1845 120/66 76 02/19/20 1900 136/61 73 02/19/20 1915 133/64 73 02/19/20 1930 124/60 72 02/19/20 1945 134/62 72 02/19/202023 138/65 82 02/19/202023 138/65 96.9 F (36.1 C) 82 20 92 % 02/19/202101 139/61 98 F (36.7 C) 81 24 91 % 02/19/202256 133/61 97.7 F (36.5 C) 79 24 91 % Post-Dialysis Arterial Catheter Locking Solution: Not Applicable Venous Catheter Locking Solution: Not Applicable Provider Notification Handoff complete and report given to Primary RN at 2020 hours. Primary RN (First Initial, Last Name, Title): Sara Briggs RN Education Person Educated: Patient Knowledge Base: Minimal Barriers to Learning?: Yes, including mild confusion Preferred method of Learning: Oral Topic(s): Access Care, Signs and Symptoms of Infection and Procedural Teaching Tools: Demonstration and Explanation Response to Education: Verbalized Understanding * Mildred Meeks, [place] - BEEF RIBBER - 02/19/2020 12:48 PM EST CARDIOLOGY PROGRESS NOTE Chart and interval events reviewed. Reason for Visit follow-up Afib SUBJECTIVE: Logan Fisher states he continues to feel better. Denies CP, SOB, PNd, orthopnea, edema, palpitations, syncope. SCHEDULED MEDICATIONS: aspirin 81 mg Oral Daily metoprolol tartrate 50 mg Oral BID montelukast 10 mg Oral Nightly omega-3 acid ethyl esters 1 g Oral Daily doxercalciferol 0.5 mcg Oral Once per day on Tue polyethylene glycol 17 g Oral Daily pravastatin 20 mg Oral Nightly tamsulosin 0.4 mg Oral Daily sodium chloride flush 10 mL Intravenous 2 times per day Active Problems: Atrial fibrillation (HCC) Resolved Problems: * No resolved hospital problems. * Review of Systems: Review of Systems Constitutional: Negative for chills, diaphoresis and fever. HENT: Negative for nosebleeds. Eyes: Negative for visual disturbance. Respiratory: Positive for shortness of breath (improved). Negative for cough and wheezing. Cardiovascular: Negative for chest pain, palpitations and leg swelling. Gastrointestinal: Negative for abdominal pain, blood in stool, constipation, diarrhea, nausea and vomiting. Genitourinary: Negative for hematuria. Musculoskeletal: Negative for myalgias. Skin: Negative for rash. Neurological: Negative for dizziness and syncope. Hematological: Does not bruise/bleed easily. Psychiatric/Behavioral: Negative for dysphoric mood and suicidal ideas. Denies Depression VITAL SIGNS: Vitals: 02/19/20 0335 02/19/20 0735 02/19/20 0959 02/19/20 1124 BP: (!) 124/57 (!) 132/55 137/62 Pulse: 71 77 72 Resp: 18 16 16 Temp: 97 F (36.1 C) 99.3 F (37.4 C) 98.6 F (37 C) TempSrc: Temporal Temporal Temporal SpO2: (!) 89% 92% 90% Weight: Height: 5' 6 (1.676 m) Intake/Output Summary (Last 24 hours) at 02/19/2020 1248 Last data filed at 02/18/2020 1513 Gross per 24 hour Intake 901.67 ml Output Net 901.67 ml Patient Vitals for the past 96 hrs (Last 3 readings): Weight 02/18/20 2332 188 lb 12.8 oz (85.6 kg) 02/16/20 2256 180 lb (81.6 kg) Physical Exam: Physical Exam Vitals signs reviewed. Constitutional: Appearance: Normal appearance. He is well-developed. HENT: Head: Normocephalic and atraumatic. Eyes: General: Lids are normal. Conjunctiva/sclera: Conjunctivae normal. Pupils: Pupils are equal, round, and reactive to light. Neck: Musculoskeletal: Normal range of motion and neck supple. Thyroid: No thyroid mass or thyromegaly. Vascular: No carotid bruit or JVD. Trachea: Trachea normal. Cardiovascular: Rate and Rhythm: Normal rate and regular rhythm. Chest Wall: PMI is not displaced. Pulses: No decreased pulses. Dorsalis pedis pulses are 2+ on the right side and 2+ on the left side. Posterior tibial pulses are 2+ on the right side and 2+ on the left side. Heart sounds: Normal heart sounds. No murmur. No systolic murmur. No diastolic murmur. No friction rub. No gallop. Pulmonary: Effort: Pulmonary effort is normal. No respiratory distress. Breath sounds: Normal breath sounds. No stridor. No decreased breath sounds, wheezing, rhonchi or rales. Chest: Chest wall: No tenderness. Abdominal: General: Bowel sounds are normal. There is no distension. Palpations: Abdomen is soft. Musculoskeletal: General: No tenderness. Skin: General: Skin is warm and dry. Capillary Refill: Capillary refill takes less than 2 seconds. Findings: No rash. Neurological: Mental Status: He is alert and oriented to person, place, and time. Psychiatric: Behavior: Behavior normal. Thought Content: Thought content normal. Data: Scheduled Meds: Reviewed Continuous Infusions: CBC: Recent Labs 02/16/20223702/16/20223702/18/20 0431 02/18/20 1635 WBC 6.8 -- 7.5 -- HGB 7.8* < > 7.0* 8.6* HCT 23.6* < > 20.7* 25.5* PLT 93* -- 87* -- < > = values in this interval not displayed. BMP: Recent Labs 02/16/20223702/18/20 0431 NA 128* 128* K 3.2* 3.5 CL 89* 93* CO2 31* 27 BUN 45* 55* CREATININE 7.03* 8.77* INR: Recent Labs 02/17/20 0204 INR 1.1 No results for input(s): BNP in the last 72 hours. TSH: Lab Results Component Value Date TSH 0.919 02/17/2020 Cardiac Injury Profile: Recent Labs 02/16/20 2238 02/17/20 0204 02/17/20 0802 TROPONINI 1.408* 1.242* 1.523* Lipid Profile: Lab Results Component Value Date TRIG 147 02/17/2020 HDL 16 02/17/2020 LDLCALC 71 09/03/2014 CHOL 74 02/17/2020 CHOL 125 09/03/2014 EKG: See Report Telemetry Reviewed: SR Echo: 02/17/2020 1. Left ventricle: The cavity size is normal. Wall thickness is normal. Systolic function is low normal. The estimated ejection fraction is 54%. There are no regional wall motion abnormalities. 2. Right ventricle: Right ventricular systolic pressure is within the normal range. 3. Left atrium: The atrium is mildly dilated. 4. No significant valve disease. [id number] Score for Atrial Fibrillation Stroke Risk Risk Factors Component Value C CHF No 0 H HTN No 0 A2 Age >= 75 Yes, (74 y.o.) 2 D DM No 0 S2 Prior Stroke/TIA No 0 V Vascular Disease Yes 1 A Age 65-74 No, (74 y.o.) 0 Sc Sex male 0 [id number] Score 3 Score last updated 02/18/20 11:26 AM EST Click here for a link to the UpToDate guideline Atrial Fibrillation: Anticoagulation therapy to prevent embolization Disclaimer: Risk Score calculation is dependent on accuracy of patient problem list and past encounter diagnosis. IMPRESSIONS/RECOMMENDATIONS: PAF s/p emergent DCC in ED due to hypotension. Most likely triggered by PNA. - continue metoprolol - long discussion regarding OAC in Afib and ESRD patients (ESRD patients have higher risk of bleeding without decreasing risk of stroke), he would like to wait on OAC unil we evaluate his Afib burden - will need OP event monitor to determine Afib burden Elevated troponin most likley due to Afib with RVR, hypotension, sepsis and decreased renal clearance - TTE with preserved EF and no RWMA - will need stress test as OP once recovered - continue ASA, BB and statin Cardiology Discharge/Sign-off Recommendations Cardiology medications to continue: [x] All cardiac medications as ordered currently [] Admission cardiac medications [] Please start the following medications on discharge: [] Please stop the following medications on discharge: Followup testing recommended as an outpatient: [] To be arranged by Inpatient provider/PCP [x] Will be arranged by Cardiology event monitor and stress test Cardiology followup: [] Not needed [] Recommend primary service arrange f/u with patient's outpatient electromechanical assembler 1-2 wks. [x] Recommended; unable to arrange at this time, will arrange post-discharge [] Arranged as follows: If there are any questions/concerns, please contact the covering provider. If no answer by [employer], please call the cardiology office to obtain appropriate covering TIMEKEEPER SUPERVISOR/physician. Electronicallysigned by [place] Teixeira CNP on 02/19/2020 at 12:48 PM * Otilia Romero, GRANT, LD - 02/19/2020 10:13 AM EST Comprehensive Nutrition Assessment Type and Reason for Visit: Initial, Consult(ESRD on HD) Nutrition Recommendations/Plan: 1. Continue with Renal diet. Monitor needs to lift restrictions if PO shows no improvement, to helpoptimize pt's PO intakes. 2. Initiate ONS per MNT protocol. Will initiate Pro-stat mixed with Dt Sprite and Ensure high protein each once daily. Pro-stat provides 100 kcals, 15 g protein per serving. Ensure High Protein provides 160 kcals, 16 g protein per serving. 3. Please document pt's PO intakes via flowsheet to accurately assess PO intake adequacy. 4. Monitor intakes, wts, and labs. RD will follow. Nutrition Assessment: Pt admit from [facility] with concerns of Afib with CP. Pt answers with one-word responses- yes or no mostly. Was able to convey that his appetite has not been good for the past week. Denies any chewing/swallowing deficits. Pt had a BM this AM. Malnutrition Assessment: Malnutrition Status: Insufficient data Context: Acute Illness Findings of the 6 clinical characteristics of malnutrition: Energy Intake: 1 - 75% or less of estimated energy requirements for 7 or more days Weight Loss: No significant weight loss Body Fat Loss: Unable to assess Muscle Mass Loss: Unable to assess Fluid Accumulation: No significant fluid accumulation Vacuum Tank Tender Strength: Not Performed Estimated Daily Nutrient Needs: Energy (kcal): 6523-0063 kcals; Weight Used for Energy Requirements: [place](65kg) Protein (g): 78-91(1.2-1.4); Weight Used for Protein Requirements: [place] Fluid (ml/day): output+1000 ml/day or per MD; Method Used for Fluid Requirements: Standard Renal Nutrition Related Findings: no edema; Na 128, Cl 93, BUN 55, Cr 8.77, POC Glucose 106, 106, 133, Troponin 1.523, NT pro 39,553, Hgb 8.6, Hct 25.5 Wounds: (right knee abrasions, back/buttock abrasions) Current Nutrition Therapies: DIET RENAL; Dietary Nutrition Supplements: Low Calorie High Protein Supplement, Protein Modular Anthropometric Measures: Height: 5' 6 (167.6 cm) Current Body Weight: 188 lb (85.3 kg) Admission Body Weight: 180 lb (81.6 kg)(estimated) Usual Body Weight: 182 lb (82.6 kg)(01/28/20 wt; no dry wt established) [place] Body Weight: 142 lbs; % [place] Body Weight 132.4 % BMI: 30.4 Adjusted Body Weight: ; No Adjustment BMI Categories: Obese Class 1 (BMI 30.0-34.9) Nutrition Diagnosis: Inadequate oral intake related to acute injury/trauma as evidenced by poor intake prior to admission(per pt report) Increased nutrient needs related to increase demand for energy/nutrients as evidenced by dialysis Nutrition Interventions: Food and/or Nutrient Delivery: Continue Current Diet, Start Oral Nutrition Supplement Nutrition Education/Counseling: No recommendation at this time Coordination of Nutrition Care: Continue to monitor while inpatient Goals: Pt will receive/tolerate >75% of meals/supplements for optimal HD needs Nutrition Monitoring and Evaluation: Behavioral-Environmental Outcomes: None Identified Food/Nutrient Intake Outcomes: Food and Nutrient Intake, Supplement Intake Physical Signs/Symptoms Outcomes: Biochemical Data, GI Status, Diarrhea, Nausea or Vomiting, Fluid Status or Edema, Meal Time Behavior, Nutrition Focused Physical Findings, Skin, Weight Discharge Planning: Too soon to determine Contact: *[phone] * Toyin Macias MD - 02/18/2020 5:57 PM EST [facility] Progress Note Subjective/ 74 y.o. year old male who we are seeing in consultation for esrd. MS at baseline. BP okay. Recent admission for COVID 19+ Not a good historian at baseline. ROS otherwise negative. No change in pfsh. Objective/ Vitals: 02/18/20 1137 02/18/20 1200 02/18/20 1510 02/18/20 1513 BP: (!) 120/59 121/64 125/64 128/71 Pulse: 73 72 75 74 Resp: 18 18 18 18 Temp: 97.9 F (36.6 C) 98.1 F (36.7 C) 97.4 F (36.3 C) 98 F (36.7 C) TempSrc: Temporal Temporal SpO2: 96% 97% 96% Weight: Height: 24HR INTAKE/OUTPUT: Intake/Output Summary (Last 24 hours) at 02/18/2020 1757 Last data filed at 02/18/2020 1513 Gross per 24 hour Intake 901.67 ml Output Net 901.67 ml Constitutional: Alert, awake, no apparent distress Head: AT NC Neck: No JVD, no thyromegaly Cardiovascular: S1, S2 without m/r/g Respiratory: CTA B without w/r/r Abdomen: soft, nt Ext: NO b/l LE edema, no tremor. Current Facility-Administered Medications Medication Dose Route Frequency Provider Last Rate Last Admin albuterol (PROVENTIL) nebulizer solution 2.5 mg 2.5 mg Nebulization Q4H PRN Andrew De Paz MD aspirin EC tablet 81 mg 81 mg Oral Daily Andrew De Paz MD 81 mg at 02/18/20 08 metoprolol tartrate (LOPRESSOR) tablet 50 mg 50 mg Oral BID Andrew De Paz MD 50 mg at 02/18/20 08 montelukast (SINGULAIR) tablet 10 mg 10 mg Oral Nightly Andrew De Paz MD 10 mg at 02/17/202106 omega-3 acid ethyl esters (LOVAZA) capsule 1 g 1 g Oral Daily Andrew De Paz MD 1 g at 02/18/20 0813 doxercalciferol (HECTOROL) capsule 0.5 mcg 0.5 mcg Oral Once per day on Tue Andrew De Paz MD 0.5 mcg at 02/18/20 0813 polyethylene glycol (GLYCOLAX) packet 17 g 17 g Oral Daily Andrew De Paz MD pravastatin (PRAVACHOL) tablet 20 mg 20 mg Oral Nightly Andrew De Paz MD 20 mg at 02/17/202105 tamsulosin (FLOMAX) capsule 0.4 mg 0.4 mg Oral Daily Andrew De Paz MD 0.4 mg at 02/18/20 08 sodium chloride flush 0.9 % injection 10 mL 10 mL Intravenous 2 times per day Andrew De Paz MD 10 mL at 02/18/20 08 sodium chloride flush 0.9 % injection 10 mL 10 mL Intravenous PRN Andrew De Paz MD promethazine (PHENERGAN) tablet 12.5 mg 12.5 mg Oral Q6H PRN Andrew De Paz MD Or ondansetron (ZOFRAN) injection 4 mg 4 mg Intravenous Q6H PRN Andrew De Paz MD polyethylene glycol (GLYCOLAX) packet 17 g 17 g Oral Daily PRN Andrew De Paz MD 17 g at 02/17/20 0751 acetaminophen (TYLENOL) tablet 650 mg 650 mg Oral Q6H PRN Andrew De Paz MD Or acetaminophen (TYLENOL) suppository 650 mg 650 mg Rectal Q6H PRN Andrew D ePaz MD perflutren lipid microspheres (DEFINITY) injection 1.65 mg 1.5 mL Intravenous ONCE PRN Andrew De Paz MD sodium chloride flush 0.9 % injection 10 mL 10 mL Intravenous PRN Andrew De Paz MD metoprolol (LOPRESSOR) injection 5 mg 5 mg Intravenous Q5 Min PRN Mark Anthony Bernabe DO 5 mg at 02/16/20 2231 Data/ Recent Labs 02/16/20 2238 02/17/20 0830 02/18/20 0431 02/18/20 1635 WBC 6.8 -- 7.5 -- HGB 7.8* 7.1* 7.0* 8.6* HCT 23.6* 21.8* 20.7* 25.5* MCV 95.4 -- 95.9 -- PLT 93* -- 87* -- Recent Labs 02/16/20 2238 02/18/20 0431 NA 128* 128* K 3.2* 3.5 CL 89* 93* CO2 31* 27 GLUCOSE 117* 99 MG 2.1 2.2 BUN 45* 55* CREATININE 7.03* 8.77* Assessment/ 1. ESRD tts 2. Dependence on renal dialysis. 3. Hypokalemia. 4. COVID 19+ ( Jan 2020 ) 5. 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 Plan/ HD Tuesday next. HD TTS schedule. Likely will use 3k bath. K levels better, but has predilection for hypokalemia. ESAs for anemia if prolonged hospital stay. Will follow Toyin Macias MD [facility] * Mildred Meeks, PRESS TOOL MAKER - BEEF RIBBER - 02/18/2020 11:21 AM EST CARDIOLOGY PROGRESS NOTE Chart and interval events reviewed. Reason for Visit follow-up Afib SUBJECTIVE: Logan Fisher is lying in bed in no acute distress. He denies CP, PND, orthopnea, edema, palpitations, syncope. SOB is improved. SCHEDULED MEDICATIONS: sodium chloride 20 mL Intravenous Once aspirin 81 mg Oral Daily metoprolol tartrate 50 mg Oral BID montelukast 10 mg Oral Nightly omega-3 acid ethyl esters 1 g Oral Daily doxercalciferol 0.5 mcg Oral Once per day on Tue polyethylene glycol 17 g Oral Daily pravastatin 20 mg Oral Nightly tamsulosin 0.4 mg Oral Daily sodium chloride flush 10 mL Intravenous 2 times per day Active Problems: Atrial fibrillation (HCC) Resolved Problems: * No resolved hospital problems. * Review of Systems: Review of Systems Constitutional: Negative for chills, diaphoresis and fever. HENT: Negative for nosebleeds. Eyes: Negative for visual disturbance. Respiratory: Positive for shortness of breath (improved). Negative for cough and wheezing. Cardiovascular: Negative for chest pain, palpitations and leg swelling. Gastrointestinal: Negative for abdominal pain, blood in stool, constipation, diarrhea, nausea and vomiting. Genitourinary: Negative for hematuria. Musculoskeletal: Negative for myalgias. Skin: Negative for rash. Neurological: Negative for dizziness and syncope. Hematological: Does not bruise/bleed easily. Psychiatric/Behavioral: Negative for dysphoric mood and suicidal ideas. Denies Depression VITAL SIGNS: Vitals: 02/18/20 0013 02/18/20 0444 02/18/20 0715 02/18/20 0751 BP: (!) 120/53 (!) 115/52 119/64 Pulse: 74 71 72 Resp: 18 18 17 Temp: 98.3 F (36.8 C) 98.2 F (36.8 C) 98 F (36.7 C) TempSrc: Temporal Temporal Temporal SpO2: 95% (!) 89% 91% Weight: Height: 5' 6 (1.676 m) No intake or output data in the 24 hours ending 02/18/20 1121 Patient Vitals for the past 96 hrs (Last 3 readings): Weight 02/16/20 2256 180 lb (81.6 kg) Physical Exam: Physical Exam Vitals signs reviewed. Constitutional: Appearance: Normal appearance. He is well-developed. HENT: Head: Normocephalic and atraumatic. Eyes: General: Lids are normal. Conjunctiva/sclera: Conjunctivae normal. Pupils: Pupils are equal, round, and reactive to light. Neck: Musculoskeletal: Normal range of motion and neck supple. Thyroid: No thyroid mass or thyromegaly. Vascular: No carotid bruit or JVD. Trachea: Trachea normal. Cardiovascular: Rate and Rhythm: Normal rate and regular rhythm. Chest Wall: PMI is not displaced. Pulses: No decreased pulses. Dorsalis pedis pulses are 2+ on the right side and 2+ on the left side. Posterior tibial pulses are 2+ on the right side and 2+ on the left side. Heart sounds: Normal heart sounds. No murmur. No systolic murmur. No diastolic murmur. No friction rub. No gallop. Pulmonary: Effort: Pulmonary effort is normal. No respiratory distress. Breath sounds: Normal breath sounds. No stridor. No decreased breath sounds, wheezing, rhonchi or rales. Chest: Chest wall: No tenderness. Abdominal: General: Bowel sounds are normal. There is no distension. Palpations: Abdomen is soft. Musculoskeletal: General: No tenderness. Skin: General: Skin is warm and dry. Capillary Refill: Capillary refill takes less than 2 seconds. Findings: No rash. Neurological: Mental Status: He is alert and oriented to person, place, and time. Psychiatric: Behavior: Behavior normal. Thought Content: Thought content normal. Data: Scheduled Meds: Reviewed Continuous Infusions: CBC: Recent Labs 02/16/20223702/17/20 0830 02/18/20 0431 WBC 6.8 -- 7.5 HGB 7.8* 7.1* 7.0* HCT 23.6* 21.8* 20.7* PLT 93* -- 87* BMP: Recent Labs 02/16/20223702/18/20 0431 NA 128* 128* K 3.2* 3.5 CL 89* 93* CO2 31* 27 BUN 45* 55* CREATININE 7.03* 8.77* INR: Recent Labs 02/17/20 0204 INR 1.1 No results for input(s): BNP in the last 72 hours. TSH: Lab Results Component Value Date TSH 0.919 02/17/2020 Cardiac Injury Profile: Recent Labs 02/16/20223702/17/20 0204 02/17/20 0802 TROPONINI 1.408* 1.242* 1.523* Lipid Profile: Lab Results Component Value Date TRIG 147 02/17/2020 HDL 16 02/17/2020 LDLCALC 71 09/03/2014 CHOL 74 02/17/2020 CHOL 125 09/03/2014 EKG: See Report Telemetry Reviewed: SR Echo: 02/17/2020 1. Left ventricle: The cavity size is normal. Wall thickness is normal. Systolic function is low normal. The estimated ejection fraction is 54%. There are no regional wall motion abnormalities. 2. Right ventricle: Right ventricular systolic pressure is within the normal range. 3. Left atrium: The atrium is mildly dilated. 4. No significant valve disease. [id number] Score for Atrial Fibrillation Stroke Risk Risk Factors Component Value C CHF No 0 H HTN No 0 A2 Age >= 75 Yes, (74 y.o.) 2 D DM No 0 S2 Prior Stroke/TIA No 0 V Vascular Disease Yes 1 A Age 65-74 No, (74 y.o.) 0 Sc Sex male 0 [id number] Score 3 Score last updated 02/18/20 11:26 AM EST Click here for a link to the UpToDate guideline Atrial Fibrillation: Anticoagulation therapy to prevent embolization Disclaimer: Risk Score calculation is dependent on accuracy of patient problem list and past encounter diagnosis. IMPRESSIONS/RECOMMENDATIONS: PAF s/p emergent DCC in ED due to hypotension. Most likely triggered by PNA. - continue metoprolol - long discussion regarding OAC in Afib and ESRD patients (ESRD patients have higher risk of bleeding without decreasing risk of stroke), he would like to wait on OAC unil we evaluate his Afib burden - will need OP event monitor to determine Afib burden Elevated troponin most likley due to Afib with RVR, hypotension, sepsis and decreased renal clearance - TTE with preserved EF and no RWMA - will need stress test as OP once recovered - continue ASA, BB and statin Dispo: will continue to follow Electronicallysigned by INDIA Teixeira CNP on 02/18/2020 at 11:21 AM * Sarah Hayes DTR - 02/18/2020 8:13 AM EST Nutrition rescreen completed. Pt referred to RD. * Yesica Dunlap MD - 02/18/2020 7:49 AM EST Throughout the encounter I wore and N95 mask and face shield Hospitalist Progress Note 02/18/2020 7:49 AM [id number]: Please page tn @ [phone] for patient care issues. [phone]: Please page [facility] night Hospitalist for any issues. Subjective: Admit Date: 02/16/2020 PCP: Sarina Pineda MD Patient may admitted for A. fib with RVR yesterday, now converted to sinus rhythm, more confused this morning, patient of dialysis. DIET RENAL; Patient Vitals for the past 96 hrs (Last 3 readings): Weight 02/16/20 2256 180 lb (81.6 kg) Medications: aspirin 81 mg Oral Daily metoprolol tartrate 50 mg Oral BID montelukast 10 mg Oral Nightly omega-3 acid ethyl esters 1 g Oral Daily doxercalciferol 0.5 mcg Oral Once per day on Tue polyethylene glycol 17 g Oral Daily pravastatin 20 mg Oral Nightly tamsulosin 0.4 mg Oral Daily sodium chloride flush 10 mL Intravenous 2 times per day LABS: CBC: Recent Labs 02/16/20223702/17/20 0830 02/18/20 0431 WBC 6.8 -- 7.5 RBC 2.48* -- 2.16* HGB 7.8* 7.1* 7.0* HCT 23.6* 21.8* 20.7* MCV 95.4 -- 95.9 RDW 18.9* -- 18.5* PLT 93* -- 87* BMP: Recent Labs 02/16/20223702/18/20430 NA 128* 128* K 3.2* 3.5 CL 89* 93* CO2 31* 27 BUN 45* 55* CREATININE 7.03* 8.77* GLUCOSE 117* 99 CALCIUM 8.8 8.2* ANIONGAP 8 8 LIVER PROFILE:No results for input(s): AST, ALT, BILITOT, ALKPHOS, LABALBU, PROT in the last 72 hours. PT/INR: Recent Labs 02/17/20203 PROTIME 11.7 INR 1.1 CARDIAC ENZYMES: Recent Labs 02/16/20223702/17/2020302/17/20 0802 TROPONINI 1.408* 1.242* 1.523* Procalcitonin: Lab Results Component Value Date PROCAL 0.78 01/28/2020 Objective: Vitals: BP (!) 115/52 Pulse 71 Temp 98.2 F (36.8 C) (Temporal) Resp 18 Ht 5' 6 (1.676 m) Wt 180 lb (81.6 kg) SpO2 (!) 89% BMI 29.05 kg/m Pulse Ox: SpO2 Av.5 % Min: 89 % Max: 98 % Supplemental O2: O2 Flow Rate (L/min): 2 L/min General appearance: No apparent distress, appears stated age and cooperative with exam HEENT: Normal cephalic, atraumatic without obvious deformity. Pupils equal, round, and reactive to light. Extra ocular muscles intact. Conjunctivae/corneas clear. Neck: Supple, with full range of motion. No jugular venous distention. Trachea midline. No lymphadenopathy. Respiratory: Normal respiratory effort. Diminished AE anteriorly Cardiovascular: regular rate and rhythm with normal S1/S2 without murmurs, rubs or gallops. Abdomen: Soft, non-tender, non-distended with normal bowel sounds. No rebound or guarding. Musculoskeletal: No clubbing, cyanosis or edema bilaterally. Full range of motion without deformity. Skin: Skin color, texture, turgor normal. No rashes or lesions. Neurologic: Neurovascularly intact without any focal sensory/motor deficits. Cranial nerves: II-XIIintact, grossly non-focal. Assessment # Acute uremic encephalopathy # Afib with RVR - paroxysmal, now converted to sinus rhythm # Elevated troponins due to A. fib and renal failure # ESRD on HD three times weekly # Recently treated for COVID 19 PNA # Anemia of chronic disease, H&H dropping # thrombocytopenia due to chronic renal failure, no active bleeding # Hyperlipidemia - STATIN # HTN - watch BP, metorprolol and Cardizem # Hypertensive kidney disease Past Medical History: Diagnosis Date Chronic kidney disease STAGE III Diabetes (HCC) Hemodialysis patient (HCC) Hyperlipidemia Hypertension Hyperthyroidism Nicotine dependence Plan : Nephrology on board for dialysis .Appreciate cardiology input, and p.o. metoprolol and Cardizem Watch hemoglobin and hematocrit and platelets, PRBC All test and lab results reviewed Consult notes reviewed Am labs, replace lytes prn PT/OT -DVT prophylaxis: [] Lovenox [] Heparin [] SCDs [x] Encourage ambulation [] Already on Anticoagulation Advance Directive: Full Code Discharge planning: TBD YESICA DUNLAP MD, Division of Hospitalist Medicine Inpatient Medical Services This report was created using the [employer] Naturally Speaking voice- activated system. Despiteprompt dictation and careful editorial review, there may be subtle contextual errors in this report, due to misrecognition of the spoken word. * Kari Clayton RN - 02/18/2020 6:01 AM EST Patients Hgb was 7.0 this morning, yesterday AM was 7.1. Notified Dr. De Paz via perfect serve at 6:01. No new order at this time. * Yesica Dunlap MD - 02/17/2020 7:47 AM EST Patient seen and examined, admitted early AM by the night physician, see orders # Afib with RVR # ESRD on HD three times weekly # Recently treated for COVID 19 PNA # Anemia of chronic disease Cardiology and Nephrology following documented in this encounter Assessments Diagnosis Fever, unspecified fever cause Suspected COVID-19 virus infection Diagnosis Hypoxia- Primary Hypoxemia COVID-19 virus infection ESRD on dialysis ([facility]) End stage renal disease Febrile illness Fever, unspecified COVID-19 Diagnosis Atrial fibrillation, unspecified type ([facility])- Primary NSTEMI (non-ST elevated myocardial infarction) ([facility]) Acute myocardial infarction, subendocardial infarction, episode of care unspecified Hypotension, unspecified hypotension type ESRD (end stage renal disease) ([facility]) End stage renal disease Diagnosis Anemia of chronic disease- Primary Anemia of other chronic disease End stage renal disease ([facility]) End stage renal disease Aspiration into airway, initial encounter Diagnosis PAF (paroxysmal atrial fibrillation) ([facility]) Atrial fibrillation Hospital Course * Yesica Dunlap MD - 02/19/2020 5:38 PM EST Hospitalist Discharge Summary Logan Fisher : 1945 Admit date: 02/16/2020 Discharge date: 02/19/2020 Admitting Physician: Andrew De Paz MD Primary Care Physician: Sarina Pineda MD Visit Status: Admission Code Status: Full Code Discharge Diagnoses: # Acute uremic encephalopathy # Afib with RVR - paroxysmal, now converted to sinus rhythm # Elevated troponins due to A. fib and renal failure # ESRD on HD three times weekly # Recently treated for COVID 19 PNA # Anemia of chronic disease, H&H dropping # thrombocytopenia due to chronic renal failure, no active bleeding # Hyperlipidemia - STATIN # HTN - watch BP, metorprolol and Cardizem # Hypertensive kidney disease # Class 1 obesity Procedures: Emergency DCC Hospital Course: Improved. Patient is a 74 year old male who was from an ECF, he was recently treated for acute COVID Pneumonia, he was brought to the ED for CP, noted to be in AFIB with RVR, may have been triggered by the recent infection, successfully underwent DCC, rhythm was converted, he was maintained on PO metoprolol, he is also a patient of ESRD on HD, had sessions while in the hospital, will transport back to the [facility] in a stable condition. Consults: Cardiology and Nephrology Discharge Instructions: Diet: DIET RENAL; Dietary Nutrition Supplements: Low Calorie High Protein Supplement, Protein Modular Activity: as tolerated Recommended Outpatient Tests: CBC,BMP in one week Disposition: Patient discharged in stable condition to Home. Greater than 30 minutes spent discharging the patient and coming up with patient discharge plan. Vitals: BP (!) 121/56 Pulse 71 Temp 99.2 F (37.3 C) Resp 16 Ht 5' 6 (1.676 m) Wt 186 lb 14.1 oz (84.8 kg) SpO2 93% BMI 30.16 kg/m Pulse Ox: SpO2 Av.7 % Min: 89 % Max: 96 % Supplemental O2: O2 Flow Rate (L/min): 1 L/min General appearance: Appears weak, No apparent distress, appears stated age and cooperative with exam Respiratory: Slight increased respiratory effort. Improved AE andi Cardiovascular: Regular rate and rhythm with normal S1/S2 without murmurs, rubs or gallops. Abdomen: Soft, non-tender, non-distended with normal bowel sounds. No rebound or guarding. Musculoskeletal: No clubbing, cyanosis or edema bilaterally. Full range of motion without deformity. Skin: Skin color, texture, turgor normal. No rashes or lesions. Discharge Medications: Logan Fisher Home Medication Instructions DARIELA:[id number] Printed on:02/19/20 7293 Medication Information albuterol (PROVENTIL) (2.5 MG/3ML) 0.083% nebulizer solution Take 3 mLs by nebulization every 6 hours as needed for Wheezing aspirin 81 MG EC tablet Heparin Sodium, Porcine, (HEPARIN, PORCINE,) 5000 UNIT/ML injection Inject 1 mL into the skin 2 times daily metoprolol tartrate (LOPRESSOR) 50 MG tablet Take 1 tablet by mouth 2 times daily montelukast (SINGULAIR) 10 MG tablet omega-3 acid ethyl esters (LOVAZA) 1 g capsule Take 1 capsule by mouth daily [place]-3 Fatty Acids (OMEGA-3 FISH OIL) 1000 MG CAPS paricalcitol (ZEMPLAR) 1 MCG capsule polyethylene glycol (GLYCOLAX) powder pravastatin (PRAVACHOL) 20 MG tablet QUEtiapine (SEROQUEL) 25 MG tablet tamsulosin (FLOMAX) 0.4 MG capsule trimethoprim-polymyxin b (POLYTRIM) 74219-6.1 UNIT/ML-% ophthalmic solution Recommended Follow-up: Olesya Solorzano MD [address] [place] [address], [address] [place] [address] The office will call you to arrange event monitor and follow-up. Complexity of Follow up: [] Moderate Complexity: follow up within 7-14 calendar days (65967) [x] Severe Complexity: follow up within 7 calendar days (68834) Follow up Testing, Pending results or Referrals at Transitional Care Visit: [x] yes [] No GENERAL ZONES GREEN ZONE: All Clear- Your Symptoms Are Under Control No recurrence of symptoms that led to hospitalization Able to do usual activities No fever No chest pain No shortness of breath This Means You Should: Continue taking your medications as prescribed Continue activity as tolerated Keep all doctor appointments YELLOW ZONE: Caution Recurrence of symptoms that led to hospitalization Fever of 100 degrees or higher Increased fatigue or restlessness Intolerant side-effects of medications Uneasy feeling or that something is wrong This Means You Should: Call your doctor for further instructions Either your PCP or specialist RED ZONE: Medical Alert Severe or unrelieved shortness of breath at rest Unrelieved chest pain Confusion or you can't think clearly This Means You Should Call 911 Immediately Instructions to MA: Please call patient on day after discharge (must document patient contacted within 2 business days of discharge). Follow up questions for MA: 1. Did you get medications filled and taking them as instructed from discharge? 2. Are you following your discharge instructions from your hospital stay? 3. Please confirm patient is scheduled for a follow up appointment within the above time frame. A total of more than 30 mins has been spent in discharging the patient. Signed: @ @ Division of Hospitalist Medicine Inpatient Medical Services 02/19/2020, 5:38 PM This report was created using the [employer] Speaking voice- activated system. Despiteprompt dictation and careful editorial review, there may be subtle contextual errors in this report, due to misrecognition of the spoken word. documented in this encounter Reason for Referral Status Reason Specialty Diagnoses / Procedures Referre d By Contact Referred To Contact [facility] Diagnoses PAF (paroxysmal atrial fibrillation) (HCC) Procedures Event Monitor Constantino Mildred R, [employer] [address] [facility] [place] [address] Summary Purpose Family History No Family History Records FoundNo Family History Records FoundNo Family History Records FoundNo Family History Records Found Additional Source Comments Reason for Visit (unrecogniz ed section and content) Reason Comments Positive For Covid-19 Reason Comments Chest Pain Reason Comments Abnormal Lab Reason Comments Fatigue Reason Comments Recheck Liver cysts. CT 05/08 [facility]bs 07/24/21 Reason Onset Date Comments Appointment Request 07/30/2022 Reason Comments Hospital Follow-up Atrial Fibrillation Reason Comments 6 Month Follow-up Atrial Fibrillation (unrecognized sect ion and content) No Status Records FoundNo Status Records FoundNo Status Records FoundNo Status Records Found INFORMATION SOURCE (unrecogn ized section and content) DATE CREATED AUTHOR AUTHOR'S ORGANIZ ATION 08/10/2021 [employer] DATE CREATED AUTHOR AUTHOR'S ORGANIZ ATION 08/27/2021 [facility] DATE CREATED AUTHOR AUTHOR'S ORGANIZ ATION 03/27/2023 [employer] [facility] Source Comments (unrecognize d section and content) In the event this informatio n is protected by the Federal Confidentiality of Alcohol and Drug Abuse Patient Records regulations: The Federal rules restrict any use of the information to criminally investigate or prosecute any alcohol or drug abuse patient.[facility] Care Teams (unrecognized sec tion and content) Acute Care Clinical Nurse Specialist Relationship Specialty Start Date End Date Sarina Pineda MD [address] [place] [address] PCP - General 12/09/15 Acute Care Clinical Nurse Specialist Relationship Specialty Start Date End Date Sarina Pineda MD [address] [place] [address] PCP - General 12/09/15 Acute Care Clinical Nurse Specialist Relationship Specialty Start Date End Date eGne Stringer [address] [place] [address] PCP - General Internal Medicine 03/30/23 FOR RECORDS PERTAINING TO PATIENTS WHO ARE OR HAVE BEEN ENROLLED IN A CHEMICAL DEPENDENCY/SUBSTANCEABUSE PROGRAM, SOME INFORMATION MAY BE OMITTED. This clinical summary was aggregated from multiple sources. Caution should be exercised in using it in the provision of clinical care. This summary normalizes information from multiple sources, and as a consequence, information in this document may materially change the coding, format and clinical context of patient data. In addition, data may be omitted in some cases. CLINICAL DECISIONS SHOULD BE BASED ON THE PRIMARY CLINICAL RECORDS. [facility] [facility]. provides no warranty or guarantee of the accuracy or completeness of information in this document.
[2023-03-31 09:17] LABS: Anion Gap 10 (5-15); BUN 59 mg/dL (7-18); BUN/Creat Ratio 8.5 RATIO (10-20); Calcium,Total 9.8 mg/dL (8.5-10.1); Chloride 101 mmol/L (98-107); Creatinine, Serum 6.96 mg/dL (0.70-1.30); EST Glomerular Filtration Rate 8 mL/min (>60); Est Glom Filt Rate - Afr Amer 10 mL/min (>60); Glucose 92 mg/dL (74-106); Potassium 4.9 mmol/L (3.5-5.1); Sodium Level 137 mmol/L (136-145)
[2023-03-31 11:23] LABS: Hematocrit 34.5 % (40-54); Mean Corp Hgb Conc 31.9 g/dL (32-36); Mean Corpuscular Volume 100.3 fL (80-94); Mean Platelet Vol. 11.4 fl (6.2-12.0); Platelet Count 104 K/mm3 (150-450); RBC Distribution Width CV 14.7 % (11.6-14.6); RBC Distribution Width SD 53.2 fl (35.1-43.9); Red Blood Count 3.44 M/mm3 (4.6-6.2); White Blood Count 6.2 K/mm3 (4.4-11.0)
== END ==
LOC: OLS.ACW100 05:00
PROVIDERS: Visit Provider Internal Medicine
DX: N18.6 End stage renal disease (principal)
CPT/HCPCS: 36415; 80048; 85027

== ENCOUNTER → 2023-06-06 05:00 | Outpatient (REF) | payer MEDICARE, MEDICAID, SELFPAY ==
[2023-06-06 09:53] LABS: Hematocrit 32.1 % (40-54); Hemoglobin 10.2 g/dL (13.0-16.5); Mean Corp Hgb Conc 31.8 g/dL (32-36); Mean Corpuscular Hgb 32.6 pg (27.0-32.0); Mean Corpuscular Volume 102.6 fL (80-94); Mean Platelet Vol. 11.3 fl (6.2-12.0); POSITIVE COUNT YES; RBC Distribution Width CV 14.9 % (11.6-14.6); RBC Distribution Width SD 55.4 fl (35.1-43.9); Red Blood Count 3.13 M/mm3 (4.6-6.2); White Blood Count 7.1 K/mm3 (4.4-11.0)
[2023-06-06 09:54] LABS: Platelet Count 126 K/mm3 (150-450)
[2023-06-06 10:22] LABS: Anion Gap 7 (5-15); BUN 37 mg/dL (7-18); BUN/Creat Ratio 5.5 RATIO (10-20); Chloride 99 mmol/L (98-107); Creatinine, Serum 6.78 mg/dL (0.70-1.30); EST Glomerular Filtration Rate 8 mL/min (>60); Est Glom Filt Rate - Afr Amer 10 mL/min (>60); Glucose 92 mg/dL (74-106); Potassium 4.1 mmol/L (3.5-5.1); Sodium Level 138 mmol/L (136-145)
== END ==
LOC: OLS.ACW100 05:00
PROVIDERS: Visit Provider Internal Medicine
DX: E11.22 Type 2 diabetes mellitus with diabetic chronic kidney disease (principal); Z99.2 Dependence on renal dialysis; G20.A1 Parkinson's disease without dyskinesia, without mention of fluctuations; N18.6 End stage renal disease
CPT/HCPCS: 36415; 80048; 85027

== ENCOUNTER → 2023-07-07 | Outpatient (REF) | payer MEDICARE, MEDICAID, SELFPAY ==
[2023-07-07 09:11] LABS: Hematocrit 38.2 % (40-54); Hemoglobin 11.8 g/dL (13.0-16.5); Mean Corp Hgb Conc 30.9 g/dL (32-36); Mean Corpuscular Hgb 32.9 pg (27.0-32.0); Mean Corpuscular Volume 106.4 fL (80-94); Mean Platelet Vol. 10.9 fl (6.2-12.0); Platelet Count 118 K/mm3 (150-450); RBC Distribution Width CV 15.5 % (11.6-14.6); RBC Distribution Width SD 59.6 fl (35.1-43.9); Red Blood Count 3.59 M/mm3 (4.6-6.2); White Blood Count 6.4 K/mm3 (4.4-11.0)
[2023-07-07 09:21] LABS: Anion Gap 7 (5-15); BUN 48 mg/dL (7-18); BUN/Creat Ratio 6.4 RATIO (10-20); Calcium,Total 9.9 mg/dL (8.5-10.1); Chloride 99 mmol/L (98-107); Creatinine, Serum 7.54 mg/dL (0.70-1.30); EST Glomerular Filtration Rate 7 mL/min (>60); Est Glom Filt Rate - Afr Amer 9 mL/min (>60); Glucose 110 mg/dL (74-106); Potassium 4.3 mmol/L (3.5-5.1); Sodium Level 139 mmol/L (136-145)
== END ==
LOC: OLS.ACW100 05:00
PROVIDERS: Visit Provider Internal Medicine
DX: N18.6 End stage renal disease (principal); R41.82 Altered mental status, unspecified; R26.81 Unsteadiness on feet; M62.81 Muscle weakness (generalized); R27.9 Unspecified lack of coordination; R41.841 Cognitive communication deficit
CPT/HCPCS: 36415; 80048; 85027

== ENCOUNTER → 2023-08-01 05:00 | Outpatient (REF) | payer MEDICARE, MEDICAID, SELFPAY ==
[2023-08-01 09:24] LABS: Anion Gap 7 (5-15); BUN 41 mg/dL (7-18); BUN/Creat Ratio 6.1 RATIO (10-20); Calcium,Total 10.1 mg/dL (8.5-10.1); Chloride 101 mmol/L (98-107); Creatinine, Serum 6.77 mg/dL (0.70-1.30); EST Glomerular Filtration Rate 8 mL/min (>60); Est Glom Filt Rate - Afr Amer 10 mL/min (>60); Glucose 95 mg/dL (74-106); Potassium 4.5 mmol/L (3.5-5.1); Sodium Level 137 mmol/L (136-145)
[2023-08-01 09:28] LABS: Hematocrit 31.4 % (40-54); Hemoglobin 10.1 g/dL (13.0-16.5); Mean Corp Hgb Conc 32.2 g/dL (32-36); Mean Corpuscular Hgb 33.1 pg (27.0-32.0); Mean Platelet Vol. 11.5 fl (6.2-12.0); POSITIVE COUNT YES; Platelet Count 94 K/mm3 (150-450); RBC Distribution Width CV 14.6 % (11.6-14.6); RBC Distribution Width SD 53.3 fl (35.1-43.9); Red Blood Count 3.05 M/mm3 (4.6-6.2); White Blood Count 6.5 K/mm3 (4.4-11.0)
[2023-08-01 09:29] LABS: Scan Indicated on CBC? Y/N YES- FLAGS NOTED
== END ==
LOC: OLS.ACW100 05:00
PROVIDERS: Visit Provider Internal Medicine
DX: N18.6 End stage renal disease (principal); R41.82 Altered mental status, unspecified; M62.81 Muscle weakness (generalized); R26.81 Unsteadiness on feet; R27.9 Unspecified lack of coordination; R41.841 Cognitive communication deficit
CPT/HCPCS: 36415; 80048; 85027

== ENCOUNTER → 2023-08-31 06:52 | Outpatient (REF) | payer MEDICARE, MEDICAID, SELFPAY ==
[2023-08-31 09:28] LABS: Anion Gap 5 (5-15); BUN 33 mg/dL (7-18); BUN/Creat Ratio 5.7 RATIO (10-20); Calcium,Total 8.9 mg/dL (8.5-10.1); Chloride 101 mmol/L (98-107); Creatinine, Serum 5.77 mg/dL (0.70-1.30); EST Glomerular Filtration Rate 10 mL/min (>60); Est Glom Filt Rate - Afr Amer 12 mL/min (>60); Glucose 85 mg/dL (74-106); Potassium 3.9 mmol/L (3.5-5.1); Sodium Level 138 mmol/L (136-145)
[2023-08-31 09:36] LABS: Hematocrit 31.7 % (40-54); Hemoglobin 10.6 g/dL (13.0-16.5); Mean Corp Hgb Conc 33.4 g/dL (32-36); Mean Corpuscular Hgb 33.4 pg (27.0-32.0); Mean Platelet Vol. 10.9 fl (6.2-12.0); Platelet Count 107 K/mm3 (150-450); RBC Distribution Width CV 14.9 % (11.6-14.6); RBC Distribution Width SD 54.3 fl (35.1-43.9); Red Blood Count 3.17 M/mm3 (4.6-6.2); White Blood Count 5.6 K/mm3 (4.4-11.0)
== END ==
LOC: OLS.ACW100 06:52
PROVIDERS: Referring Provider Internal Medicine; Visit Provider Internal Medicine
DX: N18.6 End stage renal disease (principal); R41.82 Altered mental status, unspecified; M62.81 Muscle weakness (generalized); R26.81 Unsteadiness on feet; R27.9 Unspecified lack of coordination; R41.841 Cognitive communication deficit
CPT/HCPCS: 36415; 80048; 85027

== ENCOUNTER → 2023-10-28 05:00 | Outpatient (REF) | payer MEDICARE, MEDICAID, SELFPAY ==
[2023-10-28 08:31] LABS: Hematocrit 33.6 % (40-54); Hemoglobin 10.9 g/dL (13.0-16.5); Mean Corp Hgb Conc 32.4 g/dL (32-36); Mean Corpuscular Volume 104.7 fL (80-94); Mean Platelet Vol. 11.2 fl (6.2-12.0); Platelet Count 115 K/mm3 (150-450); RBC Distribution Width CV 14.8 % (11.6-14.6); RBC Distribution Width SD 56.3 fl (35.1-43.9); Red Blood Count 3.21 M/mm3 (4.6-6.2); White Blood Count 6.1 K/mm3 (4.4-11.0)
[2023-10-28 09:40] LABS: ALB/GLOB Ratio 0.8 RATIO (0.9-2.4); AST(SGOT) 8 U/L (15-37); Alanine Aminotransfer ALT/SGPT 21 U/L (16-61); Albumin, Serum 2.9 g/dL (3.2-5.0); Alkaline Phosphatase 96 U/L (45-117); Anion Gap 7 (5-15); BUN 22 mg/dL (7-18); BUN/Creat Ratio 4.4 RATIO (10-20); Calcium,Total 10.3 mg/dL (8.5-10.1); Chloride 101 mmol/L (98-107); Cholesterol 93 mg/dL (200); Creatinine, Serum 5.03 mg/dL (0.70-1.30); EST Glomerular Filtration Rate 12 mL/min (>60); Est Glom Filt Rate - Afr Amer 14 mL/min (>60); Globulin 3.7 g/dL (2.2-4.2); Glucose 87 mg/dL (74-106); High Density Lipoprotein 36 mg/dL; Potassium 4.2 mmol/L (3.5-5.1); Protein, Total 6.6 g/dL (6.4-8.2); Sodium Level 138 mmol/L (136-145); Triglycerides 129 mg/dL; Very Low Density Lipoprotein 26 mg/dL (5-40)
== END ==
LOC: OLS.ACW100 05:00
PROVIDERS: Visit Provider Internal Medicine
DX: N18.6 End stage renal disease (principal); R41.82 Altered mental status, unspecified; R47.1 Dysarthria and anarthria; R53.1 Weakness; R53.81 Other malaise; R53.83 Other fatigue; M62.81 Muscle weakness (generalized); R26.81 Unsteadiness on feet
CPT/HCPCS: 36415; 80053; 80061; 85027

== ENCOUNTER → 2024-03-30 05:00 | Outpatient (REF) | payer MEDICARE, MEDICAID, SELFPAY ==
[2024-03-30 09:08] LABS: ALB/GLOB Ratio 0.8 RATIO (0.9-2.4); AST(SGOT) 8 U/L (15-37); Alanine Aminotransfer ALT/SGPT 15 U/L (16-61); Albumin, Serum 3.1 g/dL (3.2-5.0); Alkaline Phosphatase 79 U/L (45-117); Anion Gap 10 (5-15); BUN 30 mg/dL (7-18); BUN/Creat Ratio 4.5 RATIO (10-20); Chloride 94 mmol/L (98-107); Creatinine, Serum 6.66 mg/dL (0.70-1.30); EST Glomerular Filtration Rate 9 mL/min (>60); Est Glom Filt Rate - Afr Amer 10 mL/min (>60); Glucose 157 mg/dL (74-106); Protein, Total 7.1 g/dL (6.4-8.2); Sodium Level 135 mmol/L (136-145)
[2024-03-30 09:23] LABS: Hematocrit 35.2 % (40-54); Mean Corp Hgb Conc 34.1 g/dL (32-36); Mean Corpuscular Hgb 34.5 pg (27.0-32.0); Mean Corpuscular Volume 101.1 fL (80-94); Mean Platelet Vol. 11.1 fl (6.2-12.0); Platelet Count 122 K/mm3 (150-450); RBC Distribution Width CV 14.1 % (11.6-14.6); RBC Distribution Width SD 50.4 fl (35.1-43.9); Red Blood Count 3.48 M/mm3 (4.6-6.2); White Blood Count 6.6 K/mm3 (4.4-11.0)
== END ==
LOC: OLS.ACW100 05:00
PROVIDERS: Visit Provider Internal Medicine
DX: N18.6 End stage renal disease (principal); R41.82 Altered mental status, unspecified; R47.1 Dysarthria and anarthria; R53.1 Weakness; R53.81 Other malaise; R53.83 Other fatigue; M62.81 Muscle weakness (generalized); R26.81 Unsteadiness on feet
CPT/HCPCS: 36415; 80053; 85027